=== PATIENT | female | born 1955 | race African-American/Black ===

== ENCOUNTER → 2016-03-24 | Outpatient (REF) | payer OTHER ==
[~2016-03-24] MED LIST: *MAMMOGRAM; *MAMMOGRAM -; *XRAY -; /AMLO25TA PO; /BACL20TA PO; ACCUPRIL20 PO; ACET-654 PO; ACET25TA PO; ACET50TA PO; ACET50TAOT PO; ACUL0.5S OS; ALTACE10 PO; AMIT50TA PO; AMIT50TA4 PO; AMIT75TA PO; AMITRIP10 PO; AMITRIP25 PO; AMITRIP50 PO; AMLO10TA PO; AMLO10TA2 PO; AMMO12CR4 TOP; AMO500 PO; AMOX875T2 PO; ANAPROX DS PO; ASPI1TAB PO; ASPI81TA7 PO; ASPI81TAEC PO; ATARAX25 PO; ATEN25TA PO; ATENOL25 PO; ATOR1TAB18 PO; AVAP150T31 PO; AVON1KIT3 IM; BACL10TA2 PO; BUSP1TAB PO; BUTA-198 PO; CARV12.5 PO; CARV25TA PO; CHLO25TA PO; CILO0.3S OS; CIPR500T89 PO; CITA10TA2 PO; CLOP75TA2 PO; DARVOCET-N PO; DOXY100T PO; DOXY10CA PO; DULC10SU9 PR; ENAL20TA PO; ESTR62CR PV; FERR325T PO; FERR325T3 PO; FERROUS325 PO; FIOR1CAP PO; FIORINAL PO; FLAG500T PO; FLAGYL500 PO; GABA-283 PO; GABA600T PO; GLIM2TAB PO; GLUCCOSEAC TOPICAL; GLUCOPH500 FOR SUGAR; GLUCOPH850 PO; GLUCOPXR5; GLUCOSE TEST; GLUCULTRA TOPICAL; GLYBURIDE5 PO; HCTZ25 PO; HUMULINN SC; HYDR-3716 PO; HYDR-4266 PO; HYDR100T13 PO; HYDR25TAB PO; HYDROD25 PO; IRBE75TA5 PO; KEPP250T5 PO; LANCMIS; LIPITOR10 PO; LIPITOR20 PO; LIPITOR40 PO; LIPITOR80 PO; LOPRESS50 PO; LOSA100T36 PO; LOVE1INJ SC; MAGN400T5 PO; MECL12.575 PO; MECL25CH PO; MELO15TA3 PO; MELO15TA4 PO; METF850T PO; MOTRIN6 PO; NEUR300C PO; NEURONTIN1 PO; NEURONTIN3 PO; NEURONTIN6 PO; NEURONTIN8 PO; NITR4TASL SL; ORTHOTRI PO; PANT40TA2 PO; PRAV40TA2 PO; PREDOPD OD; PREVACID15 PO; PREVACID30 PO; PRIM125TAB PO; PRIM250T5 PO; PROT1TAB2 PO; PROTONIX40 PO; SENN1TAB4 PO; SENO8.6T10 PO; SPIR25TA2 PO; SYR.5; SYRINS1CC SUBQ; TIGAN PO; TIZA4CAP3 PO; TOPA100T PO; TOPA50TA7 PO; TYLE325T5 PO; TYLE650T30 PO; ULTRAM50 PO; VALA500T PO; VALT1TAB PO; VALT500T PO; VASO20TA11 PO; VASOTEC PO; VERA40TA PO; VICO5TAB16 PO; VICO7.5T11 PO; VICODIN PO; VITA10002 PO; VITA100072 PO; VITA100L PO; VOLT1GEL24 TD; WELLBSR150 PO; XANAX0.5 PO; ZOLOFT100 PO; ZOLOFT50 PO; [UNRECOGNIZED DRUG - CODE] INJ; [UNRECOGNIZED DRUG - CODE] PO; [UNRECOGNIZED DRUG - CODE] PO; [UNRECOGNIZED DRUG - CODE] PO; [UNRECOGNIZED DRUG - OTHER]; [UNRECOGNIZED DRUG - OTHER]
[2016-03-24 16:05] LABS: BASO # 0.1 K/mm3 (0.0-0.2); BASO % 1.2 % (0.0-1.0); EOS # 0.1 K/mm3 (0.0-0.50); EOS % 1.6 % (0.0-3.0); LARGE UNSTAINED CELL # 0.2 K/mm3 (0.0-0.4); LARGE UNSTAINED CELL % 3.2 % (0.0-4.0); LYMPH # 2.6 K/mm3 (1.5-4.5); LYMPH % 35.6 % (24.0-44.0); MEAN CORPUSCULAR HEMOGLOBIN 28.8 pg (27.0-33.0); MEAN CORPUSCULAR HGB CONC 31.9 g/dl (32.0-36.5); MEAN CORPUSCULAR VOLUME 90.5 fl (80.0-96.0); MONO # 0.8 K/mm3 (0.0-0.8); MONO % 12.1 % (0.0-5.0); NEUTROPHILS # 3.1 K/mm3 (1.8-7.7); NEUTROPHILS % 46.2 % (36.0-66.0); PLATELET COUNT, AUTOMATED 306 k/mm3 (150-450); RED CELL DISTRIBUTION WIDTH 16.2 % (11.5-14.5); WHITE BLOOD COUNT 6.6 K/mm3 (4.0-10.0)
[2016-03-24 18:00] LABS: CALCIUM LEVEL 9.3 MG/DL (8.5-10.1); CREATININE FOR GFR 1.62 MG/DL (0.55-1.02); GLOMERULAR FILTRATION RATE 41.9 (>51); PERCENT SATURATION 26.4 % (13.2-37.4); POTASSIUM SERUM 4.8 MEQ/L (3.5-5.1)
== END | disposition home or self-care (01) ==
LOC: M SFHCPLAZ 14:37
PROVIDERS: ATTEND Physician Assistant Medical
DX: N18.3 Chronic kidney disease, stage 3 (moderate) (principal); E87.5 Hyperkalemia

== ENCOUNTER → 2016-05-27 | Outpatient (REF) | payer OTHER ==
[2016-05-27 18:43] LABS: ALBUMIN 4.3 GM/DL (3.2-5.2); ALBUMIN/GLOBULIN RATIO 0.93 (1.00-1.93); BILIRUBIN,TOTAL 0.3 MG/DL (0.2-1.0); CALCIUM LEVEL 9.4 MG/DL (8.5-10.1); CREATININE FOR GFR 1.98 MG/DL (0.55-1.02); GLOMERULAR FILTRATION RATE 33.3 (>51); PERCENT SATURATION 23.2 % (13.2-37.4); POTASSIUM SERUM 4.9 MEQ/L (3.5-5.1); TOTAL PROTEIN 8.9 GM/DL (6.4-8.2)
[2016-05-27 19:08] LABS: BASO % 0.5 % (0.0-1.0); EOS # 0.1 K/mm3 (0.0-0.50); LARGE UNSTAINED CELL # 0.2 K/mm3 (0.0-0.4); LARGE UNSTAINED CELL % 2.5 % (0.0-4.0); LYMPH # 2.9 K/mm3 (1.5-4.5); LYMPH % 40.8 % (24.0-44.0); MEAN CORPUSCULAR HEMOGLOBIN 29.1 pg (27.0-33.0); MEAN CORPUSCULAR HGB CONC 31.2 g/dl (32.0-36.5); MEAN CORPUSCULAR VOLUME 93.2 fl (80.0-96.0); MONO # 0.6 K/mm3 (0.0-0.8); MONO % 9.1 % (0.0-5.0); NEUTROPHILS % 46.1 % (36.0-66.0); PLATELET COUNT, AUTOMATED 298 k/mm3 (150-450); RED CELL DISTRIBUTION WIDTH 14.1 % (11.5-14.5); WHITE BLOOD COUNT 6.6 K/mm3 (4.0-10.0)
[2016-05-27 19:14] LABS: INR 1.01
== END ==
LOC: M SFHCPLAZ 14:40
PROVIDERS: ATTEND Family Medicine
DX: E11.8 Type 2 diabetes mellitus with unspecified complications (principal); D50.9 Iron deficiency anemia, unspecified

== ENCOUNTER → 2016-07-02 | Outpatient (CLI) | payer OTHER ==
--- NOTE | 2016-07-13 00:43 | ECWPNPC ---
PATIENT NAME: LUL MORGAN : 1955 GENDER: FEMALE VISIT DATE: 07/02/2016 DISCHARGE DATE: 07/02/16 1435 VISIT LOCKED DATE TIME: PHYSICIAN: GAIL GILLETTE PHYSICIAN PAGER NO: [phone] RESOURCE: GAIL GILLETTE REASON FOR APPOINTMENT 1. BACK PAIN HISTORY OF PRESENT ILLNESS GENERAL: 60 Y/O FEMALE REFERRED BY DR. VALENCIA FOR EVAUATION OF CHRONIC NECK AND LOW BACK PAIN.PAIN BEGAN SEVERAL YEARS AGO.PAIN HAS GOTTEN WORSE OVER THE PAST YEAR.TRIALED ACETAMINOPHEN 1000MG TID X6 MONTHS WITHOUT IMPROVEMENT.NO NSAIDS DUE TO PLAVIX THERAPY.PT TRIALED ONE YEAR AGO AND PATIENT STATES MADE PAIN WORSE.USING TIZANIDINE 4MG ,2 TABLETS THREE TIMES DAILY OVER THE PAST 2 MONTHS IS NOT HELPING.DIAGNOSED WITH MULTIPLE SCLEROSIS 5 YEARS AGO.REPORTING POOR SLEEP AT NIGHT DUE TO SEVERE MUSCLE SPASMS.RATING PAIN VAS 9/10. NEW PATIENT CONSULT: WHEN DID YOUR PAIN FIRST START? . BRIEFLY DESCRIBE HOW YOUR PAIN STARTED? . HOW DOES YOUR PAIN CHANGE WITH TIME? . DOES YOUR PAIN AWAKEN YOU FROM SLEEP? . HOW MANY HOURS OF SLEEP DO YOU NORMALLY GET? . ANY DIAGNOSTIC TESTING? . FACILITY WHERE TESTS WERE DONE? ____. PAIN TREATMENT TREATMENT YES CANCER HAVE YOU EVER HAD ANY TYPE OF CANCER?NO NO. PAIN SCREENING: PATIENT HAS A COMPLAINT OF ACUTE OR CHRONIC PAIN :YES FALL RISK SCREENING: SCREENING :NO FALLS IN THE PAST YEAR [place] INVENTORY: QUESTIONNAIRE ASSESSEDTBD SCORE VALUE CALCULATED TBD CURRENT MEDICATIONS TAKING ASPIRIN 81 MG TABLET 1 TAB(S) ORALLY ONCE A DAY TAKING NITROGLYCERIN 0.4 MG TABLET SUBLINGUAL DIRECTED SUBLINGUAL PRN CHEST PAIN TAKING PROTONIX 40 MG TABLET DELAYED RELEASE 1 TABLET ORALLY ONCE A DAY TAKING FERROUS SULFATE 325 (65 FE) MG TABLET 1 TABLET ORALLY THREE TIMES A DAY TAKING VITAMIN B12 1000 MCG TABLET 1 TABLET ORALLY ONCE A DAY TAKING VALTREX 500 MG TABLET 1 TABLET ORALLY TWICE A DAY X 7 DAYS C FLARES TAKING LIPITOR 80 MG TABLET 1 TABLET ORALLY ONCE A DAY TAKING WHEELCHAIR ELECTRONIC MISCELLANEOUS DIRECTED TAKING LEVETIRACETAM 250 MG TABLET ORALLY TWICE A DAY TAKING AVONEX 30 MCG KIT 1 INTRAMUSCULAR WEEKLY-YVAN TAKING GLUCOSE BLOOD 1 STRIP GE TEST STRIPS ICD: E11.8 FSBS THREE TIMES DAILY NEEDED TAKING SENOKOT S 8.6-50 MG TABLET 1 TABLET IN THE EVENING NEEDED ORALLY TWICE A DAY TAKING PREMARIN 0.625 MG/GM CREAM DIRECTED VAGINAL DAILY FOR THREE WEEKS, 1 WEEK OFF TAKING PC LANCETS SUPER THIN 30G - MISCELLANEOUS USE TWICE A DAY DIRECTED TAKING SITZ BATH - MISCELLANEOUS DIRECTED _ BID TAKING EPSOM SALT - POWDER I1 CAPFUL IN SITZ BATH DIRECTED TOPICALLY BID TAKING CARVEDILOL 25 MG TABLET 1 1/2 TAB ORALLY BID TAKING LANCETS _ MISCELLANEOUS DIRECTED INTRADERMALLY TWICE A DAY DX:E11.8 TAKING TRAZODONE HCL 50 MG TABLET 1 TABLET AT BEDTIME NEEDED ORALLY ONCE A DAY TAKING NORVASC 10 MG TABLET 1 TABLET ORALLY ONCE A DAY TAKING MAGNESIUM OXIDE 400 MG CAPSULE 2 CAPSULES ORALLY DAILY TAKING BD PEN NEEDLE SHORT U/F 31G X 8 MM MISCELLANEOUS DIRECTED SUBCUTANEOUSLY BEFORE BEDTIME TAKING SPIRONOLACTONE 25 MG TABLET 1 TABLET ORALLY TWICE DAILY TAKING PLAVIX 75 MG TABLET 1 TABLET ORALLY ONCE A DAY TAKING BLOOD GLUCOSE TEST - STRIP 1 STRIP ONE TOUCH VERIO AC 3X/DAY TAKING ONETOUCH VERIO W/DEVICE KIT DIRECTED TAKING NORVASC 10 MG TABLET 1/2 TABLET ORALLY ONCE A DAY TAKING FRANK SOLOSTAR 300 UNIT/ML SOLUTION PEN-INJECTOR 50 UNITS SUBCUTANEOUS QHS TAKING AMARYL 4 MG TABLET 1 TABLET WITH BREAKFAST OR THE FIRST MAIN MEAL OF THE DAY ORALLY BID TAKING ONETOUCH VERIO - STRIP DIRECTED IN VITRO THREE TIMES DAILY TAKING TIZANIDINE HCL 4 MG TABLET 2 TABS ORALLY EVERY 8 HRS TAKING GABAPENTIN 600 MG TABLET 1 CAPSULE ORALLY THREE TIMES A DAY-YVAN TAKING ACETAMINOPHEN 500 MG CAPSULE 1 CAPSULES NEEDED ORALLY TID TAKING [id number] 50-325-40 MG TABLET TAKE ONE TABLET BY MOUTH EVERY DAY TAKING CHLORTHALIDONE 25 25 MG TABLET ORAL DAILY NOT-TAKING PRIMIDONE 250 MG TABLET 1 TABLET ORALLY TWICE A DAY NOT-TAKING BUSPIRONE HCL 15 MG TABLET 1 TABLET ORALLY TWICE A DAY NOT-TAKING CARVEDILOL 25 MG TABLET 1 1/2 TAB ORALLY BID PAST MEDICAL HISTORY ANEMIA, IRON DEFICIENCY-11/2010 COLONOSCOPY-INTERNAL/EXTERNAL HEMORRHOIDS/SIGMOID DIVERTICOLOSIS-[facility] HYPERTENSION-MILD CONCENTRIC LVH, MILD TR, GARDE 1 DIASTOLIC BY 02/2016 TTE-ADOLFO HYPERLIPIDEMIA 2B MIGRAINE HEADACHES, COMMON TYPE MULTIPLE SCLEROSIS-11/2011 MRI BRAIN, CERVICAL,THORACIC SPINEC SCATTERED T2 PUNCTATE AREAS IN PERIVENTRICULAR, SUBCORTICAL WHITE MATTER BRAIN, C3-7SPONDYLOSIS MINIMAL C6/7 CORD COMPRESSION, T12/12 BULGE C NO CORD LESIONS GERD 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 ELVIA PUGH, [facility], [facility]/03/21/15 SPECT NUCLEAR STRESS TEST LVEF 62%, S ICHEMIA, LOW RISK-SLEZKA H/O SUBCLINICAL HYPERTHYROIDISM PSEUDOTUMOR CEREBRI/IDIOPATHIC INTRACRANIAL HYPERTENSION CERVICAL/THORACIC/LUMBAR DJD-08/02/14 MRI SERIES C C6/7 CCS C CORD COMPRESSION, MULTI-LEVEL BULGES-MINIMAL CHANGE C/W 11/30/11, MODERATE L4-1 MODERATE CCS, MODERATE T11/12 BULGE S COMPRESSION CKD 3-05/2015 US C MRD S EL SEIZURE DISORDER ALLERGIES ACEI: COUGH: ALLERGY ZOLOFT: NAUSEA/VOMITING: SIDE EFFECTS SULFA (FOR ALLERGY USE ONLY): HIVES: ALLERGY CODEINE SULFATE: MAKES HER ITCH: SIDE EFFECTS PERCOCET: HIVES: ALLERGY NORTRIPTYLINE HCL: HALLUCINTIONS: CONTRAINDICATION SURGICAL HISTORY C SECTION 1978, 1979 REMOVAL OF LEFT SUBMANDIBULAR GLAND DUCT STONE-SAHIL OCTOBER 2007 EMB 2006 D&C HYSTEROSCOPY BTL RIGHT EYE CATARACT SURGERY DR. VICTORIA 04/14/15 LEFT EYE CATARACT SURGERY 05/12/15 FAMILY HISTORY FATHER: DM MOTHER: , UNKNOWN SIBLINGS: SISTER DM MATERNAL GRAND FATHER: , CANCER DAUGHTER- TADEO. SOCIAL HISTORY GENERAL: TOBACCO USE ARE YOU A:NONSMOKER BMI CARE GOAL FOLLOW-UP ABOVE NORMAL BMI FOLLOW-UPGIVING ENCOURAGEMENT TO EXERCISE ALCOHOL SCREENING DID YOU HAVE A DRINK CONTAINING ALCOHOL IN THE PAST YEAR?YES HOW OFTEN DID YOU HAVE A DRINK CONTAINING ALCOHOL IN THE PAST YEAR?NEVER (0 POINTS) HOW OFTEN DID YOU HAVE SIX OR MORE DRINKS ON ONE OCCASION IN THE PAST YEAR?NEVER (0 POINTS) POINTS0 INTERPRETATIONNEGATIVE RECREATIONAL DRUG USE DENIES. CAFFEINE 1-2/DAY. SEXUAL HX HAD SEX IN THE LAST 12 MONTHS (VAGINAL, ORAL, OR ANAL)?NO HAVE YOU EVER HAD AN STD?NO HIV / HEP-C SCREENING HIV TEST OFFERED TO PATIENT:YES DATE OFFERED:05/27/2016 TEST ACCEPTED:YES BEEN TESTED IN [facility] PAST HEP-C TEST OFFERED TO PATIENT:YES DATE OFFERED:05/27/2016 TEST ACCEPTED:YES BEEN T [employer] IN THE PAST OCCUPATION: UNEMPLOYED X20YRS. 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 DIET: NO HISTORY OF ED. EXERCISE: NO REGULAR EXERCISE. MARITAL STATUS: . OTHERS AT HOME: SPOUSE. LEARNING BARRIERS / SPECIAL NEEDS BARRIERS TO LEARNING?NO HEARING IMPAIRED?NO VISION IMPAIRED?YES :CORRECTIVE LENSES COGNITIVELY IMPAIRED?NO READINESS TO LEARN?YES LEARNING PREFERENCES?NO LEARNING CAPABILITIES PRESENT?YES EMOTIONAL BARRIERS?NO SPECIAL DEVICES?YES :WALKER, OTHER ELECTRIC SCOOTER PAIN CLINIC PFS, CLERGY, PUBLIC HEALTH REFERRALS CLERGY REFERRAL NEEDED?NO WAS THE PROVIDER NOTIFIED OF ANY PERTINENT INFO?NO PFS REFERRAL NEEDED?NO PUBLIC HEALTH REFERRAL NEEDED?NO PATIENT: ____. 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 HOSPITALIZATION/MAJOR DIAGNOSTIC PROCEDURE MS FLARE-TREATED C SOLUMEDROL 1000 MG IV QD X 5D PER DR. SANTORO RECOMMENDATION, -BCX X3, - UCX, STABLE T2 PUNCTATIONS C/W 11/2011 MRI, -RLE DVT US, - CXR, UDS + TCA, BARBS, THC 02/23- NEW ONSET BLE WEAKNESS/ATAXIA-RESOLVED BY DAY OF DISCHARGE C REDUCTION OF BACLOFEN TO 5 TID AND AMITRITYLINE 50 BID TO 75 QHS-DR. ROBERTS[facility] PER (CAMILA C6/7 COMPRESSION), CXR NAD, MRI BRAIN C VERY MINIMLA PROGRESSION 08/02- LETHARGY/ATAXIA-? 2 DEHYDRATION, MEDICATIONS DR. MCDUFFIE FELT "MULTIFACTORIAL GAIT DIFFICULTY", UDS + PHENOBARB, BCX -2/- UCX, TRANSFERRED TO [facility] 2 UNSTABLE ANGINA 12/12-9/15 PANCREATITIS 05/05-05/09 HYPERTENSIVE URGENCY -05/15/2015 UTI- IN [facility] 10/2015 LYNDSEY C PEAK CR 2.2, K 6.2-FELT 2 DEHYDRATION/HYPOTENSION-RENAL US/CT AP C/W MRD 02/24- REVIEW OF SYSTEMS CONSTITUTIONAL: RECENT ILLNESS ADMITS HAD A UTI AND HOSPITALIZED IN [facility], DUE TO COMPLICATIONS . ANY CHANGE IN YOUR MEDICAL CONDITION? NO . CHILLS NO . FEVER DENIES, NO . WEIGHT LOSS DENIES . INFECTION: DO YOU HAVE NEW INFECTIONS? YES . DO YOU HAVE HISTORY OF MRSA? NO . MUSCULOSKELETAL: ANY NEW PATTERNS OF PAIN OR NUMBNESS? YES PAIN INCREASED AND UNABLE TO STAND FOR ANY AMOUNT OF TIME, PT HAS A DX OF MS . SYTEMIC LUPUS NO . JOINT PAIN DENIES . JOINT STIFFNESS DENIES . GASTROENTEROLOGY: BOWEL INCONTINENCE DENIES . ANY NEW CHANGE IN BOWEL CONTROL? NO . BARRETTS ESOPHAGUS NO . CIRRHOSIS NO . HEPATITIS NO . LIVER FAILURE NO . ACID REFLUX NO . BLOOD IN STOOL DENIES . UNEXPLAINED WEIGHT LOSS NO . GENITOURINARY: ANY NEW CHANGE IN BLADDER CONTROL? NO . IS THERE A CHANCE YOU COULD BE ? NO . HEMATOLOGY/LYMPH: DENIES . BLEEDING DISORDER DENIES . DO YOU TAKE ANY BLOOD THINNERS? (FOR EXAMPLE- COUMADIN, PLAVIX, AGGRENOX, PLATEL, PRADAXA, OR XARELTO) NO . WHEN WAS YOUR LAST DOSE? DATE: TIME: . LOW PLATELET COUNT NO . SICKLE CELL DISEASE NO . VON WILLIEBRANDS NO . FACTOR V LEIDEN NO . THALLASEMIA NO . ANEMIA NO, CHRONIC . EASY BRUISING NO . NEUROLOGY: HAVE YOU FALLEN IN THE PAST 6 MONTHS? YES PT HAS MS . ANY NEW EXTREMITY NUMBNESS OR WEAKNESS? NO . HEAD INJURY NO . DEMENTIA NO . CEREBRAL PALSY NO . MULTIPLE SCLEROSIS NO . DIZZINESS NO . HEADACHE DENIES, NO . SEIZURES DENIES . STROKES NO . VERTIGO NO . CARDIOLOGY: DO YOU HAVE A PACEMAKER OR DEFIBRILLATOR? NO . ANGINA NO . HEART ATTACK NO . HEART SURGERY NO . CONGESTIVE HEART FAILURE/FLUID OVERLOAD NO . CHEST PAIN DENIES, NO . HIGH BLOOD PRESSURE ON MEDICATION(S) . IRREGULAR HEART BEAT NO . SHORTNESS OF BREATH DENIES . RESPIRATORY: HAVE YOU BEEN SICK IN THE PAST WEEK? NO . FEVER NO . FLU LIKE SYMPTOMS? NO . CPAP NO . BYPAP NO . ASTHMA NO . EMPHYSEMA NO . CHRONIC LUNG DISEASES NO . SHORTNESS OF BREATH ON EXERTION NO . DO YOU USE ANY TYPE OF TOBACCO (SMOKE, SMOKELESS, CHEW)? NO . COUGH DENIES, NO . SHORTNESS OF BREATH DENIES . SNORING NO . INTEGUMENTARY: DO YOU HAVE ANY RASHES OR OPEN SORES? NO . ALLERGIC/IMMUNO: ARE YOU ALLERGIC TO SHELLFISH OR IV DYE? NO . ANY NEW ALLERGIES? NO . PSYCHIATRIC: DO YOU HAVE THOUGHTS OF HURTING YOURSELF OR SOMEONE ELSE? NO . ARE YOU ABUSED, NEGLECTED, OR IN AN UNSAFE ENVIRONMENT? NO . ENDOCRINOLOGY: THYROID DISEASE DENIES . ARE YOU DIABETIC? YES . DIABETES DENIES . THYROID DISORDER NO . OTHER: DO YOU NEED ANY PRESCRIPTIONS? NO . IF YES, PLEASE LIST: ____ . ANY NEW PROBLEMS WITH YOUR MEDICATIONS? NO . WHEN DID YOU LAST EAT? ____ . WHEN DID YOU LAST DRINK? ____ . WHAT DID YOU LAST DRINK? ____ . NAME OF PERSON DRIVING YOU HOME? ____ . DO YOU HAVE ANY OTHER QUESTIONS OR CONCERNS NO . HEENT: CHANGE IN VISION DENIES . LOSS OF HEARING DENIES . TROUBLE SWALLOWING DENIES . PSYCHOLOGY: ANXIETY DENIES . DEPRESSION DENIES . UROLOGY: URINARY INCONTINENCE DENIES . BLOOD IN URINE DENIES . REVIEWED BY: PROVIDER: GAIL WALDEN . EXAMINATION GENERAL EXAMINATION: HEENT:HEAD:, NORMOCEPHALIC, EYES:, EYES NORMAL, NOSE:, NOSE CLEAR, THROAT: NORMAL. LUNGS:LUNG SOUNDS ARE CLEAR. HEART:HEART RATE REGULAR. ABDOMEN:SOFT AND NOT TENDER, NON-DISTENDED. MUSCULOSKELETAL:*. LUMBAR SACRAL SPINEMUSCLE STRENGTH TESTING 5/5 BLE. PALPATION: + FOR PAIN OVER L/S SPINE. + FOR PAIN OVER L/S PARASPINALS.SPECIFICPOINT TENDERNESS OVER BILATERAL SIJ R>L. THORACIC SPINENEGATIVE FOR PAIN WITH PALPATION OF THORACIC SPINE. NEGATIVE FOR PAIN WITH PALPATION OF THORACIC PARASPINAL. CERVICALNEGATIVE FOR PAIN WITH PALPATION OF CERVICAL SPINE. NEGATIVE FOR PAIN WITH PALPATION OF CERVICAL PARASPINALS. NEGATIVE FOR PAIN WITH PALPATION OF TRAPEZIUS BILAT. SKIN:NORMAL, NO RASH. NEUROLOGIC EXAM:ALERT AND ORIENTED X 3, DTRS 1-2+ IN ALL 4 EXTREMITIES, DENIES UPPER EXTREMETIES SENSORY LOSS, DENIES LOWER EXTREMETIES SENSORY LOSS. DIAGNOSTIC:MRI L/S ELEOT-45-28-15-REVIEWED.. ASSESSMENTS LUMBAR FACET ARTHROPATHY - M12.88 (PRIMARY) SACROILIAC JOINT PAIN - M53.3 MULTIPLE SCLEROSIS - G35 TREATMENT LUMBAR FACET ARTHROPATHY START CYMBALTA CAPSULE DELAYED RELEASE PARTICLES, 30 MG, 1 CAPSULE, ORALLY, DAILY, 30 DAY(S), 30 CAPSULE, REFILLS 2 NOTES: HAVE DR. VALENCIA CONTACT GAIL WALDEN OR DR. CR REGARDING USE OF NARCOTIC PAIN MEDICATION. [phone]-PICK OPTION #4 DR. CHO. OTHERS CLINICAL NOTES: ISTOP REGISTRY REVIEWED. PROCEDURE CODES FA211 ESTABILISHED PATIENT [facility] CHARGE DISPOSITION & COMMUNICATION FOLLOW UP 6 WEEKS ELECTRONICALLY SIGNED BY WIN BROWN ON 07/12/2016 AT 05:03 PM EDT DISCLAIMER : THIS IS A VISIT SUMMARY EXTRACTED FROM THE [employer] CHART. IT IS NOT A COPY OF THE [employer] PROGRESS NOTE. MTDD
== END ==
LOC: M PAIN 13:20
PROVIDERS: ATTEND Nurse Practitioner Family
DX: G89.29 Other chronic pain (principal); M54.2 Cervicalgia; M12.88 Other specific arthropathies, not elsewhere classified, other specified site; M53.3 Sacrococcygeal disorders, not elsewhere classified; G35 Multiple sclerosis; M54.5 Low back pain; D50.9 Iron deficiency anemia, unspecified; I12.9 Hypertensive chronic kidney disease with stage 1 through stage 4 chronic kidney disease, or unspecified chronic kidney disease; E78.5 Hyperlipidemia, unspecified; G43.009 Migraine without aura, not intractable, without status migrainosus; K21.9 Gastro-esophageal reflux disease without esophagitis; G25.0 Essential tremor; E11.40 Type 2 diabetes mellitus with diabetic neuropathy, unspecified; E11.21 Type 2 diabetes mellitus with diabetic nephropathy; E11.22 Type 2 diabetes mellitus with diabetic chronic kidney disease; I25.10 Atherosclerotic heart disease of native coronary artery without angina pectoris; N18.3 Chronic kidney disease, stage 3 (moderate); G40.909 Epilepsy, unspecified, not intractable, without status epilepticus; Z79.82 Long term (current) use of aspirin; Z79.02 Long term (current) use of antithrombotics/antiplatelets; Z79.899 Other long term (current) drug therapy; Z88.2 Allergy status to sulfonamides; Z88.5 Allergy status to narcotic agent; Z88.8 Allergy status to other drugs, medicaments and biological substances

== ENCOUNTER → 2016-07-16 | Outpatient (CLI) | payer OTHER ==
--- NOTE | 2016-07-16 13:08 | REPMRS ---
Patient History The patient states she has not had a clinical breast exam in over a year. Patient is postmenopausal. Family history of colorectal cancer in sister at age 50 or over and prostate cancer in maternal cousin at age 50 or over. Digital Woman Screen Mammo: July 16, 2016 - Exam #: [id number] Bilateral CC and MLO view(s) were taken. Technologist: Helena Lindo, Technologist Prior study comparison: July 16, 2015, digital woman screen mammo performed at [facility]. December 12, 2013, digital woman screen mammo performed at [facility]. FINDINGS: The breast tissue is heterogeneously dense. This may lower the sensitivity of mammography. There has been no change in the appearance of the mammogram from the prior studies. There is a moderate amount of residual fibroglandular tissue which is fairly symmetric. There is no interval development of dominant mass, areas of architectural distortion, or clustered microcalcification typical of malignancy. ASSESSMENT: BI-RADS/ACR category 1 mammogram. Negative. Recommendation Routine screening mammogram in 1 year (for women over age 40). This mammogram was interpreted with the aid of an FDA-approved computer-aided dectection system. Electronically Signed By: Devon Colón MD 07/16/16 [id number]
== END ==
LOC: M WHC 10:37
PROVIDERS: ATTEND Family Medicine
DX: Z12.31 Encounter for screening mammogram for malignant neoplasm of breast (principal); Z78.0 Asymptomatic menopausal state; Z80.0 Family history of malignant neoplasm of digestive organs

== ENCOUNTER 2016-08-05 09:49 | Emergency (ER) | payer OTHER ==
[~2016-08-05] VITALS: Ht 152.4 cm; Wt 75.7 kg
[2016-08-05] MEDS ORDERED: TOUJ1.2I SC (10:04)
[2016-08-05] MEDS ORDERED: NS 500 ML IV ONE (11:30)
[2016-08-05 12:05] LABS: CALCIUM LEVEL 9.4 MG/DL (8.5-10.1); CREATININE FOR GFR 2.17 MG/DL (0.55-1.02); GLOMERULAR FILTRATION RATE 29.9 (>51); POTASSIUM SERUM 4.9 MEQ/L (3.5-5.1)
[2016-08-05] MEDS ORDERED: MORPHINE 2 MG/ML 1ML SYRINGE IV ONE ×2 (12:15→14:00)
--- NOTE | 2016-08-05 12:26 | REP ---
CT CERVICAL SPINE WITHOUT CONTRAST: HISTORY: Neck pain. There is no acute fracture or subluxation. Disc bulges with associated osteophyte formation are present at the C4-5 and C6-7 levels. A disc bulge is present at the C5-6 level. There is minimal narrowing of the spinal canal. Uncinate process hypertrophy is present at the C4-5 and C6-7 levels. This produces minimal narrowing of the neural foramina. The C5-6 and C6-7 intervertebral discs are decreased in height consistent with disc degeneration. Atherosclerotic calcification is present at the carotid bifurcations. Calcification is present in the right tonsil. This is secondary to previous inflammatory disease. IMPRESSION: There is cervical spondylosis at the C4-5 through C6-7 levels. Signed by Oliverio Odonnell MD 08/05/2016 12:30 P
[2016-08-05 12:39] LABS: BASO % 0.4 % (0.0-1.0); EOS # 0.1 K/mm3 (0.0-0.50); EOS % 1.3 % (0.0-3.0); LARGE UNSTAINED CELL # 0.1 K/mm3 (0.0-0.4); LARGE UNSTAINED CELL % 1.5 % (0.0-4.0); LYMPH # 1.7 K/mm3 (1.5-4.5); LYMPH % 26.1 % (24.0-44.0); MEAN CORPUSCULAR HEMOGLOBIN 30.9 pg (27.0-33.0); MEAN CORPUSCULAR HGB CONC 33.2 g/dl (32.0-36.5); MONO # 0.4 K/mm3 (0.0-0.8); MONO % 5.3 % (0.0-5.0); NEUTROPHILS # 4.3 K/mm3 (1.8-7.7); NEUTROPHILS % 65.4 % (36.0-66.0); PLATELET COUNT, AUTOMATED 299 k/mm3 (150-450); RED CELL DISTRIBUTION WIDTH 14.8 % (11.5-14.5); WHITE BLOOD COUNT 6.6 K/mm3 (4.0-10.0)
[2016-08-05 13:21] LABS: ALBUMIN 3.9 GM/DL (3.2-5.2); ALBUMIN/GLOBULIN RATIO 0.89 (1.00-1.93); ALKALINE PHOSPHATASE 53 U/L (45-117); ALT/SGPT 31 U/L (12-78); AST/SGOT 33 U/L (15-37); BILIRUBIN,DIRECT < 0.1 MG/DL (0.0-0.2); BILIRUBIN,TOTAL 0.4 MG/DL (0.2-1.0); TOTAL PROTEIN 8.3 GM/DL (6.4-8.2)
[2016-08-05] MEDS ORDERED: VICO5TAB16 PO (13:53)
[2016-08-05 14:28] VITALS: BP 154/83
== END 2016-08-05 14:29 | disposition home or self-care (01) ==
LOC: M ED 11:08
DX: R00.1 Bradycardia, unspecified (principal); M47.892 Other spondylosis, cervical region; E04.9 Nontoxic goiter, unspecified; I95.9 Hypotension, unspecified; E11.9 Type 2 diabetes mellitus without complications; I25.10 Atherosclerotic heart disease of native coronary artery without angina pectoris; G35 Multiple sclerosis; M19.90 Unspecified osteoarthritis, unspecified site; R56.9 Unspecified convulsions; Z95.5 Presence of coronary angioplasty implant and graft; Z87.891 Personal history of nicotine dependence; Z88.5 Allergy status to narcotic agent; Z88.2 Allergy status to sulfonamides; Z88.8 Allergy status to other drugs, medicaments and biological substances; Z79.899 Other long term (current) drug therapy; Z79.4 Long term (current) use of insulin

== ENCOUNTER → 2016-08-10 | Outpatient (CLI) | payer OTHER ==
[~2016-08-10] MED LIST changes: +TOUJ1.2I SC
--- NOTE | 2016-08-11 02:07 | ECWPNPC ---
PATIENT NAME: LUL MORGAN : 1955 GENDER: FEMALE VISIT DATE: 08/10/2016 DISCHARGE DATE: 08/10/16 1545 VISIT LOCKED DATE TIME: PHYSICIAN: GAIL GILLETTE PHYSICIAN PAGER NO: [phone] RESOURCE: GAIL GILLETTE HISTORY OF PRESENT ILLNESS HISTORY OF PRESENT ILLNESS: HERE FOR F/U OF CHRONIC GENERALIZED BACK PAIN.STARTED ON CYMBALTA 30MG DAILY AT LAST VISIT.REPORTS NO IMPROVEMENT IN PAIN.RATING PAIN VAS 8/10.PRIMARY CARE RECENTLY INCREASED GABAPENTIN.DESCRIBES PAIN ACHING AND BURNING.REVIEWED MEDICATION AND TREATMENT OPTIONS. PAIN THE PATIENT DESCRIBES THE PAIN... THE PATIENT DESCRIBES THE PAIN... FALL RISK SCREENING: SCREENING :NO FALLS IN THE PAST YEAR :NO FALLS IN THE PAST YEAR SCREENING :NO FALLS IN THE PAST YEAR :NO FALLS IN THE PAST YEAR CURRENT MEDICATIONS TAKING PROTONIX 40 MG TABLET DELAYED RELEASE 1 TABLET ORALLY ONCE A DAY TAKING FERROUS SULFATE 325 (65 FE) MG TABLET 1 TABLET ORALLY ONCE A DAY TAKING VITAMIN B12 1000 MCG TABLET 1 TABLET ORALLY ONCE A DAY TAKING VALTREX 500 MG TABLET 1 TABLET ORALLY TWICE A DAY X 7 DAYS C FLARES TAKING LIPITOR 80 MG TABLET 1 TABLET ORALLY ONCE A DAY TAKING WHEELCHAIR ELECTRONIC MISCELLANEOUS DIRECTED TAKING AVONEX 30 MCG KIT 1 INTRAMUSCULAR WEEKLY-YVAN TAKING SENOKOT S 8.6-50 MG TABLET 1 TABLET IN THE EVENING NEEDED ORALLY TWICE A DAY TAKING PREMARIN 0.625 MG/GM CREAM DIRECTED VAGINAL DAILY FOR THREE WEEKS, 1 WEEK OFF TAKING LANCETS _ MISCELLANEOUS DIRECTED INTRADERMALLY TWICE A DAY DX:E11.8 TAKING TRAZODONE HCL 50 MG TABLET 1 TABLET AT BEDTIME NEEDED ORALLY ONCE A DAY TAKING MAGNESIUM OXIDE 400 MG CAPSULE 2 CAPSULES ORALLY DAILY TAKING SPIRONOLACTONE 25 MG TABLET 1 TABLET ORALLY TWICE DAILY TAKING ONETOUCH VERIO - STRIP DIRECTED IN VITRO THREE TIMES DAILY TAKING [id number] 50-325-40 MG TABLET TAKE ONE TABLET BY MOUTH EVERY DAY TAKING TIZANIDINE HCL 4 MG TABLET 2 TABS ORALLY EVERY 8 HRS TAKING CYMBALTA 30 MG CAPSULE DELAYED RELEASE PARTICLES 1 CAPSULE ORALLY DAILY TAKING ACETAMINOPHEN 500 MG CAPSULE 1 CAPSULES NEEDED ORALLY TID TAKING GABAPENTIN 800 MG TABLET 1 TABLET ORALLY THREE TIMES A DAY TAKING LEVETIRACETAM 250 MG TABLET ORALLY TWICE A DAY TAKING GLUCOSE BLOOD 1 STRIP GE TEST STRIPS ICD: E11.8 FSBS THREE TIMES DAILY NEEDED TAKING PC LANCETS SUPER THIN 30G - MISCELLANEOUS USE TWICE A DAY DIRECTED TAKING BLOOD GLUCOSE TEST - STRIP 1 STRIP ONE TOUCH VERIO AC 3X/DAY TAKING ONETOUCH VERIO W/DEVICE KIT DIRECTED TAKING AMARYL 4 MG TABLET 1 TABLET WITH BREAKFAST OR THE FIRST MAIN MEAL OF THE DAY ORALLY BID TAKING CHLORTHALIDONE 25 25 MG TABLET ORAL DAILY TAKING ASPIRIN 81 MG TABLET 1 TAB(S) ORALLY ONCE A DAY TAKING NITROGLYCERIN 0.4 MG TABLET SUBLINGUAL DIRECTED SUBLINGUAL PRN CHEST PAIN TAKING PLAVIX 75 MG TABLET 1 TABLET ORALLY ONCE A DAY TAKING SITZ BATH - MISCELLANEOUS DIRECTED _ BID TAKING EPSOM SALT - POWDER I1 CAPFUL IN SITZ BATH DIRECTED TOPICALLY BID TAKING PROCTOFOAM 1 % FOAM AFEW DAYS TO SHRINK HEMORRHOIDS RECTAL DAILY TAKING BACID - TABLET DIRECTED ORALLY DAILY TAKING PROCTOSOL HC 2.5 % CREAM 1 APPLICATION TO AFFECTED AREA RECTAL TWICE A DAY NEEDED TAKING CARVEDILOL 25 MG TABLET 1 1/2 TAB ORALLY BID TAKING BD PEN NEEDLE SHORT U/F 31G X 8 MM MISCELLANEOUS DIRECTED SUBCUTANEOUSLY BEFORE BEDTIME TAKING TOUJEO SOLOSTAR 300 UNIT/ML SOLUTION PEN-INJECTOR 10 UNITS SUBCUTANEOUS QHS TAKING VALACYCLOVIR HCL 500 MG TABLET TAKE ONE TABLET BY MOUTH TWICE A DAY FOR 7 DAYS WITH FLARES NOT-TAKING NORVASC 10 MG TABLET 1 TABLET ORALLY ONCE A DAY MEDICATION LIST REVIEWED AND RECONCILED WITH THE PATIENT PAST MEDICAL HISTORY ANEMIA, IRON DEFICIENCY-11/2010 COLONOSCOPY-INTERNAL/EXTERNAL HEMORRHOIDS/SIGMOID DIVERTICOLOSIS-[facility] HYPERTENSION-MILD CONCENTRIC LVH, MILD TR, GARDE 1 DIASTOLIC BY 02/2016 TTE-ADOLFO HYPERLIPIDEMIA 2B MIGRAINE HEADACHES, COMMON TYPE MULTIPLE SCLEROSIS-11/2011 MRI BRAIN, CERVICAL,THORACIC SPINEC SCATTERED T2 PUNCTATE AREAS IN PERIVENTRICULAR, SUBCORTICAL WHITE MATTER BRAIN, C3-7SPONDYLOSIS MINIMAL C6/7 CORD COMPRESSION, T12/12 BULGE C NO CORD LESIONS GERD 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 VICTORIA 04/14/15 LEFT EYE CATARACT SURGERY 05/12/15 HOSPITALIZATION/MAJOR DIAGNOSTIC PROCEDURE MS FLARE-TREATED C SOLUMEDROL 1000 MG IV QD X 5D PER DR. SANTORO RECOMMENDATION, -BCX X3, - UCX, STABLE T2 PUNCTATIONS C/W 11/2011 MRI, -RLE DVT US, - CXR, UDS + TCA, BARBS, THC 02/23- NEW ONSET BLE WEAKNESS/ATAXIA-RESOLVED BY DAY OF DISCHARGE C REDUCTION OF BACLOFEN TO 5 TID AND AMITRITYLINE 50 BID TO 75 QHS-DR. ROBERTS/ROHIT CONSULTED [facility] MRI RESULTS PER (CAMILA C6/7 COMPRESSION), CXR NAD, MRI BRAIN C VERY MINIMLA PROGRESSION 08/02- LETHARGY/ATAXIA-? 2 DEHYDRATION, MEDICATIONS DR. MCDUFFIE FELT "MULTIFACTORIAL GAIT DIFFICULTY", UDS + PHENOBARB, BCX -2/- UCX, TRANSFERRED TO [place] 2 UNSTABLE ANGINA 12/12-11/26 PANCREATITIS 05/05-05/09 HYPERTENSIVE URGENCY -05/15/2015 UTI- IN [facility] 10/2015 LYNDSEY C PEAK CR 2.2, K 6.2-FELT 2 DEHYDRATION/HYPOTENSION-RENAL US/CT AP C/W MRD 02/24- REVIEW OF SYSTEMS CONSTITUTIONAL: ANY CHANGE IN YOUR MEDICAL CONDITION? NO, NO . CHILLS NO, NO . FEVER NO, NO . INFECTION: DO YOU HAVE NEW INFECTIONS? , YES, COUGH . DO YOU HAVE HISTORY OF MRSA? NO, NO . MUSCULOSKELETAL: ANY NEW PATTERNS OF PAIN OR NUMBNESS? NO, NO . GASTROENTEROLOGY: ANY NEW CHANGE IN BOWEL CONTROL? NO, NO . GENITOURINARY: ANY NEW CHANGE IN BLADDER CONTROL? NO, NO . IS THERE A CHANCE YOU COULD BE ? NO, NO . HEMATOLOGY/LYMPH: DO YOU TAKE ANY BLOOD THINNERS? (FOR EXAMPLE- COUMADIN, PLAVIX, AGGRENOX, PLATEL, PRADAXA, OR XARELTO) NO, NO . WHEN WAS YOUR LAST DOSE? DATE: TIME: , DATE: TIME: . NEUROLOGY: HAVE YOU FALLEN IN THE PAST 6 MONTHS? NO, NO . ANY NEW EXTREMITY NUMBNESS OR WEAKNESS? NO, NO . CARDIOLOGY: DO YOU HAVE A PACEMAKER OR DEFIBRILLATOR? NO, NO . RESPIRATORY: HAVE YOU BEEN SICK IN THE PAST WEEK? NO, NO . FEVER NO, NO . FLU LIKE SYMPTOMS? NO, NO . COUGH NO, NO . INTEGUMENTARY: DO YOU HAVE ANY RASHES OR OPEN SORES? NO, NO . ALLERGIC/IMMUNO: ARE YOU ALLERGIC TO SHELLFISH OR IV DYE? NO, NO . ANY NEW ALLERGIES? NO, NO . PSYCHIATRIC: DO YOU HAVE THOUGHTS OF HURTING YOURSELF OR SOMEONE ELSE? NO, NO . ARE YOU ABUSED, NEGLECTED, OR IN AN UNSAFE ENVIRONMENT? NO, NO . ENDOCRINOLOGY: ARE YOU DIABETIC? , YES . OTHER: DO YOU NEED ANY PRESCRIPTIONS? , YES, TO DISCUSS WITH Carlee GILLETTE . IF YES, PLEASE LIST: ____, ____ . ANY NEW PROBLEMS WITH YOUR MEDICATIONS? NO, NO . WHEN DID YOU LAST EAT? ____, ____ . WHEN DID YOU LAST DRINK? ____, ____ . WHAT DID YOU LAST DRINK? ____, ____ . NAME OF PERSON DRIVING YOU HOME? ____, ____ . DO YOU HAVE ANY OTHER QUESTIONS OR CONCERNS NO, NO . REVIEWED BY: PROVIDER: , GAIL GILLETTE PLANT TAXONOMIST . VITAL SIGNS WT 168.2 LBS, HT 59.75 IN, BMI 33.12 INDEX, BP 169/77 MM HG, HR 86 /MIN, RR 18 /MIN, TEMP 96.9 F, OXYGEN SAT % 98%, SAFE IN ENV? (Y/N) Y, NA INITIALS TL 1456, REVIEWED BY: JIMENA. EXAMINATION GENERAL EXAMINATION: HEENT:HEAD:, NORMOCEPHALIC, EYES:, EYES NORMAL, NOSE:, NOSE CLEAR, THROAT: NORMAL. LUNGS:LUNG SOUNDS ARE CLEAR. HEART:HEART RATE REGULAR. ABDOMEN:SOFT AND NOT TENDER, NON-DISTENDED. MUSCULOSKELETAL:*. LUMBAR SACRAL SPINEMUSCLE STRENGTH TESTING 5/5 BLE. PALPATION: + FOR PAIN OVER L/S SPINE. + FOR PAIN OVER L/S PARASPINALS.SPECIFICPOINT TENDERNESS OVER BILATERAL SIJ R>L. THORACIC SPINENEGATIVE FOR PAIN WITH PALPATION OF THORACIC SPINE. NEGATIVE FOR PAIN WITH PALPATION OF THORACIC PARASPINAL. CERVICALNEGATIVE FOR PAIN WITH PALPATION OF CERVICAL SPINE. NEGATIVE FOR PAIN WITH PALPATION OF CERVICAL PARASPINALS. NEGATIVE FOR PAIN WITH PALPATION OF TRAPEZIUS BILAT. SKIN:NORMAL, NO RASH. NEUROLOGIC EXAM:ALERT AND ORIENTED X 3, DTRS 1-2+ IN ALL 4 EXTREMITIES, DENIES UPPER EXTREMETIES SENSORY LOSS, DENIES LOWER EXTREMETIES SENSORY LOSS. DIAGNOSTIC:MRI L/S [id number]-REVIEWED.. ASSESSMENTS LUMBAR FACET ARTHROPATHY - M12.88 (PRIMARY) SACROILIAC JOINT PAIN - M53.3 MULTIPLE SCLEROSIS - G35 TREATMENT LUMBAR FACET ARTHROPATHY START NORCO TABLET, 7.5-325 MG, 1 TABLET NEEDED, ORALLY, EVERY 6 HRS PRN MDD3, 30 DAY(S), 45, REFILLS 0 NOTES: ISTOP REGISTRY REVIEWED AND DEMNOSTRATES COMPLLIANCE., RISKS AND BENEFITS OF NARCOTIC/OPIOD MEDICATIONS WERE REVIEWED WITH PATIENT - THIS INCLUDES BUT IS NOT LIMITED TO RISK OF DEPENDANCE/DEVELOPMENT OF ADDICTION, MOOD DISTURBANCE AND DEPRESSION, OSTEOPOROSIS, HORMONAL AND LABIDAL CHANGES, RESPIRATORY DEPRESSION AND . PATIENT IS ADVISED NOT TO DRIVE WHILE ON THESE MEDICATIONS.PATIENT WILL CONTACT [facility] IN [place]. PROCEDURE CODES FA211 ESTABILISHED PATIENT [facility] CHARGE DISPOSITION & COMMUNICATION FOLLOW UP 6 WEEKS ELECTRONICALLY SIGNED BY WIN BROWN ON 08/10/2016 AT 05:31 PM EDT DISCLAIMER : THIS IS A VISIT SUMMARY EXTRACTED FROM THE [employer] CHART. IT IS NOT A COPY OF THE [employer] PROGRESS NOTE. MTDD
== END ==
LOC: M PAIN 15:00
PROVIDERS: ATTEND Nurse Practitioner Family
DX: G89.29 Other chronic pain (principal); M12.88 Other specific arthropathies, not elsewhere classified, other specified site; M53.3 Sacrococcygeal disorders, not elsewhere classified; G35 Multiple sclerosis; D50.9 Iron deficiency anemia, unspecified; K57.30 Diverticulosis of large intestine without perforation or abscess without bleeding; K64.4 Residual hemorrhoidal skin tags; K64.8 Other hemorrhoids; I12.9 Hypertensive chronic kidney disease with stage 1 through stage 4 chronic kidney disease, or unspecified chronic kidney disease; E78.5 Hyperlipidemia, unspecified; G43.009 Migraine without aura, not intractable, without status migrainosus; K21.9 Gastro-esophageal reflux disease without esophagitis; G25.0 Essential tremor; E11.40 Type 2 diabetes mellitus with diabetic neuropathy, unspecified; E11.21 Type 2 diabetes mellitus with diabetic nephropathy; I25.10 Atherosclerotic heart disease of native coronary artery without angina pectoris; N18.3 Chronic kidney disease, stage 3 (moderate); G40.909 Epilepsy, unspecified, not intractable, without status epilepticus; Z88.2 Allergy status to sulfonamides; Z88.8 Allergy status to other drugs, medicaments and biological substances; Z88.5 Allergy status to narcotic agent; Z79.82 Long term (current) use of aspirin; Z79.899 Other long term (current) drug therapy; Z79.02 Long term (current) use of antithrombotics/antiplatelets; Z79.4 Long term (current) use of insulin

== ENCOUNTER → 2016-08-17 | Outpatient (REF) | payer OTHER ==
[~2016-08-17] MED LIST changes: +GLIM4TAB PO; +NORC7.5T PO; +PROC2.5C PR; +RISATAB3 PO; +TRAZO50TA PO; +ZANA4TAB PO
[2016-08-17 16:18] LABS: BASO % 0.7 % (0.0-1.0); EOS # 0.1 K/mm3 (0.0-0.50); EOS % 1.7 % (0.0-3.0); LARGE UNSTAINED CELL # 0.2 K/mm3 (0.0-0.4); LARGE UNSTAINED CELL % 2.4 % (0.0-4.0); LYMPH # 2.7 K/mm3 (1.5-4.5); LYMPH % 36.8 % (24.0-44.0); MEAN CORPUSCULAR HEMOGLOBIN 30.6 pg (27.0-33.0); MEAN CORPUSCULAR HGB CONC 31.9 g/dl (32.0-36.5); MEAN CORPUSCULAR VOLUME 95.6 fl (80.0-96.0); MONO # 0.7 K/mm3 (0.0-0.8); NEUTROPHILS # 3.3 K/mm3 (1.8-7.7); NEUTROPHILS % 48.3 % (36.0-66.0); PLATELET COUNT, AUTOMATED 303 k/mm3 (150-450); RED CELL DISTRIBUTION WIDTH 15.3 % (11.5-14.5); WHITE BLOOD COUNT 6.9 K/mm3 (4.0-10.0)
[2016-08-17 17:36] LABS: ALBUMIN 4.1 GM/DL (3.2-5.2); ALBUMIN/GLOBULIN RATIO 0.89 (1.00-1.93); BILIRUBIN,TOTAL 0.3 MG/DL (0.2-1.0); CALCIUM LEVEL 10.2 MG/DL (8.5-10.1); CREATININE FOR GFR 1.83 MG/DL (0.55-1.02); GLOMERULAR FILTRATION RATE 36.4 (>51); POTASSIUM SERUM 4.5 MEQ/L (3.5-5.1); TOTAL PROTEIN 8.7 GM/DL (6.4-8.2)
== END ==
LOC: M LABNEURO 15:50
PROVIDERS: ATTEND Psychiatry & Neurology Neurology
DX: G35 Multiple sclerosis (principal)

== ENCOUNTER 2016-08-23 09:13 | Emergency (ER) | payer OTHER ==
[~2016-08-23] VITALS: Ht 152.4 cm; Wt 76.2 kg
[~2016-08-23 09:13] MED LIST changes: -GLIM4TAB PO; -NORC7.5T PO; -PROC2.5C PR; -RISATAB3 PO; -TRAZO50TA PO; -ZANA4TAB PO
[2016-08-23] MEDS ORDERED: ONDANSETRON 4MG/2ML VIAL (J2405) IV ONE (09:45)
[2016-08-23] MEDS ORDERED: MORPHINE 4 MG/ML 1ML SYRINGE IV PRN (09:45)
[2016-08-23 10:01] LABS: INR 1.02
[2016-08-23 10:17] LABS: ALBUMIN 3.2 GM/DL (3.2-5.2); ALBUMIN/GLOBULIN RATIO 0.73 (1.00-1.93); ALKALINE PHOSPHATASE 49 U/L (45-117); ALT/SGPT 27 U/L (12-78); ANION GAP 8 MEQ/L (8-16); AST/SGOT 22 U/L (15-37); BASO % 0.4 % (0.0-1.0); BILIRUBIN,DIRECT < 0.1 MG/DL (0.0-0.2); BILIRUBIN,TOTAL 0.3 MG/DL (0.2-1.0); BLOOD UREA NITROGEN 39 MG/DL (7-18); CARBON DIOXIDE LEVEL 24 MEQ/L (21-32); CHLORIDE LEVEL 109 MEQ/L (98-107); GLOMERULAR FILTRATION RATE 39.7 (>51); GLUCOSE, FASTING 113 MG/DL (70-105); LARGE UNSTAINED CELL % 2.9 % (0.0-4.0); LYMPH % 31.2 % (24.0-44.0); MEAN CORPUSCULAR HEMOGLOBIN 31.3 pg (27.0-33.0); MEAN CORPUSCULAR HGB CONC 33.2 g/dl (32.0-36.5); MEAN CORPUSCULAR VOLUME 94.3 fl (80.0-96.0); MONO % 11.2 % (0.0-5.0); NEUTROPHILS % 52.1 % (36.0-66.0); PLATELET COUNT, AUTOMATED 217 k/mm3 (150-450); POTASSIUM SERUM 4.2 MEQ/L (3.5-5.1); RED CELL DISTRIBUTION WIDTH 15.1 % (11.5-14.5); SODIUM LEVEL 141 MEQ/L (136-145); TOTAL PROTEIN 7.6 GM/DL (6.4-8.2); WHITE BLOOD COUNT 5.8 K/mm3 (4.0-10.0)
[2016-08-23 10:18] LABS: EOS # 0.1 K/mm3 (0.0-0.50); LARGE UNSTAINED CELL # 0.2 K/mm3 (0.0-0.4); LYMPH # 1.8 K/mm3 (1.5-4.5); MONO # 0.7 K/mm3 (0.0-0.8)
[2016-08-23] MEDS ORDERED: GLIM4TAB PO (10:41)
[2016-08-23] MEDS ORDERED: NITR4TASL SL (10:41)
[2016-08-23] MEDS ORDERED: ZANA4TAB PO (10:41)
[2016-08-23] MEDS ORDERED: NORC7.5T PO (10:41)
[2016-08-23] MEDS ORDERED: RISATAB3 PO (10:41)
[2016-08-23] MEDS ORDERED: TRAZO50TA PO (10:41)
[2016-08-23] MEDS ORDERED: PROC2.5C PR (10:44)
[2016-08-23] MEDS ORDERED: ESTR62CR PV (10:46)
--- NOTE | 2016-08-23 11:07 | REP ---
CT abdomen/ pelvis without IV or bowel contrast for flank pain: Comparison is 03/03/2016. There are no renal calculi. There is no hydronephrosis or hydroureter. There are no ureteral or bladder calculi. The bladder is collapsed and non distended. There are numerous phleboliths in the pelvis bilaterally, unchanged. The visualized lung dumont are unremarkable. There is calcified vascular atheroma in the coronary arteries. This is unchanged. The unenhanced hepatic parenchyma, gallbladder, pancreas and spleen are unremarkable and unchanged. There is diffuse gastric wall thickening, nonspecific, artifact from non distension versus gastritis versus neoplasm. The adrenals are thickened bilaterally compatible with adrenal cortical hyperplasia. There is a small less than 1 cm cyst in the extreme upper pole of the left kidney, unchanged. There is vascular atheromatous calcification of the renal deb bilaterally. This is unchanged. The abdominal aorta is unremarkable except for calcified atheroma. There is no bowel distension. Mesentery is unremarkable. Pelvis: There is no ascites or adenopathy. The uterus and necks are unremarkable. The pelvic bowel loops are unremarkable. There are numerous phleboliths. Impression: There is no hydronephrosis. There are no renal or ureteral collecting system calculi. There is vascular atheromatous calcification of the renal deb bilaterally. There is diffuse circumferential gastric wall thickening, nonspecific, artifact from non distension versus gastritis versus neoplasm. There are numerous phleboliths in the pelvis, unchanged. Bladder is nondistended. Otherwise, essentially negative CT of the abdomen and pelvis. Signed by Devon Garcia MD 08/23/2016 10:59 A
[2016-08-23] MEDS ORDERED: NORCO, ANEXSIA 5/325MG TABLET (HYDROcodone/ACETAMINOPHEN) PO ONE (13:00)
[2016-08-23 13:46] VITALS: BP 164/99
--- NOTE | 2016-08-23 18:16 | ECGEPIP ---
Stationary ECG Study [facility] - ED Test Date: 2016-08-23 Pat Name: LUL MORGAN Department: Room: - Gender: F [employer]: anand : 1955 Requested By: Katherine Hardy Order Number: [id number] Reading MD: Farshad Panda Measurements Intervals [place] Rate: 53 P: 44 ME: 181 QRS: -8 QRSD: 100 T: 115 QT: 447 QTc: 421 Interpretive Statements SINUS BRADYCARDIA MODERATE VOLTAGE CRITERIA FOR LVH, CONSIDER NORMAL VARIANT NON-SPECIFIC T WAVE ABNORMALITIES SIMILAR TO 03/03/16 Electronically Signed On 08-23-2016 18:15:57 EDT by Farshad Panda
--- NOTE | 2016-08-24 09:13 | ED PDOC ---
Post-Departure Follow-Up radiology report faxed to Katherine Alfonso MD Aug 24, 2016 09:13
== END 2016-08-23 14:07 | disposition home or self-care (01) ==
LOC: M ED 10:08
DX: M54.9 Dorsalgia, unspecified (principal); R10.9 Unspecified abdominal pain; N28.1 Cyst of kidney, acquired; I25.10 Atherosclerotic heart disease of native coronary artery without angina pectoris; E11.22 Type 2 diabetes mellitus with diabetic chronic kidney disease; E11.40 Type 2 diabetes mellitus with diabetic neuropathy, unspecified; M51.36 Other intervertebral disc degeneration, lumbar region; N18.9 Chronic kidney disease, unspecified; I12.9 Hypertensive chronic kidney disease with stage 1 through stage 4 chronic kidney disease, or unspecified chronic kidney disease; G35 Multiple sclerosis; G43.909 Migraine, unspecified, not intractable, without status migrainosus; G40.909 Epilepsy, unspecified, not intractable, without status epilepticus; E78.5 Hyperlipidemia, unspecified; G25.0 Essential tremor; G93.2 Benign intracranial hypertension; H25.9 Unspecified age-related cataract; Z79.82 Long term (current) use of aspirin; Z79.899 Other long term (current) drug therapy; Z88.2 Allergy status to sulfonamides; Z88.5 Allergy status to narcotic agent; Z88.8 Allergy status to other drugs, medicaments and biological substances

== ENCOUNTER → 2016-09-21 | Outpatient (CLI) | payer OTHER ==
[~2016-09-21] MED LIST changes: -ACET-654 PO; +ACET1TAB17 PO; +ASPI1TAB15 PO; -ASPI81TA7 PO; -ATOR1TAB18 PO; +ATOR80TA59 PO; +CIPR-249 PO; -CIPR500T89 PO; +DOXY100T2 PO; -DOXY10CA PO; +FERR1TAB8 PO; -FERR325T PO; +GLIM4TAB PO; +HYDR-3910 PO; -HYDR-4266 PO; +MECL1CHW2 PO; -MECL25CH PO; +METF850T4 PO; +NORC7.5T35 PO; -PRIM250T5 PO; +PRIM250T8 PO; +PROC2.5C PR; +RISATAB3 PO; +SENN18TA PO; -SENN1TAB4 PO; -TOPA50TA7 PO; +TOPA50TA8 PO; +TRAZO50TA PO; -VALA500T PO; +VALA500T2 PO; +VOLT1GEL15 TD; -VOLT1GEL24 TD; +ZANA4TAB PO
--- NOTE | 2016-10-07 01:10 | ECWPNPC ---
PATIENT NAME: LUL MORGAN : 1955 GENDER: FEMALE VISIT DATE: 09/21/2016 DISCHARGE DATE: 09/21/16 1542 VISIT LOCKED DATE TIME: PHYSICIAN: GAIL GILLETTE PHYSICIAN PAGER NO: [phone] RESOURCE: GAIL GILLETTE REASON FOR APPOINTMENT 1. FOLLOWUP HISTORY OF PRESENT ILLNESS HISTORY OF PRESENT ILLNESS: HERE FOR F/U AND MANAGEMENT OF CHRONIC LOW BACK AND RIGHT SHOULDER PAIN.REALLY SUFFERS FROM CHRONIC GENERALIZED JOINT PAIN.REPORTING POOR SLEEP SECONDARY TO GENERALIZED PAIN.WILL BE SEEING DR. FUCHS IN [facility] TO DISCUSS MEDICAL MARIJUANA.DIAGNOSED WITH MULTIPLE SCLEROSIS IN 2004.COMPLAINING OF NIGHT SWEATS WHICH ARE SEVERE AND CHRONIC BUT HAVE GOTTEN WORSE OVER THE YEARS. RATING PAIN VAS 9/10. PAIN THE PATIENT DESCRIBES THE PAIN... FALL RISK SCREENING: SCREENING :NO FALLS IN THE PAST YEAR CURRENT MEDICATIONS TAKING VITAMIN B12 1000 MCG TABLET 1 TABLET ORALLY ONCE A DAY TAKING VALTREX 500 MG TABLET 1 TABLET ORALLY TWICE A DAY X 7 DAYS C FLARES TAKING LIPITOR 80 MG TABLET 1 TABLET ORALLY ONCE A DAY TAKING WHEELCHAIR ELECTRONIC MISCELLANEOUS DIRECTED TAKING AVONEX 30 MCG KIT 1 INTRAMUSCULAR WEEKLY-YVAN TAKING SENOKOT S 8.6-50 MG TABLET 1 TABLET IN THE EVENING NEEDED ORALLY TWICE A DAY TAKING PREMARIN 0.625 MG/GM CREAM DIRECTED VAGINAL DAILY FOR THREE WEEKS, 1 WEEK OFF TAKING LANCETS _ MISCELLANEOUS DIRECTED INTRADERMALLY TWICE A DAY DX:E11.8 TAKING MAGNESIUM OXIDE 400 MG CAPSULE 2 CAPSULES ORALLY DAILY TAKING ACETAMINOPHEN 500 MG CAPSULE 1 CAPSULES NEEDED ORALLY TID TAKING LEVETIRACETAM 250 MG TABLET ORALLY TWICE A DAY TAKING ASPIRIN 81 MG TABLET 1 TAB(S) ORALLY ONCE A DAY TAKING SITZ BATH - MISCELLANEOUS DIRECTED _ BID TAKING EPSOM SALT - POWDER I1 CAPFUL IN SITZ BATH DIRECTED TOPICALLY BID TAKING PROCTOFOAM 1 % FOAM AFEW DAYS TO SHRINK HEMORRHOIDS RECTAL DAILY TAKING BD PEN NEEDLE SHORT U/F 31G X 8 MM MISCELLANEOUS DIRECTED SUBCUTANEOUSLY BEFORE BEDTIME TAKING VALACYCLOVIR HCL 500 MG TABLET TAKE ONE TABLET BY MOUTH TWICE A DAY FOR 7 DAYS WITH FLARES TAKING NORCO 7.5-325 MG TABLET 1 TABLET NEEDED ORALLY EVERY 6 HRS PRN MDD3 TAKING WALKER - MISCELLANEOUS DIRECTED SEATED WHEELED W/ 4 WHEELS DAILY DX: G35, NOTES: MARRAS TAKING SHOWER CHAIR WITHOUT WHEELS DIRECTED DX:G35 AT SHOWER TIME, NOTES: MARRAS TAKING [id number] 50-325-40 MG TABLET TAKE ONE TABLET BY MOUTH EVERY DAY TAKING FERROUS SULFATE 325 (65 FE) MG TABLET TAKE ONE TABLET BY MOUTH THREE TIMES A DAY TAKING BACLOFEN 10 MG TABLET TAKE ONE TABLET BY MOUTH TWICE A DAY AND TAKE 2 TABLETS BY MOUTH AT BEDTIME ORAL TAKING TIZANIDINE HCL 4 MG TABLET 2 TABS ORALLY EVERY 8 HRS TAKING AMARYL 4 MG TABLET 1 TABLET WITH BREAKFAST OR THE FIRST MAIN MEAL OF THE DAY ORALLY BID TAKING TOUJEO SOLOSTAR 300 UNIT/ML SOLUTION PEN-INJECTOR 10 UNITS SUBCUTANEOUS QHS TAKING GLUCOSE BLOOD 1 STRIP GE TEST STRIPS ICD: E11.8 FSBS THREE TIMES DAILY NEEDED TAKING BLOOD GLUCOSE TEST - STRIP 1 STRIP ONE TOUCH VERIO AC 3X/DAY TAKING CARVEDILOL 25 MG TABLET 1 TAB ORALLY BID TAKING CHLORTHALIDONE 25 25 MG TABLET 1 TAB ORAL DAILY TAKING SPIRONOLACTONE 25 MG TABLET 1 TABLET ORALLY TWICE DAILY TAKING RODRIGO CONTOUR NEXT TEST STRIPS [address] 50 TEST STRIPS BID TAKING BLOOD GLUCOSE SYSTEM MACARIO - KIT DIRECTED DX: E11.9 DIRECTED TAKING LANCETS - MISCELLANEOUS DIRECTED DX: E11.9 SUBCUTANEOUSLY BID TAKING BLOOD GLUCOSE TEST - STRIP DIRECTED DX: E11.9 INTRADERMALLY BID TAKING PROTONIX 40 MG TABLET DELAYED RELEASE 1 TABLET ORALLY ONCE A DAY TAKING TRAZODONE HCL 50 MG TABLET 1 TABLET AT BEDTIME NEEDED ORALLY ONCE A DAY TAKING GABAPENTIN 800 MG TABLET 1 TABLET ORALLY THREE TIMES A DAY TAKING NITROGLYCERIN 0.4 MG TABLET SUBLINGUAL DIRECTED SUBLINGUAL PRN CHEST PAIN TAKING BACID - TABLET DIRECTED ORALLY DAILY TAKING PROCTOSOL HC 2.5 % CREAM 1 APPLICATION TO AFFECTED AREA RECTAL TWICE A DAY NEEDED NOT-TAKING CYMBALTA 30 MG CAPSULE DELAYED RELEASE PARTICLES 1 CAPSULE ORALLY DAILY NOT-TAKING PLAVIX 75 MG TABLET 1 TABLET ORALLY ONCE A DAY MEDICATION LIST REVIEWED AND RECONCILED WITH THE PATIENT PAST MEDICAL HISTORY ANEMIA, IRON DEFICIENCY-11/2010 COLONOSCOPY-INTERNAL/EXTERNAL HEMORRHOIDS/SIGMOID DIVERTICOLOSIS-[facility] HYPERTENSION-MILD CONCENTRIC LVH, MILD TR, GARDE 1 DIASTOLIC BY 02/2016 TTE-ADOLFO HYPERLIPIDEMIA 2B MIGRAINE HEADACHES, COMMON TYPE MULTIPLE SCLEROSIS-11/2011 MRI BRAIN, CERVICAL,THORACIC SPINEC SCATTERED T2 PUNCTATE AREAS IN PERIVENTRICULAR, SUBCORTICAL WHITE MATTER BRAIN, C3-7SPONDYLOSIS MINIMAL C6/7 CORD COMPRESSION, T12/12 BULGE C NO CORD LESIONS GERD 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 ELVIA PUGH[facility]15 SPECT NUCLEAR STRESS TEST LVEF 62%, S ICHEMIA, LOW RISK-S[place]ZKA H/O SUBCLINICAL HYPERTHYROIDISM PSEUDOTUMOR CEREBRI/IDIOPATHIC INTRACRANIAL HYPERTENSION CERVICAL/THORACIC/LUMBAR DJD-08/02/14 MRI SERIES C C6/7 CCS C CORD COMPRESSION, MULTI-LEVEL BULGES-MINIMAL CHANGE C/W 11/30/11, MODERATE L4-1 MODERATE CCS, MODERATE T11/12 BULGE S COMPRESSION CKD 3-05/2015 US C MRD S EL SEIZURE DISORDER ALLERGIES ACEI: COUGH: ALLERGY ZOLOFT: NAUSEA/VOMITING: SIDE EFFECTS SULFA (FOR ALLERGY USE ONLY): HIVES: ALLERGY CODEINE SULFATE: MAKES HER ITCH: SIDE EFFECTS PERCOCET: HIVES: ALLERGY NORTRIPTYLINE HCL: HALLUCINTIONS: CONTRAINDICATION SURGICAL HISTORY C SECTION 1978, 1979 REMOVAL OF LEFT SUBMANDIBULAR GLAND DUCT STONE-SAHIL OCTOBER 20072006 D&C HYSTEROSCOPY BTL RIGHT EYE CATARACT SURGERY DR. VICTORIA 04/14/15 LEFT EYE CATARACT SURGERY 05/12/15 HOSPITALIZATION/MAJOR DIAGNOSTIC PROCEDURE MS FLARE-TREATED C SOLUMEDROL 1000 MG IV QD X 5D PER DR. SANTORO RECOMMENDATION, -BCX X3, - UCX, STABLE T2 PUNCTATIONS C/W 11/2011 MRI, -RLE DVT US, - CXR, UDS + TCA, BARBS, THC 02/23- NEW ONSET BLE WEAKNESS/ATAXIA-RESOLVED BY DAY OF DISCHARGE C REDUCTION OF BACLOFEN TO 5 TID AND AMITRITYLINE 50 BID TO 75 QHS-DR. ROBERTS/ROHIT CONSULTED [facility] MRI RESULTS PER (CAMILA C6/7 COMPRESSION), CXR NAD, MRI BRAIN C VERY MINIMLA PROGRESSION 08/02- LETHARGY/ATAXIA-? 2 DEHYDRATION, MEDICATIONS DR. ALI FELT "MULTIFACTORIAL GAIT DIFFICULTY", UDS + PHENOBARB, BCX -2/- UCX, TRANSFERRED TO [place] 2 UNSTABLE ANGINA 12/12-11/26 PANCREATITIS 05/05-05/09 HYPERTENSIVE URGENCY -05/15/2015 UTI- IN [facility] 10/2015 LYNDSEY C PEAK CR 2.2, K 6.2-FELT 2 DEHYDRATION/HYPOTENSION-RENAL US/CT AP C/W MRD 02/24- REVIEW OF SYSTEMS REVIEWED BY: PROVIDER: GAIL WALDEN . CONSTITUTIONAL: ANY CHANGE IN YOUR MEDICAL CONDITION? YES, PT C/O COMPLETE VISION LOSS IN LEFT EYE. RIGHT EYE VISION BLURRED. PT STATES THIS STARTED 2 WEEKS AGO, PT STATES SHE SAW DR. VICTORIA FOR THIS AND HE REFERRED HER TO SPECIALIST IN [place], BUT APPT IS NOT UNTIL OCTOBER. . CHILLS NO . FEVER NO . INFECTION: DO YOU HAVE NEW INFECTIONS? NO . DO YOU HAVE HISTORY OF MRSA? NO . MUSCULOSKELETAL: ANY NEW PATTERNS OF PAIN OR NUMBNESS? YES, RIGHT SHOULDER PAIN X 1 WEEK . GASTROENTEROLOGY: ANY NEW CHANGE IN BOWEL CONTROL? NO . GENITOURINARY: ANY NEW CHANGE IN BLADDER CONTROL? NO . IS THERE A CHANCE YOU COULD BE ? NO . HEMATOLOGY/LYMPH: DO YOU TAKE ANY BLOOD THINNERS? (FOR EXAMPLE- COUMADIN, PLAVIX, AGGRENOX, PLATEL, PRADAXA, OR XARELTO) NO . WHEN WAS YOUR LAST DOSE? DATE: TIME: . NEUROLOGY: HAVE YOU FALLEN IN THE PAST 6 MONTHS? NO . ANY NEW EXTREMITY NUMBNESS OR WEAKNESS? NO . CARDIOLOGY: DO YOU HAVE A PACEMAKER OR DEFIBRILLATOR? NO . RESPIRATORY: HAVE YOU BEEN SICK IN THE PAST WEEK? NO . FEVER NO . FLU LIKE SYMPTOMS? NO . COUGH NO . INTEGUMENTARY: DO YOU HAVE ANY RASHES OR OPEN SORES? NO . ALLERGIC/IMMUNO: ARE YOU ALLERGIC TO SHELLFISH OR IV DYE? NO . ANY NEW ALLERGIES? NO . PSYCHIATRIC: DO YOU HAVE THOUGHTS OF HURTING YOURSELF OR SOMEONE ELSE? NO . ARE YOU ABUSED, NEGLECTED, OR IN AN UNSAFE ENVIRONMENT? NO . ENDOCRINOLOGY: ARE YOU DIABETIC? YES . OTHER: DO YOU NEED ANY PRESCRIPTIONS? NO . IF YES, PLEASE LIST: ____ . ANY NEW PROBLEMS WITH YOUR MEDICATIONS? NO . WHEN DID YOU LAST EAT? ____ . WHEN DID YOU LAST DRINK? ____ . WHAT DID YOU LAST DRINK? ____ . NAME OF PERSON DRIVING YOU HOME? ____ . DO YOU HAVE ANY OTHER QUESTIONS OR CONCERNS NO . VITAL SIGNS WT 171.2 LBS, HT 59.75 IN, BMI 33.71 INDEX, BP 134/77 MM HG, HR 63 /MIN, RR 16 /MIN, TEMP 97.3 F, OXYGEN SAT % 99%, SAFE IN ENV? (Y/N) Y, NA INITIALS TL 1450, REVIEWED BY: EM. EXAMINATION GENERAL EXAMINATION: HEENT:HEAD:, NORMOCEPHALIC, EYES:, EYES NORMAL, NOSE:, NOSE CLEAR, THROAT: NORMAL. LUNGS:LUNG SOUNDS ARE CLEAR. HEART:HEART RATE REGULAR. ABDOMEN:SOFT AND NOT TENDER, NON-DISTENDED. MUSCULOSKELETAL:*. LUMBAR SACRAL SPINEMUSCLE STRENGTH TESTING 5/5 BLE. PALPATION: + FOR PAIN OVER L/S SPINE. + FOR PAIN OVER L/S PARASPINALS.SPECIFICPOINT TENDERNESS OVER BILATERAL SIJ R>L. THORACIC SPINENEGATIVE FOR PAIN WITH PALPATION OF THORACIC SPINE. NEGATIVE FOR PAIN WITH PALPATION OF THORACIC PARASPINAL. CERVICALNEGATIVE FOR PAIN WITH PALPATION OF CERVICAL SPINE. NEGATIVE FOR PAIN WITH PALPATION OF CERVICAL PARASPINALS. NEGATIVE FOR PAIN WITH PALPATION OF TRAPEZIUS BILAT. SKIN:NORMAL, NO RASH. NEUROLOGIC EXAM:ALERT AND ORIENTED X 3, DTRS 1-2+ IN ALL 4 EXTREMITIES, DENIES UPPER EXTREMETIES SENSORY LOSS, DENIES LOWER EXTREMETIES SENSORY LOSS. DIAGNOSTIC:MRI L/S [id number].. ASSESSMENTS LUMBAR FACET ARTHROPATHY - M12.88 (PRIMARY) SACROILIAC JOINT PAIN - M53.3 MULTIPLE SCLEROSIS - G35 TREATMENT LUMBAR FACET ARTHROPATHY REFILL NORCO TABLET, 7.5-325 MG, 1 TABLET NEEDED, ORALLY, EVERY 6 HRS PRN MDD3, 30 DAY(S), 45, REFILLS 0 PROCEDURE CODES FA211 ESTABILISHED PATIENT [facility] CHARGE DISPOSITION & COMMUNICATION FOLLOW UP 4 WEEKS ELECTRONICALLY SIGNED BY WIN BROWN ON 10/06/2016 AT 10:03 AM EDT DISCLAIMER : THIS IS A VISIT SUMMARY EXTRACTED FROM THE [employer] CHART. IT IS NOT A COPY OF THE [employer] PROGRESS NOTE. [facility]
== END ==
LOC: M PAIN 15:00
PROVIDERS: ATTEND Nurse Practitioner Family
DX: G89.29 Other chronic pain (principal); M12.88 Other specific arthropathies, not elsewhere classified, other specified site; M53.3 Sacrococcygeal disorders, not elsewhere classified; G35 Multiple sclerosis; D50.9 Iron deficiency anemia, unspecified; I13.0 Hypertensive heart and chronic kidney disease with heart failure and stage 1 through stage 4 chronic kidney disease, or unspecified chronic kidney disease; I50.32 Chronic diastolic (congestive) heart failure; K64.4 Residual hemorrhoidal skin tags; N18.3 Chronic kidney disease, stage 3 (moderate); E78.5 Hyperlipidemia, unspecified; K21.9 Gastro-esophageal reflux disease without esophagitis; E11.40 Type 2 diabetes mellitus with diabetic neuropathy, unspecified; E11.21 Type 2 diabetes mellitus with diabetic nephropathy; E11.22 Type 2 diabetes mellitus with diabetic chronic kidney disease; I25.10 Atherosclerotic heart disease of native coronary artery without angina pectoris; G40.909 Epilepsy, unspecified, not intractable, without status epilepticus; Z79.82 Long term (current) use of aspirin; Z79.891 Long term (current) use of opiate analgesic; Z79.4 Long term (current) use of insulin; Z88.5 Allergy status to narcotic agent; Z88.8 Allergy status to other drugs, medicaments and biological substances

== ENCOUNTER → 2016-10-05 | Outpatient (REF) | payer OTHER ==
[2016-10-05 13:12] LABS: BASO # 0.1 K/mm3 (0.0-0.2); BASO % 1.2 % (0.0-1.0); EOS # 0.1 K/mm3 (0.0-0.50); EOS % 1.4 % (0.0-3.0); LARGE UNSTAINED CELL # 0.2 K/mm3 (0.0-0.4); LARGE UNSTAINED CELL % 3.3 % (0.0-4.0); LYMPH # 1.9 K/mm3 (1.5-4.5); LYMPH % 31.8 % (24.0-44.0); MEAN CORPUSCULAR HEMOGLOBIN 31.1 pg (27.0-33.0); MEAN CORPUSCULAR HGB CONC 32.3 g/dl (32.0-36.5); MEAN CORPUSCULAR VOLUME 96.5 fl (80.0-96.0); MONO # 0.6 K/mm3 (0.0-0.8); MONO % 10.4 % (0.0-5.0); NEUTROPHILS % 51.9 % (36.0-66.0); PLATELET COUNT, AUTOMATED 252 k/mm3 (150-450); RED CELL DISTRIBUTION WIDTH 14.8 % (11.5-14.5); WHITE BLOOD COUNT 5.8 K/mm3 (4.0-10.0)
[2016-10-05 13:37] LABS: SICKLE CELL SCREEN NEGATIVE (NEGATIVE)
== END ==
LOC: M SFHCPLAZ 11:23
PROVIDERS: ATTEND Family Medicine
DX: Z13.0 Encounter for screening for diseases of the blood and blood-forming organs and certain disorders involving the immune mechanism (principal)

== ENCOUNTER → 2016-10-11 | Outpatient (REF) | payer OTHER | LOC: M SFHCPLAZ 07:34 | PROVIDERS: ATTEND Physician Assistant Medical | DX: E11.8 Type 2 diabetes mellitus with unspecified complications (principal) ==

== ENCOUNTER → 2016-10-21 | Outpatient (REF) | payer OTHER ==
[2016-10-21 12:22] LABS: BASO % 0.3 % (0.0-1.0); EOS # 0.1 K/mm3 (0.0-0.50); EOS % 1.7 % (0.0-3.0); LARGE UNSTAINED CELL # 0.1 K/mm3 (0.0-0.4); LARGE UNSTAINED CELL % 1.5 % (0.0-4.0); LYMPH # 1.6 K/mm3 (1.5-4.5); LYMPH % 25.3 % (24.0-44.0); MEAN CORPUSCULAR HEMOGLOBIN 31.4 pg (27.0-33.0); MEAN CORPUSCULAR HGB CONC 32.8 g/dl (32.0-36.5); MEAN CORPUSCULAR VOLUME 95.9 fl (80.0-96.0); MONO # 0.5 K/mm3 (0.0-0.8); MONO % 8.2 % (0.0-5.0); NEUTROPHILS # 3.7 K/mm3 (1.8-7.7); PLATELET COUNT, AUTOMATED 247 k/mm3 (150-450); RED CELL DISTRIBUTION WIDTH 14.5 % (11.5-14.5); WHITE BLOOD COUNT 5.8 K/mm3 (4.0-10.0)
[2016-10-21 12:23] LABS: ALBUMIN 3.7 GM/DL (3.2-5.2); ALBUMIN/GLOBULIN RATIO 0.84 (1.00-1.93); BILIRUBIN,TOTAL 0.4 MG/DL (0.2-1.0); CALCIUM LEVEL 9.2 MG/DL (8.5-10.1); CREATININE FOR GFR 1.86 MG/DL (0.55-1.02); FREE T4 1.14 NG/DL (0.76-1.46); GLOMERULAR FILTRATION RATE 35.8 (>51); MAGNESIUM LEVEL 1.7 MG/DL (1.8-2.4); POTASSIUM SERUM 4.3 MEQ/L (3.5-5.1); TOTAL PROTEIN 8.1 GM/DL (6.4-8.2)
== END ==
LOC: M SFHCPLAZ 10:02
PROVIDERS: ATTEND Family Medicine
DX: N18.3 Chronic kidney disease, stage 3 (moderate) (principal); E78.2 Mixed hyperlipidemia; E53.8 Deficiency of other specified B group vitamins

== ENCOUNTER → 2016-10-26 | Outpatient (REF) | payer OTHER | LOC: M SFHCPLAZ 15:52 | PROVIDERS: ATTEND Physician Assistant Medical | DX: R30.0 Dysuria (principal) ==

== ENCOUNTER → 2016-11-23 | Outpatient (CLI) | payer OTHER ==
--- NOTE | 2016-11-30 02:18 | ECWPNPC ---
PATIENT NAME: LUL MORGAN : 1955 GENDER: FEMALE VISIT DATE: 11/23/2016 DISCHARGE DATE: 11/23/16 1553 VISIT LOCKED DATE TIME: PHYSICIAN: GAIL GILLETTE PHYSICIAN PAGER NO: [phone] RESOURCE: AGIL GILLETTE HISTORY OF PRESENT ILLNESS HISTORY OF PRESENT ILLNESS: HERE FOR F/U OF CHRONIC LOW BACK PAIN AND NEUROPATHY PAIN.RECENTLY STARTED ON MEDICAL MARIJUANA WHICH HAS BEEN HELPFUL WITH GENERALIZED JOINT PAIN BUT NOT NEUROPATHY.RATING 8/10 VAS.DISCUSSED MEDICINE AND TREATMENT.DESCRIBES PAIN CONSTANT ,ACHING AND BURNING.HAVING DIFFICULTY AFFORDING MEDICAL MARIJUANA. PAIN THE PATIENT DESCRIBES THE PAIN... FALL RISK SCREENING: SCREENING :NO FALLS IN THE PAST YEAR CURRENT MEDICATIONS TAKING PROTONIX 40 MG TABLET DELAYED RELEASE 1 TABLET ORALLY ONCE A DAY TAKING FERROUS SULFATE 325 (65 FE) MG TABLET 1 TABLET ORALLY THREE TIMES A DAY TAKING VITAMIN B12 1000 MCG TABLET 1 TABLET ORALLY ONCE A DAY TAKING VALTREX 500 MG TABLET 1 TABLET ORALLY TWICE A DAY X 7 DAYS C FLARES TAKING WHEELCHAIR ELECTRONIC MISCELLANEOUS DIRECTED TAKING LEVETIRACETAM 250 MG TABLET ORALLY TWICE A DAY TAKING AMARYL 4 MG TABLET 1 TABLET WITH BREAKFAST OR THE FIRST MAIN MEAL OF THE DAY ORALLY BID TAKING ONE TOUCH ULTRA BLUE TEST STRIPS 1 STRIP SUBCUTANEOUSLY AC TID DX:E11.8 TAKING ASPIRIN 81 MG TABLET 1 TAB(S) ORALLY ONCE A DAY TAKING NITROGLYCERIN 0.4 MG TABLET SUBLINGUAL DIRECTED SUBLINGUAL PRN CHEST PAIN TAKING AVONEX 30 MCG KIT 1 INTRAMUSCULAR WEEKLY-YVAN TAKING CARVEDILOL 25 MG TABLET 1 1/2 TAB ORALLY BID TAKING CHLORTHALIDONE 25 25 MG TABLET 1 TAB ORAL DAILY TAKING NORVASC 10 MG TABLET 1 TABLET ORALLY ONCE A DAY TAKING MAGNESIUM OXIDE 400 MG CAPSULE 2 CAPSULES ORALLY DAILY TAKING PREMARIN 0.625 MG/GM CREAM DIRECTED VAGINAL DAILY FOR THREE WEEKS, 1 WEEK OFF TAKING LANCETS _ MISCELLANEOUS DIRECTED INTRADERMALLY TWICE A DAY DX:E11.8 TAKING SITZ BATH - MISCELLANEOUS DIRECTED _ BID TAKING EPSOM SALT - POWDER I1 CAPFUL IN SITZ BATH DIRECTED TOPICALLY BID TAKING PROCTOFOAM 1 % FOAM AFEW DAYS TO SHRINK HEMORRHOIDS RECTAL DAILY TAKING WALKER - MISCELLANEOUS DIRECTED SEATED WHEELED W/ 4 WHEELS DAILY DX: G35, NOTES: MARRAS TAKING SHOWER CHAIR WITHOUT WHEELS DIRECTED DX:G35 AT SHOWER TIME, NOTES: MARRAS TAKING TRAZODONE HCL 50 MG TABLET 1 TABLET AT BEDTIME NEEDED ORALLY ONCE A DAY TAKING BD PEN NEEDLE SHORT U/F 31G X 8 MM MISCELLANEOUS DIRECTED SUBCUTANEOUSLY BEFORE BEDTIME TAKING [id number] 50-325-40 MG TABLET TAKE ONE TABLET BY MOUTH EVERY DAY TAKING SENOKOT S 8.6-50 MG TABLET 1 TABLET IN THE EVENING NEEDED ORALLY TWICE A DAY TAKING ONETOUCH VERIO - STRIP DIRECTED IN VITRO THREE TIMES DAILY TAKING DRISDOL 25591 UNIT CAPSULE 1 CAPSULE ORALLY WEEKLY TAKING LIPITOR 80 MG TABLET 1 TABLET ORALLY ONCE A DAY TAKING ZETIA 10 MG TABLET 1 TABLET ORALLY ONCE A DAY TAKING NORCO 7.5-325 MG TABLET 1 TABLET NEEDED ORALLY EVERY 6 HRS PRN MDD3 TAKING TUCKS MEDICATED COOLING 50 % PAD 1 PAD TO HEMORRHOID EXTERNALLY TWICE A DAY TAKING NYSTATIN 197435 UNIT/GM CREAM 1 APPLICATION TO AFFECTED AREA EXTERNALLY TWICE A DAY TAKING AMMONIUM LACTATE 12 % LOTION 1 APPLICATION TO AFFECTED AREA EXTERNALLY TWICE A DAY TAKING TOPAMAX 25 MG TABLET 1 TABLET ORALLY TWICE A DAY TAKING BACLOFEN 10 MG TABLET TAKE ONE TABLET BY MOUTH TWICE A DAY AND TAKE 2 TABLETS BY MOUTH AT BEDTIME ORAL TAKING TIZANIDINE HCL 4 MG TABLET 2 ORALLY EVERY 8 HRS TAKING MAY USE - - MEDICAL MARIJUANA FROM DR. TAWANDA ERNANDEZ TAKING SPIRONOLACTONE 25 MG TABLET 1 TABLET ORALLY TWICE DAILY TAKING PROCTOSOL HC 2.5 % CREAM 1 APPLICATION TO AFFECTED AREA RECTAL TWICE A DAY NEEDED TAKING BACID - TABLET DIRECTED ORALLY DAILY TAKING GABAPENTIN 800 MG TABLET 1 TABLET ORALLY THREE TIMES A DAY TAKING TOMAGY SOLOSTAR 300 UNIT/ML SOLUTION PEN-INJECTOR 10 UNITS SUBCUTANEOUS QHS MEDICATION LIST REVIEWED AND RECONCILED WITH THE PATIENT PAST MEDICAL HISTORY ANEMIA, IRON DEFICIENCY-11/2010 COLONOSCOPY-INTERNAL/EXTERNAL HEMORRHOIDS/SIGMOID DIVERTICOLOSIS-THUY HYPERTENSION-MILD CONCENTRIC LVH, MILD TR, GARDE 1 DIASTOLIC BY 02/2016 TTE-ADOLFO HYPERLIPIDEMIA 2B MIGRAINE HEADACHES, COMMON TYPE MULTIPLE SCLEROSIS-11/2011 MRI BRAIN, CERVICAL,THORACIC SPINEC SCATTERED T2 PUNCTATE AREAS IN PERIVENTRICULAR, SUBCORTICAL WHITE MATTER BRAIN, C3-7SPONDYLOSIS MINIMAL C6/7 CORD COMPRESSION, T12/12 BULGE C NO CORD LESIONS GERD ESSENTIAL TREMOR T2DM IR WITH NEPHROPATHY, PERIPHERAL NEUROPATHY AND OU RETINOPATHY CAD-APRIL 2005 SHOWING 50% LAD STENOSIS; 12/24/2014 CATHERIZATION DONE 2 UNSTABLE ANGINA DISTAL LAD SMALL CALIBER 70% STENOSIS, RCA CO-DOMINANT SMALL CALIBER "SEVERELY DISEASED", 1 MARGINAL S/P 5 PAO FOR 70-95% LESIONS-DR[facility] ELVIA PUGH, 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 CONSTITUTIONAL: ANY CHANGE IN YOUR MEDICAL CONDITION? NO . CHILLS NO . FEVER NO . INFECTION: DO YOU HAVE NEW INFECTIONS? NO . DO YOU HAVE HISTORY OF MRSA? NO . MUSCULOSKELETAL: ANY NEW PATTERNS OF PAIN OR NUMBNESS? LEFT LOW BACK . GASTROENTEROLOGY: ANY NEW CHANGE IN BOWEL CONTROL? NO . GENITOURINARY: ANY NEW CHANGE IN BLADDER CONTROL? NO . IS THERE A CHANCE YOU COULD BE ? NO . HEMATOLOGY/LYMPH: DO YOU TAKE ANY BLOOD THINNERS? (FOR EXAMPLE- COUMADIN, PLAVIX, AGGRENOX, PLATEL, PRADAXA, OR XARELTO) NO . WHEN WAS YOUR LAST DOSE? DATE: TIME: . NEUROLOGY: HAVE YOU FALLEN IN THE PAST 6 MONTHS? NO . ANY NEW EXTREMITY NUMBNESS OR WEAKNESS? NO . CARDIOLOGY: DO YOU HAVE A PACEMAKER OR DEFIBRILLATOR? NO . RESPIRATORY: HAVE YOU BEEN SICK IN THE PAST WEEK? NO . FEVER NO . FLU LIKE SYMPTOMS? NO . COUGH NO . INTEGUMENTARY: DO YOU HAVE ANY RASHES OR OPEN SORES? NO . ALLERGIC/IMMUNO: ARE YOU ALLERGIC TO SHELLFISH OR IV DYE? NO . ANY NEW ALLERGIES? NO . PSYCHIATRIC: DO YOU HAVE THOUGHTS OF HURTING YOURSELF OR SOMEONE ELSE? NO . ARE YOU ABUSED, NEGLECTED, OR IN AN UNSAFE ENVIRONMENT? NO . ENDOCRINOLOGY: ARE YOU DIABETIC? NO . OTHER: DO YOU NEED ANY PRESCRIPTIONS? NO . IF YES, PLEASE LIST: ____ . ANY NEW PROBLEMS WITH YOUR MEDICATIONS? NO . WHEN DID YOU LAST EAT? ____ . WHEN DID YOU LAST DRINK? ____ . WHAT DID YOU LAST DRINK? ____ . NAME OF PERSON DRIVING YOU HOME? ____ . DO YOU HAVE ANY OTHER QUESTIONS OR CONCERNS PT WANTS TO KNOW WHY SHE CAN NOT GET ANY INJECTIONS LAST APPOINTMENT WAS IN [place] WITH FU IN 4 WEEKS . VITAL SIGNS WT 170 LBS, HT 59.75 IN, BMI 33.48 INDEX, BP 136/75 MM HG, HR 59 /MIN, RR 18 /MIN, TEMP 97.4 F, OXYGEN SAT % 96%, NA INITIALS AW 1450. EXAMINATION GENERAL EXAMINATION: HEENT:HEAD:, NORMOCEPHALIC, EYES:, EYES NORMAL, NOSE:, NOSE CLEAR, THROAT: NORMAL. LUNGS:LUNG SOUNDS ARE CLEAR. HEART:HEART RATE REGULAR. ABDOMEN:SOFT AND NOT TENDER, NON-DISTENDED. MUSCULOSKELETAL:*. LUMBAR SACRAL SPINEMUSCLE STRENGTH TESTING 5/5 BLE. PALPATION: + FOR PAIN OVER L/S SPINE. + FOR PAIN OVER L/S PARASPINALS.SPECIFICPOINT TENDERNESS OVER BILATERAL SIJ R>L. THORACIC SPINENEGATIVE FOR PAIN WITH PALPATION OF THORACIC SPINE. NEGATIVE FOR PAIN WITH PALPATION OF THORACIC PARASPINAL. CERVICALNEGATIVE FOR PAIN WITH PALPATION OF CERVICAL SPINE. NEGATIVE FOR PAIN WITH PALPATION OF CERVICAL PARASPINALS. NEGATIVE FOR PAIN WITH PALPATION OF TRAPEZIUS BILAT. SKIN:NORMAL, NO RASH. NEUROLOGIC EXAM:ALERT AND ORIENTED X 3, DTRS 1-2+ IN ALL 4 EXTREMITIES, DENIES UPPER EXTREMETIES SENSORY LOSS, DENIES LOWER EXTREMETIES SENSORY LOSS. DIAGNOSTIC:MRI L/S [id number]-REVIEWED.. ASSESSMENTS LUMBAR FACET ARTHROPATHY - M12.88 (PRIMARY) SACROILIAC JOINT PAIN - M53.3 MULTIPLE SCLEROSIS - G35 TREATMENT LUMBAR FACET ARTHROPATHY REFILL NORCO TABLET, 7.5-325 MG, 1 TABLET NEEDED, ORALLY, EVERY 6 HRS PRN MDD3, 30 DAY(S), 45, REFILLS 0 CONTINUE GABAPENTIN TABLET, 800 MG, 1 TABLET, ORALLY, THREE TIMES A DAY PROCEDURE CODES FA211 ESTABILISHED PATIENT [facility] CHARGE DISPOSITION & COMMUNICATION FOLLOW UP 2 MONTHS ELECTRONICALLY SIGNED BY WIN BROWN ON 11/29/2016 AT 04:42 PM EDT DISCLAIMER : THIS IS A VISIT SUMMARY EXTRACTED FROM THE [employer] CHART. IT IS NOT A COPY OF THE [employer] PROGRESS NOTE. CHRISTINE
== END ==
LOC: M PAIN 14:15
PROVIDERS: ATTEND Nurse Practitioner Family
DX: G89.29 Other chronic pain (principal); M12.88 Other specific arthropathies, not elsewhere classified, other specified site; M53.3 Sacrococcygeal disorders, not elsewhere classified; G35 Multiple sclerosis; D50.9 Iron deficiency anemia, unspecified; I12.9 Hypertensive chronic kidney disease with stage 1 through stage 4 chronic kidney disease, or unspecified chronic kidney disease; E78.5 Hyperlipidemia, unspecified; G43.909 Migraine, unspecified, not intractable, without status migrainosus; K21.9 Gastro-esophageal reflux disease without esophagitis; I25.10 Atherosclerotic heart disease of native coronary artery without angina pectoris; N18.3 Chronic kidney disease, stage 3 (moderate); G40.909 Epilepsy, unspecified, not intractable, without status epilepticus; Z88.2 Allergy status to sulfonamides; Z88.5 Allergy status to narcotic agent; Z88.8 Allergy status to other drugs, medicaments and biological substances; Z79.82 Long term (current) use of aspirin; Z79.891 Long term (current) use of opiate analgesic

== ENCOUNTER → 2016-12-22 | Outpatient (CLI) | payer OTHER ==
[2016-12-22 19:59] LABS: ALBUMIN 4.2 GM/DL (3.2-5.2); ALBUMIN/GLOBULIN RATIO 0.93 (1.00-1.93); ALKALINE PHOSPHATASE 52 U/L (45-117); ALT/SGPT 46 U/L (12-78); ANION GAP 9 MEQ/L (8-16); AST/SGOT 34 U/L (15-37); BILIRUBIN,TOTAL 0.3 MG/DL (0.2-1.0); BLOOD UREA NITROGEN 41 MG/DL (7-18); CALCIUM LEVEL 9.9 MG/DL (8.5-10.1); CARBON DIOXIDE LEVEL 25 MEQ/L (21-32); CHLORIDE LEVEL 105 MEQ/L (98-107); CHOLESTEROL LEVEL 131 MG/DL (<200); CREATININE FOR GFR 1.62 MG/DL (0.55-1.02); GLOMERULAR FILTRATION RATE 41.9 (>51); GLUCOSE, FASTING 110 MG/DL (70-105); POTASSIUM SERUM 3.9 MEQ/L (3.5-5.1); SODIUM LEVEL 139 MEQ/L (136-145); TOTAL PROTEIN 8.7 GM/DL (6.4-8.2); TRIGLYCERIDES LEVEL 124 MG/DL (<150)
--- NOTE | 2016-12-23 15:03 | REP ---
Clinical: Pain. Technique: AP, lateral, bilateral oblique views of the right ankle. Findings: Osseous structures, joint spaces, and surrounding soft tissues are normal. No acute fracture dislocation. Ankle mortise intact. Impression: Age-appropriate right ankle radiographs. Signed by Regan Andres MD 12/23/2016 02:55 P
== END ==
LOC: M LAB 15:16
PROVIDERS: ATTEND Family Medicine
DX: E78.2 Mixed hyperlipidemia (principal); E55.9 Vitamin D deficiency, unspecified; M25.571 Pain in right ankle and joints of right foot

== ENCOUNTER → 2017-01-24 | Outpatient (CLI) | payer OTHER | LOC: M PAIN 13:00 | PROVIDERS: ATTEND Nurse Practitioner Family | DX: G89.29 Other chronic pain (principal); M12.88 Other specific arthropathies, not elsewhere classified, other specified site; M53.3 Sacrococcygeal disorders, not elsewhere classified; G35 Multiple sclerosis; D50.9 Iron deficiency anemia, unspecified; I12.9 Hypertensive chronic kidney disease with stage 1 through stage 4 chronic kidney disease, or unspecified chronic kidney disease; E78.5 Hyperlipidemia, unspecified; G43.909 Migraine, unspecified, not intractable, without status migrainosus; N18.3 Chronic kidney disease, stage 3 (moderate); K21.9 Gastro-esophageal reflux disease without esophagitis; G25.0 Essential tremor; E11.42 Type 2 diabetes mellitus with diabetic polyneuropathy; E11.21 Type 2 diabetes mellitus with diabetic nephropathy; E11.319 Type 2 diabetes mellitus with unspecified diabetic retinopathy without macular edema; E11.22 Type 2 diabetes mellitus with diabetic chronic kidney disease; I25.10 Atherosclerotic heart disease of native coronary artery without angina pectoris; G40.909 Epilepsy, unspecified, not intractable, without status epilepticus; G93.2 Benign intracranial hypertension; M51.36 Other intervertebral disc degeneration, lumbar region; M50.30 Other cervical disc degeneration, unspecified cervical region; M51.34 Other intervertebral disc degeneration, thoracic region; Z79.82 Long term (current) use of aspirin; Z79.891 Long term (current) use of opiate analgesic; Z79.899 Other long term (current) drug therapy; Z88.2 Allergy status to sulfonamides; Z88.5 Allergy status to narcotic agent; Z88.8 Allergy status to other drugs, medicaments and biological substances ==

== ENCOUNTER 2017-01-31 15:41 | Outpatient (RCR) | payer OTHER | END 2017-02-10 | LOC: M PT 15:41 | PROVIDERS: ATTEND Family Medicine | DX: S93.401A Sprain of unspecified ligament of right ankle, initial encounter (principal); X58.XXXA Exposure to other specified factors, initial encounter; Y92.9 Unspecified place or not applicable; Y99.8 Other external cause status ==

== ENCOUNTER 2017-02-15 13:47 | Outpatient (RCR) | payer SELFPAY, OTHER | END 2017-03-13 | LOC: M PT 13:47 | DX: Z51.89 Encounter for other specified aftercare (principal); S93.401D Sprain of unspecified ligament of right ankle, subsequent encounter ==

== ENCOUNTER → 2017-04-21 | Outpatient (CLI) | payer OTHER | LOC: M PAIN 11:30 | DX: M12.88 Other specific arthropathies, not elsewhere classified, other specified site (principal); I12.9 Hypertensive chronic kidney disease with stage 1 through stage 4 chronic kidney disease, or unspecified chronic kidney disease; N18.3 Chronic kidney disease, stage 3 (moderate); F17.200 Nicotine dependence, unspecified, uncomplicated; J30.1 Allergic rhinitis due to pollen; G43.909 Migraine, unspecified, not intractable, without status migrainosus; G35 Multiple sclerosis; G25.0 Essential tremor; E11.40 Type 2 diabetes mellitus with diabetic neuropathy, unspecified; R56.9 Unspecified convulsions; Z88.2 Allergy status to sulfonamides; Z88.5 Allergy status to narcotic agent; Z88.8 Allergy status to other drugs, medicaments and biological substances | CPT/HCPCS: G0463 ==

== ENCOUNTER → 2017-04-26 | Outpatient (REF) | payer OTHER ==
[2017-04-26 18:26] LABS: BASO % 0.3 % (0.0-1.0); EOS # 0.1 10^3/uL (0.0-0.50); EOS % 1.6 % (0.0-3.0); HEMATOCRIT 40.2 % (36.0-47.0); HEMOGLOBIN 12.9 g/dl (12.0-16.0); IMMATURE GRANULOCYTE % 0.2 % (0-3.0); LYMPH # 2.4 10^3/uL (1.5-4.5); LYMPH % 39.1 % (24.0-44.0); MEAN CORPUSCULAR HGB CONC 32.1 g/dl (32.0-36.5); MEAN CORPUSCULAR VOLUME 96.6 fl (80.0-96.0); MONO # 0.5 10^3/uL (0.0-0.8); MONO % 7.7 % (0.0-5.0); NEUTROPHILS # 3.1 10^3/uL (1.8-7.7); NEUTROPHILS % 51.1 % (36.0-66.0); PLATELET COUNT, AUTOMATED 254 10^3/uL (150-450); RED BLOOD COUNT 4.16 10^6/uL (4.00-5.40); RED CELL DISTRIBUTION WIDTH 14.8 % (11.5-14.5); RETIC HEMOGLOBIN EQUIVALENT 35.1 pg (24-36); RETICULOCYTE # 60.7 10^9/L (17-77); RETICULOCYTE % 1.5 % (0.5-1.5); WHITE BLOOD COUNT 6.1 10^3/uL (4.0-10.0)
[2017-04-26 19:32] LABS: ESTIMATED AVERAGE GLUCOSE 186 MG/DL (60-110); HEMOGLOBIN A1c 8.1 %; PTH INTACT 56.8 PG/ML (18.5-88.0); TOTAL 25(OH) VITAMIN D 106.4 NG/ML (30.0-100.0)
[2017-04-26 19:33] LABS: ALBUMIN 4.6 GM/DL (3.2-5.2); ALBUMIN/GLOBULIN RATIO 1.05 (1.00-1.93); ALKALINE PHOSPHATASE 52 U/L (45-117); ALT/SGPT 35 U/L (12-78); ANION GAP 9 MEQ/L (8-16); AST/SGOT 27 U/L (7-37); BILIRUBIN,TOTAL 0.3 MG/DL (0.2-1.0); BLOOD UREA NITROGEN 34 MG/DL (7-18); CALCIUM LEVEL 9.5 MG/DL (8.8-10.2); CARBON DIOXIDE LEVEL 26 MEQ/L (21-32); CHLORIDE LEVEL 106 MEQ/L (98-107); CPK CREATINE PHOSPHOKINASE 434 U/L (26-192); CREATININE FOR GFR 1.53 MG/DL (0.55-1.30); GLOMERULAR FILTRATION RATE 44.7 (>45); GLUCOSE, FASTING 137 MG/DL (70-100); MAGNESIUM LEVEL 1.9 MG/DL (1.8-2.4); POTASSIUM SERUM 4.2 MEQ/L (3.5-5.1); SODIUM LEVEL 141 MEQ/L (136-145)
== END ==
LOC: M SFHCPLAZ 13:11
DX: E78.2 Mixed hyperlipidemia (principal); E11.8 Type 2 diabetes mellitus with unspecified complications; N18.3 Chronic kidney disease, stage 3 (moderate)
CPT/HCPCS: 83036

== ENCOUNTER → 2017-05-16 | Outpatient (REF) | payer OTHER ==
[2017-05-16 15:52] LABS: CPK CREATINE PHOSPHOKINASE 298 U/L (26-192)
[2017-05-19 14:14] LABS: ALDOLASE 5.4 U/L (3.3-10.3); CK 1 (BB) 0 % (0); CK 2 (MB) 0 % (0-3); CK 3 (MM) 97 % (97-100); CK MACRO I PERCENT 3 % (Not Observed); CK MACRO II PERCENT 0 % (Not Observed); CK TOTAL 289 U/L (24-173)
== END ==
LOC: M SFHCPLAZ 13:02
DX: E78.2 Mixed hyperlipidemia (principal)

== ENCOUNTER 2017-08-09 11:40 | Emergency (ER) | payer OTHER | END 2017-08-09 15:20 | disposition left against medical advice (07) | LOC: M ED 11:40 | DX: M79.89 Other specified soft tissue disorders (principal); Z53.21 Procedure and treatment not carried out due to patient leaving prior to being seen by health care provider ==

== ENCOUNTER → 2017-08-10 | Outpatient (REF) | payer OTHER ==
[2017-08-10 17:50] LABS: ALBUMIN 4.1 GM/DL (3.2-5.2); ALBUMIN/GLOBULIN RATIO 0.91 (1.00-1.93); ALKALINE PHOSPHATASE 48 U/L (45-117); ALT/SGPT 29 U/L (12-78); ANION GAP 10 MEQ/L (8-16); AST/SGOT 27 U/L (7-37); BILIRUBIN,TOTAL 0.2 MG/DL (0.2-1.0); BLOOD UREA NITROGEN 58 MG/DL (7-18); CALCIUM LEVEL 9.7 MG/DL (8.8-10.2); CARBON DIOXIDE LEVEL 23 MEQ/L (21-32); CHLORIDE LEVEL 105 MEQ/L (98-107); CPK CREATINE PHOSPHOKINASE 617 U/L (26-192); CREATININE FOR GFR 2.69 MG/DL (0.55-1.30); GLOMERULAR FILTRATION RATE 23.3 (>45); GLUCOSE, FASTING 253 MG/DL (70-100); POTASSIUM SERUM 4.3 MEQ/L (3.5-5.1); SODIUM LEVEL 138 MEQ/L (136-145); TOTAL PROTEIN 8.6 GM/DL (6.4-8.2)
== END ==
LOC: M SFHCPLAZ 10:38
DX: R25.2 Cramp and spasm (principal)

== ENCOUNTER 2017-08-25 11:35 | Emergency (ER) | payer OTHER ==
[2017-08-25 12:34] LABS: BASO % 0.3 % (0.0-1.0); EOS # 0.1 10^3/uL (0.0-0.50); EOS % 2.1 % (0.0-3.0); HEMATOCRIT 35.6 % (36.0-47.0); HEMOGLOBIN 11.4 g/dl (12.0-15.5); IMMATURE GRANULOCYTE % 0.8 % (0-3.0); LYMPH % 31.8 % (24.0-44.0); MEAN CORPUSCULAR HEMOGLOBIN 30.2 pg (27.0-33.0); MEAN CORPUSCULAR VOLUME 94.2 fl (80.0-96.0); MONO # 0.8 10^3/uL (0.0-0.8); MONO % 12.7 % (0.0-5.0); NEUTROPHILS # 3.3 10^3/uL (1.8-7.7); NEUTROPHILS % 52.3 % (36.0-66.0); PLATELET COUNT, AUTOMATED 245 10^3/uL (150-450); RED BLOOD COUNT 3.78 10^6/uL (4.00-5.40); RED CELL DISTRIBUTION WIDTH 13.3 % (11.5-14.5); WHITE BLOOD COUNT 6.2 10^3/uL (4.0-10.0)
[2017-08-25 12:35] LABS: VENOUS BASE EXCESS -4.4 (-2.0-2.0); VENOUS HCO3 22.4 MEQ/L (23.0-27.0); VENOUS O2 SATURATION 85.1 % (60.0-80.0); VENOUS PARTIAL PRESSURE CO2 48.1 mmHg (38.0-50.0); VENOUS PARTIAL PRESSURE O2 54.2 mmHg (30.0-50.0); VENOUS PH 7.285 UNITS (7.330-7.430); VENOUS STANDARD HCO3 20.6 MEQ/L; VENOUS TOTAL CO2 23.8 MEQ/L (24.0-28.0)
[2017-08-25 13:00] LABS: CPK CREATINE PHOSPHOKINASE 311 U/L (26-192); TROPONIN I < 0.02 NG/ML (< 0.10)
[2017-08-25 13:01] LABS: CK-MB VALUE MASS 5.1 NG/ML (<3.6); MB/CK RELATIVE INDEX 1.63 (< OR =4)
[2017-08-25 13:05] LABS: ALBUMIN 3.8 GM/DL (3.2-5.2); ALBUMIN/GLOBULIN RATIO 0.88 (1.00-1.93); ALKALINE PHOSPHATASE 44 U/L (45-117); ALT/SGPT 23 U/L (12-78); ANION GAP 9 MEQ/L (8-16); AST/SGOT 17 U/L (7-37); BILIRUBIN,DIRECT < 0.1 MG/DL (0.0-0.2); BILIRUBIN,TOTAL 0.2 MG/DL (0.2-1.0); BLOOD UREA NITROGEN 47 MG/DL (7-18); CARBON DIOXIDE LEVEL 24 MEQ/L (21-32); CHLORIDE LEVEL 108 MEQ/L (98-107); CREATININE FOR GFR 1.96 MG/DL (0.55-1.30); GLOMERULAR FILTRATION RATE 33.6 (>45); GLUCOSE, FASTING 225 MG/DL (70-100); NT-PRO BNP 194 PG/ML (<125); POTASSIUM SERUM 4.2 MEQ/L (3.5-5.1); SODIUM LEVEL 141 MEQ/L (136-145); THYROID STIMULATING HORMONE 0.185 uIU/ML (0.358-3.740); TOTAL PROTEIN 8.1 GM/DL (6.4-8.2)
[2017-08-25] MEDS: tiZANidine 4 MG TAB PO (14:00)
[2017-08-25] MEDS ORDERED: PERCOCET 5MG/325MG TAB PO (14:00)
[2017-08-25] MEDS: KETOROLAC 30 MG/ML VIAL (J1885) IV (14:00)
== END 2017-08-25 15:20 | disposition home or self-care (01) ==
LOC: M ED 11:35
DX: M79.2 Neuralgia and neuritis, unspecified (principal); E11.9 Type 2 diabetes mellitus without complications; I25.2 Old myocardial infarction; N18.3 Chronic kidney disease, stage 3 (moderate); I12.9 Hypertensive chronic kidney disease with stage 1 through stage 4 chronic kidney disease, or unspecified chronic kidney disease; A60.00 Herpesviral infection of urogenital system, unspecified; F33.9 Major depressive disorder, recurrent, unspecified; F41.9 Anxiety disorder, unspecified; Z95.5 Presence of coronary angioplasty implant and graft; Z79.899 Other long term (current) drug therapy; Z98.890 Other specified postprocedural states; Z88.5 Allergy status to narcotic agent; Z88.8 Allergy status to other drugs, medicaments and biological substances; Z88.2 Allergy status to sulfonamides
CPT/HCPCS: J1885

== ENCOUNTER → 2017-09-28 | Outpatient (REF) | payer OTHER ==
[2017-09-28 12:04] LABS: BASO % 0.2 % (0.0-1.0); EOS # 0.1 10^3/uL (0.0-0.50); EOS % 1.6 % (0.0-3.0); HEMATOCRIT 35.3 % (36.0-47.0); HEMOGLOBIN 11.4 g/dl (12.0-15.5); IMMATURE GRANULOCYTE % 0.5 % (0-3.0); LYMPH # 1.2 10^3/uL (1.5-4.5); LYMPH % 26.9 % (24.0-44.0); MEAN CORPUSCULAR HGB CONC 32.3 g/dl (32.0-36.5); MEAN CORPUSCULAR VOLUME 92.9 fl (80.0-96.0); MONO # 0.7 10^3/uL (0.0-0.8); MONO % 15.7 % (0.0-5.0); NEUTROPHILS # 2.4 10^3/uL (1.8-7.7); NEUTROPHILS % 55.1 % (36.0-66.0); PLATELET COUNT, AUTOMATED 232 10^3/uL (150-450); RED CELL DISTRIBUTION WIDTH 13.7 % (11.5-14.5); RETIC HEMOGLOBIN EQUIVALENT 33.5 pg (24-36); RETICULOCYTE # 44.8 10^9/L (17-77); RETICULOCYTE % 1.2 % (0.5-1.5); WHITE BLOOD COUNT 4.4 10^3/uL (4.0-10.0)
[2017-09-28 12:46] LABS: ALBUMIN 3.7 GM/DL (3.2-5.2); ALBUMIN/GLOBULIN RATIO 0.88 (1.00-1.93); ALKALINE PHOSPHATASE 37 U/L (45-117); ALT/SGPT 24 U/L (12-78); ANION GAP 10 MEQ/L (8-16); AST/SGOT 19 U/L (7-37); BILIRUBIN,TOTAL 0.2 MG/DL (0.2-1.0); BLOOD UREA NITROGEN 44 MG/DL (7-18); C REACTIVE PROTEIN QUANTITATIV 0.51 MG/DL (0.00-0.30); CALCIUM LEVEL 9.1 MG/DL (8.8-10.2); CARBON DIOXIDE LEVEL 26 MEQ/L (21-32); CHLORIDE LEVEL 105 MEQ/L (98-107); CHOLESTEROL LEVEL 270 MG/DL (<200); CHOLESTEROL RISK RATIO 6.585 (<5); CPK CREATINE PHOSPHOKINASE 443 U/L (26-192); CREATININE FOR GFR 1.75 MG/DL (0.55-1.30); FREE T4 1.03 NG/DL (0.76-1.46); GLOMERULAR FILTRATION RATE 38.2 (>45); GLUCOSE, FASTING 167 MG/DL (70-100); HDL CHOLESTEROL 41 MG/DL (>40); LDL CHOLESTEROL 209.2 MG/DL (<100); NON-HDL-C 229 MG/DL; POTASSIUM SERUM 4.3 MEQ/L (3.5-5.1); SODIUM LEVEL 141 MEQ/L (136-145); THYROID STIMULATING HORMONE 0.166 uIU/ML (0.358-3.740); TOTAL PROTEIN 7.9 GM/DL (6.4-8.2); TRIGLYCERIDES LEVEL 99 MG/DL (<150)
[2017-09-28 13:28] LABS: VITAMIN B12 LEVEL > 2000 PG/ML (247-911)
[2017-09-28 13:32] LABS: ESTIMATED AVERAGE GLUCOSE 212 MG/DL (60-110)
== END ==
LOC: M SFHCPLAZ 08:08
DX: D50.9 Iron deficiency anemia, unspecified (principal); E78.2 Mixed hyperlipidemia; E11.8 Type 2 diabetes mellitus with unspecified complications; I10 Essential (primary) hypertension; E53.8 Deficiency of other specified B group vitamins

== ENCOUNTER → 2017-10-21 | Outpatient (CLI) | payer OTHER | LOC: M WHC 13:13 | DX: Z12.31 Encounter for screening mammogram for malignant neoplasm of breast (principal); N60.31 Fibrosclerosis of right breast; N60.32 Fibrosclerosis of left breast | CPT/HCPCS: 77067 ==

== ENCOUNTER 2017-12-01 11:15 | Day surgery (SDC) | payer OTHER ==
[2017-12-01] MEDS ORDERED: PROPOFOL 200 MG/20 ML VIAL As Ordered ×2 (12:45)
[2017-12-01] MEDS ORDERED: LIDOCAINE 2% INJ 100 MG/5 ML SDV (FOR ANES.) As Ordered (12:45)
[2017-12-01] MEDS ORDERED: fentaNYL 100 MCG/2 ML INJECTION (J3010) As Ordered (12:50)
== END 2017-12-01 13:57 | disposition home or self-care (01) ==
LOC: M OPP 11:15
DX: Z12.11 Encounter for screening for malignant neoplasm of colon (principal); Z80.0 Family history of malignant neoplasm of digestive organs; D12.3 Benign neoplasm of transverse colon; D12.2 Benign neoplasm of ascending colon; K63.89 Other specified diseases of intestine; K64.4 Residual hemorrhoidal skin tags; R93.3 Abnormal findings on diagnostic imaging of other parts of digestive tract; R12 Heartburn; K29.70 Gastritis, unspecified, without bleeding; Z95.5 Presence of coronary angioplasty implant and graft; I25.10 Atherosclerotic heart disease of native coronary artery without angina pectoris; I25.2 Old myocardial infarction; I12.9 Hypertensive chronic kidney disease with stage 1 through stage 4 chronic kidney disease, or unspecified chronic kidney disease; E78.5 Hyperlipidemia, unspecified; E11.9 Type 2 diabetes mellitus without complications; M19.90 Unspecified osteoarthritis, unspecified site; F41.9 Anxiety disorder, unspecified; F32.9 Major depressive disorder, single episode, unspecified; D50.9 Iron deficiency anemia, unspecified; G43.909 Migraine, unspecified, not intractable, without status migrainosus; G35 Multiple sclerosis; R56.9 Unspecified convulsions; N18.3 Chronic kidney disease, stage 3 (moderate); Z87.891 Personal history of nicotine dependence; R25.2 Cramp and spasm; Z88.8 Allergy status to other drugs, medicaments and biological substances; Z88.5 Allergy status to narcotic agent; Z88.2 Allergy status to sulfonamides; Z79.82 Long term (current) use of aspirin; Z79.899 Other long term (current) drug therapy; Z79.4 Long term (current) use of insulin; Z80.1 Family history of malignant neoplasm of trachea, bronchus and lung; Z80.49 Family history of malignant neoplasm of other genital organs
CPT/HCPCS: 45385

== ENCOUNTER 2017-12-14 16:01 | Emergency (ER) | payer OTHER ==
[2017-12-14] MEDS: NS 1,000 ML IV (17:45)
[2017-12-14 17:46] LABS: BASO % 0.5 % (0.0-1.0); EOS # 0.1 10^3/uL (0.0-0.50); EOS % 2.3 % (0.0-3.0); HEMATOCRIT 36.1 % (36.0-47.0); HEMOGLOBIN 11.7 g/dl (12.0-15.5); IMMATURE GRANULOCYTE % 0.5 % (0-3.0); LYMPH # 2.4 10^3/uL (1.5-4.5); LYMPH % 38.7 % (24.0-44.0); MEAN CORPUSCULAR HGB CONC 32.4 g/dl (32.0-36.5); MEAN CORPUSCULAR VOLUME 92.6 fl (80.0-96.0); MONO # 0.6 10^3/uL (0.0-0.8); MONO % 9.6 % (0.0-5.0); NEUTROPHILS % 48.4 % (36.0-66.0); PLATELET COUNT, AUTOMATED 263 10^3/uL (150-450); RED CELL DISTRIBUTION WIDTH 14.5 % (11.5-14.5); WHITE BLOOD COUNT 6.1 10^3/uL (4.0-10.0)
[2017-12-14 17:51] LABS: VENOUS BASE EXCESS -6.9 (-2.0-2.0); VENOUS HCO3 18.6 MEQ/L (23.0-27.0); VENOUS O2 SATURATION 98.6 % (60.0-80.0); VENOUS PARTIAL PRESSURE CO2 37.2 mmHg (38.0-50.0); VENOUS PARTIAL PRESSURE O2 136.3 mmHg (30.0-50.0); VENOUS PH 7.317 UNITS (7.330-7.430); VENOUS STANDARD HCO3 18.9 MEQ/L; VENOUS TOTAL CO2 19.7 MEQ/L (24.0-28.0)
[2017-12-14 18:15] LABS: KETONE, URINE AUTO RFX NEGATIVE (NEGATIVE); LEUKOCYTE ESTERASE UR AUTO RFX NEGATIVE (NEGATIVE); MUCUS, URINE RFX SMALL (NEGATIVE); NITRITE, URINE AUTO RFX NEGATIVE (NEGATIVE); RBC, URINE AUTO RFX 2 /HPF (0-3); SPECIFIC GRAVITY UR AUTO RFX 1.004 (1.002-1.035); SQUAM EPITHELIAL CELL UR AURFX 0 /HPF (0-6); WBC, URINE AUTO RFX 1 /HPF (0-3)
[2017-12-14 18:27] LABS: AMPHETAMINES LEVEL URINE NEGATIVE (NEGATIVE); BARBITURATES URINE POSITIVE (NEGATIVE); BENZODIAZEPINES URINE NEGATIVE (NEGATIVE); CANNABINOIDS URINE NEGATIVE (NEGATIVE); COCAINE METABOLITE URINE NEGATIVE (NEGATIVE); METHADONE URINE NEGATIVE (NEGATIVE); OPIATES URINE NEGATIVE (NEGATIVE); PHENCYCLIDINE URINE NEGATIVE (NEGATIVE)
[2017-12-14 18:49] LABS: ACETAMINOPHEN LEVEL < 2.0 UG/ML (10.0-30.0); ALBUMIN 4.1 GM/DL (3.2-5.2); ALKALINE PHOSPHATASE 37 U/L (45-117); ALT/SGPT 22 U/L (12-78); ANION GAP 10 MEQ/L (8-16); AST/SGOT 18 U/L (7-37); BILIRUBIN,DIRECT < 0.1 MG/DL (0.0-0.2); BILIRUBIN,TOTAL 0.2 MG/DL (0.2-1.0); BLOOD UREA NITROGEN 38 MG/DL (7-18); CALCIUM LEVEL 9.6 MG/DL (8.8-10.2); CARBON DIOXIDE LEVEL 22 MEQ/L (21-32); CHLORIDE LEVEL 109 MEQ/L (98-107); CPK CREATINE PHOSPHOKINASE 262 U/L (26-192); CREATININE FOR GFR 1.31 MG/DL (0.55-1.30); ETHYL ALCOHOL (ETHANOL) < 0.003 % (0.000-0.010); GLOMERULAR FILTRATION RATE 53.4 (>45); GLUCOSE, FASTING 79 MG/DL (70-100); MB/CK RELATIVE INDEX 2.06 (< OR =4); POTASSIUM SERUM 4.3 MEQ/L (3.5-5.1); SALICYLATE LEVEL < 1.7 MG/DL (5.0-30.0); SODIUM LEVEL 141 MEQ/L (136-145); THYROID STIMULATING HORMONE 0.137 uIU/ML (0.358-3.740); TOTAL PROTEIN 8.2 GM/DL (6.4-8.2); TROPONIN I < 0.02 NG/ML (< 0.10)
[2017-12-14 20:08] LABS: AMMONIA 34 uMOL/L (<32)
[2017-12-14] MEDS: diazePAM 5 MG TAB PO (20:26)
[2017-12-19 08:06] LABS: LEVETIRACETAM (KEPPRA) 9.7 ug/mL (10.0-40.0)
== END 2017-12-14 20:31 | disposition home or self-care (01) ==
LOC: M ED 16:01
DX: G62.9 Polyneuropathy, unspecified (principal); R53.1 Weakness; E11.9 Type 2 diabetes mellitus without complications; I10 Essential (primary) hypertension; E28.9 Ovarian dysfunction, unspecified; R56.9 Unspecified convulsions; I25.10 Atherosclerotic heart disease of native coronary artery without angina pectoris; Z95.5 Presence of coronary angioplasty implant and graft; Z79.899 Other long term (current) drug therapy; Z79.82 Long term (current) use of aspirin; Z88.2 Allergy status to sulfonamides; Z88.5 Allergy status to narcotic agent; Z88.8 Allergy status to other drugs, medicaments and biological substances
CPT/HCPCS: 71045

== ENCOUNTER → 2017-12-27 | Outpatient (REF) | payer OTHER ==
[2017-12-27 17:57] LABS: BASO % 0.5 % (0.0-1.0); EOS # 0.1 10^3/uL (0.0-0.50); EOS % 2.3 % (0.0-3.0); HEMATOCRIT 36.2 % (36.0-47.0); HEMOGLOBIN 11.7 g/dl (12.0-15.5); IMMATURE GRANULOCYTE % 0.8 % (0-3.0); LYMPH # 1.8 10^3/uL (1.5-4.5); LYMPH % 30.1 % (24.0-44.0); MEAN CORPUSCULAR HEMOGLOBIN 30.2 pg (27.0-33.0); MEAN CORPUSCULAR HGB CONC 32.3 g/dl (32.0-36.5); MEAN CORPUSCULAR VOLUME 93.3 fl (80.0-96.0); MONO # 0.5 10^3/uL (0.0-0.8); MONO % 8.9 % (0.0-5.0); NEUTROPHILS # 3.5 10^3/uL (1.8-7.7); NEUTROPHILS % 57.4 % (36.0-66.0); PLATELET COUNT, AUTOMATED 279 10^3/uL (150-450); RED BLOOD COUNT 3.88 10^6/uL (4.00-5.40); RED CELL DISTRIBUTION WIDTH 14.6 % (11.5-14.5); WHITE BLOOD COUNT 6.1 10^3/uL (4.0-10.0)
[2017-12-27 18:25] LABS: ALBUMIN 4.1 GM/DL (3.2-5.2); ALBUMIN/GLOBULIN RATIO 0.98 (1.00-1.93); ALKALINE PHOSPHATASE 40 U/L (45-117); ALT/SGPT 23 U/L (12-78); ANION GAP 9 MEQ/L (8-16); AST/SGOT 18 U/L (7-37); BILIRUBIN,TOTAL 0.3 MG/DL (0.2-1.0); BLOOD UREA NITROGEN 41 MG/DL (7-18); CALCIUM LEVEL 8.9 MG/DL (8.8-10.2); CARBON DIOXIDE LEVEL 23 MEQ/L (21-32); CHLORIDE LEVEL 106 MEQ/L (98-107); CREATININE FOR GFR 1.42 MG/DL (0.55-1.30); FREE T4 1.03 NG/DL (0.76-1.46); GLOMERULAR FILTRATION RATE 48.5 (>45); GLUCOSE, FASTING 238 MG/DL (70-100); POTASSIUM SERUM 4.4 MEQ/L (3.5-5.1); RHEUMATOID FACTOR QUANT < 10.0 IU/ML (<15.0); SODIUM LEVEL 138 MEQ/L (136-145); THYROID STIMULATING HORMONE 0.306 uIU/ML (0.358-3.740); TOTAL PROTEIN 8.3 GM/DL (6.4-8.2)
[2017-12-27 18:26] LABS: FOLATE 11.4 NG/ML (>5.4); VITAMIN B12 LEVEL > 2000 PG/ML (247-911)
[2017-12-27 19:04] LABS: ESTIMATED AVERAGE GLUCOSE 189 MG/DL (60-110); HEMOGLOBIN A1c 8.2 %
[2017-12-27 19:58] LABS: ERYTHROCYTE SEDIMENTATION RATE 39 mm/hr (0-30)
[2017-12-29 12:51] LABS: ALBUMIN % 56.6 % (55.8-66.1); ALPHA-1-GLOBULIN % 3.2 % (2.9-4.9); ALPHA-1-GLOBULINS 0.27 GM/DL (0.17-0.41); ALPHA-2-GLOBULINS 0.79 GM/DL (0.42-0.99); ALPHA-2-GLOBULINS % 9.5 % (7.1-11.8); BETA-1-GLOBULINS 0.52 GM/DL (0.28-0.60); BETA-1-GLOBULINS % 6.3 % (4.7-7.2); BETA-2-GLOBULINS % 7.2 % (3.2-6.5); GAMMA GLOBULIN % 17.2 % (11.1-18.8); GAMMA GLOBULINS 1.43 GM/DL (0.65-1.58)
[2018-01-02 14:11] LABS: ANTINUCLEAR ANTIBODIES DIRECT Negative (Negative); VITAMIN B1 LEVEL WHOLE BLOOD 84.6 nmol/L (66.5-200.0); VITAMIN B6,PYRIDOXAL PHOSPHATE 11.8 ug/L (2.0-32.8); VITAMIN E(GAMMA TOCOPHEROL) 2.9 mg/L (0.5-4.9)
[2018-01-03 10:28] LABS: DRVV SCREEN 41.8 SEC
== END ==
LOC: M LABNEURO 17:21
DX: G35 Multiple sclerosis (principal)
CPT/HCPCS: 82746

== ENCOUNTER → 2018-01-02 | Outpatient (REF) | payer OTHER ==
[2018-01-02 11:30] LABS: BASO % 0.5 % (0.0-1.0); EOS # 0.1 10^3/uL (0.0-0.50); EOS % 1.8 % (0.0-3.0); HEMATOCRIT 36.3 % (36.0-47.0); HEMOGLOBIN 11.6 g/dl (12.0-15.5); IMMATURE GRANULOCYTE % 1.1 % (0-3.0); LYMPH # 1.8 10^3/uL (1.5-4.5); LYMPH % 28.5 % (24.0-44.0); MEAN CORPUSCULAR VOLUME 93.8 fl (80.0-96.0); MONO # 0.6 10^3/uL (0.0-0.8); MONO % 9.9 % (0.0-5.0); NEUTROPHILS # 3.6 10^3/uL (1.8-7.7); NEUTROPHILS % 58.2 % (36.0-66.0); PLATELET COUNT, AUTOMATED 254 10^3/uL (150-450); RED BLOOD COUNT 3.87 10^6/uL (4.00-5.40); RED CELL DISTRIBUTION WIDTH 14.5 % (11.5-14.5); RETIC HEMOGLOBIN EQUIVALENT 32.9 pg (24-36); RETICULOCYTE # 77.4 10^9/L (17-77); WHITE BLOOD COUNT 6.1 10^3/uL (4.0-10.0)
[2018-01-02 11:47] LABS: ESTIMATED AVERAGE GLUCOSE 189 MG/DL (60-110); HEMOGLOBIN A1c 8.2 %
[2018-01-02 12:11] LABS: ALBUMIN 3.6 GM/DL (3.2-5.2); ALBUMIN/GLOBULIN RATIO 0.84 (1.00-1.93); ALKALINE PHOSPHATASE 36 U/L (45-117); ALT/SGPT 23 U/L (12-78); ANION GAP 10 MEQ/L (8-16); AST/SGOT 18 U/L (7-37); BILIRUBIN,TOTAL 0.3 MG/DL (0.2-1.0); BLOOD UREA NITROGEN 40 MG/DL (7-18); CALCIUM LEVEL 9.8 MG/DL (8.8-10.2); CARBON DIOXIDE LEVEL 24 MEQ/L (21-32); CHLORIDE LEVEL 106 MEQ/L (98-107); CHOLESTEROL LEVEL 288 MG/DL (<200); CHOLESTEROL RISK RATIO 5.647 (<5); CREATININE FOR GFR 1.42 MG/DL (0.55-1.30); GLOMERULAR FILTRATION RATE 48.5 (>45); GLUCOSE, FASTING 123 MG/DL (70-100); HDL CHOLESTEROL 51 MG/DL (>40); LDL CHOLESTEROL 222 MG/DL (<100); MAGNESIUM LEVEL 1.6 MG/DL (1.8-2.4); NON-HDL-C 237 MG/DL; POTASSIUM SERUM 4.8 MEQ/L (3.5-5.1); SODIUM LEVEL 140 MEQ/L (136-145); TOTAL 25(OH) VITAMIN D 87.3 NG/ML (30.0-100.0); TOTAL PROTEIN 7.9 GM/DL (6.4-8.2); TRIGLYCERIDES LEVEL 77 MG/DL (<150)
[2018-01-02 13:48] LABS: PTH INTACT 35.1 PG/ML (18.5-88.0)
[2018-01-02 16:00] LABS: GOLD SPEC TUBE RECIEVED
== END ==
LOC: M SFHCPLAZ 09:03
DX: D50.9 Iron deficiency anemia, unspecified (principal); E78.2 Mixed hyperlipidemia; E11.8 Type 2 diabetes mellitus with unspecified complications; I10 Essential (primary) hypertension; E55.9 Vitamin D deficiency, unspecified
CPT/HCPCS: 83735

== ENCOUNTER 2018-02-23 14:40 | Emergency (ER) | payer OTHER ==
[2018-02-23 16:13] LABS: BASO % 0.7 % (0.0-1.0); EOS # 0.1 10^3/uL (0.0-0.50); EOS % 2.8 % (0.0-3.0); HEMATOCRIT 37.1 % (36.0-47.0); HEMOGLOBIN 11.9 g/dl (12.0-15.5); IMMATURE GRANULOCYTE % 0.5 % (0-3.0); LYMPH # 1.4 10^3/uL (1.5-4.5); LYMPH % 31.5 % (24.0-44.0); MEAN CORPUSCULAR HEMOGLOBIN 29.6 pg (27.0-33.0); MEAN CORPUSCULAR HGB CONC 32.1 g/dl (32.0-36.5); MEAN CORPUSCULAR VOLUME 92.3 fl (80.0-96.0); MONO # 0.5 10^3/uL (0.0-0.8); MONO % 12.4 % (0.0-5.0); NEUTROPHILS # 2.3 10^3/uL (1.8-7.7); NEUTROPHILS % 52.1 % (36.0-66.0); PLATELET COUNT, AUTOMATED 231 10^3/uL (150-450); RED BLOOD COUNT 4.02 10^6/uL (4.00-5.40); RED CELL DISTRIBUTION WIDTH 13.8 % (11.5-14.5); WHITE BLOOD COUNT 4.4 10^3/uL (4.0-10.0)
[2018-02-23 16:46] LABS: ANION GAP 7 MEQ/L (8-16); BLOOD UREA NITROGEN 30 MG/DL (7-18); CARBON DIOXIDE LEVEL 26 MEQ/L (21-32); CHLORIDE LEVEL 110 MEQ/L (98-107); CPK CREATINE PHOSPHOKINASE 578 U/L (26-192); CREATININE FOR GFR 1.48 MG/DL (0.55-1.30); GLOMERULAR FILTRATION RATE 46.2 (>45); GLUCOSE, FASTING 62 MG/DL (70-100); POTASSIUM SERUM 4.3 MEQ/L (3.5-5.1); SODIUM LEVEL 143 MEQ/L (136-145); TROPONIN I < 0.02 NG/ML (< 0.10)
[2018-02-23] MEDS: AUGMENTIN 875 MG TAB PO (17:38)
== END 2018-02-23 18:39 | disposition home or self-care (01) ==
LOC: M ED 14:40
DX: J01.90 Acute sinusitis, unspecified (principal); M47.812 Spondylosis without myelopathy or radiculopathy, cervical region; J34.1 Cyst and mucocele of nose and nasal sinus; I25.10 Atherosclerotic heart disease of native coronary artery without angina pectoris; I10 Essential (primary) hypertension; G40.909 Epilepsy, unspecified, not intractable, without status epilepticus; D50.9 Iron deficiency anemia, unspecified; G43.909 Migraine, unspecified, not intractable, without status migrainosus; G35 Multiple sclerosis; K21.9 Gastro-esophageal reflux disease without esophagitis; G25.0 Essential tremor; K64.9 Unspecified hemorrhoids; Z79.82 Long term (current) use of aspirin; Z79.4 Long term (current) use of insulin; Z79.899 Other long term (current) drug therapy; Z88.5 Allergy status to narcotic agent; Z88.6 Allergy status to analgesic agent; Z88.2 Allergy status to sulfonamides; Z88.8 Allergy status to other drugs, medicaments and biological substances
CPT/HCPCS: 70450

== ENCOUNTER → 2018-03-17 | Outpatient (REF) | payer OTHER ==
[~2018-03-17] MED LIST changes: -ACET1TAB17 PO; +ACET1TAB55 PO; +ACET500T15 PO; -ACET50TAOT PO; -AMLO10TA2 PO; +AMLO10TA5 PO; +AUGM875T28 PO; +BACITAB; +BACITAB PO; +BACL1TAB9 PO; +BUTA1CAP4 PO; +CHLO125TA PO; +EZET10TA; -GABA-283 PO; +GABA-845 PO; -GABA600T PO; +GABA600T4 PO; +INSUR SC; -LOSA100T36 PO; +LOSA100T50 PO; +MAPA500C PO; +MELO15TA28 PO; -MELO15TA4 PO; -PANT40TA2 PO; +PANT40TA3 PO; +SPIR-10 PO; -SPIR25TA2 PO; +TIZA4CAP PO; -TIZA4CAP3 PO; +TOPA1TAB PO; -VALA500T2 PO; +VALA500T5 PO; +VITA50005 PO; +VITA500T3 PO; +VITA500T53 PO; +ZONI50CA3 PO; +[UNRECOGNIZED DRUG - OTHER] PO
[2018-03-17 13:34] LABS: APPEARANCE, URINE CLEAR (CLEAR); BACTERIA, URINE AUTO NEGATIVE (NEGATIVE); BILIRUBIN, URINE AUTO NEGATIVE (NEGATIVE); BLOOD, URINE BLOOD NEGATIVE (NEGATIVE); COLOR, URINE STRAW (YELLOW); GLUCOSE, URINE (UA) AUTO NEGATIVE (NEGATIVE); KETONE, URINE AUTO NEGATIVE (NEGATIVE); LEUKOCYTE ESTERASE, URINE AUTO TRACE (NEGATIVE); NITRITE, URINE AUTO NEGATIVE (NEGATIVE); PROTEIN, URINE AUTO NEGATIVE (NEGATIVE); RBC, URINE AUTO 0 /HPF (0-3); SPECIFIC GRAVITY URINE AUTO 1.009 (1.002-1.035); SQUAMOUS EPITHELIAL CELL UR AU 0 /HPF (0-6); UROBILINOGEN, URINE AUTO 0.2 mg/dL (0.0-2.0); WBC, URINE AUTO 1 /HPF (0-3)
[2018-03-17 13:50] LABS: ALBUMIN 3.7 GM/DL (3.2-5.2); CALCIUM LEVEL 9.1 MG/DL (8.8-10.2); CREATININE FOR GFR 1.46 MG/DL (0.55-1.30); MAGNESIUM LEVEL 1.8 MG/DL (1.8-2.4); PHOSPHORUS LEVEL 3.8 MG/DL (2.5-4.9)
[2018-03-17 13:57] LABS: MAU/CREAT RATIO 94.6 MCG/MG (0.0-30.0)
== END ==
LOC: M SFHCPLAZ 10:46
PROVIDERS: ATTEND Nurse Practitioner Family
DX: N18.3 Chronic kidney disease, stage 3 (moderate) (principal)

== ENCOUNTER → 2018-04-18 | Outpatient (CLI) | payer OTHER ==
--- NOTE | 2018-04-19 01:56 | REP ---
Clinical: Mid back pain. Technique: AP, lateral, swimmers views of the thoracic spine. Findings: Alignment and kyphosis maintained. Minimal age-related changes include subtle increased sclerosis to the endplates with very subtle marginal spurring. No acute fracture / compression injury or subluxation. Impression: Mild age-related changes. Electronically Signed by Regan Andres MD 04/19/2018 01:47 A
== END ==
LOC: M RAD 10:48
PROVIDERS: ATTEND Nurse Practitioner Family
DX: M54.9 Dorsalgia, unspecified (principal)

== ENCOUNTER 2018-06-10 08:07 | Emergency (ER) | payer OTHER ==
[~2018-06-10] VITALS: Ht 167.6 cm; Wt 82.0 kg
[~2018-06-10 08:07] MED LIST changes: -/AMLO25TA PO; -/BACL20TA PO; -ACET50TA PO; -AMMO12CR4 TOP; +AMMO12CR7 TOP; +ASPI81TA26 PO; -FIORINAL PO; +HYDR-2541 PO; -HYDR25TAB PO; +MAPA500T17 PO; +MECL1CHW PO; -MECL1CHW2 PO; +NORC1TAB8 PO; -NORC7.5T35 PO; +NORV2TAB PO; +VICO5TAB17 PO; +VITA100018 PO; -VITA100072 PO; +VITA500T17 PO; -VITA500T53 PO
[2018-06-10] MEDS ORDERED: NS 500 ML IV ONE ×2 (08:45→09:45)
[2018-06-10] MEDS ORDERED: diazePAM 5 MG TAB PO ONE (08:45)
[2018-06-10 09:18] LABS: CREATININE FOR GFR 1.73 MG/DL (0.55-1.30); GLOMERULAR FILTRATION RATE 38.6 (>45); POTASSIUM SERUM 4.5 MEQ/L (3.5-5.1)
[2018-06-10 10:15] VITALS: BP 127/68
--- NOTE | 2018-06-10 10:54 | REP ---
Clinical: Urinary tract infection and pain. Technique: Axial noncontrast images from the lung bases to the pubic symphysis with coronal and sagittal re-formations. Comparison: 08/23/2016. Findings: Kidneys demonstrate mild perinephric stranding and mild hydronephrosis cannot be excluded. No significant hydroureter is appreciated and the bladder is grossly unremarkable. Calcifications in the pelvis likely represent atherosclerotic disease and phleboliths and less likely nonobstructing distal ureteral calculi. Liver, spleen, pancreas, gallbladder, and bilateral adrenal glands are normal. The enteric system is without obstruction or acute inflammatory process. Normal terminal ileum and appendix are identified in the right lower quadrant. Further evaluation the pelvis demonstrates normal uterus / adnexa. No ascites. No free air. No adenopathy. Atherosclerotic changes of the aorta and vasculature noted without aneurysm. Musculoskeletal structures demonstrate age-related changes without focal osseous abnormality. Lung bases are clear. Impression: 1. Mild bilateral perinephric stranding and subtle hydronephrosis cannot be excluded. Correlation with urinalysis is recommended as pyelonephritis cannot be excluded. No hydronephrosis. Normal appearance of the bladder. 2. Atherosclerotic changes to the aorta and vasculature without aneurysm. 3. No further acute abdominopelvic pathology appreciated. Electronically Signed by Regan Andres MD 06/10/2018 10:45 A
[2018-06-10] MEDS ORDERED: cefTRIAXone SOD 2 GM in D5W MINI-BAG PLUS 50 ML IV ONE (11:00)
[2018-06-10] MEDS ORDERED: KEFL500C17 PO (11:14)
== END 2018-06-10 11:58 | disposition home or self-care (01) ==
LOC: EDBD 08:07 → M ED 08:07
DX: N17.9 Acute kidney failure, unspecified (principal); N39.0 Urinary tract infection, site not specified; M62.838 Other muscle spasm; I25.10 Atherosclerotic heart disease of native coronary artery without angina pectoris; E11.9 Type 2 diabetes mellitus without complications; I10 Essential (primary) hypertension; D50.9 Iron deficiency anemia, unspecified; K21.9 Gastro-esophageal reflux disease without esophagitis; N18.3 Chronic kidney disease, stage 3 (moderate); R56.9 Unspecified convulsions; F32.9 Major depressive disorder, single episode, unspecified; G35 Multiple sclerosis; R25.1 Tremor, unspecified; Z79.82 Long term (current) use of aspirin; Z79.4 Long term (current) use of insulin; Z79.899 Other long term (current) drug therapy; Z88.2 Allergy status to sulfonamides; Z88.5 Allergy status to narcotic agent; Z88.8 Allergy status to other drugs, medicaments and biological substances; Z88.6 Allergy status to analgesic agent
CPT/HCPCS: 74176; 80048; 81001; 87088; 87186; 96374; 99284; J0696

== ENCOUNTER → 2018-07-04 | Outpatient (REF) | payer OTHER ==
[~2018-07-04] MED LIST changes: +KEFL500C17 PO
[2018-07-04 16:14] LABS: BASO % 0.6 % (0.0-1.0); EOS # 0.1 10^3/uL (0.0-0.50); HEMATOCRIT 37.4 % (36.0-47.0); LYMPH # 1.6 10^3/uL (1.5-4.5); LYMPH % 22.1 % (24.0-44.0); MEAN CORPUSCULAR HEMOGLOBIN 30.8 pg (27.0-33.0); MEAN CORPUSCULAR HGB CONC 32.1 g/dl (32.0-36.5); MEAN CORPUSCULAR VOLUME 95.9 fl (80.0-96.0); MONO # 0.6 10^3/uL (0.0-0.8); MONO % 8.9 % (0.0-5.0); NEUTROPHILS # 4.7 10^3/uL (1.8-7.7); PLATELET COUNT, AUTOMATED 260 10^3/uL (150-450); WHITE BLOOD COUNT 7.2 10^3/uL (4.0-10.0)
== END ==
LOC: M SFHCPLAZ 14:43
PROVIDERS: ATTEND Nurse Practitioner Family
DX: K62.5 Hemorrhage of anus and rectum (principal)

== ENCOUNTER → 2018-07-04 | Outpatient (REF) | payer OTHER ==
[2018-07-04 19:27] LABS: APPEARANCE, URINE CLEAR (CLEAR); BACTERIA, URINE AUTO NEGATIVE (NEGATIVE); BILIRUBIN, URINE AUTO NEGATIVE (NEGATIVE); BLOOD, URINE BLOOD NEGATIVE (NEGATIVE); COLOR, URINE STRAW (YELLOW); GLUCOSE, URINE (UA) AUTO NEGATIVE (NEGATIVE); KETONE, URINE AUTO NEGATIVE (NEGATIVE); LEUKOCYTE ESTERASE, URINE AUTO NEGATIVE (NEGATIVE); MUCUS, URINE SMALL (NEGATIVE); NITRITE, URINE AUTO NEGATIVE (NEGATIVE); PROTEIN, URINE AUTO NEGATIVE (NEGATIVE); RBC, URINE AUTO 0 /HPF (0-3); SPECIFIC GRAVITY URINE AUTO 1.005 (1.002-1.035); SQUAMOUS EPITHELIAL CELL UR AU 0 /HPF (0-6); UROBILINOGEN, URINE AUTO 0.2 mg/dL (0.0-2.0); WBC, URINE AUTO 0 /HPF (0-3)
== END ==
LOC: M SFHCPLAZ 17:56
PROVIDERS: ATTEND Nurse Practitioner Family
DX: N39.0 Urinary tract infection, site not specified (principal)

== ENCOUNTER → 2018-07-25 | Outpatient (REF) | payer OTHER | LOC: M LABNEURO 13:41 | PROVIDERS: ATTEND Psychiatry & Neurology Neurology | DX: G35 Multiple sclerosis (principal) ==

== ENCOUNTER 2018-08-07 21:52 | Inpatient (IN) | payer OTHER ==
[~2018-08-07] VITALS: Ht 152.4 cm; Wt 82.2 kg
[2018-08-07] MEDS ORDERED: NS 500 ML IV ONE (22:30)
[2018-08-07] MEDS ORDERED: ONDANSETRON 4MG/2ML VIAL (J2405) IV ONE (22:30)
[2018-08-07] MEDS: MORPHINE 4 MG/ML 1ML VIAL/SYRINGE (J2270) IV PRN (22:45)
[2018-08-07] MEDS ORDERED: ISOVUE-370 76% 100ML VIAL (Q9967) As Ordered ONE ×2 (23:07→23:10)
[2018-08-07] MEDS ORDERED: AMMONIA AROMATIC INHALANT (FLOOR STOCK) As Ordered ONE (23:17)
[2018-08-07 23:27] LABS: BASO # 0.1 10^3/uL (0.0-0.2); BASO % 0.8 % (0.0-1.0); EOS # 0.1 10^3/uL (0.0-0.50); HEMATOCRIT 37.5 % (36.0-47.0); HEMOGLOBIN 12.1 g/dl (12.0-15.5); LYMPH # 1.9 10^3/uL (1.5-4.5); LYMPH % 29.5 % (24.0-44.0); MEAN CORPUSCULAR HEMOGLOBIN 31.4 pg (27.0-33.0); MEAN CORPUSCULAR HGB CONC 32.3 g/dl (32.0-36.5); MEAN CORPUSCULAR VOLUME 97.4 fl (80.0-96.0); MONO # 0.7 10^3/uL (0.0-0.8); MONO % 10.9 % (0.0-5.0); NEUTROPHILS # 3.7 10^3/uL (1.8-7.7); NEUTROPHILS % 55.9 % (36.0-66.0); PLATELET COUNT, AUTOMATED 242 10^3/uL (150-450); RED BLOOD COUNT 3.85 10^6/uL (4.00-5.40); WHITE BLOOD COUNT 6.5 10^3/uL (4.0-10.0)
[2018-08-07 23:58] LABS: ALBUMIN 3.3 GM/DL (3.2-5.2); ALT/SGPT 26 U/L (12-78); BILIRUBIN,DIRECT < 0.1 MG/DL (0.0-0.2); BILIRUBIN,TOTAL < 0.1 MG/DL (0.2-1.0); LIPASE 297 U/L (73-393); TOTAL PROTEIN 7.8 GM/DL (6.4-8.2)
[2018-08-08] MEDS: MORPHINE 4 MG/ML 1ML VIAL/SYRINGE (J2270) IV PRN (00:08)
--- NOTE | 2018-08-08 00:11 | REPVR ---
EXAM: CT Abdomen and Pelvis With Contrast EXAM DATE/TIME: 08/07/2018 10:16 PM CLINICAL HISTORY: 62 years old, female; Abdominal pain; Generalized; Additional info: Generalized abd pain TECHNIQUE: Imaging protocol: Axial computed tomography images of the abdomen and pelvis with intravenous contrast. Coronal and sagittal reformatted images were created and reviewed. Radiation optimization: All CT scans at this facility use at least one of these dose optimization techniques: automated exposure control; mA and/or kV adjustment per patient size (includes targeted exams where dose is matched to clinical indication); or iterative reconstruction. Contrast material: ISO; Contrast volume: 100 ml; Contrast route: AC; COMPARISON: CT ABD PELVIS W/O CONTRAST 06/10/2018 10:21 AM FINDINGS: Lungs: There is mild scarring at the posterior right and left lung base. Heart: There is no pericardial effusion. Mild cardiomegaly. ABDOMEN: Liver: Normal-appearing liver. Gallbladder and bile ducts: Normal appearing gallbladder. Normal common bile duct. Pancreas: There is prominence of the head of the pancreas but unchanged. There is uniform enhancement of the pancreas. Spleen: Normal spleen. Adrenals: Normal adrenal glands. Kidneys and ureters: Some lobulation of the kidney is otherwise normal in appearance. Stomach and bowel: The cecum is at the right pelvis. The appendix appears within the range of normal. There are secretions within the stomach. There is no evidence of bowel obstruction. PELVIS: Bladder: Only a small amount of urine in the urinary bladder. Reproductive: Normal appearing uterus. ABDOMEN and PELVIS: Intraperitoneal space: There is no evidence of pneumoperitoneum. There is no evidence of free fluid in the abdomen or the pelvis. Bones/joints: No acute fracture. No dislocation. Soft tissues: There is asymmetry in the subareolar portion of the left breast and recommend correlation with mammography. Vasculature: There is opacification of the aorta. There is calcification along the margins of the aorta consistent with atherosclerotic change. There is opacification of the SMA. Lymph nodes: There is no evidence of lymphadenopathy. IMPRESSION: 1. No evidence of bowel obstruction. 2. No evidence of inflammation. 3. Some asymmetry in the subareolar portion of the left breast suggest correlation with mammography. Electronically signed by: Mohinder Warner On 08/08/2018 00:11:10 AM
[2018-08-08] MEDS ORDERED: DICYCLOMINE 10 MG CAP PO ONE (01:00)
--- NOTE | 2018-08-08 02:04 | REPVR ---
EXAM: US Abdomen Limited, Right Upper Quadrant EXAM DATE/TIME: 08/08/2018 1:46 AM CLINICAL HISTORY: 62 years old, female; Acute right upper quadrant abdominal pain. TECHNIQUE: Imaging protocol: Real-time ultrasound of the abdomen with image documentation. Examination was focused on the right upper quadrant. COMPARISON: CT ABD/PEL W/IV CONTRAST ONLY 08/07/2018 11:11:52 PM GALLBLADDER US 05/05/2015 7:10 AM FINDINGS: Liver: The echogenicity of the liver is within normal limits. No liver lesion is identified from the images obtained. The contour of the liver is smooth. No hepatomegaly is noted. Gallbladder: No gallstones, masses, biliary sludge, gallbladder wall thickening, or pericholecystic fluid. The patient was tender over the gallbladder. Common bile duct: Measures 5.6 mm. No dilation. No stones are identified in the imaged portion of the common bile duct. Pancreas: Unremarkable. Right kidney: The right kidney measures 11.5 cm in length. There is no renal cortical thinning. The renal cortical echogenicity is within normal limits. No renal lesion is seen. There is no hydronephrosis. No obvious stones are seen in the renal collecting system. Intraperitoneal space: No free fluid is seen from the images obtained. IMPRESSION: No sonographic abnormality seen in the right upper quadrant of the abdomen. Electronically signed by: Johnson Patel On 08/08/2018 02:03:34 AM
[2018-08-08] MEDS ORDERED: KETOROLAC 30 MG/ML VIAL (J1885) IV ONE (03:00)
[2018-08-08] MEDS ORDERED: PANTOPRAZOLE 40MG INJ (PROTONIX) (C9113) IV ONE (03:00)
[2018-08-08] MEDS ORDERED: HUMA100I3 SC (03:20)
[2018-08-08] MEDS ORDERED: VITA250T50 PO (03:20)
[2018-08-08] MEDS ORDERED: MAGN400T2 PO (03:20)
[2018-08-08] MEDS ORDERED: ZONI50CA3 PO (03:20)
[2018-08-08] MEDS ORDERED: CHLO25TA PO (03:20)
[2018-08-08] MEDS ORDERED: ASPI81CH33 PO (03:20)
[2018-08-08] MEDS ORDERED: SENN1TAB36 PO (03:20)
[2018-08-08] MEDS ORDERED: PRAL1INJ SC (03:20)
[2018-08-08] MEDS ORDERED: BASA100I SC (03:20)
[2018-08-08] MEDS ORDERED: ACET-897 PO (03:20)
[2018-08-08] MEDS ORDERED: PRIM50TA6 PO (03:20)
[2018-08-08] MEDS ORDERED: PERCOCET 5MG/325MG TAB PO PRN ×2 (04:00)
[2018-08-08] MEDS ORDERED: GLUCOSE 4 GM CHEW TABLET PO PRN (04:00)
[2018-08-08] MEDS ORDERED: NITROGLYCERIN 0.4 MG SUBL TABLET SL PRN (04:00)
[2018-08-08] MEDS ORDERED: HYDROMORPHONE HCL 0.5 MG/ 0.5 ML SYRINGE (J1170 PER 1) IV PRN ×4 (04:00→07:30)
[2018-08-08] MEDS ORDERED: DEXTROSE 50% 50 ML SYRINGE IV PRN (04:00)
[2018-08-08] MEDS ORDERED: GLUCAGON FOR INJ 1 MG VIAL (J1610) SC PRN (04:00)
--- NOTE | 2018-08-08 04:38 | HPEPDOC ---
General Date of Admission 08/08/2018 Date of Service: August 08, 2018 Primary Care Physician: Bhargav Elaine M.D. Attending Physician: ROSENDA AGOSTO MD Chief Complaint The patient is a 62-year-old female admitted with a reason for visit of Abdominal Pain. Source: Patient, Old records Exam Limitations: No limitations Timing/Duration: Other (months) Severity: Moderate, Severe Associated Symptoms: Shortness of breath History of Present Illness Ms. Lofton is a 62-year-old Black female who presents to [facility]'s Emergency Department for worsening abdominal and back pain. Patient states that she was in her usual state of health until 2 months ago when she developed right sided abdominal pain located under her right breast that radiates to her back. She cannot recall an inciting event. She had presented to her primary care provider and various other providers in the same practice for which she was advised to use Tylenol, ice, and Lidocaine cream. These treatments initially helped, but over time have become less effective. The pain is so excruciating that it causes nausea, but no vomiting. The pain is so severe that it limits her breathing and hence she feels short of breath. She finds that she holds her breath due to pain. She does not experience chest pain. She thinks her abdomen is bloated; however, she has no painful or difficult swallowing and has been eating and drinking without difficulty. Besides the pain describes, she also reports neck, upper back, mid-back, lower back, and bilateral hip pain. She follows with the local orthopedist who currently has her in physical therapy. If that proves ineffective the patient says their next step is cortisone injections. She notes that the orthopedist has done prior imaging on her back. The patient reports numbness, tingling, and swelling in her hands, feet, ankles, and legs. There is an associated heaviness that she feels in her legs bilaterally. She does not have any urinary symptoms, including blood in her urine, lower pelvic pain, or radiating pain into her groin. She describes a rash located in the same region as her current pain as "splotchy." Hospitalist service was consulted and patient was admitted for further medical management. Home Medications Scheduled Alirocumab (Praluent Pen) 75 Mg/1 Ml Pen.injctr, 75 MG SC Q2WK, (Reported) Aspirin (Aspirin) 81 Mg Tab.chew, 81 MG PO DAILY, (Reported) Baclofen (Baclofen) 20 Mg Tab, 20 MG PO QID, (Reported) 0700, 1300, 1900, QHS Carvedilol (Carvedilol) 25 Mg Tab, 12.5 MG PO BID, (Reported) Chlorthalidone (Chlorthalidone) 25 Mg Tablet, 25 MG PO DAILY, (Reported) Cyanocobalamin (Vitamin B-12) (Vitamin B-12) 250 Mcg Tablet, 250 MCG PO DAILY, (Reported) Ergocalciferol (Vitamin D2) (Vitamin D2) 50,000 Unit Cap, 50,000 UNITS PO 1XWK, (Reported) [place] Ferrous Sulfate (Ferrous Sulfate) 325 Mg Tab, 325 MG PO DAILY, (Reported) Gabapentin (Gabapentin) 600 Mg Tab, 600 MG PO TID, (Reported) 0700, 1300, 1900 Insulin Glargine,Hum.rec.anlog (Basaglar Kwikpen U-100) 100 Unit/1 Ml Insuln.pen, 25 UNIT SC QHS, (Reported) Insulin Lispro (Humalog) 100 Unit/1 Ml Cartridge, 1 DOSE SC AC, (Reported) HOLD IF BS < 200 Levetiracetam (Keppra) 250 Mg Tab, 250 MG PO BID, (Reported) Magnesium Oxide (Magnesium Oxide) 400 Mg Tablet, 800 MG PO DAILY, (Reported) 1200 Pantoprazole Sodium (Pantoprazole Sodium) 40 Mg Tab, 40 MG PO DAILY, (Reported) Primidone (Primidone) 50 Mg Tablet, 100 MG PO BID, (Reported) Sennosides/Docusate Sodium (Docusate Sodium-Senna Tablet) 1 Each Tablet, 1 TAB PO BID, (Reported) Spironolactone (Spironolactone) 25 Mg Tab, 25 MG PO BID, (Reported) Tizanidine HCl (Zanaflex) 4 Mg Tab, 4 MG PO QID, (Reported) 0700, 1300, 1900, QHS Valacyclovir HCl (Valacyclovir) 500 Mg Tab, 500 MG PO BID, (Reported) Zonisamide (Zonisamide) 50 Mg Capsule, 50 MG PO BID, (Reported) Scheduled PRN Acetaminophen (Tylenol Extra Strength) 500 Mg Tablet, 500 MG PO QID PRN for PAIN, (Reported) Hydrocortisone (Proctosol-Hc) 2.5 % Cre, 1 DOSE FL BID PRN for HEMORRHOIDS, (Reported) Nitroglycerin (Nitrostat) 0.4 Mg Subl, 0.4 MG SL NITRO PRN for CHEST PAIN, (Reported) Allergies Coded Allergies: codeine (Unverified Allergy, Intermediate, hives, 06/10/18) [place] Inhibitors (Verified Allergy, Unknown, FEET SWELLING, 06/10/18) Sulfa (Sulfonamide Antibiotics) (Verified Allergy, Unknown, 06/10/18) nortriptyline (Verified Allergy, Unknown, 06/10/18) sertraline (Verified Allergy, Unknown, 06/10/18) acetaminophen (Verified Adverse Reaction, Unknown, HALLUCINATIONS, 06/10/18) oxycodone (Verified Adverse Reaction, Unknown, HALLUCINATIONS, 06/10/18) Past Medical History Medical History 1. HTN 2. CAD s/p MA s/p stenting 3. DM 4. DLP 5. Diverticulitis 6. Arthritis 7. Chronic kidney disease 8. Multiple sclerosis 9. Seizure disorder 10. GERD Surgical History 1. Tubal ligation 2. Cardiac stenting 3. EGD 4. Colonoscopy 5. Endometrial curretting Family History Father: , 79, lung cancer Mother: , 32, unknown etiology Siblings - 1x , 20, homicide - 14x, alive, DM, cancer Social History * Smoker: former Smoker (14 pack year history, quit 35 years ago) Alcohol: Denies Drugs: denies . Resides with of 40 years. 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 Has 3 adult children who are alive. Eldest daughter has DM. Has 5 grandsons. One cat in the home. No EtOH or illicit drug use. Former tobacco user. A-FIB/CHADSVASC A-FIB History Current/History of A-Fib/PAF?: No Review of Systems Constitutional: Reports: Chills, Night Sweats, Weakness; Denies: Fever Eyes: Reports: Vision change (blurrry vision); Denies: Pain ENT: Denies: Dysphagia, Sinus Congestion, Post Nasal Drip, Sore Throat Skin: Reports: Rash (described as "splotchy") Pulmonary: Reports: Dyspnea (secondary to abdominal pain), Cough (non- productive); Denies: Pleuritic Chest Pain Cardiovascular: Reports: Edema (bilateral hands, fingers, ankles, and legs); Denies: Chest Pain, Palpitations, Orthopnea, Paroxysmal Noc. Dyspnea, Lt Headedness Gastrointestinal: Reports: Nausea, Abdominal Pain (right upper quadrant); Denies: Vomiting, Diarrhea, Constipation, Melena, Hematochezia Genitourinary: Denies: Dysuria, Frequency, Incontinence, Hematuria Hematologic: Denies: Bruising, Bleeding Excessively Endocrine: Denies: Polydipsia, Polyphagia Musculoskeletal: Reports: Neck Pain, Back Pain, Joint Pain (bilateral hips) Neurological: Reports: Weakness, Numbness (bilateral hands, fingers, legs) Physical Examination General Exam: Positive: Alert, Cooperative, Moderate Distress Eye Exam: Positive: PERRLA, Conjunctiva & lids normal, EOMI; Negative: Sclera icteric, Ptosis ENT Exam: Positive: Atraumatic, Pharynx Normal, Tongue Midline, Nares Patent; Negative: Pharyngeal Edema Neck Exam: Positive: Supple, thyromegaly (without discrete nodule), +2 carotid pulse wo bruit; Negative: JVD, Lymphadenopathy Chest Exam: Positive: Clear to auscultation, Normal air movement; Negative: Rales, Rhonchi, Wheezing, Diminished Heart Exam: Positive: Rate Normal, Regular Rhythm, Normal S1, Normal S2; Negative: Gallops, Murmurs, Rubs Telemetry: Positive: Sinus Abdomen Exam: Positive: Normal bowel sounds, Soft, Tenderness (with mild palpation of upper quadrants, left > right), Hernia (abdominal), Other (abdominal stretch apple); Negative: Hepatospenomegaly, Mass Extremity Exam: Positive: Edema (+1 pitting edema left lower extremity), Normal pulses, Swelling; Negative: Clubbing, Cyanosis, Tenderness Skin Exam: Negative: Rash, Lesion Neuro Exam: Positive: Normal Speech, Cranial Nerves 3-12 NL Vital Signs Vital Signs Date Time Temp Pulse Resp B/P (MAP) Pulse Ox O2 Delivery O2 Flow Rate FiO2 08/08/18 00:27 17 08/07/18 23:37 73 89 08/07/18 23:31 157/78 (104) 08/07/18 22:05 97.6 Room Air Height (in): 60 Weight (kg): 76.82 BMI (kg): 33.1 Laboratory Data Labs 24H Laboratory Tests 2 08/07/18 22:37: POC Glucose (Misc Panel) 267H, POC Sodium (Misc Panel) 139, POC Potassium (Misc Panel) 4.0, POC Chloride (Misc Panel) 102, POC Total CO2 (Misc Panel) 25.0, POC Blood Urea Nitrogen (Misc Panel 32H, POC Ionized Calcium (Misc Panel) 4.9, POC Creatinine (Misc Panel) 1.3, POC Hematocrit (Misc Panel) 38.0 08/07/18 23:19: Immature Granulocyte % (Auto) 0.9, White Blood Count 6.5, Red Blood Count 3.85L, Hemoglobin 12.1, Hematocrit 37.5, Mean Corpuscular Volume 97.4H, Mean Corpuscular Hemoglobin 31.4, Mean Corpuscular Hemoglobin Concent 32.3, Red Cell Distribution Width 13.5, Platelet Count 242, Neutrophils (%) (Auto) 55.9, Lymphocytes (%) (Auto) 29.5, Monocytes (%) (Auto) 10.9H, Eosinophils (%) (Auto) 2.0, Basophils (%) (Auto) 0.8, Neutrophils # (Auto) 3.7, Lymphocytes # (Auto) 1.9, Monocytes # (Auto) 0.7, Eosinophils # (Auto) 0.1, Basophils # (Auto) 0.1, Nucleated Red Blood Cells % (auto) 0.0, Urine Color STRAW, Urine Appearance CLEAR, Urine pH 6.0, Urine Specific [place] 1.013, Urine Protein NEGATIVE, Urine Glucose (UA) 2+H, Urine Ketones NEGATIVE, Urine Blood NEGATIVE, Urine Nitrite N EGATIVE, Urine Bilirubin NEGATIVE, Urine Urobilinogen 0.2, Urine Leukocyte Esterase NEGATIVE, Urine WBC (Auto) 0, Urine RBC (Auto) 0, Urine Hyaline Casts (Auto) 0, Urine Bacteria (Auto) NEGATIVE, Urine Squamous Epithelial Cells 0, Urine Sperm (Auto) , Aspartate Amino Transf (AST/SGOT) 26, Alanine Am inotransferase (ALT/SGPT) 26, Alkaline Phosphatase 49, Total Bilirubin < 0.1L, Direct Bilirubin < 0.1, Total Protein 7.8, Albumin 3.3, Albumin/Globulin Ratio 0.73L, Lipase 297 CBC/BMP Laboratory Tests 08/07/18 23:19 Red Blood Count 3.85 L, Mean Corpuscular Volume 97.4 H, Mean Corpuscular Hemoglobin 31.4, Mean Corpuscular Hemoglobin Concent 32.3, Red Cell Distribution Width 13.5, Neutrophils (%) (Auto) 55.9, Lymphocytes (%) (Auto) 29.5, Monocytes (%) (Auto) 10.9 H, Eosinophils (%) (Auto) 2.0, Basophils (%) (Auto) 0.8, Neutrophils # (Auto) 3.7, Lymphocytes # (Auto) 1.9, Monocytes # (Auto) 0.7, Eosinophils # (Auto) 0.1, Basophils # (Auto) 0.1 Plan / VTE VTE Prophylaxis Ordered?: Yes (Heparin 5,000 units SQ Q8H) Plan Plan 1. Intractable abdominal and back pain - Imaging negative. Continue Baclofen, Gabapentin, and Tizanidine. Initiated Hydromorphone in a monitored area for respiratory monitoring. Oxygen therapy with titration 88-92%. Percocet and Tylenol as needed. 2. Chronic back pain - Continue Baclofen and Tizanidine. 3. HTN - Continue Carvedilol, Chlorthalidone, and Spironolactone. 4. CAD s/p MA s/p stenting - Continue ASA, Carvedilol, Nitroglycerin. 5. DM with diabetic neuropathy - Continue long-acting insulin 25 units SQ QHS and Gabapentin. Initiating SSI AC/HS, FSBS AC/HS, and hypoglycemic protocol. 6. Seizure disorder - Continue Keppra and Zonisamide. 7. MS - Not on pharmacotherapy. 8. History of herpes - Continue Valacyclovir. 9. GERD - Continue Protonix. Disposition Admit: Anticipated hospitalization: Attending: Diet: Continue Current (Consistent carbohydrate) Therapy: PT Medications: Increase Pain Meds (Tylenol, Baclofen, Gabapentin, Hydromorphone, Percocet) Respiratory: Increase Oxygen (Oxygen titration 88-92%) Diagnostics: Check Labs, Repeat Labs in AM Anticipated Discharge: SUKUMAR Alejandre DO August 08, 2018 04:38
[2018-08-08] MEDS ORDERED: HYDROmorphone HCL 2 MG/ML 1ML VIAL (J1170) IV PRN (05:15)
[2018-08-08 06:29] VITALS: BP 142/90
[2018-08-08] MEDS: HEPARIN SOD (PORCINE) 5000 UNITS/ML VIAL SC SCH ×3 (06:44→22:18)
[2018-08-08 07:03] VITALS: O2SAT 96
[2018-08-08] MEDS: levETIRAcetam 250MG TABLET (KEPPRA) PO SCH ×2 (07:40→22:19)
[2018-08-08] MEDS: GABAPENTIN 300 MG CAP PO SCH ×3 (07:40→22:19)
[2018-08-08] MEDS: valACYclovir HCL 500 MG TAB PO SCH ×2 (07:40→22:19)
[2018-08-08] MEDS: HumaLOG INSULIN (NovoLOG) PER UNIT SC SCH ×4 (07:40→21:00)
[2018-08-08] MEDS: SPIRONOLACTONE 25 MG TAB PO SCH ×2 (07:40→22:19)
[2018-08-08] MEDS: tiZANidine 4 MG TAB PO SCH ×4 (07:40→22:19)
[2018-08-08] MEDS: SENOKOT S TAB PO SCH ×2 (07:40→22:19)
[2018-08-08] MEDS: FERROUS SULFATE 325MG TAB PO SCH (07:40)
[2018-08-08] MEDS: PANTOPRAZOLE 40MG TAB (PROTONIX) PO SCH (07:40)
[2018-08-08] MEDS: ZONISAMIDE 50 MG CAP (ZONEGRAN) PO SCH ×2 (07:41→22:19)
[2018-08-08] MEDS: ASPIRIN 81 MG CHEW TABLET PO SCH (07:41)
[2018-08-08] MEDS: BACLOFEN 10 MG TAB PO SCH ×4 (07:41→22:19)
[2018-08-08] MEDS: MAGNESIUM OXIDE 400 MG TAB (MAG-OX) PO SCH (07:41)
[2018-08-08] MEDS: MOM 30ML SUSPENSION UDC PO SCH (07:42)
[2018-08-08] MEDS: CARVedilol 12.5 MG TAB PO SCH ×2 (07:42→22:22)
[2018-08-08 07:59] LABS: HEMATOCRIT 41.7 % (36.0-47.0); MEAN CORPUSCULAR HGB CONC 31.2 g/dl (32.0-36.5); MEAN CORPUSCULAR VOLUME 99.5 fl (80.0-96.0); PLATELET COUNT, AUTOMATED 242 10^3/uL (150-450); RED BLOOD COUNT 4.19 10^6/uL (4.00-5.40); WHITE BLOOD COUNT 6.1 10^3/uL (4.0-10.0)
[2018-08-08 08:24] LABS: CALCIUM LEVEL 8.9 MG/DL (8.8-10.2); CREATININE FOR GFR 1.41 MG/DL (0.55-1.30); GLOMERULAR FILTRATION RATE 48.9 (>45); POTASSIUM SERUM 4.3 MEQ/L (3.5-5.1)
[2018-08-08] MEDS: LIDOCAINE 5% (LIDODERM) PATCH TD SCH (09:06)
[2018-08-08] MEDS: CHLORTHALIDONE 25 MG TAB PO SCH (09:06)
[2018-08-08 09:15] VITALS: O2SAT 94
--- NOTE | 2018-08-08 09:52 | IPNPDOC ---
Subjective Date Seen The patient was seen on 08/08/18. Subjective Chief Complaint/HPI RUQ pain still present, chronic Constitutional: Denies: Chills ENT: Denies: Head Aches Skin: Denies: Rash Pulmonary: Reports: Pleuritic Chest Pain (right lower rib area with deep breathing); Denies: Dyspnea Cardiovascular: Denies: Palpitations, Orthopnea, Paroxysmal Noc. Dyspnea Gastrointestinal: Reports: Nausea (with meals also RUQ pain intensifies with meals); Denies: Vomiting, Diarrhea Genitourinary: Denies: Dysuria, Incontinence Endocrine: Denies: Polydipsia Psych: Reports: Mood Normal Objective Physical Examination General Exam: Positive: Alert, Cooperative, Moderate Distress Eye Exam: Positive: PERRLA, Conjunctiva & lids normal, EOMI; Negative: Sclera icteric, Ptosis ENT Exam: Positive: Atraumatic, Pharynx Normal, Tongue Midline, Nares Patent; Negative: Pharyngeal Edema Neck Exam: Positive: Supple, thyromegaly (without discrete nodule), +2 carotid pulse wo bruit; Negative: JVD, Lymphadenopathy Chest Exam: Positive: Clear to auscultation, Normal air movement; Negative: Rales, Rhonchi, Wheezing, Diminished Heart Exam: Positive: Rate Normal, Regular Rhythm, Normal S1, Normal S2; Negative: Gallops, Murmurs, Rubs Telemetry: Positive: Sinus Abdomen Exam: Positive: Normal bowel sounds, Soft, Tenderness (with mild p alpation of upper quadrants, left > right), Hernia (abdominal), Other (abdominal stretch apple); Negative: Hepatospenomegaly, Mass Extremity Exam: Positive: Edema (+1 pitting edema left lower extremity), Normal pulses, Swelling; Negative: Clubbing, Cyanosis, Tenderness Skin Exam: Negative: Rash, Lesion Neuro Exam: Positive: Normal Speech (but somwehat slow, no slurring), Cranial Nerves 3-12 NL, Other (seems to experience discomfort with light touch along RUQ, approx T6 dermatome) Psych Exam: Positive: Mental status NL Other physical findings tender to pressure and percussion mid to lower thoracic spine, especially right side. Assessment /Plan Problems (1) Chronic RUQ pain Status: Chronic Response to Treatment: Improving Problem Text: this pain has been present for about 2 mos, according to patient report. improved by toradol. worsened by eating and accompanied by some nausea, colicky pains after meals, persist until next meal.. CT and US unrevealing. Spoke with her attending Dr. Elaine who expressed concern about potential inappropriate use of narcotics. multiple narcs listed as "allergies" anyway, will stop ordered oxycodone. doesn't look like she has received any since admission. (2) MS (multiple sclerosis) Status: Chronic Response to Treatment: Stable Problem Specific Plan: Consult Specialist Problem Text: protean manifestations of this disease requires consult with Neuro. (3) Diabetes Status: Chronic Response to Treatment: Stable Problem Specific Plan: Monitor Clinically Problem Text: continue levemir. SS coverage (4) HTN (hypertension) Status: Chronic Response to Treatment: Stable Problem Specific Plan: Monitor Clinically Problem Text: continue bp meds. (5) Migraine Response to Treatment: Stable Problem Specific Plan: Monitor Clinically Problem Text: continue prophylaxis meds (6) CKD stage 3 due to type 2 diabetes mellitus Response to Treatment: Stable Problem Specific Plan: Monitor Clinically Plan/VTE VTE Prophylaxis Ordered?: Yes (Heparin 5,000 units SQ Q8H) Plan Diet: Continue Current (Consistent carbohydrate) Therapy: PT Medications: Increase Pain Meds (Tylenol, Baclofen, Gabapentin, Hydromorphone, Percocet) Respiratory: Increase Oxygen (Oxygen titration 88-92%) Diagnostics: Check Labs, Repeat Labs in AM Anticipated Discharge: Home VS, I&O, [facility] Vital Signs/I&O Vital Signs Date Time Temp Pulse Resp B/P (MAP) Pulse Ox O2 Delivery O2 Flow Rate FiO2 08/08/18 09:15 94 Room Air 08/08/18 07:42 69 141/89 08/08/18 06:29 97.4 10 I&O- Last 24 Hours up to 6 AM 08/08/18 06:00 Intake Total 500 ml Balance 500 ml Laboratory Data 24H LABS Laboratory Tests 2 08/07/18 22:37: POC Glucose (Misc Panel) 267H, POC Sodium (Misc Panel) 139, POC Potassium (Misc Panel) 4.0, POC Chloride (Misc Panel) 102, POC Total CO2 (Misc Panel) 25.0, POC Blood Urea Nitrogen (Misc Panel 32H, POC Ionized Calcium (Misc Panel) 4.9, POC Creatinine (Misc Panel) 1.3, POC Hematocrit (Misc Panel) 38.0 08/07/18 23:19: Immature Granulocyte % (Auto) 0.9, White Blood Count 6.5, Red Blood Count 3.85L, Hemoglobin 12.1, Hematocrit 37.5, Mean Corpuscular Volume 97.4H, Mean Leonel uscular Hemoglobin 31.4, Mean Corpuscular Hemoglobin Concent 32.3, Red Cell Distribution Width 13.5, Platelet Count 242, Neutrophils (%) (Auto) 55.9, Lymphocytes (%) (Auto) 29.5, Monocytes (%) (Auto) 10.9H, Eosinophils (%) (Auto) 2.0, Basophils (%) (Auto) 0.8, Neutrophils # (Auto) 3.7, Lymphocytes # (Auto) 1.9, Monocytes # (Auto) 0.7, Eosinophils # (Auto) 0.1, Basophils # (Auto) 0.1, Nucleated Red Blood Cells % (auto) 0.0, Urine Color STRAW, Urine Appearance CLEAR, Urine pH 6.0, Urine Specific [place] 1.013, Urine Protein NEGATIVE, Urine Glucose (UA) 2+H, Urine Ketones NEGATIVE, Urine Blood NEGATIVE, Urine Nitrite NEGATIVE, Urine Bilirubin NEGATIVE, Urine Urobilinogen 0.2, Urine Leukocyte Es terase NEGATIVE, Urine WBC (Auto) 0, Urine RBC (Auto) 0, Urine Hyaline Casts (Auto) 0, Urine Bacteria (Auto) NEGATIVE, Urine Squamous Epithelial Cells 0, Urine Sperm (Auto) , Aspartate Amino Transf (AST/SGOT) 26, Alanine Aminotransferase (ALT/SGPT) 26, Alkaline Phosphatase 49, Total Bilirubin < 0.1L, Direct Bilirubin < 0.1, Total Protein 7.8, Albumin 3.3, Albumin/Globulin Ratio 0.73L, Lipase 297 08/08/18 07:18: Bedside Glucose (Misc Panel) 134H 08/08/18 07:34: Nucleated Red Blood Cells % (auto) 0.0, Anion Gap 6L, Glomerular Filtration Rate 48.9, Blood Urea Nitrogen 30H, Creatinine 1.41H, Sodium Level 140, Potassium Level 4.3, Chloride Level 107, Carbon Dioxide Level 27, Calcium Level 8.9 CBC/BMP Laboratory Tests 08/07/18 23:19 Red Blood Count 3.85 L, Mean Corpuscular Volume 97.4 H, Mean Corpuscular Hemoglobin 31.4, Mean Corpuscular Hemoglobin Concent 32.3, Red Cell Distribution Width 13.5, Neutrophils (%) (Auto) 55.9, Lymphocytes (%) (Auto) 29.5, Monocytes (%) (Auto) 10.9 H, Eosinophils (%) (Auto) 2.0, Basophils (%) (Auto) 0.8, Neutrophils # (Auto) 3.7, Lymphocytes # (Auto) 1.9, Monocytes # (Auto) 0.7, Eosinophils # (Auto) 0.1, Basophils # (Auto) 0.1 08/08/18 07:34 Red Blood Count 4.19, Mean Corpuscular Volume 99.5 H, Mean Corpuscular Hemoglobin 31.0, Mean Corpuscular Hemoglobin Concent 31.2 L, Red Cell Distribution Width 13.9, Calcium Level 8.9 Juan Strauss MD August 08, 2018 09:52
[2018-08-08] MEDS: KETOROLAC 30 MG/ML VIAL (J1885) IV SCH ×3 (12:05→22:18)
[2018-08-08] MEDS: PRIMIDONE 50 MG TAB PO SCH ×2 (12:09→22:19)
[2018-08-08 14:00] VITALS: BP 172/87
--- NOTE | 2018-08-08 16:08 | REP ---
MR THORACIC SPINE WITHOUT CONTRAST: HISTORY: Right T6-7 pain. A small central disc protrusion is present at the T1-2 level. There is minimal effacement of the thecal sac without spinal cord compression. The T1 neural foramina are patent. A small left paracentral disc protrusion is present at the T7-8 level. There is minimal effacement of the thecal sac without spinal cord compression. The T9 neural foramina are patent. A small right paracentral and intraforaminal disc protrusion are present at the T8-9 level. There is minimal effacement of the thecal sac without spinal cord compression. There is compression of the right T8 nerve in the neural foramen . The left T8 neural foramen is patent. There is no other disc bulge or herniation. The remaining neural foramina are patent. The spinal cord is normal in signal intensity. Normal signal intensity is present in the thoracic vertebral bodies. Anterior osteophytes are present in the mid and lower thoracic spine. IMPRESSION: Small disc protrusions at the T1-2, T7-8 and T8-9 levels without spinal cord compression. Electronically Signed by Oliverio Odonnell MD 08/08/2018 04:18 P
--- NOTE | 2018-08-08 19:49 | CR ---
DATE OF CONSULTATION: 08/08/2018 REFERRING PHYSICIAN: Dr. Juan Strauss REASON FOR CONSULTATION: Right upper quadrant abdominal pain. HISTORY OF PRESENT ILLNESS: Roxana Lofton is a 62-year-old woman with a history of multiple sclerosis but intolerance to Avonex and Tecfidera. Chronic back and neck pain and a headache. She presented to [facility] due to right upper quadrant abdominal pain located under her rib cage and right breast which started 2 months ago without preceding injury illness or rash. Pain ranges between 6-10/10 in intensity and is worsened by moving. She is using Lidoderm patches right now and feels her pain is 6/10 in intensity. There are no relieving factors. Her skin feels sensitive in this region. Pain is continuous. She denies any dysphagia, dysarthria, diplopia, urinary incontinence, falls, loss of consciousness or injuries. As described above she has chronic headaches, neck and back pain. She goes to pain management with Dr. Marsh. She gets epidural injections. DIAGNOSTIC STUDIES: The MRI scan of thoracic spine showed disk bulges and small protrusions at T1-T2, T7-T8, T8-T9 levels. Ultrasound of abdomen, CT scan of abdomen and pelvis were unremarkable. Her CBC was within normal limits. Creatinine was 1.4. Metabolic profile, AST, ALT, lipase were all within normal limits. PAST MEDICAL HISTORY: Diabetes, acid reflux, hypertension, multiple sclerosis, vitamin D and B12 deficiency, iron-deficiency chronic neck and back pain, chronic headaches, arthritis, tubal ligation, cardiac stents colonoscopy, endoscopy. FAMILY HISTORY: Father had lung cancer. Mother of unknown etiology. SOCIAL HISTORY: The patient is a former smoker. She denies alcohol or illicit drugs. REVIEW OF SYSTEMS: All systems were reviewed and found to be noncontributory except as mentioned history present illness. CURRENT MEDICATIONS: Praluent 75 mg subcutaneous every 2 weeks, aspirin 81 mg by mouth daily, baclofen 20 mg by mouth four times a day, Coreg 12.5 mg by mouth, chlorthalidone 25 mg by mouth daily, vitamin B12 50 mcg by mouth daily, vitamin D to 50,000 units once a week, ferrous sulfate 325 mg by mouth daily, gabapentin 600 mg by mouth three times a day, insulin 25 units states at bedtime, insulin Humalog sliding scale, Keppra 250 mg by mouth twice a day, magnesium oxide 400 mg by mouth twice a day, Protonix 40 mg by mouth daily, primidone 50 mg, 2 tablets by mouth twice a day, spironolactone 25 mg by mouth twice a day, senna 1 tablet by mouth twice a day, tizanidine 4 mg by mouth four times a day, Valtrex 5 mg by mouth twice a day, zonisamide 50 mg by mouth twice a day. PHYSICAL EXAMINATION: Temperature 97.9, pulse 70, respiratory rate 16, blood pressure 172/87, 92% saturation on room air. Heart: Regular rate and rhythm. Lungs: Clear to auscultation. Abdomen: Soft, nontender, nondistended. No pedal edema. No musculoskeletal abnormalities. No rash. No signs of meningeal irritation. No dysmetria or ataxia. The patient is awake, alert, oriented to place, person and time. Normal speech comprehension and repetition. Extraoral muscles are intact. No facial weakness. Tongue and uvula are midline. 5/5 strength in all four extremities. Deep tendon reflexes are 1+ in arms and knees and absent at ankles. She has decreased cold pinprick sensation in her feet. Gait was not tested. She has pain and tenderness in right upper quadrant of the abdomen. She is wearing Lidoderm patches in that region, but still has pain and tenderness. ASSESSMENT: 1. Right upper quadrant abdominal pain of unclear etiology. 2. No clear neurological cause of right upper quadrant abdominal pain. Multiple sclerosis he would not cause this severe pain and tenderness without plaques in the spinal cord in that region. 3. Thoracic radiculopathy is less likely. 4. Polypharmacy, failure of Avonex and Tecfidera, Nortriptyline and Cymbalta. The patient states that Cymbalta and nortriptyline aggravated her nerve pain in legs in past. PLAN: 1. Patient did not tolerate Cymbalta or nortriptyline in past. 2. Venlafaxine extended release 37.5 mg by mouth daily can be considered. 2. Switching gabapentin to Lyrica is an option. 3. Consider involving pain clinic for management of her chronic pain. Chronic pain disorder is in differential diagnosis. 4. Follow with Dr. Louis as planned.
--- NOTE | 2018-08-08 20:53 | ECGEPIP ---
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
[2018-08-08 22:00] VITALS: BP 123/76
[2018-08-08] MEDS: LEVEMIR (INSULIN DETEMIR) 1 UNITS/0.01ML SC SCH (22:18)
[2018-08-08] MEDS: **NOTE PATIENT COMMENT** MISC XX SCH (22:26)
[2018-08-09 00:17] VITALS: O2SAT 92
[2018-08-09] MEDS: HEPARIN SOD (PORCINE) 5000 UNITS/ML VIAL SC SCH ×3 (05:19→21:42)
[2018-08-09] MEDS: KETOROLAC 30 MG/ML VIAL (J1885) IV SCH ×3 (05:21→21:43)
[2018-08-09 05:57] VITALS: BP 171/88
[2018-08-09 06:08] LABS: HEMOGLOBIN 11.7 g/dl (12.0-15.5); MEAN CORPUSCULAR HEMOGLOBIN 31.3 pg (27.0-33.0); MEAN CORPUSCULAR HGB CONC 31.6 g/dl (32.0-36.5); MEAN CORPUSCULAR VOLUME 98.9 fl (80.0-96.0); PLATELET COUNT, AUTOMATED 235 10^3/uL (150-450); RED BLOOD COUNT 3.74 10^6/uL (4.00-5.40); WHITE BLOOD COUNT 5.2 10^3/uL (4.0-10.0)
[2018-08-09 06:38] LABS: CALCIUM LEVEL 9.1 MG/DL (8.8-10.2); CREATININE FOR GFR 1.67 MG/DL (0.55-1.30); GLOMERULAR FILTRATION RATE 40.2 (>45); POTASSIUM SERUM 4.3 MEQ/L (3.5-5.1)
[2018-08-09] MEDS: FERROUS SULFATE 325MG TAB PO SCH (08:58)
[2018-08-09] MEDS: HumaLOG INSULIN (NovoLOG) PER UNIT SC SCH ×4 (08:58→21:00)
[2018-08-09] MEDS: SPIRONOLACTONE 25 MG TAB PO SCH ×2 (08:59→21:47)
[2018-08-09] MEDS: ZONISAMIDE 50 MG CAP (ZONEGRAN) PO SCH ×2 (08:59→21:46)
[2018-08-09] MEDS: PANTOPRAZOLE 40MG TAB (PROTONIX) PO SCH (08:59)
[2018-08-09] MEDS: tiZANidine 4 MG TAB PO SCH ×4 (08:59→21:47)
[2018-08-09] MEDS: PRIMIDONE 50 MG TAB PO SCH ×2 (08:59→21:46)
[2018-08-09] MEDS: levETIRAcetam 250MG TABLET (KEPPRA) PO SCH ×2 (08:59→21:47)
[2018-08-09] MEDS: MAGNESIUM OXIDE 400 MG TAB (MAG-OX) PO SCH (08:59)
[2018-08-09] MEDS: CHLORTHALIDONE 25 MG TAB PO SCH (08:59)
[2018-08-09] MEDS: SENOKOT S TAB PO SCH ×2 (08:59→21:47)
[2018-08-09] MEDS: GABAPENTIN 300 MG CAP PO SCH ×3 (08:59→21:46)
[2018-08-09] MEDS: valACYclovir HCL 500 MG TAB PO SCH ×2 (08:59→21:47)
[2018-08-09] MEDS: BACLOFEN 10 MG TAB PO SCH ×4 (08:59→21:46)
[2018-08-09] MEDS: MOM 30ML SUSPENSION UDC PO SCH (09:00)
[2018-08-09] MEDS: ASPIRIN 81 MG CHEW TABLET PO SCH (09:00)
[2018-08-09] MEDS: LIDOCAINE 5% (LIDODERM) PATCH TD SCH (09:01)
[2018-08-09] MEDS: CARVedilol 12.5 MG TAB PO SCH ×2 (09:07→21:49)
--- NOTE | 2018-08-09 10:17 | IPNPDOC ---
Subjective Date Seen The patient was seen on 08/09/18. Subjective Chief Complaint/HPI RUQ pain Events since last encounter Continues with RUQ pain. Worse with movement and post prandial. S/p Neuro consult: recommending Pain management evaluation. Constitutional: Denies: Chills, Fever, Night Sweats Gastrointestinal: Reports: Abdominal Pain; Denies: Nausea, Vomiting, Diarrhea, Constipation Genitourinary: Denies: Dysuria, Frequency, Incontinence, Retention Objective Physical Examination General Exam: Positive: Alert, Cooperative, Moderate Distress Eye Exam: Positive: PERRLA, Conjunctiva & lids normal, EOMI; Negative: Sclera icteric, Ptosis ENT Exam: Positive: Atraumatic, Pharynx Normal, Tongue Midline, Nares Patent; Negative: Pharyngeal Edema Neck Exam: Positive: Supple, thyromegaly (without discrete nodule), +2 carotid pulse wo bruit; Negative: JVD, Lymphadenopathy Chest Exam: Positive: Clear to auscultation, Normal air movement; Negative: Rales, Rhonchi, Wheezing, Diminished Heart Exam: Positive: Rate Normal, Regular Rhythm, Normal S1, Normal S2; Negative: Gallops, Murmurs, Rubs Telemetry: Positive: Sinus Abdomen Exam: Positive: Normal bowel sounds, Soft, Tenderness (RUQ), Hernia (abdominal), Other (abdominal stretch apple); Negative: Hepatospenomegaly, Mass Extremity Exam: Positive: Edema (+1 pitting edema left lower extremity), Normal pulses, Swelling; Negative: Clubbing, Cyanosis, Tenderness Skin Exam: Negative: Rash, Lesion Neuro Exam: Positive: Normal Speech (but somwehat slow, no slurring), Cranial Nerves 3-12 NL, Other (seems to experience discomfort with light touch along RUQ, approx T6 dermatome) Psych Exam: Positive: Mental status NL RAD Interpretation STUDY: Rad Actions: Report Reviewed RAD Interpretation: Other Result Comments: (Right T8 nerve compression visualized. Could be an opportunity for pain management to help.) Assessment /Plan Problems (1) Chronic RUQ pain Status: Chronic Response to Treatment: Improving Problem Text: 08/09/18: will contact pain management for eval. this pain has been present for about 2 mos, according to patient report. improved by toradol. worsened by eating and accompanied by some nausea, colicky pains after meals, persist until next meal.. CT and US unrevealing. Spoke with her attending Dr. Elaine who expressed concern about potential inappropriate use of narcotics. multiple narcs listed as "allergies" anyway, will stop ordered oxycodone. doesn't look like she has received any since admission. (2) MS (multiple sclerosis) Status: Chronic Response to Treatment: Stable Problem Specific Plan: Consult Specialist Problem Text: protean manifestations of this disease requires consult with Neuro. (3) Diabetes Status: Chronic Response to Treatment: Stable Problem Specific Plan: Monitor Clinically Problem Text: continue levemir. SS coverage (4) HTN (hypertension) Status: Chronic Response to Treatment: Stable Problem Specific Plan: Monitor Clinically Problem Text: continue bp meds. (5) Migraine Response to Treatment: Stable Problem Specific Plan: Monitor Clinically Problem Text: continue prophylaxis meds (6) CKD stage 3 due to type 2 diabetes mellitus Response to Treatment: Stable Problem Specific Plan: Monitor Clinically Plan/VTE VTE Prophylaxis Ordered?: Yes (Heparin 5,000 units SQ Q8H) Plan Diet: Continue Current (Consistent carbohydrate) Therapy: PT Medications: Increase Pain Meds (Tylenol, Baclofen, Gabapentin, Hydromorphone, Percocet) Respiratory: Increase Oxygen (Oxygen titration 88-92%) Diagnostics: Check Labs, Repeat Labs in AM Anticipated Discharge: Home VS, I&O, 24H, [facility] Vital Signs/I&O Vital Signs Date Time Temp Pulse Resp B/P (MAP) Pulse Ox O2 Delivery O2 Flow Rate FiO2 08/09/18 09:07 74 150/90 08/09/18 05:57 98.5 11 42 08/09/18 00:17 Room Air I&O- Last 24 Hours up to 6 AM 08/09/18 06:00 Intake Total 1260 ml Output Total 0 ml Balance 1260 ml Laboratory Data 24H LABS Laboratory Tests 2 08/08/18 11:45: Bedside Glucose (Misc Panel) 178H 08/08/18 16:54: Bedside Glucose (Misc Panel) 95 08/09/18 05:26: Nucleated Red Blood Cells % (auto) 0.0, Anion Gap 5L, Glomerular Filtration Rate 40.2L, Blood Urea Nitrogen 33H, Creatinine 1.67H, Sodium Level 139, Potassium Level 4.3, Chloride Level 106, Carbon Dioxide Level 28, Calcium Level 9.1 CBC/BMP Laboratory Tests 08/09/18 05:26 Red Blood Count 3.74 L, Mean Corpuscular Volume 98.9 H, Mean Corpuscular Hemoglobin 31.3, Mean Corpuscular Hemoglobin Concent 31.6 L, Red Cell Distribution Width 14.0, Calcium Level 9.1 Saba Bravo August 09, 2018 10:17 Juan Strauss MD August 09, 2018 11:18
[2018-08-09] MEDS: ACETAMINOPHEN TAB 650MG DOSE (2X325MG) PO PRN ×2 (10:43→23:56)
[2018-08-09 14:00] VITALS: BP 123/62
--- NOTE | 2018-08-09 18:13 | CR ---
DATE OF CONSULTATION: 08/09/2018 CHIEF COMPLAINT: Right upper quadrant pain, right lower thoracic pain. HISTORY OF PRESENT ILLNESS: Roxana is a 62-year-old female who was admitted yesterday due to right-sided abdominal pain. This began 2 months ago without precipitating event. Does report that she had a sinus infection and cough for several weeks in June. Denies fever. States that she fell a few weeks ago, landing on her knees and hands that aggravated the pain. Thoracic imaging is not giving us any significant pathology. Responding well to intravenous (IV) Toradol. Reporting zero pain a half hour after receiving IV Toradol. Appears comfortable. Reporting normal bowel movements and urination.. PAST MEDICAL HISTORY: 1. Hypertension. 2. Coronary artery disease status post myocardial infarction (WI), status post stenting. 3. Diabetes mellitus. 4. Diverticulitis. 5. Arthritis. 6. Chronic kidney disease. 7. Multiple sclerosis. 8. Seizure disorder. 9. Gastroesophageal reflux disease (GERD). PAST SURGICAL HISTORY: 1. Tubal ligation. 2. Cardiac stenting. 3. Esophagogastroduodenoscopy (EGD). 4. Colonoscopy. 5. Endometrial curetting. FAMILY HISTORY: Father , age 79, lung cancer. Mother , age 32, unknown etiology. Siblings: Fourteen alive. Diabetes mellitus, cancer. SOCIAL HISTORY: Former smoker; quit many years ago. Alcohol: Denies alcohol use. Drugs: Denies drug use. REVIEW OF SYSTEMS: 11-point review of systems is negative except as stated in history of present illness (HPI). PHYSICAL EXAMINATION: Resting comfortably in bed. Awake, alert. VITAL SIGNS: 97, 160, 12, blood pressure (BP) 123/62, oxygen saturation 97% on room air. CARDIAC: S1, S2, normal rate and rhythm. RESPIRATORY: Lung sounds clear. Respirations nonlabored. ABDOMEN: Palpation tenderness in the right upper quadrant. Thoracic spine: Tenderness, lower thoracic radiating anteriorly, midaxillary to right upper quadrant of abdomen. DIAGNOSTIC DATA: Thoracic imaging reviewed, dated 08/08/2018. ASSESSMENT: Costochondritis. PLAN: The patient is currently responding well to Toradol and current medicine regimen. I would recommend continuing that, perhaps adding an oral anti-inflammatory medication for home for 10 days and continue with conservative care. Thank you for allowing us to participate in the care of your patient, Roxana Lofton. If you have any questions, please do not hesitate to contact me. CHRISTINE
[2018-08-09 18:44] VITALS: O2SAT 95
[2018-08-09] MEDS: LEVEMIR (INSULIN DETEMIR) 1 UNITS/0.01ML SC SCH (21:44)
[2018-08-09] MEDS: **NOTE PATIENT COMMENT** MISC XX SCH (21:50)
[2018-08-09 22:00] VITALS: BP 148/83
[2018-08-10 00:32] VITALS: O2SAT 92
[2018-08-10 06:00] VITALS: BP 146/80
[2018-08-10] MEDS: HEPARIN SOD (PORCINE) 5000 UNITS/ML VIAL SC SCH ×2 (06:02→14:00)
[2018-08-10] MEDS: KETOROLAC 30 MG/ML VIAL (J1885) IV SCH ×2 (06:03→12:15)
[2018-08-10 06:38] LABS: HEMOGLOBIN 11.3 g/dl (12.0-15.5); MEAN CORPUSCULAR HEMOGLOBIN 31.7 pg (27.0-33.0); MEAN CORPUSCULAR HGB CONC 32.3 g/dl (32.0-36.5); PLATELET COUNT, AUTOMATED 214 10^3/uL (150-450); RED BLOOD COUNT 3.57 10^6/uL (4.00-5.40); WHITE BLOOD COUNT 4.4 10^3/uL (4.0-10.0)
[2018-08-10 06:57] LABS: CREATININE FOR GFR 1.49 MG/DL (0.55-1.30); GLOMERULAR FILTRATION RATE 45.9 (>45); POTASSIUM SERUM 3.6 MEQ/L (3.5-5.1)
[2018-08-10] MEDS: valACYclovir HCL 500 MG TAB PO SCH (07:34)
[2018-08-10] MEDS: MOM 30ML SUSPENSION UDC PO SCH (07:34)
[2018-08-10] MEDS: HumaLOG INSULIN (NovoLOG) PER UNIT SC SCH ×2 (07:34→12:15)
[2018-08-10] MEDS: tiZANidine 4 MG TAB PO SCH ×2 (07:34→12:15)
[2018-08-10] MEDS: FERROUS SULFATE 325MG TAB PO SCH (07:34)
[2018-08-10 07:35] VITALS: BP 140/76
[2018-08-10] MEDS: SENOKOT S TAB PO SCH (07:35)
[2018-08-10] MEDS: CARVedilol 12.5 MG TAB PO SCH (07:35)
[2018-08-10] MEDS: MAGNESIUM OXIDE 400 MG TAB (MAG-OX) PO SCH (07:35)
[2018-08-10] MEDS: CHLORTHALIDONE 25 MG TAB PO SCH (07:35)
[2018-08-10] MEDS: levETIRAcetam 250MG TABLET (KEPPRA) PO SCH (07:36)
[2018-08-10] MEDS: PANTOPRAZOLE 40MG TAB (PROTONIX) PO SCH (07:36)
[2018-08-10] MEDS: GABAPENTIN 300 MG CAP PO SCH ×2 (07:36→15:27)
[2018-08-10] MEDS: ZONISAMIDE 50 MG CAP (ZONEGRAN) PO SCH (07:36)
[2018-08-10] MEDS: ASPIRIN 81 MG CHEW TABLET PO SCH (07:36)
[2018-08-10] MEDS: PRIMIDONE 50 MG TAB PO SCH (07:36)
[2018-08-10] MEDS: SPIRONOLACTONE 25 MG TAB PO SCH (07:36)
[2018-08-10] MEDS: BACLOFEN 10 MG TAB PO SCH ×2 (07:36→12:15)
[2018-08-10] MEDS: LIDOCAINE 5% (LIDODERM) PATCH TD SCH (07:37)
[2018-08-10] MEDS ORDERED: MELO15TA28 PO (08:11)
[2018-08-10 09:55] VITALS: O2SAT 94
--- NOTE | 2018-08-10 10:22 | DSES ---
DATE OF ADMISSION: 08/08/2018 DATE OF DISCHARGE: 08/10/2018 PRIMARY CARE PROVIDER: Dr. Bhargav Elaine ATTENDING PHYSICIAN: Dr. Juan Strauss NEUROLOGIST: Dr. Missy Pavon PAIN MANAGEMENT: Sandra Mota NP HISTORY OF PRESENT ILLNESS: 62-year-old female presented to [facility] Emergency Department for worsening abdominal and back pain. Patient has had this abdominal and back pain for the last 2 months; however, it has continued to progress and worsened significantly despite use of Tylenol, ice, and lidocaine cream. Patient described excruciating pain that caused nausea without vomiting and inhibits her ability to take a deep breath. Patient was subsequently admitted for intractable pain to family medicine service. HOSPITAL COURSE: Patient was given Toradol IV as needed pain management secondary to prior behaviors with inappropriate use of opioids in the past. Patient was consulted by neurology to rule out multiple sclerosis (MS) as a contributing factor. Dr. Pavon evaluated patient on 08/08/2018, recommended continuing current medications and consulting pain management. Other options included considering changing gabapentin to Lyrica or adding on venlafaxine. Patient is intolerant to Cymbalta and nortriptyline in the past. Patient is status post pain management consult who recommends anti-inflammatory treatment for 10 days. Patient seemed agreeable to this. Patient is status post physical therapy evaluation and has passed physical therapy (PT) with recommendations of a four-wheeled walker for gait stability. IMAGING: CT of the pelvis was completed as well as a right upper quadrant ultrasound, all of which show no significant abnormalities. There was a note of some asymmetry to the subareolar portion of the left breast. This was reviewed with Dr. Diego Adames, who compared prior mammograms along with the CT results, and this is a stable finding for the patient and is unchanged since 2016. Thoracic spine MRI was completed. Showed small disc protrusions T1-2, T7-8, and T8-9. She does have some compression of the right T8 nerve in the neural foramen. PHYSICAL EXAMINATION: Today, vital signs are stable. She is afebrile. HEENT: Neck is supple without lymphadenopathy or jugular venous distention (JVD). CARDIOVASCULAR: Heart rate and rhythm are regular. PULMONARY: Lungs are clear. ABDOMEN: Soft and nontender. BILATERAL LOWER EXTREMITIES: Without any edema. She does have some mild right upper quadrant pain on palpation. NEUROLOGIC: Patient is alert and oriented times three. PSYCHIATRIC: Affect is flat. Conversation is appropriate. Patient does maintain eye contact. ASSESSMENT: 1. Right upper quadrant pain with right T8 disc herniation with nerve compression. 2. Multiple sclerosis. 3. Seizure disorder. 4. Hypertension. 5. Coronary artery disease (CAD). 6. Diabetes. 7. Dyslipidemia. 8. Osteoarthritis. 9. Gastroesophageal reflux disease (GERD). 10. Chronic kidney disease. PLAN: Patient will be discharged to home. Diet is carbohydrate consistent. Activity is ambulating with walker. She will followup with primary care provider (PCP) within the next 3-5 days. Patient should consider outpatient physical therapy where she currently attends to physical therapy for the thoracic pain. Also can consider pain management consultation for the T8 nerve compression. MEDICATIONS: Are as follows: - meloxicam 15 mg one by mouth daily for 10 days - Tylenol 500 mg by mouth four times a day as needed pain - Praluent 75 mg subcutaneous every 2 weeks - aspirin 81 mg one by mouth daily - Baclofen 20 mg by mouth four times a day - carvedilol 12.5 mg by mouth twice a day - chlorthalidone 25 mg by mouth daily - vitamin B12, 250 mcg by mouth daily - vitamin D2, 50,000 international units by mouth weekly - ferrous sulfate 325 one by mouth daily - gabapentin 600 mg by mouth three times a day - hydrocortisone 2.5% cream per rectum twice a day as needed hemorrhoids - Basaglar KwikPen 25 units subcutaneous nightly - Lispro per sliding scale before food - Keppra 250 mg one by mouth twice a day - magnesium oxide 400 mg tablets two by mouth daily - nitroglycerin 0.4 mg sublingual as needed chest pain - pantoprazole sodium 40 mg by mouth daily - primidone 50 mg tablet two by mouth twice a day - Senna one tablet by mouth twice a day - spironolactone 25 mg by mouth twice a day - tizanidine 4 mg by mouth four times a day - Valtrex 500 mg by mouth twice a day - zonisamide 50 mg by mouth twice a day Patient is discharged in stable, satisfactory condition with no further questions at time of discharge. Edited: brenton 08/11/2018 [id number]
[2018-08-10 14:00] VITALS: BP 128/86
[2018-08-10] MEDS: ACETAMINOPHEN TAB 650MG DOSE (2X325MG) PO PRN (15:28)
== END 2018-08-10 16:35 | disposition home or self-care (01) | DRG 347 ==
LOC: M ED 21:52 → M ED INP 08-08 05:05 → M MSPAV 08-08 06:35
PROVIDERS: ADMIT Internal Medicine Nephrology; ATTEND Family Medicine
DX: M51.24 Other intervertebral disc displacement, thoracic region (principal); E11.22 Type 2 diabetes mellitus with diabetic chronic kidney disease; N18.3 Chronic kidney disease, stage 3 (moderate); G35 Multiple sclerosis; M94.0 Chondrocostal junction syndrome [Tietze]; I25.10 Atherosclerotic heart disease of native coronary artery without angina pectoris; I25.2 Old myocardial infarction; M54.2 Cervicalgia; G43.909 Migraine, unspecified, not intractable, without status migrainosus; I10 Essential (primary) hypertension; G40.909 Epilepsy, unspecified, not intractable, without status epilepticus; E53.8 Deficiency of other specified B group vitamins; E55.9 Vitamin D deficiency, unspecified; K21.9 Gastro-esophageal reflux disease without esophagitis; Z79.82 Long term (current) use of aspirin; Z79.4 Long term (current) use of insulin; Z88.5 Allergy status to narcotic agent; Z88.8 Allergy status to other drugs, medicaments and biological substances; Z88.6 Allergy status to analgesic agent; Z87.891 Personal history of nicotine dependence; Z95.5 Presence of coronary angioplasty implant and graft

== ENCOUNTER 2018-08-12 11:49 | Inpatient (IN) | payer OTHER ==
[~2018-08-12] VITALS: Ht 152.4 cm; Wt 82.0 kg
[~2018-08-12 11:49] MED LIST changes: +ACET-897 PO; +ASPI81CH33 PO; +BASA100I SC; -EZET10TA; +EZET10TA21; +HUMA100I3 SC; +MAGN400T2 PO; +PRAL1INJ SC; +PRIM50TA6 PO; +SENN1TAB36 PO; +TRAZ1TAB10 PO; -TRAZO50TA PO; +VITA250T50 PO
[2018-08-12] MEDS: MAGNESIUM OXIDE 400 MG TAB (MAG-OX) PO SCH (12:00)
[2018-08-12] MEDS ORDERED: LIDOCAINE 2% W/EPIN INJ 20ML **PRES FREE INJ ONE (12:30)
[2018-08-12 12:49] LABS: BASO % 0.8 % (0.0-1.0); EOS # 0.2 10^3/uL (0.0-0.50); EOS % 2.9 % (0.0-3.0); HEMATOCRIT 37.7 % (36.0-47.0); HEMOGLOBIN 12.2 g/dl (12.0-15.5); LYMPH # 1.6 10^3/uL (1.5-4.5); LYMPH % 30.1 % (24.0-44.0); MEAN CORPUSCULAR HEMOGLOBIN 31.5 pg (27.0-33.0); MEAN CORPUSCULAR HGB CONC 32.4 g/dl (32.0-36.5); MEAN CORPUSCULAR VOLUME 97.4 fl (80.0-96.0); MONO # 0.5 10^3/uL (0.0-0.8); MONO % 9.5 % (0.0-5.0); NEUTROPHILS # 2.8 10^3/uL (1.8-7.7); NEUTROPHILS % 54.4 % (36.0-66.0); PLATELET COUNT, AUTOMATED 236 10^3/uL (150-450); RED BLOOD COUNT 3.87 10^6/uL (4.00-5.40); WHITE BLOOD COUNT 5.2 10^3/uL (4.0-10.0)
[2018-08-12] MEDS: MORPHINE 2 MG/ML 1ML SYRINGE (J2270) IV PRN ×2 (12:49→13:20)
[2018-08-12 13:07] LABS: ERYTHROCYTE SEDIMENTATION RATE 37 mm/hr (0-30)
[2018-08-12 13:20] LABS: ALBUMIN 3.6 GM/DL (3.2-5.2); ALT/SGPT 41 U/L (12-78); BILIRUBIN,DIRECT < 0.1 MG/DL (0.0-0.2); BILIRUBIN,TOTAL 0.1 MG/DL (0.2-1.0); BLOOD UREA NITROGEN 29 MG/DL (7-18); C REACTIVE PROTEIN QUANTITATIV 1.03 MG/DL (0.00-0.30); CALCIUM LEVEL 9.2 MG/DL (8.8-10.2); CARBON DIOXIDE LEVEL 25 MEQ/L (21-32); CHLORIDE LEVEL 105 MEQ/L (98-107); CPK CREATINE PHOSPHOKINASE 274 U/L (26-192); CREATININE FOR GFR 1.47 MG/DL (0.55-1.30); GLOMERULAR FILTRATION RATE 46.6 (>45); GLUCOSE, FASTING 204 MG/DL (70-100); LIPASE 256 U/L (73-393); NT-PRO BNP 347 PG/ML (<125); POTASSIUM SERUM 4.3 MEQ/L (3.5-5.1); SODIUM LEVEL 139 MEQ/L (136-145); THYROID STIMULATING HORMONE 0.326 uIU/ML (0.358-3.740); TOTAL PROTEIN 7.7 GM/DL (6.4-8.2); TROPONIN I < 0.02 NG/ML (< 0.10)
[2018-08-12] MEDS ORDERED: MORPHINE 2 MG/ML 1ML SYRINGE (J2270) IV PRN (13:45)
--- NOTE | 2018-08-12 14:11 | REP ---
Clinical: Chest pain. Technique: Axial noncontrast images from the thoracic inlet to the upper abdomen with coronal and sagittal re-formations. Comparison: 01/22/2009 Findings: Lung dumont demonstrate a very subtle ground-glass opacities involving the lingula and lower lobes suggesting mild/early bronchitis. No focal consolidation. No effusion. No pneumothorax. No obvious significant nodule or mass lesion. No obvious adenopathy. Atherosclerotic changes to the thoracic aorta and coronary arteries noted without aortic aneurysm or cardiomegaly. No significant pericardial effusion. Stable thyroid goiter. Limited upper abdomen demonstrates normal bilateral adrenal glands. Surrounding musculoskeletal structures demonstrate age-related changes without focal osseous abnormality. Impression: 1. Very subtle early ground-glass opacities suggesting mild bronchitis. No focal consolidation or effusion. 2. Chronic stable thyroid goiter. Electronically Signed by Regan Andres MD 08/12/2018 02:03 P
[2018-08-12 15:03] LABS: PROTHROMBIN TIME 13.3 SECONDS (12.1-14.4)
[2018-08-12] MEDS ORDERED: MELO15TA28 PO (15:18)
[2018-08-12] MEDS ORDERED: NITROGLYCERIN 0.4 MG SUBL TABLET SL PRN (16:30)
[2018-08-12] MEDS ORDERED: DEXTROSE 50% 50 ML SYRINGE IV PRN (16:30)
[2018-08-12] MEDS ORDERED: GLUCOSE 4 GM CHEW TABLET PO PRN (16:30)
[2018-08-12] MEDS ORDERED: GLUCAGON FOR INJ 1 MG VIAL (J1610) SC PRN (16:30)
[2018-08-12] MEDS ORDERED: ANUSOL HC CREAM 30GM PR PRN (16:30)
[2018-08-12] MEDS ORDERED: hydrALAZINE INJ 20 MG/ML VIAL IV PRN (16:45)
[2018-08-12] MEDS: HumaLOG INSULIN (NovoLOG) PER UNIT SC SCH ×2 (17:30→21:00)
--- NOTE | 2018-08-12 19:20 | ECGEPIP ---
[facility] - ED Test Date: 2018-08-12 Pat Name: LUL MORGAN Department: Room: - Gender: Female Med Peds: KIANA : 1955 Requested By: Willy Abdalla Order Number: [id number] Reading MD: Willy Abdalla Measurements Intervals [place] Rate: 66 P: 40 SD: 181 QRS: QRSD: 101 T: 102 QT: 434 QTc: 457 Interpretive Statements SINUS RHYTHM MODERATE VOLTAGE CRITERIA FOR LVH, CONSIDER NORMAL VARIANT POSSIBLE SEPTAL MYOCARDIAL INFARCTION, OF INDETERMINATE AGE MODERATE T-WAVE ABNORMALITY, CONSIDER LATERAL ISCHEMIA CW 08/07/18 RATE INCREASED [facility] Electronically Signed on 08-12-2018 19:20:27 EDT by Willy Abdalla
[2018-08-12] MEDS: KETOROLAC 30 MG/ML VIAL (J1885) IM PRN (19:31)
[2018-08-12] MEDS: CARVedilol 12.5 MG TAB PO SCH (19:32)
[2018-08-12] MEDS: BACLOFEN 10 MG TAB PO SCH ×2 (19:43→21:00)
[2018-08-12] MEDS: tiZANidine 4 MG TAB PO SCH ×2 (19:43→20:53)
[2018-08-12 20:00] VITALS: BP 188/88
[2018-08-12] MEDS: SENOKOT S TAB PO SCH (21:13)
[2018-08-12] MEDS: levETIRAcetam 250MG TABLET (KEPPRA) PO SCH (21:13)
[2018-08-12] MEDS: valACYclovir HCL 500 MG TAB PO SCH (21:13)
[2018-08-12] MEDS: SPIRONOLACTONE 25 MG TAB PO SCH (21:13)
[2018-08-12] MEDS: PREGABALIN 50 MG CAP (LYRICA) PO SCH (21:14)
[2018-08-12] MEDS: PRIMIDONE 50 MG TAB PO SCH (21:14)
[2018-08-12] MEDS: LEVEMIR (INSULIN DETEMIR) 1 UNITS/0.01ML SC SCH (21:14)
[2018-08-12] MEDS: ACETAMINOPHEN 500 MG TAB PO PRN (23:43)
[2018-08-12 23:59] VITALS: BP_SYST 112; BP_SYST 182; BP_DIAS 59; BP_DIAS 98
[2018-08-13] VITALS (7 sets, daily range): BP systolic 110–187; BP diastolic 56–92
[2018-08-13] MEDS: KETOROLAC 30 MG/ML VIAL (J1885) IM PRN ×2 (04:30→10:35)
[2018-08-13 05:14] LABS: HEMATOCRIT 37.4 % (36.0-47.0); HEMOGLOBIN 12.2 g/dl (12.0-15.5); MEAN CORPUSCULAR HEMOGLOBIN 31.9 pg (27.0-33.0); MEAN CORPUSCULAR HGB CONC 32.6 g/dl (32.0-36.5); MEAN CORPUSCULAR VOLUME 97.7 fl (80.0-96.0); PLATELET COUNT, AUTOMATED 226 10^3/uL (150-450); RED BLOOD COUNT 3.83 10^6/uL (4.00-5.40); WHITE BLOOD COUNT 5.4 10^3/uL (4.0-10.0)
[2018-08-13 05:31] LABS: ERYTHROCYTE SEDIMENTATION RATE 52 mm/hr (0-30)
[2018-08-13] MEDS: ACETAMINOPHEN 500 MG TAB PO PRN ×2 (05:34→12:24)
[2018-08-13 05:52] LABS: ALBUMIN 3.2 GM/DL (3.2-5.2); BILIRUBIN,TOTAL 0.2 MG/DL (0.2-1.0); C REACTIVE PROTEIN QUANTITATIV 0.89 MG/DL (0.00-0.30); CALCIUM LEVEL 8.7 MG/DL (8.8-10.2); CREATININE FOR GFR 1.46 MG/DL (0.55-1.30); POTASSIUM SERUM 3.7 MEQ/L (3.5-5.1); TOTAL PROTEIN 7.7 GM/DL (6.4-8.2)
[2018-08-13] MEDS: HumaLOG INSULIN (NovoLOG) PER UNIT SC SCH ×4 (07:21→21:00)
[2018-08-13] MEDS: BACLOFEN 10 MG TAB PO SCH ×4 (08:06→21:09)
[2018-08-13] MEDS: PANTOPRAZOLE 40MG TAB (PROTONIX) PO SCH (08:06)
[2018-08-13] MEDS: SENOKOT S TAB PO SCH ×2 (08:06→21:09)
[2018-08-13] MEDS: PRIMIDONE 50 MG TAB PO SCH ×2 (08:06→21:09)
[2018-08-13] MEDS: levETIRAcetam 250MG TABLET (KEPPRA) PO SCH ×2 (08:06→21:09)
[2018-08-13] MEDS: FERROUS SULFATE 325MG TAB PO SCH (08:06)
[2018-08-13] MEDS: SPIRONOLACTONE 25 MG TAB PO SCH ×2 (08:06→21:09)
[2018-08-13] MEDS: CARVedilol 12.5 MG TAB PO SCH ×2 (08:07→21:10)
[2018-08-13] MEDS: valACYclovir HCL 500 MG TAB PO SCH ×2 (08:07→21:10)
[2018-08-13] MEDS: tiZANidine 4 MG TAB PO SCH ×4 (08:07→21:09)
[2018-08-13] MEDS: PREGABALIN 50 MG CAP (LYRICA) PO SCH ×3 (08:07→21:09)
[2018-08-13] MEDS: CHLORTHALIDONE 25 MG TAB PO SCH (08:07)
[2018-08-13] MEDS: ENOXAPARIN 40 MG/0.4 ML SYRINGE (J1650) SC SCH (08:08)
[2018-08-13] MEDS ORDERED: SLF 3 ML SYR IV PRN (09:30)
[2018-08-13] MEDS: MAGNESIUM OXIDE 400 MG TAB (MAG-OX) PO SCH (12:15)
[2018-08-13] MEDS: LIDOCAINE 5% (LIDODERM) PATCH TD SCH (12:17)
[2018-08-13] MEDS: SLF 3 ML SYR IV SCH ×2 (13:45→22:14)
--- NOTE | 2018-08-13 16:13 | IPNPDOC ---
Subjective Date Seen The patient was seen on 08/13/18. Subjective Chief Complaint/HPI Roxana reports that she is still in a lot of pain from her back. The pain continues to come from her back and wrap around her body to under her R breast area. Nursing reports that she is uncomfortable most of the time, however, there was one time when she reported 0/10 pain today. This was within an hour of receiving Tylenol, a muscle relaxant, and after the Lidoderm patch was applied. Skin: Denies: Rash, Lesions Pulmonary: Reports: Pleuritic Chest Pain (related to her chest wall pain); Denies: Cough Cardiovascular: Denies: Palpitations, Edema Gastrointestinal: Denies: Nausea, Vomiting Psych: Reports: Mood Normal Objective Physical Examination General Exam: Positive: Alert, Cooperative (resting in bed with the head of the bed elevated talking to the nurse when I entered), No Acute Distress Eye Exam: Positive: Conjunctiva & lids normal; Negative: Sclera icteric ENT Exam: Positive: Mucous membr. moist/pink Neck Exam: Negative: Lymphadenopathy Chest Exam: Positive: Clear to auscultation, Normal air movement Heart Exam: Positive: Rate Normal, Normal S1, Normal S2; Negative: Murmurs Abdomen Exam: Positive: Normal bowel sounds, Soft; Negative: Tenderness Extremity Exam: Negative: Edema Skin Exam: Negative: Rash, Lesion Psych Exam: Positive: Mood NL, Oriented x 3 Assessment /Plan Problems (1) Intractable back pain Status: Acute Response to Treatment: Uncontrolled Discussed With: Nurse, Patient Problem Text: She is a little better per the nurse. It seems that routine use of the muscle relaxants, plus the lidoderm patch is helping some. She also reports that the Toradol IM is not lasting any longer than the Toradol IV did, so I will change her back to Toradol IV. Tomorrow we need to contact a house painting instructor to try to coordinate steroid injection. She prefers Dr. Teixeira if he comes to the hospital. (2) Radicular pain of thoracic region Status: Acute Discussed With: Nurse, Patient Problem Specific Plan: Consult Specialist Problem Text: The Lidoderm seems to help a little. She has also started Lyrica and this seems like it may be helping too. Continue this medication. (3) HTN (hypertension) Status: Chronic Problem Specific Plan: Monitor Clinically Problem Text: Her BP remains elevated. She did require one dose of hydralazine and has done a little better after that. Will continue current regimen, monitor. (4) Diabetes Status: Chronic Problem Text: Continue current regimen, monitor. (5) CKD stage 3 due to type 2 diabetes mellitus Status: Chronic Response to Treatment: Stable Problem Specific Plan: Repeat Labs Problem Text: Her renal function is remaining stable despite using Toradol. Will need to continue to monitor her closely. (6) CAD (coronary artery disease) Status: Chronic Response to Treatment: Stable Problem Specific Plan: Monitor Clinically Problem Text: Continue home medication. (7) Hyperlipemia Status: Chronic Problem Text: Continue home medication. (8) GERD (gastroesophageal reflux disease) Status: Chronic Problem Text: Continue home medication. Plan/VTE VTE Prophylaxis Ordered?: Yes VS, I&O, 24H, Fishbone Vital Signs/I&O Vital Signs Date Time Temp Pulse Resp B/P (MAP) Pulse Ox O2 Delivery O2 Flow Rate FiO2 08/13/18 12:00 98.1 62 20 149/69 (95) 96 08/12/18 12:08 Room Air I&O- Last 24 Hours up to 6 AM 08/13/18 06:00 Intake Total 1500 ml Output Total 1200 ml Balance 300 ml Laboratory Data 24H LABS Laboratory Tests 2 08/12/18 20:58: Bedside Glucose (Misc Panel) 138H 08/13/18 04:55: Nucleated Red Blood Cells % (auto) 0.0, Erythrocyte Sedimentation Rate 52H, Anion Gap 6L, Glomerular Filtration Rate 47.0, Blood Urea Nitrogen 26H, Creatinine 1.46H, Sodium Level 138, Potassium Level 3.7, Chloride Level 105, Carbon Dioxide Level 27, Calcium Level 8.7L, Aspartate Amino Transf (AST/SGOT) 53H, Alanine Aminotransferase (ALT/SGPT) 59, Alkaline Phosphatase 43L, Total Bilirubin 0.2#, Total Protein 7.7, Albumin 3.2, C-Reactive Protein, Quantitative 0.89H, Albumin/Globulin Ratio 0.71L 08/13/18 11:32: Bedside Glucose (Misc Panel) 223H CBC/BMP Laboratory Tests 08/13/18 04:55 Red Blood Count 3.83 L, Mean Corpuscular Volume 97.7 H, Mean Corpuscular Hemoglobin 31.9, Mean Corpuscular Hemoglobin Concent 32.6, Red Cell Distribution Width 13.7, Calcium Level 8.7 L, Aspartate Amino Transf (AST/SGOT) 53 H, Alanine Aminotransferase (ALT/SGPT) 59, Alkaline Phosphatase 43 L, Total Bilirubin 0.2 #, Total Protein 7.7, Albumin 3.2 Cristi Ramos MD Aug 13, 2018 16:13
[2018-08-13] MEDS: LEVEMIR (INSULIN DETEMIR) 1 UNITS/0.01ML SC SCH (21:08)
[2018-08-13] MEDS: **NOTE PATIENT COMMENT** MISC XX SCH (21:11)
[2018-08-13] MEDS: KETOROLAC 30 MG/ML VIAL (J1885) IV PRN (21:19)
[2018-08-14] VITALS (7 sets, daily range): BP systolic 99–192; BP diastolic 60–100
[2018-08-14] MEDS: ACETAMINOPHEN 500 MG TAB PO PRN ×3 (00:52→16:12)
[2018-08-14] MEDS: SLF 3 ML SYR IV SCH ×3 (05:09→21:32)
[2018-08-14 05:40] LABS: HEMATOCRIT 37.3 % (36.0-47.0); HEMOGLOBIN 11.9 g/dl (12.0-15.5); MEAN CORPUSCULAR HEMOGLOBIN 30.7 pg (27.0-33.0); MEAN CORPUSCULAR HGB CONC 31.9 g/dl (32.0-36.5); MEAN CORPUSCULAR VOLUME 96.1 fl (80.0-96.0); PLATELET COUNT, AUTOMATED 221 10^3/uL (150-450); RED BLOOD COUNT 3.88 10^6/uL (4.00-5.40); WHITE BLOOD COUNT 5.5 10^3/uL (4.0-10.0)
[2018-08-14 06:11] LABS: ALBUMIN 3.1 GM/DL (3.2-5.2); C REACTIVE PROTEIN QUANTITATIV 0.77 MG/DL (0.00-0.30); CALCIUM LEVEL 8.4 MG/DL (8.8-10.2); CREATININE FOR GFR 1.79 MG/DL (0.55-1.30); GLOMERULAR FILTRATION RATE 37.1 (>45); PHOSPHORUS LEVEL 4.1 MG/DL (2.5-4.9); POTASSIUM SERUM 4.2 MEQ/L (3.5-5.1)
[2018-08-14] MEDS: ENOXAPARIN 40 MG/0.4 ML SYRINGE (J1650) SC SCH (08:08)
[2018-08-14] MEDS: PRIMIDONE 50 MG TAB PO SCH ×2 (08:11→20:49)
[2018-08-14] MEDS: LIDOCAINE 5% (LIDODERM) PATCH TD SCH (08:11)
[2018-08-14] MEDS: PREGABALIN 50 MG CAP (LYRICA) PO SCH ×3 (08:11→20:50)
[2018-08-14] MEDS: HumaLOG INSULIN (NovoLOG) PER UNIT SC SCH ×4 (08:11→21:37)
[2018-08-14] MEDS: CARVedilol 12.5 MG TAB PO SCH ×2 (08:12→20:50)
[2018-08-14] MEDS: valACYclovir HCL 500 MG TAB PO SCH ×2 (08:12→20:50)
[2018-08-14] MEDS: FERROUS SULFATE 325MG TAB PO SCH (08:12)
[2018-08-14] MEDS: tiZANidine 4 MG TAB PO SCH ×4 (08:12→20:50)
[2018-08-14] MEDS: levETIRAcetam 250MG TABLET (KEPPRA) PO SCH ×2 (08:12→20:50)
[2018-08-14] MEDS: SPIRONOLACTONE 25 MG TAB PO SCH ×2 (08:12→20:51)
[2018-08-14] MEDS: PANTOPRAZOLE 40MG TAB (PROTONIX) PO SCH (08:13)
[2018-08-14] MEDS: SENOKOT S TAB PO SCH ×2 (08:13→20:51)
[2018-08-14] MEDS: BACLOFEN 10 MG TAB PO SCH ×4 (08:13→21:37)
[2018-08-14] MEDS: CHLORTHALIDONE 25 MG TAB PO SCH (08:14)
--- NOTE | 2018-08-14 09:03 | IPNPDOC ---
Subjective Date Seen The patient was seen on 08/14/18. Subjective Chief Complaint/HPI Patient sitting comfortably in bed as I entered the room. She reports her back pain to be improved from admission Constitutional: Denies: Chills, Fever Pulmonary: Denies: Dyspnea, Cough Cardiovascular: Denies: Chest Pain, Palpitations, Orthopnea, Edema Gastrointestinal: Reports: Other Symptoms (Reflux); Denies: Nausea, Vomiting, Abdominal Pain Musculoskeletal: Reports: Back Pain Psych: Reports: Mood Normal Objective Physical Examination General Exam: Positive: Alert, Cooperative (resting in bed with the head of the bed elevated when I entered), No Acute Distress Eye Exam: Positive: Conjunctiva & lids normal; Negative: Sclera icteric ENT Exam: Positive: Mucous membr. moist/pink Neck Exam: Negative: Lymphadenopathy Chest Exam: Positive: Clear to auscultation, Normal air movement Heart Exam: Positive: Rate Normal, Normal S1, Normal S2; Negative: Murmurs Abdomen Exam: Positive: Normal bowel sounds, Soft; Negative: Tenderness Extremity Exam: Negative: Edema Skin Exam: Negative: Rash, Lesion Psych Exam: Positive: Mood NL, Oriented x 3 Assessment /Plan Problems (1) Intractable back pain Status: Acute Response to Treatment: Uncontrolled Discussed With: Nurse, Patient Problem Text: She reports to be doing better today. Dr. Marsh does not do inpatient consults. We will need to consult Pain management, Dr. Sanchez. (2) Radicular pain of thoracic region Status: Acute Discussed With: Nurse, Patient Problem Specific Plan: Consult Specialist Problem Text: She seems to be doing better today. Continue with the Lyrica which is new this admission. (3) HTN (hypertension) Status: Chronic Problem Specific Plan: Monitor Clinically Problem Text: Pressures appeared to be under control yesterday, however, elevated this morning. She does have Hydralazine 10mg q 6 hrs prn SBP >180. (4) Diabetes Status: Chronic Problem Text: Continue current regimen, monitor. (5) CKD stage 3 due to type 2 diabetes mellitus Status: Chronic Response to Treatment: Stable Problem Specific Plan: Repeat Labs Problem Text: BUN/Cre 37/1.79, GFR 37, slightly decreased. Baseline Cre ~1.45. We will need to continue to monitor closely and find an alternative medication for pain control. (6) CAD (coronary artery disease) Status: Chronic Response to Treatment: Stable Problem Specific Plan: Monitor Clinically Problem Text: Continue home medication. (7) Hyperlipemia Status: Chronic Problem Text: Continue home medication. (8) GERD (gastroesophageal reflux disease) Status: Chronic Problem Text: Continue home medication. Plan/VTE VTE Prophylaxis Ordered?: Yes Plan Family Medicine Attending Note: I saw and examined Ms. Lofton, discussed with A kezia Horne DNP. Agree with her note as documented. When I saw her in the afternoon she was still having significant pain, but nursing had held her Toradol because of her declining renal function. I reached at the [facility], and found out that Dr. Sanchez was not available until Tuesday for procedures. Ms. Mota could do a consult for her tomorrow, however the patient had specifically said she did not want to see Sandra Mota. I'll need to explore this with her further. If she persists with this, she may have to wait an additional day before she can have an evaluation and even then it is not clear when that would happen. In the interim I started gentle IV hydration and attempt to improve her renal function. I asked the nurses to continue to give her the Toradol. We'll need to monitor her renal function very carefully. 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) VS, I&O, 24H, Fishbone Vital Signs/I&O Vital Signs Date Time Temp Pulse Resp B/P (MAP) Pulse Ox O2 Delivery O2 Flow Rate FiO2 08/14/18 08:12 64 192/100 08/14/18 08:00 98.1 18 100 08/12/18 12:08 Room Air I&O- Last 24 Hours up to 6 AM 08/14/18 06:00 Intake Total 2100 ml Output Total 2600 ml Balance -500 ml Laboratory Data 24H LABS Laboratory Tests 2 08/13/18 11:32: Bedside Glucose (Misc Panel) 223H 08/13/18 16:16: Bedside Glucose (Misc Panel) 151H 08/13/18 20:26: Bedside Glucose (Misc Panel) 236H 08/14/18 05:16: Nucleated Red Blood Cells % (auto) 0.0, Blood Urea Nitrogen 37H, Creatinine 1.79H, Sodium Level 136, Potassium Level 4.2, Chloride Level 104, Carbon Dioxide Level 25, Anion Gap 7L, Glomerular Filtration Rate 37.1L, Calcium Level 8.4L, Phosphorus Level 4.1, C-Reactive Protein, Quantitative 0.77H, Albumin 3.1L 08/14/18 06:39: Erythrocyte Sedimentation Rate 34H CBC/BMP Laboratory Tests 08/14/18 05:16 Red Blood Count 3.88 L, Mean Corpuscular Volume 96.1 H, Mean Corpuscular Hemoglobin 30.7, Mean Corpuscular Hemoglobin Concent 31.9 L, Red Cell Distrib ution Width 13.6, Anion Gap 7 L SURY HORNE Aug 14, 2018 09:03 Cristi Ramos MD Aug 14, 2018 21:54
[2018-08-14] MEDS: MAGNESIUM OXIDE 400 MG TAB (MAG-OX) PO SCH (13:04)
[2018-08-14] MEDS: CALCIUM CARBONATE 500 MG CHEW U/D PO PRN (13:05)
[2018-08-14] MEDS: KETOROLAC 30 MG/ML VIAL (J1885) IV PRN (16:11)
[2018-08-14] MEDS: NS 1,000 ML IV SCH (16:21)
[2018-08-14] MEDS: LEVEMIR (INSULIN DETEMIR) 1 UNITS/0.01ML SC SCH (20:46)
[2018-08-14] MEDS: **NOTE PATIENT COMMENT** MISC XX SCH (20:51)
[2018-08-15 04:00] VITALS: BP 142/80
[2018-08-15] MEDS: SLF 3 ML SYR IV SCH ×3 (05:11→21:12)
[2018-08-15 06:05] LABS: HEMATOCRIT 36.7 % (36.0-47.0); HEMOGLOBIN 11.7 g/dl (12.0-15.5); MEAN CORPUSCULAR HEMOGLOBIN 31.2 pg (27.0-33.0); MEAN CORPUSCULAR HGB CONC 31.9 g/dl (32.0-36.5); MEAN CORPUSCULAR VOLUME 97.9 fl (80.0-96.0); PLATELET COUNT, AUTOMATED 223 10^3/uL (150-450); RED BLOOD COUNT 3.75 10^6/uL (4.00-5.40); WHITE BLOOD COUNT 5.6 10^3/uL (4.0-10.0)
[2018-08-15 06:46] LABS: C REACTIVE PROTEIN QUANTITATIV 0.52 MG/DL (0.00-0.30); CALCIUM LEVEL 8.3 MG/DL (8.8-10.2); CREATININE FOR GFR 1.59 MG/DL (0.55-1.30); GLOMERULAR FILTRATION RATE 42.6 (>45); POTASSIUM SERUM 4.1 MEQ/L (3.5-5.1)
[2018-08-15 08:00] VITALS: BP 140/86
[2018-08-15] MEDS: KETOROLAC 30 MG/ML VIAL (J1885) IV PRN ×3 (08:04→23:48)
[2018-08-15] MEDS: tiZANidine 4 MG TAB PO SCH ×4 (08:04→19:26)
[2018-08-15] MEDS: ACETAMINOPHEN 500 MG TAB PO PRN ×2 (08:04→19:51)
[2018-08-15] MEDS: HumaLOG INSULIN (NovoLOG) PER UNIT SC SCH ×4 (08:05→21:00)
[2018-08-15] MEDS: NS 1,000 ML IV SCH (09:10)
[2018-08-15] MEDS: ENOXAPARIN 40 MG/0.4 ML SYRINGE (J1650) SC SCH (09:11)
[2018-08-15] MEDS: FERROUS SULFATE 325MG TAB PO SCH (09:11)
[2018-08-15] MEDS: LIDOCAINE 5% (LIDODERM) PATCH TD SCH (09:11)
[2018-08-15] MEDS: PREGABALIN 50 MG CAP (LYRICA) PO SCH ×3 (09:11→21:09)
[2018-08-15] MEDS: PRIMIDONE 50 MG TAB PO SCH ×2 (09:11→21:09)
[2018-08-15] MEDS: PANTOPRAZOLE 40MG TAB (PROTONIX) PO SCH (09:11)
[2018-08-15] MEDS: CHLORTHALIDONE 25 MG TAB PO SCH (09:11)
[2018-08-15] MEDS: CARVedilol 12.5 MG TAB PO SCH ×2 (09:11→21:12)
[2018-08-15] MEDS: SENOKOT S TAB PO SCH ×2 (09:12→21:11)
[2018-08-15] MEDS: levETIRAcetam 250MG TABLET (KEPPRA) PO SCH ×2 (09:12→21:09)
[2018-08-15] MEDS: BACLOFEN 10 MG TAB PO SCH ×4 (09:12→21:10)
[2018-08-15] MEDS: SPIRONOLACTONE 25 MG TAB PO SCH ×2 (09:12→21:11)
--- NOTE | 2018-08-15 10:26 | IPNPDOC ---
Subjective Date Seen The patient was seen on 08/15/18. Subjective Chief Complaint/HPI Patient lying in bed watching TV as I entered the room. She reports to be feeling the same Constitutional: Denies: Chills, Fever Pulmonary: Denies: Dyspnea, Cough Cardiovascular: Denies: Chest Pain, Palpitations, Orthopnea, Edema Gastrointestinal: Denies: Nausea, Vomiting, Abdominal Pain Musculoskeletal: Reports: Back Pain Psych: Reports: Mood Normal Objective Physical Examination General Exam: Positive: Alert, Cooperative (resting in bed with the head of the bed elevated when I entered), No Acute Distress Eye Exam: Positive: Conjunctiva & lids normal; Negative: Sclera icteric ENT Exam: Positive: Mucous membr. moist/pink Neck Exam: Negative: Lymphadenopathy Chest Exam: Positive: Clear to auscultation, Normal air movement Heart Exam: Positive: Rate Normal, Normal S1, Normal S2; Negative: Murmurs Abdomen Exam: Positive: Normal bowel sounds, Soft; Negative: Tenderness Extremity Exam: Negative: Edema Skin Exam: Negative: Rash, Lesion Psych Exam: Positive: Mood NL, Oriented x 3 Assessment /Plan Problems (1) Intractable back pain Status: Acute Response to Treatment: Uncontrolled Discussed With: Nurse, Patient Problem Text: 08/15/18: Patient reports pain to be fairly well controlled with current regimen. She does report pain to be intolerable without Toradol. She is working with PT. She continues to decline consult with Carlee Mota. CRP down to 0.52 She reports to be doing better today. Dr. Marsh does not do inpatient consults. We will need to consult Pain management, Dr. Sanchez. (2) Radicular pain of thoracic region Status: Acute Discussed With: Nurse, Patient Problem Specific Plan: Consult Specialist Problem Text: She seems to be doing better today. Continue with the Lyrica which is new this admission. (3) HTN (hypertension) Status: Chronic Problem Specific Plan: Monitor Clinically Problem Text: Pressures appeared to be under control yesterday, however, elevated this morning. She does have Hydralazine 10mg q 6 hrs prn SBP >180. (4) Diabetes Status: Chronic Problem Text: Continue current regimen, monitor. (5) CKD stage 3 due to type 2 diabetes mellitus Status: Chronic Response to Treatment: Stable Problem Specific Plan: Repeat Labs Problem Text: 08/15/18: BUN/Cre 36/1.59, GFR 42 BUN/Cre 37/1.79, GFR 37, slightly decreased. Baseline Cre ~1.45. We will need to continue to monitor closely and find an alternative medication for pain control. (6) CAD (coronary artery disease) Status: Chronic Response to Treatment: Stable Problem Specific Plan: Monitor Clinically Problem Text: Continue home medication. (7) Hyperlipemia Status: Chronic Problem Text: Continue home medication. (8) GERD (gastroesophageal reflux disease) Status: Chronic Problem Text: Continue home medication. Plan/VTE VTE Prophylaxis Ordered?: Yes (Lovenox ) Plan Family Medicine Attending Note: I saw and examined Ms. Lofton, discussed with Sury Horne DNP. Agree with her note as documented. Unfortunately because of the effect of the ketorolac on her renal function, and the fact that we are reaching the 5 day duration of therapy, we will need to discontinue this medication after tonight. I will change her to steroids. We have been trying to avoid them b/c of the effect on her sugars, but I don't see an option at this time. Maybe this will calm down her T8 disk well enough so she can be discharged. I did speak to her outpatient pain provider, Dr. Teixeira, and he will try to get her an appt on next Tuesday 08/22 to see him in the outpatient setting. We will see what we can do before then. 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) VS, I&O, 24H, Fishbone Vital Signs/I&O Vital Signs Date Time Temp Pulse Resp B/P (MAP) Pulse Ox O2 Delivery O2 Flow Rate FiO2 08/15/18 09:11 64 140/86 08/15/18 08:00 98.8 20 99 08/12/18 12:08 Room Air I&O- Last 24 Hours up to 6 AM 08/15/18 06:00 Intake Total 3567 ml Output Total 1750 ml Balance 1817 ml Laboratory Data 24H LABS Laboratory Tests 2 08/14/18 12:36: Bedside Glucose (Misc Panel) 241H 08/14/18 16:44: Bedside Glucose (Misc Panel) 240H 08/14/18 20:44: Bedside Glucose (Misc Panel) 324H 08/15/18 05:45: Nucleated Red Blood Cells % (auto) 0.0, Blood Urea Nitrogen 36H, Creatinine 1.59H, Sodium Level 135L, Potassium Level 4.1, Chloride Level 106, Carbon Dioxide Level 23, Anion Gap 6L, Glomerular Filtration Rate 42.6L, Calcium Level 8.3L, Phosphorus Level 4.0, C-Reactive Protein, Quantitative 0.52H, Albumin 3.0L CBC/BMP Laboratory Tests 08/15/18 05:45 Red Blood Count 3.75 L, Mean Corpuscular Volume 97.9 H, Mean Corpuscular Hemoglobin 31.2, Mean Corpuscular Hemoglobin Concent 31.9 L, Red Cell Distribution Width 13.7, Anion Gap 6 L SURY HORNE Aug 15, 2018 10:26 am Cristi Ramos MD Aug 16, 2018 10:57 pm
[2018-08-15] MEDS: MAGNESIUM OXIDE 400 MG TAB (MAG-OX) PO SCH (11:26)
[2018-08-15] MEDS: valACYclovir HCL 500 MG TAB PO SCH ×2 (11:28→21:12)
[2018-08-15 12:00] VITALS: BP 138/84
[2018-08-15] MEDS ORDERED: methylPREDNISolone INJ 125 MG/2 ML VIAL (J2930) IV ONE (15:30)
[2018-08-15 16:00] VITALS: BP 128/78
[2018-08-15 20:00] VITALS: BP 152/76
[2018-08-15] MEDS: LEVEMIR (INSULIN DETEMIR) 1 UNITS/0.01ML SC SCH (21:07)
[2018-08-15] MEDS: **NOTE PATIENT COMMENT** MISC XX SCH (21:08)
[2018-08-15 23:59] VITALS: BP 140/72
[2018-08-16] MEDS: NS 1,000 ML IV SCH ×2 (01:22→18:00)
[2018-08-16 04:00] VITALS: BP 148/76
[2018-08-16] MEDS: SLF 3 ML SYR IV SCH ×3 (05:23→20:20)
[2018-08-16] MEDS: tiZANidine 4 MG TAB PO SCH ×4 (06:22→18:04)
[2018-08-16] MEDS: ACETAMINOPHEN 500 MG TAB PO PRN ×3 (06:24→20:19)
[2018-08-16 08:00] VITALS: BP 120/78
[2018-08-16] MEDS: PANTOPRAZOLE 40MG TAB (PROTONIX) PO SCH (08:50)
[2018-08-16] MEDS: LIDOCAINE 5% (LIDODERM) PATCH TD SCH (08:50)
[2018-08-16] MEDS: ENOXAPARIN 40 MG/0.4 ML SYRINGE (J1650) SC SCH (08:50)
[2018-08-16] MEDS: BACLOFEN 10 MG TAB PO SCH ×4 (08:50→20:19)
[2018-08-16] MEDS: SENOKOT S TAB PO SCH ×2 (08:50→20:19)
[2018-08-16] MEDS: CHLORTHALIDONE 25 MG TAB PO SCH (08:51)
[2018-08-16] MEDS: PREGABALIN 50 MG CAP (LYRICA) PO SCH ×3 (08:51→20:19)
[2018-08-16] MEDS: SPIRONOLACTONE 25 MG TAB PO SCH ×2 (08:51→20:19)
[2018-08-16] MEDS: levETIRAcetam 250MG TABLET (KEPPRA) PO SCH ×2 (08:51→20:19)
[2018-08-16] MEDS: FERROUS SULFATE 325MG TAB PO SCH (08:51)
[2018-08-16] MEDS: predniSONE 20 MG TAB PO SCH (08:51)
[2018-08-16] MEDS: valACYclovir HCL 500 MG TAB PO SCH ×2 (08:51→20:18)
[2018-08-16] MEDS: PRIMIDONE 50 MG TAB PO SCH ×2 (08:51→20:18)
[2018-08-16] MEDS: CARVedilol 12.5 MG TAB PO SCH ×2 (08:52→20:18)
[2018-08-16] MEDS ORDERED: VITAMIN D 50,000 UNITS CAPSULE (ERGOCALCIFEROL 1.25MG) PO SCH (09:00)
[2018-08-16] MEDS: HumaLOG INSULIN (NovoLOG) PER UNIT SC SCH ×4 (09:25→20:20)
[2018-08-16 10:09] LABS: CALCIUM LEVEL 9.1 MG/DL (8.8-10.2); CREATININE FOR GFR 1.42 MG/DL (0.55-1.30); GLOMERULAR FILTRATION RATE 48.5 (>45); POTASSIUM SERUM 4.6 MEQ/L (3.5-5.1)
[2018-08-16] MEDS: MAGNESIUM OXIDE 400 MG TAB (MAG-OX) PO SCH (11:07)
--- NOTE | 2018-08-16 11:17 | IPNPDOC ---
Subjective Date Seen The patient was seen on 08/16/18. Subjective Chief Complaint/HPI Patient lying in bed as I entered the room. She was getting ready to participate with OT. She has continued c/o back pain Constitutional: Denies: Chills, Fever Pulmonary: Denies: Dyspnea, Cough Cardiovascular: Denies: Chest Pain, Palpitations, Orthopnea, Edema Gastrointestinal: Denies: Nausea, Vomiting, Abdominal Pain Genitourinary: Denies: Dysuria Musculoskeletal: Reports: Back Pain Neurological: Denies: Weakness, Numbness Psych: Reports: Mood Normal Objective Physical Examination General Exam: Positive: Alert, Cooperative (resting in bed with the head of the bed elevated when I entered), No Acute Distress Eye Exam: Positive: Conjunctiva & lids normal; Negative: Sclera icteric ENT Exam: Positive: Mucous membr. moist/pink Neck Exam: Negative: Lymphadenopathy Chest Exam: Positive: Clear to auscultation, Normal air movement Heart Exam: Positive: Rate Normal, Normal S1, Normal S2; Negative: Murmurs Abdomen Exam: Positive: Normal bowel sounds, Soft; Negative: Tenderness Extremity Exam: Negative: Edema Skin Exam: Negative: Rash, Lesion Psych Exam: Positive: Mood NL, Oriented x 3 Assessment /Plan Problems (1) Intractable back pain Status: Acute Response to Treatment: Uncontrolled Discussed With: Nurse, Patient Problem Text: 08/16/18: Remains on Lyrica and muscle relaxer. Working with PT and OT. We will discuss case with Dr. Sanchez today to see if he would be willing to come in and administer an injection. If not, patient does have an appt with Dr. Marsh scheduled for Tuesday08/22/18. Toradolol was d/c and she was given IV SoluMedrol yesterday and started on Prednisone today. We will continue to work on pain control. She has been cleared by PT and OT. 08/15/18: Patient reports pain to be fairly well controlled with current regimen. She does report pain to be intolerable without Toradol. She is working with PT. She continues to decline consult with Carlee Mota. CRP down to 0.52 She reports to be doing better today. Dr. Marsh does not do inpatient consults. We will need to consult Pain management, Dr. Sanchez. (2) Radicular pain of thoracic region Status: Acute Discussed With: Nurse, Patient Problem Specific Plan: Consult Specialist Problem Text: 08/16/18: Patient with continued c/o pain. Improved from admission date. Remains in Lyrica She seems to be doing better today. Continue with the Lyrica which is new this admission. (3) HTN (hypertension) Status: Chronic Problem Specific Plan: Monitor Clinically Problem Text: 08/16/18: Pressures well controlled Pressures appeared to be under control yesterday, however, elevated this morning. She does have Hydralazine 10mg q 6 hrs prn SBP >180. (4) Diabetes Status: Chronic Response to Treatment: Stable Problem Text: We will have to monitor her BGL more carefully since she has started the steroids. Continue current regimen for now, and monitor. (5) CKD stage 3 due to type 2 diabetes mellitus Status: Chronic Response to Treatment: Stable Problem Specific Plan: Repeat Labs Problem Text: 08/16/18: BMP results pending 08/15/18: BUN/Cre 36/1.59, GFR 42 BUN/Cre 37/1.79, GFR 37, slightly decreased. Baseline Cre ~1.45. We will need to continue to monitor closely and find an alternative medication for pain control. (6) CAD (coronary artery disease) Status: Chronic Response to Treatment: Stable Problem Specific Plan: Monitor Clinically Problem Text: Continue home medication. (7) Hyperlipemia Status: Chronic Problem Text: Continue home medication. (8) GERD (gastroesophageal reflux disease) Status: Chronic Problem Text: Continue home medication. Plan/VTE VTE Prophylaxis Ordered?: Yes (Lovenox ) Plan Family Medicine Attending Note: I saw and examined Ms. Lofton, discussed with Sury Horne DNP. Agree with her note as documented. She notes to me that she doesn't notice much difference with the steroids yet, however, she is noting worsening R subcostal pain shortly after she eats. I wonder if she has some gallbladder disease with the R radicular pain. May certainly explain why her pain isn't responding to the usual regimen very well. Her LFTs were pretty normal. I will do a CMP as well as GTT tomorrow morning. If there is continued RQU pain as well as R radicular pain, I will consider further imaging of that area. 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) VS, I&O, 24H, Fishbone Vital Signs/I&O Vital Signs Date Time Temp Pulse Resp B/P (MAP) Pulse Ox O2 Delivery O2 Flow Rate FiO2 08/16/18 08:00 97.5 66 18 120/78 (92) 95 08/12/18 12:08 Room Air I&O- Last 24 Hours up to 6 AM 08/16/18 06:00 Intake Total 3600 ml Output Total 4700 ml Balance -1100 ml Laboratory Data 24H LABS Laboratory Tests 2 08/15/18 11:30: Bedside Glucose (Misc Panel) 204H 08/15/18 16:58: Bedside Glucose (Misc Panel) 118H 08/15/18 20:04: Bedside Glucose (Misc Panel) 237H 08/16/18 07:56: Bedside Glucose (Misc Panel) 141H SURY HORNE Aug 16, 2018 8:56 am Cristi Ramos MD Aug 16, 2018 11:08 pm
[2018-08-16] MEDS: CALCIUM CARBONATE 500 MG CHEW U/D PO PRN (11:48)
[2018-08-16 12:00] VITALS: BP 145/72
[2018-08-16 16:00] VITALS: BP 138/63
[2018-08-16] MEDS: LEVEMIR (INSULIN DETEMIR) 1 UNITS/0.01ML SC SCH (20:20)
[2018-08-16] MEDS: **NOTE PATIENT COMMENT** MISC XX SCH (21:14)
[2018-08-16 22:00] VITALS: BP 155/73
--- NOTE | 2018-08-16 22:04 | REPVR ---
EXAM: CT Abdomen and Pelvis Without Contrast EXAM DATE/TIME: 08/16/2018 8:52 PM CLINICAL HISTORY: 62 years old, female; Abdominal pain; Generalized; Additional info: Questional obstruction vs. Abdominal pain TECHNIQUE: Imaging protocol: Axial computed tomography images of the abdomen and pelvis without contrast. Coronal and sagittal reformatted images were created and reviewed. Radiation optimization: All CT scans at this facility use at least one of these dose optimization techniques: automated exposure control; mA and/or kV adjustment per patient size (includes targeted exams where dose is matched to clinical indication); or iterative reconstruction. COMPARISON: CT ABD PELVIS W/O CONTRAST 06/10/2018 10:21 AM FINDINGS: Lung bases:There is eventration of the right hemidiaphragm. ABDOMEN: Liver: The liver measures 19 cm in craniocaudal span. Gallbladder and bile ducts: Normal. No calcified stones. No ductal dilation. Pancreas: Normal. No ductal dilation. Spleen: Normal. No splenomegaly. Adrenals: Normal. No mass. Kidneys and ureters: Calcifications in the right renal hilum unchanged from previous and may be vascular in nature. No hydroureter. Calcifications in the left hilum appear vascular in nature. 6 mm hyperdensity noted in the upper pole the left kidney too small to characterize fully. It was not definitely resolved on the CT scan dated 08/07/2018. Stomach and bowel: Mildly dilated air filled colon particularly involving a portion of the transverse colon and the more: Appendix: No evidence of appendicitis. PELVIS: Bladder: The bladder is distended measuring 12 x 6.8 x 10.6 cm for a volume of 450 cc. Reproductive: Unremarkable as visualized. ABDOMEN and PELVIS: Intraperitoneal space: Normal. No free air. No significant fluid collection. Bones/joints: No acute fracture. No dislocation. Soft tissues: 1.4 cm lipoma in the gluteus minimus Vasculature: There is coronary artery calcification. . Lymph nodes: Normal. No enlarged lymph nodes. IMPRESSION: 1. Mild colonic ileus 2. Mild hepatomegaly. Electronically signed by: Jennie Vicente On 08/16/2018 22:04:36 PM
[2018-08-16 23:59] VITALS: BP 123/74
[2018-08-17] VITALS (7 sets, daily range): BP systolic 129–155; BP diastolic 74–84
[2018-08-17] MEDS: SLF 3 ML SYR IV SCH ×3 (05:38→22:00)
[2018-08-17 05:54] LABS: CREATININE FOR GFR 1.22 MG/DL (0.55-1.30); GLOMERULAR FILTRATION RATE 57.8 (>45); POTASSIUM SERUM 4.3 MEQ/L (3.5-5.1)
[2018-08-17 05:58] LABS: ALBUMIN 3.3 GM/DL (3.2-5.2); ALT/SGPT 46 U/L (12-78); BILIRUBIN,TOTAL < 0.1 MG/DL (0.2-1.0); BLOOD UREA NITROGEN 24 MG/DL (7-18); CALCIUM LEVEL 8.7 MG/DL (8.8-10.2); CARBON DIOXIDE LEVEL 26 MEQ/L (21-32); CHLORIDE LEVEL 113 MEQ/L (98-107); CREATININE FOR GFR 1.28 MG/DL (0.55-1.30); GAMMA GLUTAMYLTRANSPEPTIDASE 47 U/L (5-55); GLOMERULAR FILTRATION RATE 54.7 (>45); GLUCOSE, FASTING 68 MG/DL (70-100); POTASSIUM SERUM 4.6 MEQ/L (3.5-5.1); SODIUM LEVEL 144 MEQ/L (136-145); TOTAL PROTEIN 7.6 GM/DL (6.4-8.2)
--- NOTE | 2018-08-17 07:29 | IPNPDOC ---
Subjective Date Seen The patient was seen on 08/17/18. Subjective Chief Complaint/HPI Patient lying comfortably in bed sleeping as I entered the room. Patient continues to report back pain that radiates to her abdomen. Per nursing patient responded to Tylenol Constitutional: Denies: Chills, Fever Pulmonary: Denies: Dyspnea, Cough Cardiovascular: Denies: Chest Pain, Palpitations, Orthopnea, Edema Gastrointestinal: Reports: Abdominal Pain; Denies: Nausea, Vomiting, Diarrhea, Constipation Genitourinary: Denies: Dysuria Musculoskeletal: Reports: Back Pain Objective Physical Examination General Exam: Positive: Alert, Cooperative (resting in bed with the head of the bed elevated when I entered), No Acute Distress Eye Exam: Positive: Conjunctiva & lids normal; Negative: Sclera icteric ENT Exam: Positive: Mucous membr. moist/pink Neck Exam: Negative: Lymphadenopathy Chest Exam: Positive: Clear to auscultation, Normal air movement Heart Exam: Positive: Rate Normal, Normal S1, Normal S2; Negative: Murmurs Abdomen Exam: Positive: Normal bowel sounds, Soft, Other (non-distended ); Negative: Tenderness, Hepatospenomegaly Extremity Exam: Negative: Edema Skin Exam: Negative: Rash, Lesion Psych Exam: Positive: Mood NL, Oriented x 3 Assessment /Plan Problems (1) Ileus Problem Text: 08/17/18: CT scan obtained last night d/t abdominal pain. Imaging demonstrated a mildly dilated air filled colon particularly involving a portion of the transverse colon. This is most likely related to her immobility. Her diet was changed to clear liquids. Patient is moving her bowels. I encouraged her to get out of bed more frequently then she has been. We will repeat an abdominal film this afternoon (2) Intractable back pain Status: Acute Response to Treatment: Uncontrolled Discussed With: Nurse, Patient Problem Text: 08/17/18: Unfortunately, patient is not responding to the current regimen. She continues to work with PT. We may want to consider increasing her Lyrica to 100mg bid. I will discuss this with attending. 08/16/18: Remains on Lyrica and muscle relaxer. Working with PT and OT. We will discuss case with Dr. Sanchez today to see if he would be willing to come in and administer an injection. If not, patient does have an appt with Dr. Marsh scheduled for Tuesday08/22/18. Toradolol was d/c and she was given IV SoluMedrol yesterday and started on Prednisone today. We will continue to work on pain control. She has been cleared by PT and OT. 08/15/18: Patient reports pain to be fairly well controlled with current regimen. She does report pain to be intolerable without Toradol. She is working with PT. She continues to decline consult with Carlee Mota. CRP down to 0.52 She reports to be doing better today. Dr. Marsh does not do inpatient consults. We will need to consult Pain management, Dr. Sanchez. (3) Radicular pain of thoracic region Status: Acute Discussed With: Nurse, Patient Problem Specific Plan: Consult Specialist Problem Text: 08/16/18: Patient with continued c/o pain. Improved from admission date. Remains on Lyrica. She seems to be doing better today. Continue with the Lyrica which is new this admission. (4) HTN (hypertension) Status: Chronic Problem Specific Plan: Monitor Clinically Problem Text: 08/17/18: Pressures remain well controlled. She has not needed the PRN Hydralazine. We will downgrade her today to Med-surg unit 08/16/18: Pressures well controlled Pressures appeared to be under control yesterday, however, elevated this morning. She does have Hydralazine 10mg q 6 hrs prn SBP >180. (5) Diabetes Status: Chronic Response to Treatment: Stable Problem Text: 08/17/18: FBG this morning 68. She was treated with OJ. Repeat finger stick 111. We will continue to monitor We will have to monitor her BGL more carefully since she has started the steroids. Continue current regimen for now, and monitor. (6) CKD stage 3 due to type 2 diabetes mellitus Status: Chronic Response to Treatment: Stable Problem Specific Plan: Repeat Labs Problem Text: 08/17/18: Renal function remains stable 08/16/18: BMP results pending 08/15/18: BUN/Cre 36/1.59, GFR 42 BUN/Cre 37/1.79, GFR 37, slightly decreased. Baseline Cre ~1.45. We will need to continue to monitor closely and find an alternative medication for pain control. (7) CAD (coronary artery disease) Status: Chronic Response to Treatment: Stable Problem Specific Plan: Monitor Clinically Problem Text: Continue home medication. (8) Hyperlipemia Status: Chronic Problem Text: Continue home medication. (9) GERD (gastroesophageal reflux disease) Status: Chronic Problem Text: Continue home medication. Plan/VTE VTE Prophylaxis Ordered?: Yes (Lovenox ) Plan Family Medicine Attending Note: I saw and examined Ms. Lofton, discussed with Sury Horne DNP. Agree with her note as documented. I agree that the patient's ileus is likely from immobility. We will need to work with the nursing staff to keep her moving more. I think this is likely to help with her back pain as well. We will increase her Lyrica 200 mg by mouth twice a day. I think we're within a few days of optimized at this point. 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1 08/16/18 11:45: Bedside Glucose (Misc Panel) 240H 08/16/18 16:38: Bedside Glucose (Misc Panel) 352H 08/16/18 20:08: Bedside Glucose (Misc Panel) 334H 08/17/18 05:14: Anion Gap 5L, Glomerular Filtration Rate 54.7, Blood Urea Nitrogen 24H, Creatinine 1.28, Sodium Level 144, Potassium Level 4.6, Chloride Level 113H, Carbon Dioxide Level 26, Calcium Level 8.7L, Aspartate Amino Transf (AST/SGOT) 22, Alanine Aminotransferase (ALT/SGPT) 46, Alkaline Phosphatase 42L, Total Bilirubin < 0.1L, Total Protein 7.6, Albumin 3.3, Gamma Glutamyl Transferase 47, Albumin/Globulin Ratio 0.77L 08/17/18 06:55: Bedside Glucose (Misc Panel) 111 CBC/BMP Laboratory Tests 08/16/18 09:06 Calcium Level 9.1 08/17/18 05:14 Calcium Level 8.7 L, Aspartate Amino Transf (AST/SGOT) 22, Alanine Aminotransferase (ALT/SGPT) 46, Alkaline Phosphatase 42 L, Total Bilirubin < 0.1 L, Total Protein 7.6, Albumin 3.3 SURY HORNE Aug 17, 2018 07:29 Cristi Ramos MD Aug 17, 2018 22:33
[2018-08-17] MEDS: HumaLOG INSULIN (NovoLOG) PER UNIT SC SCH ×4 (07:30→20:30)
[2018-08-17] MEDS: tiZANidine 4 MG TAB PO SCH ×4 (07:38→18:02)
[2018-08-17] MEDS: SPIRONOLACTONE 25 MG TAB PO SCH ×2 (08:54→20:28)
[2018-08-17] MEDS: predniSONE 20 MG TAB PO SCH (08:54)
[2018-08-17] MEDS: BACLOFEN 10 MG TAB PO SCH ×4 (08:54→20:28)
[2018-08-17] MEDS: PRIMIDONE 50 MG TAB PO SCH ×2 (08:55→20:28)
[2018-08-17] MEDS: FERROUS SULFATE 325MG TAB PO SCH (08:55)
[2018-08-17] MEDS: levETIRAcetam 250MG TABLET (KEPPRA) PO SCH ×2 (08:55→20:28)
[2018-08-17] MEDS: PREGABALIN 50 MG CAP (LYRICA) PO SCH (08:56)
[2018-08-17] MEDS: valACYclovir HCL 500 MG TAB PO SCH ×2 (08:56→20:28)
[2018-08-17] MEDS: CHLORTHALIDONE 25 MG TAB PO SCH (08:56)
[2018-08-17] MEDS: SENOKOT S TAB PO SCH ×2 (08:56→20:28)
[2018-08-17] MEDS: CARVedilol 12.5 MG TAB PO SCH ×2 (08:57→20:29)
[2018-08-17] MEDS: ENOXAPARIN 40 MG/0.4 ML SYRINGE (J1650) SC SCH (08:57)
[2018-08-17] MEDS: LIDOCAINE 5% (LIDODERM) PATCH TD SCH (08:57)
[2018-08-17] MEDS: PANTOPRAZOLE 40MG TAB (PROTONIX) PO SCH (10:45)
[2018-08-17] MEDS: ACETAMINOPHEN 500 MG TAB PO PRN ×2 (10:45→20:31)
[2018-08-17] MEDS: NS 1,000 ML IV SCH (12:07)
[2018-08-17] MEDS: MAGNESIUM OXIDE 400 MG TAB (MAG-OX) PO SCH (12:48)
[2018-08-17] MEDS: PREGABALIN 100 MG CAP (LYRICA) PO SCH (20:28)
[2018-08-17] MEDS: LEVEMIR (INSULIN DETEMIR) 1 UNITS/0.01ML SC SCH (20:30)
[2018-08-17] MEDS: **NOTE PATIENT COMMENT** MISC XX SCH (20:31)
[2018-08-18] MEDS: ACETAMINOPHEN 500 MG TAB PO PRN ×3 (02:20→18:05)
--- NOTE | 2018-08-18 02:22 | REP ---
Clinical: Follow up ileus. Technique: Supine and upright views of the abdomen and pelvis. Findings: The bowel gas pattern is essentially nonspecific. No evidence for obstruction or perforation noted. No organomegaly. Skeletal structures demonstrate age-related changes. Phleboliths and vascular calcifications are identified. Impression: Nonspecific bowel gas pattern. Electronically Signed by Regan Andres MD 08/18/2018 02:14 A
[2018-08-18] MEDS: NS 1,000 ML IV SCH (04:00)
[2018-08-18 06:00] VITALS: BP 150/87
[2018-08-18] MEDS: tiZANidine 4 MG TAB PO SCH ×4 (06:23→18:05)
[2018-08-18] MEDS: SLF 3 ML SYR IV SCH ×3 (06:23→21:34)
[2018-08-18 06:44] LABS: HEMATOCRIT 40.6 % (36.0-47.0); MEAN CORPUSCULAR HEMOGLOBIN 31.4 pg (27.0-33.0); MEAN CORPUSCULAR VOLUME 98.1 fl (80.0-96.0); PLATELET COUNT, AUTOMATED 260 10^3/uL (150-450); RED BLOOD COUNT 4.14 10^6/uL (4.00-5.40); WHITE BLOOD COUNT 8.4 10^3/uL (4.0-10.0)
[2018-08-18 07:05] LABS: BLOOD UREA NITROGEN 15 MG/DL (7-18); CALCIUM LEVEL 9.2 MG/DL (8.8-10.2); CARBON DIOXIDE LEVEL 26 MEQ/L (21-32); CHLORIDE LEVEL 110 MEQ/L (98-107); CREATININE FOR GFR 1.18 MG/DL (0.55-1.30); GLOMERULAR FILTRATION RATE > 60.0 (>45); GLUCOSE, FASTING 78 MG/DL (70-100); POTASSIUM SERUM 4.1 MEQ/L (3.5-5.1); SODIUM LEVEL 142 MEQ/L (136-145)
[2018-08-18] MEDS: HumaLOG INSULIN (NovoLOG) PER UNIT SC SCH ×4 (07:30→21:32)
[2018-08-18] MEDS: PRIMIDONE 50 MG TAB PO SCH ×2 (09:28→21:30)
[2018-08-18] MEDS: CHLORTHALIDONE 25 MG TAB PO SCH (09:28)
[2018-08-18] MEDS: BACLOFEN 10 MG TAB PO SCH ×4 (09:28→21:30)
[2018-08-18] MEDS: PANTOPRAZOLE 40MG TAB (PROTONIX) PO SCH (09:28)
[2018-08-18] MEDS: PREGABALIN 100 MG CAP (LYRICA) PO SCH ×2 (09:28→21:31)
[2018-08-18] MEDS: SENOKOT S TAB PO SCH ×2 (09:28→21:31)
[2018-08-18] MEDS: LIDOCAINE 5% (LIDODERM) PATCH TD SCH (09:29)
[2018-08-18] MEDS: valACYclovir HCL 500 MG TAB PO SCH ×2 (09:29→21:30)
[2018-08-18] MEDS: levETIRAcetam 250MG TABLET (KEPPRA) PO SCH ×2 (09:29→21:31)
[2018-08-18] MEDS: FERROUS SULFATE 325MG TAB PO SCH (09:29)
[2018-08-18] MEDS: CARVedilol 12.5 MG TAB PO SCH ×2 (09:29→21:30)
[2018-08-18] MEDS: SPIRONOLACTONE 25 MG TAB PO SCH ×2 (09:29→21:30)
[2018-08-18] MEDS: predniSONE 20 MG TAB PO SCH (09:29)
[2018-08-18] MEDS: ENOXAPARIN 40 MG/0.4 ML SYRINGE (J1650) SC SCH (09:29)
[2018-08-18 10:00] VITALS: BP 121/78
[2018-08-18] MEDS: MAGNESIUM OXIDE 400 MG TAB (MAG-OX) PO SCH (12:00)
--- NOTE | 2018-08-18 12:01 | IPNPDOC ---
Subjective Date Seen The patient was seen on 08/18/18. Subjective Chief Complaint/HPI Patient lying in bed comfortably as I entered the room. She continues to report pain, but she is moving around the room and floor more with nursing's encouragement. Constitutional: Denies: Chills, Fever Pulmonary: Denies: Dyspnea, Cough, Pleuritic Chest Pain Cardiovascular: Denies: Chest Pain, Palpitations, Orthopnea, Edema Gastrointestinal: Denies: Nausea, Vomiting, Abdominal Pain, Constipation Genitourinary: Denies: Dysuria Musculoskeletal: Reports: Back Pain Psych: Reports: Mood Normal Objective Physical Examination General Exam: Positive: Alert, Cooperative (resting in bed with the head of the bed elevated when I entered), No Acute Distress Eye Exam: Positive: Conjunctiva & lids normal; Negative: Sclera icteric ENT Exam: Positive: Mucous membr. moist/pink Neck Exam: Negative: Lymphadenopathy Chest Exam: Positive: Clear to auscultation, Normal air movement Heart Exam: Positive: Rate Normal, Normal S1, Normal S2; Negative: Murmurs Abdomen Exam: Positive: Normal bowel sounds, Soft, Other (non-distended ); Negative: Tenderness, Hepatospenomegaly Extremity Exam: Negative: Edema Skin Exam: Negative: Rash, Lesion Psych Exam: Positive: Mood NL, Oriented x 3 Assessment /Plan Problems (1) Ileus Problem Text: 08/18/18: Patient is moving her bowels. No further abdominal pain. We will begin to advance her diet. If patient tolerates the advanced diet we will d/c her home tomorrow 08/17/18: CT scan obtained last night d/t abdominal pain. Imaging demonstrated a mildly dilated air filled colon particularly involving a portion of the transverse colon. This is most likely related to her immobility. Her diet was changed to clear liquids. Patient is moving her bowels. I encouraged her to get out of bed more frequently then she has been. We will repeat an abdominal film this afternoon (2) Intractable back pain Status: Acute Response to Treatment: Uncontrolled Discussed With: Nurse, Patient Problem Text: 08/18/18: Patient does not seem to be responding as expected to current regimen. Unfortunately she remains unwilling to have Carlee Mota from pain management to come into hospital and administer an injection. We have increased her Lyrica to 100mg i po bid. Patient has cleared PT/OT. She is scheduled for consult with Dr. Marsh on Tuesday. We have maximized our therapy this admission. We have arranged for PT/OT and a personal aid into home. The best way forward for patient is to get her active and to follow-up with Dr. Marsh as an outpatient. We will plan on discharge tomorrow 08/17/18: Unfortunately, patient is not responding to the current regimen. She continues to work with PT. We may want to consider increasing her Lyrica to 100mg bid. I will discuss this with attending. 08/16/18: Remains on Lyrica and muscle relaxer. Working with PT and OT. We will discuss case with Dr. Sanchez today to see if he would be willing to come in and administer an injection. If not, patient does have an appt with Dr. Marsh scheduled for Tuesday08/22/18. Toradolol was d/c and she was given IV SoluMedrol yesterday and started on Prednisone today. We will continue to work on pain control. She has been cleared by PT and OT. 08/15/18: Patient reports pain to be fairly well controlled with current regimen. She does report pain to be intolerable without Toradol. She is working with PT. She continues to decline consult with Carlee Mota. CRP down to 0.52 She reports to be doing better today. Dr. Marsh does not do inpatient consults. We will need to consult Pain management, Dr. Sanchez. (3) Radicular pain of thoracic region Status: Acute Discussed With: Nurse, Patient Problem Specific Plan: Consult Specialist Problem Text: 08/16/18: Patient with continued c/o pain. Improved from admission date. Remains on Lyrica. She seems to be doing better today. Continue with the Lyrica which is new this admission. (4) HTN (hypertension) Status: Chronic Problem Specific Plan: Monitor Clinically Problem Text: 08/17/18: Pressures remain well controlled. She has not needed the PRN Hydralazine. We will downgrade her today to Med-surg unit 08/16/18: Pressures well controlled Pressures appeared to be under control yesterday, however, elevated this morning . She does have Hydralazine 10mg q 6 hrs prn SBP >180. (5) Diabetes Status: Chronic Response to Treatment: Stable Problem Text: 08/17/18: FBG this morning 68. She was treated with OJ. Repeat finger stick 111. We will continue to monitor We will have to monitor her BGL more carefully since she has started the steroids. Continue current regimen for now, and monitor. (6) CKD stage 3 due to type 2 diabetes mellitus Status: Chronic Response to Treatment: Stable Problem Specific Plan: Repeat Labs Problem Text: 08/17/18: Renal function remains stable 08/16/18: BMP results pending 08/15/18: BUN/Cre 36/1.59, GFR 42 BUN/Cre 37/1.79, GFR 37, slightly decreased. Baseline Cre ~1.45. We will need to continue to monitor closely and find an alternative medication for pain control. (7) CAD (coronary artery disease) Status: Chronic Response to Treatment: Stable Problem Specific Plan: Monitor Clinically Problem Text: Continue home medication. (8) Hyperlipemia Status: Chronic Problem Text: Continue home medication. (9) GERD (gastroesophageal reflux disease) Status: Chronic Problem Text: Continue home medication. Plan/VTE VTE Prophylaxis Ordered?: Yes (Lovenox ) Plan Family Medicine Attending Note: I saw and examined Ms. Lofton, discussed with Sury Horne DNP. Agree with her note as documented. I believe we have reached medical optimization. She has an appt with Dr. Teixeira next Tuesday (08/22) and this is how she will get her interventional pain treatment. We need to prove that she can eat a more normal diet, then she should be discharged. 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, I&O, 24H, Fishbone Vital Signs/I&O Vital Signs Date Time Temp Pulse Resp B/P (MAP) Pulse Ox O2 Delivery O2 Flow Rate FiO2 08/18/18 09:29 56 150/87 08/18/18 06:00 98.8 18 97 08/12/18 12:08 Room Air I&O- Last 24 Hours up to 6 AM 08/18/18 06:00 Intake Total 1600 ml Output Total 400 ml Balance 1200 ml Laboratory Data 24H LABS Laboratory Tests 2 08/17/18 12:10: Bedside Glucose (Misc Panel) 199H 08/17/18 17:08: Bedside Glucose (Misc Panel) 213H 08/17/18 20:12: Bedside Glucose (Misc Panel) 181H 08/18/18 06:28: Nucleated Red Blood Cells % (auto) 0.0, Anion Gap 6L, Glomerular Filtration Rate > 60.0, Blood Urea Nitrogen 15, Creatinine 1.18, Sodium Level 142, Potassium Level 4.1, Chloride Level 110H, Carbon Dioxide Level 26, Calcium Level 9.2 08/18/18 11:35: Bedside Glucose (Misc Panel) 132H CBC/BMP Laboratory Tests 08/18/18 06:28 Red Blood Count 4.14, Mean Corpuscular Volume 98.1 H, Mean Corpuscular Hemoglobin 31.4, Mean Corpuscular Hemoglobin Concent 32.0, Red Cell Distribution Width 14.0, Calcium Level 9.2 SURY HORNE Aug 18, 2018 12:01 Cristi Ramos MD Aug 18, 2018 20:43
[2018-08-18 14:00] VITALS: BP 152/89
[2018-08-18] MEDS: LEVEMIR (INSULIN DETEMIR) 1 UNITS/0.01ML SC SCH (21:32)
[2018-08-18] MEDS: **NOTE PATIENT COMMENT** MISC XX SCH (21:32)
[2018-08-18 22:00] VITALS: BP 131/74
[2018-08-19 06:00] VITALS: BP 148/79
[2018-08-19] MEDS: SLF 3 ML SYR IV SCH ×2 (06:02→12:59)
[2018-08-19] MEDS: tiZANidine 4 MG TAB PO SCH ×3 (06:02→16:41)
[2018-08-19 07:29] LABS: HEMATOCRIT 38.2 % (36.0-47.0); HEMOGLOBIN 12.3 g/dl (12.0-15.5); MEAN CORPUSCULAR HEMOGLOBIN 30.6 pg (27.0-33.0); MEAN CORPUSCULAR HGB CONC 32.2 g/dl (32.0-36.5); PLATELET COUNT, AUTOMATED 247 10^3/uL (150-450); RED BLOOD COUNT 4.02 10^6/uL (4.00-5.40); WHITE BLOOD COUNT 8.5 10^3/uL (4.0-10.0)
[2018-08-19 08:07] LABS: CALCIUM LEVEL 9.1 MG/DL (8.8-10.2); CREATININE FOR GFR 1.29 MG/DL (0.55-1.30); GLOMERULAR FILTRATION RATE 54.2 (>45); POTASSIUM SERUM 3.7 MEQ/L (3.5-5.1)
[2018-08-19] MEDS: HumaLOG INSULIN (NovoLOG) PER UNIT SC SCH ×3 (08:45→16:51)
[2018-08-19] MEDS: predniSONE 20 MG TAB PO SCH (08:46)
[2018-08-19] MEDS: levETIRAcetam 250MG TABLET (KEPPRA) PO SCH (08:46)
[2018-08-19] MEDS: CHLORTHALIDONE 25 MG TAB PO SCH (08:46)
[2018-08-19] MEDS: valACYclovir HCL 500 MG TAB PO SCH (08:46)
[2018-08-19] MEDS: PANTOPRAZOLE 40MG TAB (PROTONIX) PO SCH (08:46)
[2018-08-19] MEDS: BACLOFEN 10 MG TAB PO SCH ×3 (08:46→16:41)
[2018-08-19] MEDS: SPIRONOLACTONE 25 MG TAB PO SCH (08:46)
[2018-08-19] MEDS: PREGABALIN 100 MG CAP (LYRICA) PO SCH ×2 (08:46→16:49)
[2018-08-19 08:47] VITALS: BP 148/79
[2018-08-19] MEDS: SENOKOT S TAB PO SCH (08:47)
[2018-08-19] MEDS: CARVedilol 12.5 MG TAB PO SCH (08:47)
[2018-08-19] MEDS: PRIMIDONE 50 MG TAB PO SCH (08:47)
[2018-08-19] MEDS: FERROUS SULFATE 325MG TAB PO SCH (08:47)
[2018-08-19] MEDS: LIDOCAINE 5% (LIDODERM) PATCH TD SCH (08:48)
[2018-08-19] MEDS: ENOXAPARIN 40 MG/0.4 ML SYRINGE (J1650) SC SCH (08:49)
[2018-08-19] MEDS: ACETAMINOPHEN 500 MG TAB PO PRN (08:57)
[2018-08-19] MEDS: MAGNESIUM OXIDE 400 MG TAB (MAG-OX) PO SCH (12:58)
[2018-08-19] MEDS ORDERED: PRED20TA PO (13:39)
[2018-08-19] MEDS ORDERED: LIDO5TD TD (13:39)
[2018-08-19] MEDS ORDERED: PREG100CA PO (13:39)
[2018-08-19 14:00] VITALS: BP 112/62
== END 2018-08-19 16:50 | disposition home health service (06) | DRG 347 ==
LOC: M ED 11:49 → M ED INP 16:26 → M PCU 20:12 → M MS5PR 08-17 12:54
PROVIDERS: ADMIT Family Medicine; ATTEND Family Medicine
DX: M54.14 Radiculopathy, thoracic region (principal); E11.22 Type 2 diabetes mellitus with diabetic chronic kidney disease; E11.42 Type 2 diabetes mellitus with diabetic polyneuropathy; K56.7 Ileus, unspecified; N18.3 Chronic kidney disease, stage 3 (moderate); I10 Essential (primary) hypertension; D50.9 Iron deficiency anemia, unspecified; K21.9 Gastro-esophageal reflux disease without esophagitis; I25.10 Atherosclerotic heart disease of native coronary artery without angina pectoris; E78.2 Mixed hyperlipidemia; Z79.4 Long term (current) use of insulin; Z79.82 Long term (current) use of aspirin; Z79.899 Other long term (current) drug therapy; Z88.2 Allergy status to sulfonamides; Z88.5 Allergy status to narcotic agent; Z88.8 Allergy status to other drugs, medicaments and biological substances; Z98.41 Cataract extraction status, right eye; Z98.42 Cataract extraction status, left eye; Z87.891 Personal history of nicotine dependence

== ENCOUNTER → 2018-10-13 | Outpatient (REF) | payer OTHER ==
[~2018-10-13] MED LIST changes: +CYAN100049 PO; +CYAN500T8 PO; +LIDO5TD TD; +PRED20TA PO; +PREG100CA PO; -VITA10002 PO; -VITA500T3 PO
[2018-10-13 16:06] LABS: BASO % 0.5 % (0.0-1.0); EOS # 0.1 10^3/uL (0.0-0.50); EOS % 1.4 % (0.0-3.0); HEMATOCRIT 42.6 % (36.0-47.0); HEMOGLOBIN 13.7 g/dl (12.0-15.5); LYMPH # 1.6 10^3/uL (1.5-4.5); LYMPH % 27.1 % (24.0-44.0); MEAN CORPUSCULAR HEMOGLOBIN 30.7 pg (27.0-33.0); MEAN CORPUSCULAR HGB CONC 32.2 g/dl (32.0-36.5); MEAN CORPUSCULAR VOLUME 95.5 fl (80.0-96.0); MONO # 0.5 10^3/uL (0.0-0.8); MONO % 7.9 % (0.0-5.0); NEUTROPHILS # 3.6 10^3/uL (1.8-7.7); NEUTROPHILS % 62.4 % (36.0-66.0); PLATELET COUNT, AUTOMATED 278 10^3/uL (150-450); RED BLOOD COUNT 4.46 10^6/uL (4.00-5.40); WHITE BLOOD COUNT 5.7 10^3/uL (4.0-10.0)
[2018-10-13 16:22] LABS: BILIRUBIN,TOTAL 0.2 MG/DL (0.2-1.0); CALCIUM LEVEL 9.9 MG/DL (8.8-10.2); CHOLESTEROL RISK RATIO 2.728 (<5); CREATININE FOR GFR 1.49 MG/DL (0.55-1.30); FREE T4 1.03 NG/DL (0.76-1.46); GLOMERULAR FILTRATION RATE 45.9 (>45); MAGNESIUM LEVEL 2.4 MG/DL (1.8-2.4); POTASSIUM SERUM 4.3 MEQ/L (3.5-5.1); THYROID STIMULATING HORMONE 0.015 uIU/ML (0.358-3.740); TOTAL PROTEIN 8.7 GM/DL (6.4-8.2)
[2018-10-13 16:25] LABS: TOTAL 25(OH) VITAMIN D 97.7 NG/ML (30.0-100.0)
[2018-10-13 16:26] LABS: PTH INTACT 45.1 PG/ML (18.5-88.0)
[2018-10-13 16:45] LABS: HEMOGLOBIN A1c 8.6 %
== END ==
LOC: M SFHCPLAZ 13:33
PROVIDERS: ATTEND Family Medicine
DX: I10 Essential (primary) hypertension (principal); M47.814 Spondylosis without myelopathy or radiculopathy, thoracic region; E11.8 Type 2 diabetes mellitus with unspecified complications; E55.9 Vitamin D deficiency, unspecified

== ENCOUNTER → 2018-11-24 | Outpatient (CLI) | payer OTHER ==
[~2018-11-24] MED LIST changes: -VICO7.5T11 PO; +VICO7.5T12 PO
--- NOTE | 2018-11-24 16:11 | REP ---
MRI of the thoracic spine without contrast Clinical indication: Thoracic spondylosis. Comparison: MRI thoracic spine of 08/08/2018. Technique: MRI of the thoracic spine was performed utilizing an sagittal T1, T2 and STIR and axial T1 and T2 weighted imaging. No intravenous contrast was administered. Findings: There is normal alignment and curvature of the thoracic spine. Vertebral body heights and intervertebral dic heights are maintained. Heterogeneity of the bone marrow signal intensity without suspicious focal lesion, similar to prior. There is similar disc bulges within the thoracic spine, most notably at T1-T2, T8-T9, T9-T10, T10-T11 and T11-T12. The visualized spinal cord is normal in signal intensity. There is no significant spinal canal stenosis or neuroforaminal compromise. There is similar enlarged heterogeneous left thyroid lobe, better delineated on the CT of 08/12/2018. The posterior paraspinal soft tissues are within normal limits Impression: Similar multilevel disc bulges without significant spinal canal stenosis or neural foraminal compromise. Similarly enlarged left lobe of the thyroid with retrosternal extension. Electronically Signed by Elaine Sanchez MD 11/24/2018 04:03 P
== END ==
LOC: M RAD 14:24
PROVIDERS: ATTEND Family Medicine
DX: M47.814 Spondylosis without myelopathy or radiculopathy, thoracic region (principal)

== ENCOUNTER → 2018-12-08 | Outpatient (CLI) | payer OTHER ==
[~2018-12-08] MED LIST changes: -GLIM2TAB PO; +GLIM2TAB4 PO; -GLIM4TAB PO; +GLIM4TAB5 PO; -MECL12.575 PO; +MECL12.589 PO; +ZONI50CA11 PO; -ZONI50CA3 PO
--- NOTE | 2018-12-08 12:37 | REP ---
MRI CERVICAL SPINE WITHOUT CONTRAST: HISTORY: Neck pain. Comparison MRI study September 07, 2016. Comparison cervical spine CT study February 23, 2018. TECHNIQUE: Sagittal and axial T1- and T2-weighted scans are acquired in the usual fashion with and without fat saturation. Sequences include spin echo, turbo spin echo, and STIR imaging sequences. MRI FINDINGS: Cervical vertebral body heights are preserved and alignment is normal. Cortical and medullary bone signal intensity are normal. Cervical cord is normal in coarse caliber and signal intensity. No abnormal intramedullary signal is seen. Axial and sagittal images at C2-C3 show no significant finding. At C3-C4, there is diffuse disc bulging. A small right posterior focal disc protrusion is seen. This appears to be a new finding. At C4-C5, there is mild central canal stenosis due to diffuse disc bulging effacing the ventral subarachnoid space and subtly indenting the ventral margin of the cord. There is mild ligamentum flavum hypertrophy contributing. There is minimal early uncovertebral spurring. The findings are felt to be unchanged. At C5-C6, there are similar findings of diffuse disc bulging and ligamentum flavum hypertrophy producing mild central canal stenosis unchanged. There is left-sided uncovertebral spurring at C5-6. At C6-C7, there is a right posterior focal disc protrusion with uncovertebral spurring producing right foraminal narrowing. This indents the ventral cord. This appears slightly more prominent than on the prior study. At C7-T1, there is no significant abnormality. IMPRESSION: Degenerative spondylosis changes and mild central canal stenosis at C5-6 and C4-5. There is a right posterior focal disc protrusion at C6-7, which appears slightly more prominent. At C3-4 there is a small new right posterior focal disc protrusion. No abnormal signal intensity is seen within the cervical spinal cord. Electronically Signed by Diego Adames MD 12/08/2018 01:28 P
== END ==
LOC: M PLARAD 10:32
PROVIDERS: ATTEND Psychiatry & Neurology Neurology
DX: M47.812 Spondylosis without myelopathy or radiculopathy, cervical region (principal); M50.21 Other cervical disc displacement, high cervical region; M50.221 Other cervical disc displacement at C4-C5 level; M50.222 Other cervical disc displacement at C5-C6 level; M50.223 Other cervical disc displacement at C6-C7 level

== ENCOUNTER → 2019-04-19 | Outpatient (CLI) | payer OTHER ==
[~2019-04-19] MED LIST changes: +IRBE75TA4 PO; -IRBE75TA5 PO
[2019-04-19 12:02] LABS: BASO % 0.4 % (0.0-1.0); EOS # 0.1 10^3/uL (0.0-0.5); EOS % 1.1 % (0.0-3.0); HEMATOCRIT 37.9 % (36.0-47.0); HEMOGLOBIN 12.3 g/dl (12.0-15.5); LYMPH # 2.1 10^3/uL (1.5-5.0); LYMPH % 27.3 % (24.0-44.0); MEAN CORPUSCULAR HEMOGLOBIN 31.2 pg (27.0-33.0); MEAN CORPUSCULAR HGB CONC 32.5 g/dl (32.0-36.5); MEAN CORPUSCULAR VOLUME 96.2 fl (80.0-96.0); MONO # 0.6 10^3/uL (0.0-0.8); MONO % 7.4 % (0.0-5.0); NEUTROPHILS # 4.9 10^3/uL (1.5-8.5); NEUTROPHILS % 62.5 % (36.0-66.0); PLATELET COUNT, AUTOMATED 283 10^3/uL (150-450); RED BLOOD COUNT 3.94 10^6/uL (4.00-5.40); WHITE BLOOD COUNT 7.8 10^3/uL (4.0-10.0)
[2019-04-19 12:33] LABS: HEMOGLOBIN A1c 7.6 %
[2019-04-19 12:41] LABS: ALBUMIN 3.4 GM/DL (3.2-5.2); BILIRUBIN,TOTAL 0.4 MG/DL (0.2-1.0); CALCIUM LEVEL 8.9 MG/DL (8.8-10.2); CREATININE FOR GFR 1.35 MG/DL (0.55-1.30); GLOMERULAR FILTRATION RATE 51.3 (>45); POTASSIUM SERUM 4.2 MEQ/L (3.5-5.1); TOTAL PROTEIN 7.4 GM/DL (6.4-8.2)
--- NOTE | 2019-04-19 14:26 | REP ---
Temporomandibular joint series: Five views. History: Bilateral TMJ pain. Comparison is made with CT images from February 23, 2018. Findings: The temporal fossa are unremarkable bilaterally. Mandibular condyles and condylar necks appear intact bilaterally. Open and closed oblique views show normal opening translation bilaterally. Alignment is normal in the closed position. Jacinda view shows a somewhat prominent calcification along the stylohyoid ligaments bilaterally. This is occasionally associated with dysphasia. Impression: Normal temporomandibular joint radiographs. Incidental note is made of ossification of the stylohyoid ligaments bilaterally. Electronically Signed by Diego Adames MD 04/19/2019 02:40 P
== END ==
LOC: M LAB 10:56
PROVIDERS: ATTEND Family Medicine
DX: E11.9 Type 2 diabetes mellitus without complications (principal)

== ENCOUNTER → 2019-08-10 | Outpatient (CLI) | payer OTHER ==
--- NOTE | 2019-08-10 15:02 | REPMRS ---
Patient History The patient states she has not had a clinical breast exam in over a year. Patient is postmenopausal. Family history of prostate cancer at age 50 or over in maternal cousin, colorectal cancer at age 50 or over in sister, unknown cancer at age 52 in brother. Took estrogen for 7 months. Digital Woman Screen Mammo: August 10, 2019 - Exam #: [id number] Bilateral CC and MLO view(s) were taken. Technologist: Courtney Sapp, Technologist Prior study comparison: October 21, 2017, bilateral digital woman screen mammo performed at [facility]. July 16, 2016, digital woman screen mammo performed at [facility]. July 16, 2015, digital woman screen mammo performed at [facility]. FINDINGS: There are scattered fibroglandular densities. The Volpara volumetric breast density category is:B. There is evidence of a benign 4.8 cm left breast hamartoma again noted unchanged from multiple prior studies. There has been no change in the appearance of the mammogram from the prior studies. There is a mild amount of scattered fibroglandular density which is fairly symmetric. There is no interval development of dominant mass, architectural distortion, or grouped microcalcification suggestive of malignancy. 3-D tomosynthesis shows no additional findings. Assessment: BI-RADS/ACR category 2 mammogram. Benign Findings. Recommendation Routine screening mammogram of both breasts in 1 year (for women over age 40). This patient's Lifetime Breast Cancer Risk is estimated at 6.9 %. This mammogram was interpreted with the aid of an FDA-approved computer-aided dectection system. Electronically Signed By: Moe Adames MD 08/10/19 [id number]
== END ==
LOC: M WHC 14:02
PROVIDERS: ATTEND Family Medicine
DX: Z12.31 Encounter for screening mammogram for malignant neoplasm of breast (principal)

== ENCOUNTER → 2019-10-25 | Outpatient (CLI) | payer OTHER ==
[~2019-10-25] MED LIST changes: -AMLO10TA5 PO; +AMLO1TAB25 PO; +ASPI-546 PO; -ASPI1TAB15 PO; +ENAL20TA11 PO; +PANT40TA29 PO; -PANT40TA3 PO
== END ==
LOC: M RAD 07:30
PROVIDERS: ATTEND Otolaryngology
DX: J32.0 Chronic maxillary sinusitis (principal)

== ENCOUNTER → 2019-10-29 | Outpatient (REF) | payer OTHER ==
[2019-12-14 11:35] LABS: HEMATOCRIT 38.3 % (36.0-47.0); MEAN CORPUSCULAR HEMOGLOBIN 30.8 pg (27.0-33.0); MEAN CORPUSCULAR HGB CONC 31.3 g/dl (32.0-36.5); MEAN CORPUSCULAR VOLUME 98.5 fl (80.0-96.0); PLATELET COUNT, AUTOMATED 245 10^3/uL (150-450); RED BLOOD COUNT 3.89 10^6/uL (4.00-5.40); WHITE BLOOD COUNT 7.6 10^3/uL (4.0-10.0)
[2019-12-24 21:59] LABS: HEMOGLOBIN A1c 7.1 %
[2019-12-24 23:31] LABS: ALBUMIN 3.5 GM/DL (3.2-5.2); BILIRUBIN,TOTAL 0.1 MG/DL (0.2-1.0); CALCIUM LEVEL 9.2 MG/DL (8.8-10.2); CHOLESTEROL RISK RATIO 6.666 (<5); CREATININE FOR GFR 1.23 MG/DL (0.55-1.30); FREE T4 0.83 NG/DL (0.76-1.46); GLOMERULAR FILTRATION RATE 57.1 (>45); MAGNESIUM LEVEL 1.9 MG/DL (1.8-2.4); POTASSIUM SERUM 4.1 MEQ/L (3.5-5.1); PTH INTACT 59.8 PG/ML (18.5-88.0); THYROID STIMULATING HORMONE 0.267 uIU/ML (0.358-3.740); TOTAL 25(OH) VITAMIN D 45.3 NG/ML (30.0-100.0); TOTAL PROTEIN 7.5 GM/DL (6.4-8.2)
== END ==
LOC: M SFHCPLAZ 15:55
PROVIDERS: ATTEND Family Medicine
DX: E11.9 Type 2 diabetes mellitus without complications (principal); I10 Essential (primary) hypertension

== ENCOUNTER 2020-01-28 10:33 | Inpatient (IN) | payer OTHER ==
[~2020-01-28] VITALS: Ht 152.4 cm; Wt 78.7 kg
[2020-01-28 11:11] LABS: BASO % 0.5 % (0.0-1.0); EOS # 0.1 10^3/uL (0.0-0.5); EOS % 1.6 % (0.0-3.0); HEMATOCRIT 37.6 % (36.0-47.0); HEMOGLOBIN 11.8 g/dl (12.0-15.5); LYMPH # 2.2 10^3/uL (1.5-5.0); LYMPH % 26.9 % (24.0-44.0); MEAN CORPUSCULAR HEMOGLOBIN 30.4 pg (27.0-33.0); MEAN CORPUSCULAR HGB CONC 31.4 g/dl (32.0-36.5); MEAN CORPUSCULAR VOLUME 96.9 fl (80.0-96.0); MONO # 0.7 10^3/uL (0.0-0.8); MONO % 8.3 % (0.0-5.0); NEUTROPHILS # 4.9 10^3/uL (1.5-8.5); NEUTROPHILS % 61.2 % (36.0-66.0); PLATELET COUNT, AUTOMATED 268 10^3/uL (150-450); RED BLOOD COUNT 3.88 10^6/uL (4.00-5.40)
--- NOTE | 2020-01-28 11:24 | REP ---
INDICATION: CHEST PAIN COMPARISON: 12/14/2017 TECHNIQUE: Portable AP view of the chest FINDINGS: The mediastinum and cardiac silhouette are stable and within normal limits for portable technique. The lung dumont are clear without acute consolidation, effusion, or pneumothorax. Skeletal structures are intact. IMPRESSION: No acute cardiopulmonary process appreciated. <Electronically signed by Regan Andres > 01/28/20 [id number]
[2020-01-28] MEDS ORDERED: GI COCKTAIL 50ML BTL(HYOSCYAMINE/MAALOX/LIDOCAINE VISCOUS)(1:3:1) PO ONE (11:30)
[2020-01-28 11:42] LABS: ALBUMIN 3.4 GM/DL (3.2-5.2); ALT/SGPT 17 U/L (12-78); BILIRUBIN,DIRECT < 0.1 MG/DL (0.0-0.2); BILIRUBIN,TOTAL 0.3 MG/DL (0.2-1.0); BLOOD UREA NITROGEN 35 MG/DL (7-18); CALCIUM LEVEL 9.3 MG/DL (8.8-10.2); CARBON DIOXIDE LEVEL 26 MEQ/L (21-32); CHLORIDE LEVEL 108 MEQ/L (98-107); CREATININE FOR GFR 1.53 MG/DL (0.55-1.30); GLOMERULAR FILTRATION RATE 44.2 (>45); GLUCOSE, FASTING 141 MG/DL (70-100); POTASSIUM SERUM 4.2 MEQ/L (3.5-5.1); SODIUM LEVEL 139 MEQ/L (136-145); TOTAL PROTEIN 7.6 GM/DL (6.4-8.2)
[2020-01-28] MEDS: MORPHINE 2 MG/ML 1ML VIAL (J2270) IV PRN ×2 (12:00→15:18)
[2020-01-28] MEDS ORDERED: ISOVUE-370 76% 100ML VIAL As Ordered ONE (12:03)
--- NOTE | 2020-01-28 12:31 | REP ---
INDICATION: chest pain, r/o PE. COMPARISON: 08/12/2018 TECHNIQUE: CT angiography. 100 cc Isovue 370 intravenously. FINDINGS: There is a mixed density mass in the thyroid gland on the left with some internal calcifications. This appears to have increased somewhat when compared to the prior exam. There is excellent visualization of the pulmonary arterial vasculature. There are no focal filling defects present that would be considered consistent with acute pulmonary emboli. There is no significant change in the appearance of the imaged upper abdomen. Benign low-density adrenal gland thickening is again seen bilaterally. There is no significant change in appearance of the imaged osseous structures. Evaluation of the lung dumont shows no new abnormal nodules, masses, or opacities. Bilateral dependent subsegmental atelectatic changes are again noted status quo. IMPRESSION: 1. Thyroid gland mass as described above. 2. No evidence of a pulmonary embolus. 3. Stable lung dumont. 4. Stable benign-appearing bilateral adrenal gland low-density thickening. <Electronically signed by Faustino Gayle > 01/28/20 [id number]
--- NOTE | 2020-01-28 12:41 | REP ---
INDICATION: ruq pain. COMPARISON: Noncontrast enhanced examination of 08/16/2018 and contrast enhanced examination of 08/07/2018. TECHNIQUE: 100 cc Isovue 370 intravenously. FINDINGS: The lung bases are unchanged. The liver, gallbladder, spleen, pancreas, adrenal glands, and kidneys are centrally unchanged. Note is again made of a tiny left renal cortical cyst and stable benign appearing bilateral low-density adrenal gland thickening. The bowel loops and the mesenteries are within normal limits. The appendix is well visualized and appears to be within normal limits. There is no abnormal periappendiceal fluid collection or fatty infiltration of the mesoappendix. There is no free fluid or free air. There is no evidence of a mass or adenopathy. Bone window technique throughout the examination shows the osseous structures to be stable and intact. IMPRESSION: 1. No evidence of acute intra-abdominal or intrapelvic disease. 2. Other findings as described above. <Electronically signed by Faustino Gayle > 01/28/20 [id number]
[2020-01-28] MEDS ORDERED: ADME100I SQ (12:45)
[2020-01-28] MEDS ORDERED: LIDO1CRE2 TOP (12:45)
[2020-01-28] MEDS ORDERED: DULO1CAP5 PO (12:45)
[2020-01-28] MEDS ORDERED: hydrALAZINE 20MG/ML 1ML VIAL (J0360 PER 20MG) IV STA (13:41)
--- NOTE | 2020-01-28 14:12 | ED PDOC ---
Post-Departure Follow-Up dr dupont faxed formal report of cta chest for fu Willy Quiroz MD Jan 28, 2020 14:12
[2020-01-28] MEDS ORDERED: hydrALAZINE 20MG/ML 1ML VIAL (J0360 PER 20MG) IV ONE (15:00)
[2020-01-28] MEDS ORDERED: cloNIDine 0.2 MG TAB PO ONE (16:00)
[2020-01-28] MEDS ORDERED: NIFEdipine 10 MG CAP PO ONE (16:00)
[2020-01-28] MEDS ORDERED: MORPHINE 2 MG/ML 1ML VIAL (J2270) IV ONE (16:15)
[2020-01-28] MEDS ORDERED: ONDANSETRON 4MG/2ML VIAL IV ONE (16:15)
[2020-01-28] MEDS ORDERED: COLA1TAB PO (17:02)
[2020-01-28] MEDS ORDERED: DRIS50003 PO (17:02)
[2020-01-28] MEDS ORDERED: HumaLOG INSULIN (NovoLOG) PER UNIT SC SCH ×2 (17:30→21:00)
[2020-01-28] MEDS ORDERED: DEXTROSE 50% 50 ML SYRINGE IV PRN (18:00)
[2020-01-28] MEDS ORDERED: ONDANSETRON 4MG/2ML VIAL IV PRN (18:00)
[2020-01-28] MEDS ORDERED: NS 1,000 ML IV SCH (18:00)
[2020-01-28] MEDS ORDERED: KETOROLAC 30 MG/ML 1ML VIAL IV ONE (18:00)
[2020-01-28] MEDS ORDERED: PROCHLORPERAZINE 10MG/2ML VIAL (J0780 PER 1) IV PRN (18:00)
[2020-01-28] MEDS ORDERED: GLUCOSE 4GM CHEW TABLET PO PRN (18:00)
[2020-01-28] MEDS ORDERED: PANTOPRAZOLE 40MG VIAL (C9113 PER 1) IV ONE (18:00)
[2020-01-28] MEDS ORDERED: PERCOCET 5MG/325MG TAB PO PRN ×2 (18:00)
[2020-01-28] MEDS ORDERED: GLUCAGON INJ 1MG VIAL SC PRN (18:00)
[2020-01-28] MEDS ORDERED: NORCO, ANEXSIA 5/325MG TABLET (HYDROcodone/ACETAMINOPHEN) PO PRN (18:00)
[2020-01-28] MEDS: tiZANidine 4 MG TAB PO SCH ×2 (19:00→22:22)
[2020-01-28] MEDS: BACLOFEN 10 MG TAB PO SCH ×2 (19:00→22:22)
[2020-01-28] MEDS: hydrALAZINE 20MG/ML 1ML VIAL (J0360 PER 20MG) IV SCH ×2 (20:50→23:00)
[2020-01-28] MEDS: DOCUSATE SODIUM 100 MG CAP PO SCH (21:00)
[2020-01-28 21:16] LABS: CK-MB VALUE MASS 3.1 NG/ML (<3.6); CPK CREATINE PHOSPHOKINASE 235 U/L (26-192); MB/CK RELATIVE INDEX 1.32 (< OR =4); TROPONIN I < 0.02 NG/ML (< 0.10)
[2020-01-28 21:20] VITALS: BP 182/76
[2020-01-28] MEDS: CARVedilol 12.5 MG TAB PO SCH (22:23)
[2020-01-28] MEDS: SENOKOT S TAB PO SCH (22:23)
[2020-01-28] MEDS: cloNIDine 0.1 MG TAB PO SCH (22:24)
[2020-01-28] MEDS: amLODIPine 10 MG TAB PO SCH (22:24)
[2020-01-28] MEDS: levETIRAcetam 250MG TABLET (KEPPRA) PO SCH (22:24)
[2020-01-28] MEDS: PRIMIDONE 50 MG TAB PO SCH (22:29)
--- NOTE | 2020-01-28 23:46 | HPEPDOC ---
General Date of Admission 01/28/20 Date of Service: Jan 28, 2020 Chief Complaint The patient is a 64-year-old female admitted with a reason for visit of Chest Pain. Source: Patient History of Present Illness 64 year old with PMD of chronic back pain, carpal tunnel syn, cervical radiculopathy, T8 nerve compression, HTN, DM, HLD, Essential tremors, Seizure disorder, Multiple sclerosis and other medical comorbidities presented to ED for chest pain. Fortunato reports that the chest pain has been going on for 1 month off and on but since last night it has become constant and severe so came to the ED . The pain is located across the lower chest would come and go sharp last for 10 to 15 minutes pleuritic in nature would cause difficulty in breathing and then 10/10 in intensity when it comes with muscle spasms of the back and chest wall then would go away and come back agian in 2 to 3 days. However the pain has been almost constant since last night has not been able to lay down all night and has not been able to take deep breaths. In ED she was noted to have uncontrolled hypertension. CT angio in the ED was negative for Pulmonary embolism. EKGs x 2 and 2 cardiac enzymes have been negative. Alhaji was admitted for hypertensive urgency and control pain and evaluation of chest pain. She also reports severe pain all along her spine form cervical to sacrum. She also reports pain going down the back of her legs. She also has bilateal hip pain, knee paina nd ankle pains. Home Medications Scheduled Alirocumab (Praluent Pen) 75 Mg/1 Ml Pen.injctr, 75 MG SC Q2WK, (Reported) Aspirin (Aspirin) 81 Mg Tab.chew, 81 MG PO DAILY, (Reported) Baclofen (Baclofen) 20 Mg Tab, 20 MG PO QID, (Reported) 0700, 1300, 1900, QHS Carvedilol (Carvedilol) 25 Mg Tab, 12.5 MG PO BID, (Reported) Chlorthalidone (Chlorthalidone) 25 Mg Tablet, 25 MG PO DAILY, (Reported) Cyanocobalamin (Vitamin B-12) (Vitamin B-12) 250 Mcg Tablet, 250 MCG PO DAILY, (Reported) Ergocalciferol (Vitamin D2) (Drisdol) 1,250 Mcg Capsule, 1,250 MCG PO Q2WK, ( Reported) TUESDAY Ferrous Sulfate (Ferrous Sulfate) 325 Mg Tab, 325 MG PO DAILY, (Reported) Insulin Lispro (Admelog) 100 Unit/1 Ml Vial, 2 UNITS SQ AC, (Reported) PT INJECTS INSULIN IF BS IS BETWEEN 100-150 BEFORE MEALS. IN ADDITIONS TO HAVING INSULIN PUMP Levetiracetam (Keppra) 250 Mg Tab, 250 MG PO BID, (Reported) Magnesium Oxide (Magnesium Oxide) 400 Mg Tablet, 800 MG PO DAILY, (Reported) 1200 Pantoprazole Sodium (Pantoprazole Sodium) 40 Mg Tab, 40 MG PO DAILY, (Reported) Primidone (Primidone) 50 Mg Tablet, 100 MG PO TID, (Reported) Spironolactone (Spironolactone) 25 Mg Tab, 25 MG PO BID, (Reported) Tizanidine HCl (Zanaflex) 4 Mg Tab, 4 MG PO QID, (Reported) 0700, 1300, 1900, QHS Valacyclovir HCl (Valacyclovir) 500 Mg Tab, 500 MG PO BID, (Reported) Scheduled PRN Acetaminophen (Tylenol Extra Strength) 500 Mg Tablet, 500 MG PO QID PRN for PAIN, (Reported) Duloxetine Hcl (Duloxetine HCl) 30 Mg Capsule.dr, 30 MG PO DAILY PRN for NEUROPATHIC PAIN, (Reported) Hydrocortisone (Proctosol-Hc) 2.5 % Cre, 1 DOSE UT BID PRN for HEMORRHOIDS, (Reported) Lidocaine (Lidocaine) 5 Gm Cream..g., 1 DOSE TOP BID PRN for PAIN, (Reported) APPLY TO NECK AND BACK Nitroglycerin (Nitrostat) 0.4 Mg Subl, 0.4 MG SL NITRO PRN for CHEST PAIN, (Reported) Sennosides/Docusate Sodium (Colace 2-in-1 Tablet) 1 Each Tablet, 1 TAB PO BID PRN for CONSTIPATION, (Reported) Allergies Coded Allergies: codeine (Unverified Allergy, Intermediate, hives, 06/10/18) [place] Inhibitors (Verified Allergy, Unknown, FEET SWELLING, 06/10/18) Sulfa (Sulfonamide Antibiotics) (Verified Allergy, Unknown, 06/10/18) nortriptyline (Verified Allergy, Unknown, 06/10/18) sertraline (Verified Allergy, Unknown, 06/10/18) oxycodone (Verified Adverse Reaction, Unknown, HALLUCINATIONS, 3/30/19) Past Medical History Medical History ANEMIA, IRON DEFICIENCY-11/2010 COLONOSCOPY-INTERNAL/EXTERNAL HEMORRHOIDS/SIGMOID DIVERTICOLOSIS HYPERTENSION-MILD CONCENTRIC LVH, MILD TR, GARDE 1 DIASTOLIC BY 02/2016 TTE-ADOLFO HYPERLIPIDEMIA MIGRAINE HEADACHES, COMMON TYPE MULTIPLE SCLEROSIS GERD ESSENTIAL TREMOR T2DM IR WITH NEPHROPATHY, PERIPHERAL NEUROPATHY CAD s/p 5 PAO in 2014 And SMALL VESSEL DISEASE H/O SUBCLINICAL HYPERTHYROIDISM PSEUDOTUMOR CEREBRI/IDIOPATHIC INTRACRANIAL HYPERTENSION CKD 3 SEIZURE DISORDER HO NICOTINE ADDICTION-1 PPD FROM 16-30Y LUMBAR DJD THORACIC SPONDYLOSIS-T1/2, 09/18, 10/20 HNP C COMPRESSION R T8 NERVE CERVICAL [id number] CHNP, CAMILA C56 C MILD CORD COMPROMISE BUE NCS C L C67 RADICULOPATHY/ CARPAL TUNNEL SYN Surgical History C SECTION 1978, 1979 REMOVAL OF LEFT SUBMANDIBULAR GLAND DUCT STONE OCTOBER 20072006 D&C HYSTEROSCOPY BTL BILATERAL CATARACT SURGERY VITECTOMY-JOSE ALEJANDRO 10/29/16 EGD/COLON-MINIMAL GASTRITIS, MELANOSIS COLI-R 11/2017 Family History FATHER: , FATHER 2 LUNG CANCER AT 79yrs, T2DM MOTHER: , UNKNOWN SISTER DM MATERNAL GRAND FATHER: , CANCER DAUGHTER- TIA DAUGHTER - MARGE DM. Social History * Smoker: current smoker Alcohol: occationally Drugs: denies A-FIB/CHADSVASC A-FIB History Current/History of A-Fib/PAF?: No Review of Systems Constitutional: Reports: Malaise, Night Sweats; Denies: Chills, Fever Eyes: Denies: Pain, Vision change ENT: Denies: Head Aches, Ear Pain, Dysphagia Skin: Denies: Rash, Lesions, Breakdown Pulmonary: Reports: Pleuritic Chest Pain; Denies: Dyspnea, Cough Cardiovascular: Reports: Chest Pain Gastrointestinal: Reports: Nausea, Vomiting, Abdominal Pain, Constipation Genitourinary: Denies: Dysuria, Frequency, Incontinence, Retention Hematologic: Denies: Bruising, Bleeding Excessively Musculoskeletal: Reports: Neck Pain, Back Pain, Shoulder Pain, Leg Pain, Joint Pain, Muscle Pain, Spasms Neurological: Denies: Weakness, Numbness, Change in speech, Confusion Physical Examination General Exam: Positive: Alert, Cooperative, Mild Distress (patient cvomiting) Eye Exam: Positive: PERRLA, Conjunctiva & lids normal, EOMI; Negative: Sclera icteric ENT Exam: Positive: Atraumatic, Mucous membr. moist/pink, Pharynx Normal Neck Exam: Positive: Supple; Negative: JVD, thyromegaly Chest Exam: Positive: Clear to auscultation, Normal air movement Heart Exam: Positive: Rate Normal, Regular Rhythm, Normal S1, Normal S2; Negative: Murmurs, Rubs Abdomen Exam: Positive: Normal bowel sounds, Soft, Tenderness (epigastrium); Negative: Hepatospenomegaly Extremity Exam: Positive: Normal pulses, Tenderness (both knees, both ankes. ), Other (Pain inthe back along the spine from the cervical region to the sacrum. ); Negative: Clubbing, Cyanosis, Edema Skin Exam: Positive: Nl turgor and temperature; Negative: Breakdown, Lesion Neuro Exam: Positive: Normal Speech, Normal Tone Vital Signs Vital Signs Date Time Temp Pulse Resp B/P (MAP) Pulse Ox O2 Delivery O2 Flow Rate FiO2 01/28/20 15:18 20 01/28/20 15:09 206/99 01/28/20 14:30 69 98 Room Air 01/28/20 14:00 97.1 Laboratory Data Labs 24H Laboratory Tests 2 01/28/20 10:53: POC Glucose (Misc Panel) 143H, POC Sodium (Misc Panel) 139, POC Potassium (Misc Panel) 3.9, POC Chloride (Misc Panel) 105, POC Total CO2 (Misc Panel) 23.0, POC Blood Urea Nitrogen (Misc Panel 30H, POC Ionized Calcium (Misc Panel) 4.9, POC Creatinine (Misc Panel) 1.6H, POC Hematocrit (Misc Panel) 38.0 01/28/20 10:58: POC Troponin I (Misc) 0.01 01/28/20 11:01: Immature Granulocyte % (Auto) 1.5, Neutrophils (%) (Auto) 61.2, Lymphocytes (%) (Auto) 26.9, Monocytes (%) (Auto) 8.3H, Eosinophils (%) (Auto) 1.6, Basophils (%) (Auto) 0.5, Neutrophils # (Auto) 4.9, Lymphocytes # (Auto) 2.2, Monocytes # (Auto) 0.7, Eosinophils # (Auto) 0.1, Basophils # (Auto) 0.0, Nucleated Red Blood Cells % (auto) 0.0, Anion Gap 5L, Glomerular Filtration Rate 44.2L, Calcium Level 9.3, Total Bilirubin 0.3, Direct Bilirubin < 0.1, Aspartate Amino Transf (AST/SGOT) 17, Alanine Aminotransferase (ALT/SGPT) 17, Alkaline Phosphatase 54, Total Protein 7.6, Albumin 3.4, Albumin/Globulin Ratio 0.8L CBC/BMP Laboratory Tests 01/28/20 11:01 Assessment/Plan 64 year old with PMD of chronic back pain, carpal tunnel syn, cervical radiculopathy, T8 nerve compression, HTN, DM, HLD, Essential tremors, Seizure disorder, Multiple sclerosis and other medical comorbidities presented to ED for chest pain. Fortunato reports that the chest pain has been going on for 1 month off and on but since last night it has become constant and severe so came to the ED . The pain is located across the lower chest would come and go sharp last for 10 to 15 minutes pleuritic in nature would cause difficulty in breathing and then 10/10 in intensity when it comes with muscle spasms of the back and chest wall then would go away and come back agian in 2 to 3 days. However the pain has been almost constant since last night has not been able to lay down all night and has not been able to take deep breaths. In ED she was noted to have uncontrolled hypertension. CT angio in the ED was negative for Pulmonary embolism. EKGs x 2 and 2 cardiac enzymes have been negative. Patient was admitted for hypertensive urgency and control pain and evaluation of chest pain. Chest pain 2 sets of cardiac enzymes and 2 EKGs were negative for ACS. CT angio negative will get another set of cardiac enzymes and another EKG at 10 pm Likely musculoskeletal chest pain vs neuropathic chest pain Given 1 dose of toradol pain control with [place] and Percocet. Continue tizanidine Had thoracic MRI in 2019 showed multilevel disc bulges without significant spinal canal stenosis or neural foraminal compromise Hypertensive urgency May be worse due to severe pain start on amlodipine, increase coreg to 25 bid, clonidine and IV hydralazine. CAD s/p PAO continue coreg, ASA, statin Chronic Back pain/ bilateral leg pain/ carapal tunnel syn/ periphearl neuropathy Thoracic , cervical spondylosis, Mild cervical cord compression, T8 thoracic nerve, C6 and C7 radiculopathy. tizanidine and baclofen DM with neuropathy Can use own insulin pump CKD stage 3 stable Multiple sclerosis baclofen and tizanidine Seizure disorder Keppra. Essential tremor primidone HLD statin GERD PPI Left thyroid lobe mass follow up with PMD ANEMIA, IRON DEFICIENCY on iron supplements. MIGRAINE HEADACHES H/O PSEUDOTUMOR CEREBRI/IDIOPATHIC INTRACRANIAL HYPERTENSION Plan / VTE VTE Prophylaxis Ordered?: Yes ROSENDA AGOSTO MD Jan 28, 2020 16:08
--- NOTE | 2020-01-28 23:55 | ECGEPIP ---
[facility] - ED Test Date: 2020-01-28 Pat Name: LUL MORGAN Department: Room: - Gender: Female Herbologist: EUGENIO : 1955 Requested By: CYNDEE Castaneda Order Number: [id number] Reading MD: Farshad Panda Measurements Intervals [place] Rate: 66 P: 69 FL: 179 QRS: 17 QRSD: 97 T: 106 QT: 421 QTc: 441 Interpretive Statements SINUS RHYTHM WITH SINUS ARRHYTHMIA SEPTAL MYOCARDIAL INFARCTION, OF INDETERMINATE AGE LVH WITH STRAIN PATTERN SIMILAR TO 08/12/18 Electronically Signed on 01-28-2020 23:54:50 EST by Farshad Panda
[2020-01-29] VITALS (9 sets, daily range): BP systolic 118–176; BP diastolic 65–87
--- NOTE | 2020-01-29 00:01 | ECGEPIP ---
[facility] - ED Test Date: 2020-01-28 Pat Name: LUL MORGAN Department: Room: [place] [address] Gender: Female [place] [employer]er: EUGENIO : 1955 Requested By: CYNDEE Castaneda Order Number: [id number] Reading MD: Farshad Panda Measurements Intervals [place] Rate: 71 P: 58 CT: 188 QRS: -15 QRSD: 94 T: 106 QT: 407 QTc: 444 Interpretive Statements SINUS RHYTHM WITH SINUS ARRHYTHMIA POOR R WAVE PROGRESSION LEFT VENTRICULAR HYPERTROPHY AND ST-T CHANGE SIMILAR TO PRIOR ON SAME DATE Electronically Signed on 01-29-2020 0:00:34 EST by Farshad Panda
[2020-01-29] MEDS ORDERED: tiZANidine 4 MG TAB PO ONE (00:15)
[2020-01-29] MEDS: hydrALAZINE 20MG/ML 1ML VIAL (J0360 PER 20MG) IV SCH ×7 (03:00→23:00)
[2020-01-29 06:00] LABS: CALCIUM LEVEL 8.9 MG/DL (8.8-10.2); CREATININE FOR GFR 1.58 MG/DL (0.55-1.30); GLOMERULAR FILTRATION RATE 42.6 (>45); POTASSIUM SERUM 4.5 MEQ/L (3.5-5.1)
[2020-01-29 06:18] LABS: BASO % 0.3 % (0.0-1.0); EOS % 0.1 % (0.0-3.0); HEMATOCRIT 38.5 % (36.0-47.0); HEMOGLOBIN 12.2 g/dl (12.0-15.5); LYMPH # 1.9 10^3/uL (1.5-5.0); LYMPH % 16.2 % (24.0-44.0); MEAN CORPUSCULAR HEMOGLOBIN 30.5 pg (27.0-33.0); MEAN CORPUSCULAR HGB CONC 31.7 g/dl (32.0-36.5); MEAN CORPUSCULAR VOLUME 96.3 fl (80.0-96.0); MONO # 0.6 10^3/uL (0.0-0.8); MONO % 5.1 % (0.0-5.0); NEUTROPHILS # 9.3 10^3/uL (1.5-8.5); NEUTROPHILS % 77.5 % (36.0-66.0); PLATELET COUNT, AUTOMATED 269 10^3/uL (150-450); WHITE BLOOD COUNT 11.9 10^3/uL (4.0-10.0)
[2020-01-29] MEDS: tiZANidine 4 MG TAB PO SCH ×4 (06:42→21:04)
[2020-01-29] MEDS: BACLOFEN 10 MG TAB PO SCH ×4 (06:42→21:03)
--- NOTE | 2020-01-29 10:05 | IPNPDOC ---
Subjective Date Seen The patient was seen on 01/29/20. Subjective Chief Complaint/HPI Chest pain is better this morning. No further vomiting. BP better controlled today. Objective Physical Examination General Exam: Positive: Alert, Cooperative, No Acute Distress Eye Exam: Positive: PERRLA, Conjunctiva & lids normal, EOMI; Negative: Sclera icteric ENT Exam: Positive: Atraumatic, Mucous membr. moist/pink, Pharynx Normal Neck Exam: Positive: Supple; Negative: JVD, thyromegaly Chest Exam: Positive: Clear to auscultation, Normal air movement Heart Exam: Positive: Rate Normal, Regular Rhythm, Normal S1, Normal S2; Negative: Murmurs, Rubs Abdomen Exam: Positive: Normal bowel sounds, Soft, Tenderness (epigastrium); Negative: Hepatospenomegaly Extremity Exam: Positive: Normal pulses, Tenderness (both knees, both ankes. ), Other (Pain inthe back along the spine from the cervical region to the sacrum. ); Negative: Clubbing, Cyanosis, Edema Skin Exam: Positive: Nl turgor and temperature; Negative: Breakdown, Lesion Neuro Exam: Positive: Normal Speech, Normal Tone Assessment /Plan Assessment 64 year old with PMD of chronic back pain, carpal tunnel syn, cervical radiculopathy, T8 nerve compression, HTN, DM, HLD, Essential tremors, Seizure disorder, Multiple sclerosis and other medical comorbidities presented to ED for chest pain. Patient reports that the chest pain has been going on for 1 month off and on but since last night it has become constant and severe so came to the ED . The pain is located across the lower chest would come and go sharp last for 10 to 15 minutes pleuritic in nature would cause difficulty in breathing and then 10/10 in intensity when it comes with muscle spasms of the back and chest wall then would go away and come back again in 2 to 3 days. However the pain has been almost constant since last night has not been able to lay down all night and has not been able to take deep breaths. In ED she was noted to have uncontrolled hypertension. CT angio in the ED was negative for Pulmonary embolism. EKGs x 2 and 2 cardiac enzymes have been negative. Patient was admitted for hypertensive urgency and for evaluation of chest pain. Chest pain 2 sets of cardiac enzymes and 2 EKGs were negative for ACS. CT angio negative Musculoskeletal chest pain vs neuropathic chest pain pain control with [place] and Percocet. Continue tizanidine, baclofen. Had thoracic MRI in 2019 showed multilevel disc bulges without significant spinal canal stenosis or neural foraminal compromise Hypertensive urgency resolved May be worse due to severe pain start on amlodipine, increase coreg to 25 bid, clonidine and IV hydralazine. CAD s/p PAO continue Coreg, ASA, statin Chronic Back pain/ Bilateral radicular leg pain/ Carpal tunnel syn/ Peripheral neuropathy Thoracic, cervical spondylosis, Mild cervical cord compression, C6 and C7 radiculopathy. tizanidine and baclofen DM with neuropathy Can use own insulin pump CKD stage 3 stable Multiple sclerosis baclofen and tizanidine Seizure disorder Keppra. Essential tremor primidone HLD statin GERD PPI Left thyroid lobe mass follow up with PMD ANEMIA, IRON DEFICIENCY on iron supplements. MIGRAINE HEADACHES H/O PSEUDOTUMOR CEREBRI/IDIOPATHIC INTRACRANIAL HYPERTENSION Plan/VTE VTE Prophylaxis Ordered?: Yes VS, I&O, 24H, Fishbone Vital Signs/I&O Vital Signs Date Time Temp Pulse Resp B/P (MAP) Pulse Ox O2 Delivery O2 Flow Rate FiO2 01/29/20 07:08 98.1 64 20 156/71 (99) 96 Room Air I&O- Last 24 Hours up to 6 AM 01/29/20 06:00 Intake Total 900 ml Output Total 0 ml Balance 900 ml Laboratory Data 24H LABS Laboratory Tests 2 01/28/20 10:53: POC Glucose (Misc Panel) 143H, POC Sodium (Misc Panel) 139, POC Potassium (Misc Panel) 3.9, POC Chloride (Misc Panel) 105, POC Total CO2 (Misc Panel) 23.0, POC Blood Urea Nitrogen (Misc Panel 30H, POC Ionized Calcium (Misc Panel) 4.9, POC Creatinine (Misc Panel) 1.6H, POC Hematocrit (Misc Panel) 38.0 01/28/20 10:58: POC Troponin I (Misc) 0.01 01/28/20 11:01: Immature Granulocyte % (Auto) 1.5, Neutrophils (%) (Auto) 61.2, Lymphocytes (%) (Auto) 26.9, Monocytes (%) (Auto) 8.3H, Eosinophils (%) (Auto) 1.6, Basophils (%) (Auto) 0.5, Neutrophils # (Auto) 4.9, Lymphocytes # (Auto) 2.2, Monocytes # (Auto) 0.7, Eosinophils # (Auto) 0.1, Basophils # (Auto) 0.0, Nucleated Red Blood Cells % (auto) 0.0, Anion Gap 5L, Glomerular Filtration Rate 44.2L, Calcium Level 9.3, Total Bilirubin 0.3, Direct Bilirubin < 0.1, Aspartate Amino Transf (AST/SGOT) 17, Alanine Aminotransferase (ALT/SGPT) 17, Alkaline Phosphatase 54, Total Creatine Kinase 235H, Creatine Kinase MB 3.1, Creatine Kinase MB Relative Index 1.32, Troponin I < 0.02, Total Protein 7.6, Albumin 3.4, Albumin/Globulin Ratio 0.8L 01/28/20 15:37: POC Troponin I (Misc) 0.00 01/28/20 15:49: Coronavirus (COVID-19)(PCR) NEGATIVE 01/28/20 15:51: Lab Scanned Report LAB OTHER 01/28/20 18:08: Bedside Glucose (Misc Panel) 175H 01/28/20 21:46: Bedside Glucose (Misc Panel) 133H 01/29/20 05:21: Immature Granulocyte % (Auto) 0.8, Neutrophils (%) (Auto) 77.5H, Lymphocytes (%) (Auto) 16.2L, Monocytes (%) (Auto) 5.1H, Eosinophils (%) (Auto) 0.1, Basophils (%) (Auto) 0.3, Neutrophils # (Auto) 9.3H, Lymphocytes # (Auto) 1.9, Monocytes # (Auto) 0.6, Eosinophils # (Auto) 0.0, Basophils # (Auto) 0.0, Nucleated Red Blood Cells % (auto) 0.0, Anion Gap 7L, Glomerular Filtration Rate 42.6L, Calcium Level 8.9 CBC/BMP Laboratory Tests 01/28/20 11:01 01/29/20 05:21 ROSENDA AGOSTO MD Jan 29, 2020 10:05
[2020-01-29] MEDS: SENOKOT S TAB PO SCH ×2 (10:10→21:03)
[2020-01-29] MEDS: levETIRAcetam 250MG TABLET (KEPPRA) PO SCH ×2 (10:10→21:03)
[2020-01-29] MEDS: ASPIRIN 81 MG CHEW TABLET PO SCH (10:10)
[2020-01-29] MEDS: DOCUSATE SODIUM 100 MG CAP PO SCH ×2 (10:10→21:04)
[2020-01-29] MEDS: PRIMIDONE 50 MG TAB PO SCH ×3 (10:10→21:04)
[2020-01-29] MEDS: CARVedilol 12.5 MG TAB PO SCH ×2 (10:11→21:04)
[2020-01-29] MEDS: cloNIDine 0.1 MG TAB PO SCH ×4 (10:11→21:00)
[2020-01-29] MEDS: PANTOPRAZOLE 40MG VIAL (C9113 PER 1) IV SCH ×2 (10:12→21:04)
[2020-01-29] MEDS: ENOXAPARIN 40MG/0.4ML SYRINGE (J1650 PER 10MG) SC SCH (10:13)
[2020-01-29] MEDS ORDERED: ACETAMINOPHEN TAB 650MG DOSE (2X325MG) PO PRN (17:45)
[2020-01-29] MEDS: amLODIPine 10 MG TAB PO SCH (21:03)
[2020-01-30] VITALS: BP 138/64
[2020-01-30] MEDS: hydrALAZINE 20MG/ML 1ML VIAL (J0360 PER 20MG) IV SCH ×2 (03:00→06:48)
[2020-01-30 04:00] VITALS: BP 134/62
[2020-01-30 05:20] LABS: BASO % 0.3 % (0.0-1.0); EOS # 0.1 10^3/uL (0.0-0.5); EOS % 1.5 % (0.0-3.0); HEMOGLOBIN 12.6 g/dl (12.0-15.5); LYMPH # 1.9 10^3/uL (1.5-5.0); LYMPH % 26.6 % (24.0-44.0); MEAN CORPUSCULAR HGB CONC 32.3 g/dl (32.0-36.5); MEAN CORPUSCULAR VOLUME 95.8 fl (80.0-96.0); MONO # 0.7 10^3/uL (0.0-0.8); MONO % 9.7 % (0.0-5.0); NEUTROPHILS # 4.4 10^3/uL (1.5-8.5); NEUTROPHILS % 61.1 % (36.0-66.0); PLATELET COUNT, AUTOMATED 239 10^3/uL (150-450); RED BLOOD COUNT 4.07 10^6/uL (4.00-5.40); WHITE BLOOD COUNT 7.1 10^3/uL (4.0-10.0)
[2020-01-30 05:43] LABS: CALCIUM LEVEL 8.7 MG/DL (8.8-10.2); CREATININE FOR GFR 1.39 MG/DL (0.55-1.30); GLOMERULAR FILTRATION RATE 49.4 (>45); POTASSIUM SERUM 3.8 MEQ/L (3.5-5.1)
[2020-01-30] MEDS: BACLOFEN 10 MG TAB PO SCH (06:38)
[2020-01-30] MEDS: tiZANidine 4 MG TAB PO SCH (06:38)
[2020-01-30 08:00] VITALS: BP 135/2
[2020-01-30] MEDS: cloNIDine 0.1 MG TAB PO SCH (08:16)
[2020-01-30] MEDS: ASPIRIN 81 MG CHEW TABLET PO SCH (08:22)
[2020-01-30] MEDS: DOCUSATE SODIUM 100 MG CAP PO SCH (08:22)
[2020-01-30] MEDS: SENOKOT S TAB PO SCH (08:22)
[2020-01-30] MEDS: levETIRAcetam 250MG TABLET (KEPPRA) PO SCH (08:22)
[2020-01-30] MEDS: PRIMIDONE 50 MG TAB PO SCH (08:22)
[2020-01-30 08:23] VITALS: BP 135/82
[2020-01-30] MEDS: PANTOPRAZOLE 40MG VIAL (C9113 PER 1) IV SCH (08:23)
[2020-01-30] MEDS: ENOXAPARIN 40MG/0.4ML SYRINGE (J1650 PER 10MG) SC SCH (08:23)
[2020-01-30] MEDS: CARVedilol 12.5 MG TAB PO SCH (08:23)
[2020-01-30] MEDS ORDERED: AMLO1TAB25 PO (09:15)
[2020-01-30] MEDS ORDERED: HYDR-3715 PO (09:15)
[2020-01-30] MEDS ORDERED: CARV25TA PO (09:15)
[2020-01-30] MEDS ORDERED: FLUBLOK(EGG FREE)(QUAD)INFLUENZA VACC 0.5ML SYRINGE 18YRS & OLDER IM ONE (11:30)
--- NOTE | 2020-01-30 12:16 | DS.PDOC ---
Discharge Summary General Date of Admission Jan 28, 2020 at 15:51 Discharge Summary PROCEDURES PERFORMED DURING STAY: [None]. DISCHARGE DIAGNOSES: Musculoskeletal Chest pain, ACS ruled out Severe generalized musculoskeletal pain Hypertensive urgency. Left thyroid lobe mass SECONDARY DIAGNOSIS: CAD s/p 5 PAO in 2015 And SMALL VESSEL DISEASE T2 DM WITH NEPHROPATHY, PERIPHERAL NEUROPATHY, RETINOPATHY POSSIBLE MULTIPLE SCLEROSIS CKD 3 SEIZURE DISORDER HYPERLIPIDEMIA ANEMIA, IRON DEFICIENCY INTERNAL/EXTERNAL HEMORRHOIDS SIGMOID DIVERTICULOSIS HYPERTENSION-MILD CONCENTRIC LVH GARDE 1 DIASTOLIC DYS MIGRAINE HEADACHES, COMMON TYPE GERD ESSENTIAL TREMOR H/O SUBCLINICAL HYPERTHYROIDISM PSEUDOTUMOR CEREBRI/IDIOPATHIC INTRACRANIAL HYPERTENSION HO NICOTINE ADDICTION-1 PPD FROM 16-30Y LUMBAR DJD THORACIC SPONDYLOSIS CERVICAL SPONDYLOSIS Following in [facility] spine CARPAL TUNNEL SYN COMPLICATIONS/CHIEF COMPLAINT: Hypertensive Urgency. HOSPITAL COURSE: 64 year old with PMD of chronic back pain, carpal tunnel syn, cervical radiculopathy, T8 nerve compression, HTN, DM, HLD, Essential tremors, Seizure disorder, Multiple sclerosis and other medical comorbidities presented to ED for chest pain. Patient reports that the chest pain has been going on for 1 month off and on but since last night it has become constant and severe so came to the ED . The pain is located across the lower chest would come and go sharp last for 10 to 15 minutes pleuritic in nature would cause difficulty in breathing and then 10/10 in intensity when it comes with muscle spasms of the back and chest wall then would go away and come back again in 2 to 3 days. However the pain has been almost constant since last night has not been able to lay down all night and has not been able to take deep breaths. In ED she was noted to have uncontrolled hypertension. CT angio in the ED was negative for Pulmonary embolism. EKGs x 2 and 2 cardiac enzymes have been negative. Patient was admitted for hypertensive urgency and for evaluation of chest pain. Chest pain 2 sets of cardiac enzymes and 2 EKGs were negative for ACS. CT angio negative Musculoskeletal chest pain vs neuropathic chest pain pain control with Concepcion, Continue tizanidine, baclofen. Had thoracic MRI spine thoracic and cervical in 2019 showed multilevel disc bulges without significant spinal canal stenosis or neural foraminal compromise Patient reported she used to be on Vicodin but her PMD stopped it earlier this year and she was prescribed a pain patch which she has not been using. Hypertensive urgency resolved due to severe pain start on amlodipine, increase coreg to 25 bid CAD s/p PAO continue Coreg, ASA, statin Chronic Back pain/ Bilateral radicular leg pain/ Carpal tunnel syn/ Peripheral neuropathy Thoracic, cervical spondylosis, Mild cervical cord compression, C6 and C7 radiculopathy. tizanidine and baclofen DM with neuropathy On insulin pump CKD stage 3 stable Multiple sclerosis baclofen and tizanidine Seizure disorder Keppra. Essential tremor primidone HLD statin GERD PPI Left thyroid lobe mass follow up with PMD ANEMIA, IRON DEFICIENCY on iron supplements. MIGRAINE HEADACHES H/O PSEUDOTUMOR CEREBRI/IDIOPATHIC INTRACRANIAL HYPERTENSION DISCHARGE MEDICATIONS: Please see below. ALLERGIES: Please see below. PHYSICAL EXAMINATION ON DISCHARGE: VITAL SIGNS: Please see below. General Exam: Positive: Alert, Cooperative, No Acute Distress Eye Exam: Positive: PERRLA, Conjunctiva & lids normal, EOMI; Negative: Sclera icteric ENT Exam: Positive: Atraumatic, Mucous membr. moist/pink, Pharynx Normal Neck Exam: Positive: Supple; Negative: JVD, thyromegaly Chest Exam: Positive: Clear to auscultation, Normal air movement Heart Exam: Positive: Rate Normal, Regular Rhythm, Normal S1, Normal S2; Negative: Murmurs, Rubs Abdomen Exam: Positive: Normal bowel sounds, Soft, Tenderness (epigastrium); Negative: Hepatosplenomegaly Extremity Exam: Positive: Normal pulses, Tenderness (both knees, both ankes. ), Other (Pain inthe back along the spine from the cervical region to the sacrum. ); Negative: Clubbing, Cyanosis, Edema Skin Exam: Positive: Nl turgor and temperature; Negative: Breakdown, Lesion Neuro Exam: Positive: Normal Speech, tremors present. DTR on the left lower ex absent, 2+ in the right lower extremity, DTRs on the Right upper extremity absent and 2+ in the left upper extremity LABORATORY DATA: Please see below. ACTIVITY: [As tolerated]. DIET: Carb consistent DISCHARGE PLAN: Home DISPOSITION: . DISCHARGE INSTRUCTIONS: Follow up PMD in [address] Louis. Follow up at pain clinic Dr Marsh. DISCHARGE CONDITION: [Stable]. TIME SPENT ON DISCHARGE: 35 minutes. Vital Signs/I&Os Vital Signs Date Time Temp Pulse Resp B/P (MAP) Pulse Ox O2 Delivery O2 Flow Rate FiO2 01/30/20 08:23 65 135/82 01/30/20 08:00 97.6 18 97 Room Air I&O- Last 24 Hours up to 6 AM 01/30/20 06:00 Intake Total 2340 ml Output Total 3750 ml Balance -1410 ml Laboratory Data Labs 24H Laboratory Tests 2 01/29/20 12:39: Bedside Glucose (Misc Panel) 79L 01/29/20 17:03: Bedside Glucose (Misc Panel) 160H 01/29/20 20:53: Bedside Glucose (Misc Panel) 143H 01/30/20 05:04: Immature Granulocyte % (Auto) 0.8, Neutrophils (%) (Auto) 61.1, Lymphocytes (%) (Auto) 26.6, Monocytes (%) (Auto) 9.7H, Eosinophils (%) (Auto) 1.5, Basophils (%) (Auto) 0.3, Neutrophils # (Auto) 4.4, Lymphocytes # (Auto) 1.9, Monocytes # (Auto) 0.7, Eosinophils # (Auto) 0.1, Basophils # (Auto) 0.0, Nucleated Red Blood Cells % (auto) 0.0, Anion Gap 6L, Glomerular Filtration Rate 49.4, Calcium Level 8.7L CBC/BMP Laboratory Tests 01/30/20 05:04 FSBS Laboratory Tests Test 01/29/20 12:39 01/29/20 17:03 01/29/20 20:53 Range/Units Bedside Glucose (Misc Panel) 79 160 143 80-115 MG/DL Discharge Medications Scheduled Alirocumab (Praluent Pen) 75 Mg/1 Ml Pen.injctr, 75 MG SC Q2WK, (Reported) Amlodipine Besylate (Amlodipine Besylate) 10 Mg Tablet, 10 MG PO QHS Aspirin (Aspirin) 81 Mg Tab.chew, 81 MG PO DAILY, (Reported) Baclofen (Baclofen) 20 Mg Tab, 20 MG PO QID, (Reported) 0700, 1300, 1900, QHS Carvedilol (Carvedilol) 25 Mg Tab, 25 MG PO BID Chlorthalidone (Chlorthalidone) 25 Mg Tablet, 25 MG PO DAILY, (Reported) Cyanocobalamin (Vitamin B-12) (Vitamin B-12) 250 Mcg Tablet, 250 MCG PO DAILY, (Reported) Ergocalciferol (Vitamin D2) (Drisdol) 1,250 Mcg Capsule, 1,250 MCG PO Q2WK, (Reported) TUESDAY Ferrous Sulfate (Ferrous Sulfate) 325 Mg Tab, 325 MG PO DAILY, (Reported) Insulin Lispro (Admelog) 100 Unit/1 Ml Vial, 2 UNITS SQ AC, (Reported) PT INJECTS INSULIN IF BS IS BETWEEN 100-150 BEFORE MEALS. IN ADDITIONS TO HAVING INSULIN PUMP Levetiracetam (Keppra) 250 Mg Tab, 250 MG PO BID, (Reported) Magnesium Oxide (Magnesium Oxide) 400 Mg Tablet, 800 MG PO DAILY, (Reported) 1200 Pantoprazole Sodium (Pantoprazole Sodium) 40 Mg Tab, 40 MG PO DAILY, (Reported) Primidone (Primidone) 50 Mg Tablet, 100 MG PO TID, (Reported) Spironolactone (Spironolactone) 25 Mg Tab, 25 MG PO BID, (Reported) Tizanidine HCl (Zanaflex) 4 Mg Tab, 4 MG PO QID, (Reported) 0700, 1300, 1900, QHS Valacyclovir HCl (Valacyclovir) 500 Mg Tab, 500 MG PO BID, (Reported) Scheduled PRN Acetaminophen (Tylenol Extra Strength) 500 Mg Tablet, 500 MG PO QID PRN for PAIN, (Reported) Diclofenac Sodium (Diclofenac Sodium) 1% 100GM Gel..gram., 1 APLCT TOP TIDP PRN for PAIN Chest or back as needed. Duloxetine Hcl (Duloxetine HCl) 30 Mg Capsule.dr, 30 MG PO DAILY PRN for NEUROPATHIC PAIN, (Reported) Hydrocodone/Acetaminophen (Hydrocodone-Acetamin 5-325 mg) 1 Each Tablet, 1 TAB PO Q8HP PRN for SEVERE PAIN (PS 8-10) Hydrocortisone (Proctosol-Hc) 2.5 % Cre, 1 DOSE MO BID PRN for HEMORRHOIDS, (Reported) Lidocaine (Lidocaine) 5 Gm Cream..g., 1 DOSE TOP BID PRN for PAIN, (Reported) APPLY TO NECK AND BACK Nitroglycerin (Nitrostat) 0.4 Mg Subl, 0.4 MG SL NITRO PRN for CHEST PAIN, (Reported) Sennosides/Docusate Sodium (Colace 2-in-1 Tablet) 1 Each Tablet, 1 TAB PO BID PRN for CONSTIPATION, (Reported) Allergies Coded Allergies: codeine (Unverified Allergy, Intermediate, hives, 06/10/18) [place] Inhibitors (Verified Allergy, Unknown, FEET SWELLING, 06/10/18) Sulfa (Sulfonamide Antibiotics) (Verified Allergy, Unknown, 06/10/18) nortriptyline (Verified Allergy, Unknown, 06/10/18) sertraline (Verified Allergy, Unknown, 06/10/18) oxycodone (Verified Adverse Reaction, Unknown, HALLUCINATIONS, 06/10/18) ROSENDA AGOSTO MD Jan 30, 2020 12:16
[2020-01-30] MEDS ORDERED: DICL1GEL3 TOP (12:56)
== END 2020-01-30 12:36 | disposition home or self-care (01) | DRG 199 ==
LOC: M ED 10:33 → M ED INP 15:51 → M PCU 21:15
PROVIDERS: ADMIT Internal Medicine Nephrology; ATTEND Internal Medicine Nephrology
DX: I16.0 Hypertensive urgency (principal); E11.42 Type 2 diabetes mellitus with diabetic polyneuropathy; E11.22 Type 2 diabetes mellitus with diabetic chronic kidney disease; I12.9 Hypertensive chronic kidney disease with stage 1 through stage 4 chronic kidney disease, or unspecified chronic kidney disease; D50.9 Iron deficiency anemia, unspecified; F17.200 Nicotine dependence, unspecified, uncomplicated; G35 Multiple sclerosis; N18.30 Chronic kidney disease, stage 3 unspecified; I25.10 Atherosclerotic heart disease of native coronary artery without angina pectoris; R07.89 Other chest pain; E78.5 Hyperlipidemia, unspecified; G40.909 Epilepsy, unspecified, not intractable, without status epilepticus; E04.1 Nontoxic single thyroid nodule; M47.22 Other spondylosis with radiculopathy, cervical region; K57.30 Diverticulosis of large intestine without perforation or abscess without bleeding; G93.2 Benign intracranial hypertension; G43.009 Migraine without aura, not intractable, without status migrainosus; K21.9 Gastro-esophageal reflux disease without esophagitis; M51.36 Other intervertebral disc degeneration, lumbar region; Z98.41 Cataract extraction status, right eye; Z98.42 Cataract extraction status, left eye; Z79.82 Long term (current) use of aspirin; Z79.4 Long term (current) use of insulin; Z79.899 Other long term (current) drug therapy; Z88.2 Allergy status to sulfonamides; Z88.5 Allergy status to narcotic agent; Z88.8 Allergy status to other drugs, medicaments and biological substances; Z20.828 Contact with and (suspected) exposure to other viral communicable diseases

== ENCOUNTER → 2020-03-26 | Outpatient (CLI) | payer OTHER ==
[~2020-03-26] MED LIST changes: +ADME100I SQ; +COLA1TAB PO; +CYAN500T14 PO; -CYAN500T8 PO; +DICL1GEL3 TOP; +DRIS50003 PO; +DULO1CAP5 PO; +HYDR-3715 PO; +LIDO1CRE2 TOP; -MECL12.589 PO; +MECL12.590 PO
--- NOTE | 2020-03-26 15:53 | REPVR ---
PROCEDURE INFORMATION: Exam: MR Lumbar Spine Without Contrast. Exam date and time: 03/26/2020 12:54 PM Age: 64 years old Clinical indication: Low back pain. TECHNIQUE: Imaging protocol: Multiplanar magnetic resonance images of the lumbar spine without intravenous contrast. COMPARISON: MRI-Spine, L.S. without con 06/21/2017 9:57 AM FINDINGS: Vertebrae: Unremarkable. Spinal cord: Normal signal. No cord compression. L1-L2: No significant disc disease. No significant spinal canal stenosis. No neural foraminal stenosis. L2-L3: There is mild disc bulging. There is facet arthropathy and ligamentum flavum hypertrophy. There is mild spinal canal stenosis. L3-L4: There is moderate disc bulging. Disc bulging extends into both neural foramen causing mild bilateral neural foraminal narrowing, left worse than right. There is facet arthropathy and ligamentum flavum hypertrophy. There is mild spinal canal stenosis. L4-L5: There is grade 1 anterior spondylolisthesis at this level.There is mild disc bulging. Disc bulging extends into both neural foramen causing mild bilateral neural foraminal narrowing. There is facet arthropathy and ligamentum flavum hypertrophy. There is moderate spinal canal stenosis. L5-S1: There is mild disc bulging. There is moderate bilateral neural foraminal narrowing. There is facet arthropathy and ligamentum flavum hypertrophy. There is a 8 mm facet associated with the left facet joint that indents the thecal sac and causes compromise of the left lateral recess. Soft tissues: Unremarkable. Other findings: There is congenital spinal canal stenosis which is exacerbated by multilevel degenerative changes. IMPRESSION: 1. There is congenital spinal canal stenosis which is exacerbated by multilevel degenerative changes. 2. Multilevel degenerative changes causing variable degrees of spinal canal and neuroforaminal narrowing as described above. Electronically signed by: Rodriguez Forde On 03/26/2020 15:53:44 PM
== END ==
LOC: M RAD 10:53
PROVIDERS: ATTEND Family Medicine
DX: M47.816 Spondylosis without myelopathy or radiculopathy, lumbar region (principal)

== ENCOUNTER → 2020-04-21 | Outpatient (REF) | payer OTHER ==
[2020-04-21 16:09] LABS: BASO # 0.1 10^3/uL (0.0-0.2); BASO % 0.8 % (0.0-1.0); EOS # 0.2 10^3/uL (0.0-0.5); EOS % 2.3 % (0.0-3.0); HEMATOCRIT 39.8 % (36.0-47.0); HEMOGLOBIN 12.3 g/dl (12.0-15.5); LYMPH # 2.3 10^3/uL (1.5-5.0); LYMPH % 28.4 % (24.0-44.0); MEAN CORPUSCULAR HEMOGLOBIN 30.5 pg (27.0-33.0); MEAN CORPUSCULAR HGB CONC 30.9 g/dl (32.0-36.5); MEAN CORPUSCULAR VOLUME 98.8 fl (80.0-96.0); MONO # 0.6 10^3/uL (0.0-0.8); MONO % 7.8 % (0.0-5.0); NEUTROPHILS # 4.7 10^3/uL (1.5-8.5); NEUTROPHILS % 58.9 % (36.0-66.0); PLATELET COUNT, AUTOMATED 293 10^3/uL (150-450); RED BLOOD COUNT 4.03 10^6/uL (4.00-5.40)
[2020-04-21 16:28] LABS: ALBUMIN 3.8 GM/DL (3.2-5.2); BILIRUBIN,TOTAL 0.1 MG/DL (0.2-1.0); CALCIUM LEVEL 9.8 MG/DL (8.8-10.2); CHOLESTEROL RISK RATIO 4.807 (<5); CREATININE FOR GFR 1.3 MG/DL (0.55-1.30); GLOMERULAR FILTRATION RATE 53.4 (>45); POTASSIUM SERUM 4.7 MEQ/L (3.5-5.1)
[2020-04-21 19:46] LABS: HEMOGLOBIN A1c 7.1 %
== END ==
LOC: M SFHCPLAZ 11:53
PROVIDERS: ATTEND Family Medicine
DX: I10 Essential (primary) hypertension (principal); D50.9 Iron deficiency anemia, unspecified; E11.8 Type 2 diabetes mellitus with unspecified complications; E53.8 Deficiency of other specified B group vitamins

== ENCOUNTER → 2020-07-18 | Outpatient (REF) | payer OTHER ==
[~2020-07-18] MED LIST changes: +ASPI-569 PO; -ASPI81TAEC PO; +MECL-136 PO; -MECL12.590 PO; -VITA250T50 PO; +VITA250T7 PO
[2020-07-18 16:27] LABS: ALBUMIN 3.9 GM/DL (3.2-5.2); BILIRUBIN,TOTAL 0.3 MG/DL (0.2-1.0); C REACTIVE PROTEIN QUANTITATIV 1.84 MG/DL (0.00-0.30); CALCIUM LEVEL 9.9 MG/DL (8.8-10.2); CHOLESTEROL RISK RATIO 3.491 (<5); CREATININE FOR GFR 1.33 MG/DL (0.55-1.30); MAGNESIUM LEVEL 2.3 MG/DL (1.8-2.4); POTASSIUM SERUM 4.2 MEQ/L (3.5-5.1); TOTAL PROTEIN 8.2 GM/DL (6.4-8.2)
[2020-07-18 16:33] LABS: CREATININE, URINE 34.2 MG/DL; MALB URINE SIEMENS 84.6 MG/L; MAU/CREAT RATIO 247.3 MCG/MG (0.0-30.0)
== END ==
LOC: M SFHCPLAZ 13:17
PROVIDERS: ATTEND Family Medicine
DX: E78.2 Mixed hyperlipidemia (principal); I10 Essential (primary) hypertension; E11.8 Type 2 diabetes mellitus with unspecified complications

== ENCOUNTER → 2020-08-19 | Outpatient (REF) | payer OTHER ==
[~2020-08-19] MED LIST changes: +GABA-283 PO; -GABA-845 PO
== END ==
LOC: M SFHCWAGY 17:46
PROVIDERS: ATTEND Nurse Practitioner Women's Health
DX: Z12.4 Encounter for screening for malignant neoplasm of cervix (principal)

== ENCOUNTER → 2020-08-19 | Outpatient (CLI) | payer OTHER ==
--- NOTE | 2020-08-19 16:11 | REPMRS ---
Patient History The patient states she had a clinical breast exam in August 2020. Patient is postmenopausal. Family history of prostate cancer at age 50 or over in maternal cousin, colorectal cancer at age 50 or over in sister, unknown cancer at age 52 in brother, pancreatic cancer at age 59 in brother. Took estrogen for 7 months. Tomosynthesis is performed. Volpara breast density is c. Tyrer-zick lifetime risk of breast cancer 6.7%. Patient states no breast complaints today. Patient has signed MRS History Sheet. Digital Woman Screen Mammo: August 19, 2020 - Exam #: [id number] Bilateral CC and MLO view(s) were taken. Technologist: Courtney Sapp, Technologist Prior study comparison: August 10, 2019, bilateral digital mammo screening bilat performed at [facility]. August 10, 2019, bilateral digital woman screen mammo performed at [facility]. FINDINGS: The breast tissue is heterogeneously dense. This may lower the sensitivity of mammography. There has been no change in the appearance of the mammogram from the prior studies. There is a moderate amount of residual fibroglandular tissue which is fairly symmetric. There is no interval development of dominant mass, areas of architectural distortion, or clustered microcalcification typical of malignancy. There is a stable 5 cm hamartoma anteriorly in the left breast. No significant changes when compared with prior studies. Assessment: BI-RADS/ACR category 1 mammogram. Negative Mammogram. Recommendation Routine screening mammogram in 1 year (for women over age 40). This mammogram was interpreted with the aid of an FDA-approved computer-aided dectection system. Electronically Signed By: Devon Colón MD 08/19/20 [id number]
== END ==
LOC: M WHC 14:12
PROVIDERS: ATTEND Family Medicine
DX: Z12.31 Encounter for screening mammogram for malignant neoplasm of breast (principal)

== ENCOUNTER → 2020-09-16 | Outpatient (CLI) | payer OTHER ==
[~2020-09-16] MED LIST changes: +ALIR75PE3 SC; -PRAL1INJ SC
--- NOTE | 2020-09-16 16:24 | REP ---
INDICATION: THIGH PAIN, LUMP POSTERIOR THIGH COMPARISON: None TECHNIQUE: Realtime grayscale and color B-mode ultrasound examination using linear high-frequency transducer. FINDINGS: Directed ultrasound examination along the posterior aspect of the left thigh demonstrates a nonspecific hypoechoic avascular solid lesion measuring 19 x 10 x 16 mm which is otherwise nonspecific in appearance by ultrasound. Clinical and historical correlation is recommended. IMPRESSION: Nonspecific solid ovoid mass in the deep subcutaneous tissue. Possible resolving hematoma. Consider correlation with x-ray to evaluate for possible small amounts of calcification which may reflect an area of myositis. <Electronically signed by Regan Andres > 09/16/20 [id number]
== END ==
LOC: M RAD 14:41
PROVIDERS: ATTEND Nurse Practitioner Family
DX: M79.659 Pain in unspecified thigh (principal)

== ENCOUNTER → 2020-09-18 | Outpatient (CLI) | payer OTHER | LOC: M WHC 18:29 | PROVIDERS: ATTEND Obstetrics & Gynecology | DX: R10.2 Pelvic and perineal pain (principal) ==

== ENCOUNTER → 2020-10-14 | Outpatient (CLI) | payer MEDICAID ==
[~2020-10-14] MED LIST changes: +ADME100I SC; -ADME100I SQ; +AMLO1TAB24 PO; +AMLO2.5T3 PO; +AZIT-12 PO; +B-12100T2 PO; +CEFD300CAP PO; +LIDO1PAD TOP; +LOSA100T45 PO; -LOSA100T50 PO; +MUCI600T31 PO; +PROC1CRE5 TOP; +TIZA10TA PO; +TORS20TA2 PO; +TRAM50TA2 PO; +TRAZ-257 PO
== END ==
LOC: M WHC 08:30
PROVIDERS: ATTEND Obstetrics & Gynecology
DX: D25.9 Leiomyoma of uterus, unspecified (principal); R10.2 Pelvic and perineal pain

== ENCOUNTER 2020-11-03 09:04 | Emergency (ER) | payer MEDICAID ==
[~2020-11-03] VITALS: Ht 152.4 cm; Wt 77.7 kg
[~2020-11-03 09:04] MED LIST changes: -ADME100I SC; +ADME100I SQ; -AMLO1TAB24 PO; -AMLO2.5T3 PO; -AZIT-12 PO; -B-12100T2 PO; -CEFD300CAP PO; -LIDO1PAD TOP; -LOSA100T45 PO; +LOSA100T50 PO; -MUCI600T31 PO; -PROC1CRE5 TOP; -TIZA10TA PO; -TORS20TA2 PO; -TRAM50TA2 PO; -TRAZ-257 PO
[2020-11-03] MEDS ORDERED: traMADol 50 MG TAB PO ONE (11:35)
[2020-11-03] MEDS ORDERED: ACETAMINOPHEN 325 MG TAB PO ONE (11:35)
--- NOTE | 2020-11-03 11:54 | REP ---
INDICATION: trauma. COMPARISON: None. TECHNIQUE: AP pelvis, AP and frogleg left hip. FINDINGS: There is no evidence of acute fracture, dislocation or intrinsic bone disease. Mild degenerative changes are noted at both hip joints. There are diffuse vascular calcifications present. IMPRESSION: No acute fracture or dislocation. <Electronically signed by Devon Colón > 11/03/20 [id number]
--- NOTE | 2020-11-03 11:55 | REP ---
INDICATION: trauma COMPARISON: None. TECHNIQUE: AP and lateral views left femur. FINDINGS: There is no evidence of acute fracture, dislocation, or intrinsic bone disease.There are mild degenerative changes at the hip and knee joints. There are diffuse vascular calcifications present. IMPRESSION: No fracture or dislocation. <Electronically signed by Devon Colón > 11/03/20 [id number]
--- NOTE | 2020-11-03 11:55 | REP ---
INDICATION: trauma, swelling r/o dvt COMPARISON: None. TECHNIQUE: Colón scale and color Doppler evaluation using linear high frequency transducer. FINDINGS: Ultrasound examination of the left lower extremity deep venous structures from the common femoral vein through the calf/ankle to include the peroneal, and tibial veins demonstrates normal compressibility flow and wave patterns in response to respiration and augmentation. There is no evidence for deep venous thrombosis. Contralateral CFV is patent and normal. IMPRESSION: No evidence for deep venous thrombosis. <Electronically signed by Regan Andres > 11/03/20 [id number]
[2020-11-03 14:21] VITALS: BP 159/76
== END 2020-11-03 14:47 | disposition home or self-care (01) ==
LOC: M ED 09:04
DX: M79.605 Pain in left leg (principal); M16.0 Bilateral primary osteoarthritis of hip; R22.42 Localized swelling, mass and lump, left lower limb; Z91.81 History of falling; I12.9 Hypertensive chronic kidney disease with stage 1 through stage 4 chronic kidney disease, or unspecified chronic kidney disease; I25.2 Old myocardial infarction; E78.00 Pure hypercholesterolemia, unspecified; K21.9 Gastro-esophageal reflux disease without esophagitis; N18.30 Chronic kidney disease, stage 3 unspecified; E11.22 Type 2 diabetes mellitus with diabetic chronic kidney disease; E11.40 Type 2 diabetes mellitus with diabetic neuropathy, unspecified; R56.9 Unspecified convulsions; Z88.8 Allergy status to other drugs, medicaments and biological substances; Z88.5 Allergy status to narcotic agent; Z88.2 Allergy status to sulfonamides; Z79.899 Other long term (current) drug therapy; Z79.82 Long term (current) use of aspirin; Z79.4 Long term (current) use of insulin

== ENCOUNTER 2020-11-27 18:56 | Inpatient (IN) | payer MEDICAID ==
[~2020-11-27] VITALS: Ht 154.9 cm; Wt 79.7 kg
[~2020-11-27 18:56] MED LIST changes: +ADME100I SC; -ADME100I SQ
[2020-11-27 20:28] LABS: BASO % 0.2 % (0.0-1.0); EOS % 0.2 % (0.0-3.0); HEMOGLOBIN 11.6 g/dl (12.0-15.5); LYMPH # 1.1 10^3/uL (1.5-5.0); LYMPH % 9.3 % (24.0-44.0); MEAN CORPUSCULAR HGB CONC 33.1 g/dl (32.0-36.5); MEAN CORPUSCULAR VOLUME 96.7 fl (80.0-96.0); MONO # 1.5 10^3/uL (0.0-0.8); MONO % 11.9 % (2.0-8.0); NEUTROPHILS # 9.3 10^3/uL (1.5-8.5); NEUTROPHILS % 76.6 % (36.0-66.0); PLATELET COUNT, AUTOMATED 223 10^3/uL (150-450); RED BLOOD COUNT 3.62 10^6/uL (4.00-5.40)
[2020-11-27 20:32] LABS: WHITE BLOOD COUNT 12.1 10^3/uL (4.0-10.0)
[2020-11-27] MEDS ORDERED: LABETALOL 100MG/20ML VIAL IV STA (20:42)
[2020-11-27] MEDS ORDERED: HYDROcodone/APAP LIQUID 7.5-325MG 15ML UDC (LORTAB ELIXIR) PO ONE (20:45)
[2020-11-27] MEDS ORDERED: IBUPROFEN 600MG TAB PO ONE (20:45)
[2020-11-27] MEDS: BACLOFEN 10 MG TAB PO SCH (21:00)
[2020-11-27 21:08] LABS: ALBUMIN 2.7 GM/DL (3.2-5.2); ALT/SGPT 38 U/L (12-78); BILIRUBIN,DIRECT < 0.1 MG/DL (0.0-0.2); BILIRUBIN,TOTAL 0.3 MG/DL (0.2-1.0); BLOOD UREA NITROGEN 30 MG/DL (7-18); CALCIUM LEVEL 8.4 MG/DL (8.8-10.2); CARBON DIOXIDE LEVEL 25 MEQ/L (21-32); CHLORIDE LEVEL 98 MEQ/L (98-107); CK-MB VALUE MASS 3.1 NG/ML (<3.6); CPK CREATINE PHOSPHOKINASE 593 U/L (26-192); CREATININE FOR GFR 1.66 MG/DL (0.55-1.30); FREE T4 1.13 NG/DL (0.76-1.46); GLOMERULAR FILTRATION RATE 40.2 (>45); GLUCOSE, FASTING 94 MG/DL (70-100); MAGNESIUM LEVEL 2.1 MG/DL (1.8-2.4); MB/CK RELATIVE INDEX 0.52 (< OR =4); PHOSPHORUS LEVEL 1.9 MG/DL (2.5-4.9); POTASSIUM SERUM 4.2 MEQ/L (3.5-5.1); SODIUM LEVEL 133 MEQ/L (136-145); THYROID STIMULATING HORMONE 0.083 uIU/ML (0.358-3.740); TOTAL PROTEIN 7.4 GM/DL (6.4-8.2); TROPONIN I < 0.02 NG/ML (< 0.10)
[2020-11-27] MEDS ORDERED: cefTRIAXone SOD 1 GM in D5W MINI-BAG PLUS 50 ML IV ONE (22:35)
[2020-11-27] MEDS ORDERED: AZITHROMYCIN INJ 500 MG, VIAL MATE ADAPTER 1 EACH in NS 250 ML IV ONE (22:35)
[2020-11-27] MEDS ORDERED: TRAZ-257 PO (23:38)
[2020-11-27] MEDS ORDERED: LIDO1PAD TOP (23:38)
[2020-11-27] MEDS ORDERED: DICL1GEL3 TOP (23:38)
[2020-11-27] MEDS ORDERED: TIZA4TAB4 PO (23:38)
[2020-11-27] MEDS ORDERED: TRAM50TA2 PO (23:38)
[2020-11-27] MEDS ORDERED: B-12100T2 PO (23:38)
[2020-11-27] MEDS ORDERED: ZONI50CA11 PO (23:38)
[2020-11-27] MEDS ORDERED: AMLO2.5T3 PO (23:38)
[2020-11-27] MEDS ORDERED: CARV25TA PO (23:38)
[2020-11-27] MEDS ORDERED: TORS20TA2 PO (23:38)
[2020-11-27] MEDS ORDERED: HOME MED LIST COMPLETE! XX SCH (23:45)
--- NOTE | 2020-11-27 23:54 | IPNPDOC ---
Text Note Date of Service The patient was seen on 11/27/20. NOTE Time of service 1147pm is a 64 yr old w a hx of MS, RADHA, pseudotumor cerebri, chronic CAD w placement of PAO, carpal tunnel syndrome, cervical & thoracic radiculopathy, essential HTN, IDDM, Essential tremors, Seizure disorder & CKD3 who presented w c/o "tremors" for 4 days that coincided with the day her PCP switched the type of short acting insulin that she was taking via her insulin pump. She has also had a cough productive of yellow sputum and runny nose for 5 days. She will be admitted for sepsis possibly 2/2 multifocal PNA & LYNDSEY on CKD3. Plan: sepsis orderset, PNA order set & LYNDSEY order set pending final chest xray report and blood cx. rest per 's H&P VS,Fishbone, I+O VS, Kar, I+O Laboratory Tests 11/27/20 20:08 Vital Signs Date Time Temp Pulse Resp B/P (MAP) Pulse Ox O2 Delivery O2 Flow Rate FiO2 11/27/20 23:01 100.9 75 20 159/73 (101) 96 Room Air RACQUEL LAMBERT MD Nov 27, 2020 23:54
[2020-11-28] MEDS ORDERED: NS 1,000 ML IV ONE (00:10)
[2020-11-28] MEDS: NS 1,000 ML IV SCH ×2 (00:10→16:45)
[2020-11-28] MEDS ORDERED: tiZANidine 4 MG TAB PO PRN (00:30)
--- NOTE | 2020-11-28 01:04 | HPEPDOC ---
[facility] Medical History & Physical Date of Admission Nov 28, 2020 Date of Service: Nov 28, 2020 Primary Care Physician: Bhargav Elaine M.D. Attending Physician: RACQUEL LAMBERT MD History and Physical CHIEF COMPLAINT: "shakes" HISTORY OF PRESENT ILLNESS: Patient is a 64-year-old female who presents with a 5-day history of cough productive of yellow sputum, generalized fatigue, nasal congestion, worsening headaches, nausea, poor oral intake, and for the last 2 days, chills that she initially thought were a new or worsening tremor and caused her to seek help in the emergency department. While in the ED she was found to have mildly elevated white blood cell count, acute renal failure, and multifocal pneumonia. Patient was admitted for sepsis secondary to pneumonia an d the hospitalist service was contacted for admission. REVIEW OF SYSTEMS: Constitutional: Denies fevers, chills, night sweats, or recent unepected weight change HEENT: Denies headaches, head trauma, no visual changes or eye pain, denies nosebleeds or difficulty swallowing. Cardiovascular: Denies chest pain, palpitations, or orthopnea. Respiratory: Denies cough, wheezing, or shortness of breath GI: Denies nausea, vomiting, abdominal pain, diarrhea, or constipation : Denies pain with urination or frequency Musculoskeletal: Denies joint pain or swelling Neuro/psych: Denies muscle weakness or sensory loss Skin: Denies skin rashes PAST MEDICAL HISTORY: Iron deficiency anemia [id number] echo showing mild concentric LVH, mild TR, grade 1 diastolic dysfunction Type IIb hyperlipidemia Migraine headaches MS GERD Essential tremor Type 2 diabetes with nephropathy, neuropathy CAD s/p 5 PAO in 2018 (follows with hero) Hx subclinical hyperthyroidism Pseudotumor cerebri CKD stage III Seizure disorder Lumbar DJD Thoracic spondylosis Cervical spondylosis PAST SURGICAL HISTORY: c section 1978, 1979 removal of left submandibular gland duct stone-AlyssaOctober 2007 EMB 2006 D&C hysteroscopy BTL right eye cataract surgery dr. cabrera 04/14/15 left eye cataract surgery 05/12/15 vitectomy-Tootie 10/29/16 EGD/colon-minimal gastritis, melanosis coli-R 11/2017 Jaw surgery stones removed 2010 SOCIAL HISTORY: Denies tobacco use. /Denies alcohol use. / Denies marijuana, heroin, cocaine, PCP, or other illicit drug use. FAMILY HISTORY: Father of lung cancer at 79 years old, history of type 2 diabetes. Mother for unknown cause ALLERGIES: Please see below. HOME MEDICATIONS: Please see below. PHYSICAL EXAMINATION: Vital Signs Date Time Temp Pulse Resp B/P (MAP) Pulse Ox O2 Delivery O2 Flow Rate FiO2 11/27/20 19:14 140/67 (91) 11/27/20 19:17 99.9 77 20 97 Room Air GENERAL APPEARANCE: tired appearing female sitting comfortably in bed in no acute distress HEENT: NC, AT, EOMI, no scleral icterus, moist mucous membranes, no pharyngeal erythema. CARDIOVASCULAR: RRR, normal S1-S2. No murmurs, gallops, rubs. LUNGS: CTAB with full breath sounds, no wheezes, crackles, or rhonchi. ABDOMEN: Soft, nontender, nondistended, bowel sounds present. No CVA tenderness. EXTREMITIES: No swelling or edema NEUROLOGICAL: No focal or sensory deficits. CN II-XII grossly intact. PSYCHIATRIC: Normal mood and affect LABORATORY DATA: WBC 12.1, hg 11.6, Plt 223, Na 133, K 4.2, Cl 98, CO2 25, Bun 30, Cr 1.66, Glucose 94 Immature Granulocyte % (Auto) 1.8, Neutrophils (%) (Auto) 76.6H, Lymphocytes (%) (Auto) 9.3L, Monocytes (%) (Auto) 11.9H, Eosinophils (%) (Auto) 0.2, Basophils (%) (Auto) 0.2, Neutrophils # (Auto) 9.3H, Lymphocytes # (Auto) 1.1L, Monocytes # (Auto) 1.5H, Eosinophils # (Auto) 0.0, Basophils # (Auto) 0.0, Nucleated Red Blood Cells % (auto) 0.0, Anion Gap 10, Glomerular Filtration Rate 40.2L, Calcium Level 8.4L, Phosphorus Level 1.9L, Magnesium Level 2.1, Total Bilirubin 0.3, Direct Bilirubin < 0.1, Aspartate Amino Transf (AST/SGOT) 53H, Alanine Aminotransferase (ALT/SGPT) 38, Alkaline Phosphatase 49, Total Creatine Kinase 593H, Creatine Kinase MB 3.1, Creatine Kinase MB Relative Index 0.52, Troponin I < 0.02, Total Protein 7.4, Albumin 2.7L, Albumin/Globulin Ratio 0.6L, Thyroid Stimulating Hormone (TSH) 0.083L, Free Thyroxine 1.13 11/27/20 20:49: Lactic Acid Level 1.5 Urine Color YELLOW, Urine Appearance HAZY, Urine pH 5.0, Urine Specific [place] 1.009, Urine Protein 2+H, Urine Glucose (UA) NEGATIVE, Urine Ketones NEGATIVE, Urine Blood 1+H, Urine Nitrite NEGATIVE, Urine Bilirubin NEGATIVE, Urine Urobilinogen 0.2, Urine Leukocyte Esterase NEGATIVE, Urine WBC (Auto) 1, Urine RBC (Auto) 2, Urine Hyaline Casts (Auto) 0, Urine Bacteria (Auto) NEGATIVE, Urine Squamous Epithelial Cells 0, Urine Mucus (Auto) SMALL, Urine Sperm (Auto) IMAGIN11/27/2020 chest x-ray:"Impression:Patchy infiltrates in the left mid and lower lung zone and medial aspect of the right lower lobe consistent with multifocal pneumonitis." 11/27/[address]:"Impression: 1. Cavins septum pellucidum. Mild ventriculomegaly may indicate deep white matter atrophy. 2. No acute findings." MICROBIOLOGY: COVID neg Assessment/Plan: #. Sepsislikely 2/2 PNA Covering for CAP with Rocephin and Zithromax. History of grade 1 diastolic dysfunction, clinically does not appear very dehydrated. In light of this, will defer 30 cc/KG bolus and give 1L NS bolus and then gentle hydration at 75 cc/HR. Incentive spirometry, sputum culture, mycoplasma IgG/IgM, Legionella, chlamydia pneumonia lab work ordered. #. Acute on chronic CKD Likely prerenal etiology secondary to poor oral intake from pneumonia. Baseline CR~1.3. IV fluid resuscitation and recheck BMP in a.m. Renal ultrasound, urine sodium, urine creatinine ordered. #. Hx of iron deficiency anemia Hemoglobin slightly below baseline, denies any black tarry stool or blood in stool. Has previously not tolerated oral iron therapy, will recheck iron levels at this time. #. Mild hyponatremia Consistent with poor oral intake, will recheck in a.m. #. Elevated transaminase -possibly due to shock liver in the setting of sepsis or early rhabod -check urine myoglobin #. History of genitourinary HSV-2 Continue home valacyclovir #. Seizure disorder Continue home Keppra -check add on serum prolactin and Keppra levels #. Essential tremor Continue home primidone #. History of migraines Holding home zonisamide in light of renal failure, okay to resume once recovered #. Type 2 diabetes Continue with home insulin pump, 4 times daily fingersticks, consistent carbohydrate diet. - check A1C #. Chronic back pain Continue with home tizanidine/baclofen and Tylenol as needed. #. Essential Hypertension Continue home carvedilol, amlodipine Holding home spironolactone and torsemide in light of renal failure # Class 1 obesity -complicates care DVT prophylaxis: Lovenox Disposition: Observation, pending clinical improvement. Home Medications Scheduled Amlodipine Besylate (Amlodipine Besylate) 2.5 Mg Tablet, 2.5 MG PO DAILY Aspirin (Aspirin) 81 Mg Tab.chew, 81 MG PO DAILY Baclofen (Baclofen) 20 Mg Tab, 20 MG PO QID 0800, 1200, 1700, 2000 Carvedilol (Carvedilol) 25 Mg Tablet, 25 MG PO BID 0800, 1700 Cyanocobalamin (Vitamin B-12) (Vitamin B-12) 100 Mcg Tablet, 100 MCG PO DAILY Ergocalciferol (Vitamin D2) (Drisdol) 1,250 Mcg Capsule, 1,250 MCG PO Q2WK EVERY OTHER TUESDAY Insulin Lispro (Admelog) 100 Unit/1 Ml Vial, 1 DOSE SC ASDIRECTED VIA INSULIN PUMP Levetiracetam (Keppra) 250 Mg Tab, 250 MG PO BID 0800, 1700 Lidocaine (Lidocaine) 5% Adh..patch, 1 PATCH TOP QHS APPLIES TO LOWER BACK Magnesium Oxide (Magnesium Oxide) 400 Mg Tablet, 800 MG PO DAILY 1200 Pantoprazole Sodium (Pantoprazole Sodium) 40 Mg Tab, 40 MG PO DAILY Primidone (Primidone) 50 Mg Tablet, 150 MG PO TID 0800, 1200, 1700 Spironolactone (Spironolactone) 25 Mg Tab, 25 MG PO BID 0800, 1700 Tizanidine HCl (Zanaflex) 4 Mg Tab, 4 MG PO QID 0800, 1200, 1700, 2000 Torsemide (Torsemide) 20 Mg Tablet, 20 MG PO DAILY Trazodone HCl (Trazodone HCl) 100 Mg Tablet, 100 MG PO QHS Valacyclovir HCl (Valacyclovir) 500 Mg Tab, 500 MG PO BID 0800, 1700 Zonisamide (Zonisamide) 50 Mg Capsule, 50 MG PO BID 0800, 1700 Scheduled PRN Acetaminophen (Tylenol Extra Strength) 500 Mg Tablet, 500 MG PO QID PRN for PAIN Diclofenac Sodium (Diclofenac Sodium) 1% 100GM Gel..gram., 4 GM TOP QID PRN for KNEE PAIN APPLY TO KNEES Nitroglycerin (Nitrostat) 0.4 Mg Subl, 0.4 MG SL NITRO PRN for CHEST PAIN Tizanidine HCl (Tizanidine HCl) 4 Mg Tablet, 4 MG PO DAILY PRN for MUSCLE SPASMS Tramadol HCl (Tramadol HCl) 50 Mg Tablet, 50 MG PO Q8H PRN for MODERATE/SEVERE PAIN (PS 5-10) Allergies Coded Allergies: codeine (Unverified Allergy, Intermediate, hives, 06/10/18) [place] Inhibitors (Verified Allergy, Unknown, FEET SWELLING, 06/10/18) Sulfa (Sulfonamide Antibiotics) (Verified Allergy, Unknown, 06/10/18) nortriptyline (Verified Allergy, Unknown, 06/10/18) sertraline (Verified Allergy, Unknown, 06/10/18) oxycodone (Verified Adverse Reaction, Unknown, HALLUCINATIONS, 06/10/18) GME ATTESTATION GME ATTESTATION My faculty preceptor for this patient encounter was physically present during the encounter and was fully available. All aspects of the patient interview, examination, medical decision making process, and medical care plan development were reviewed and approved by the faculty preceptor. The faculty preceptor is aware and concurs with the plan as stated in the body of this note and will attest to such by his/her cosignature. ATTENDING NOTE Time of service 1147pm on Nov 27 2020 is a 64 yr old w a hx of MS, RADHA, pseudotumor cerebri, chronic CAD w placement of PAO, carpal tunnel syndrome, cervical & thoracic radiculopathy, essential HTN, IDDM, Essential tremors, Seizure disorder & CKD3 who presented w c/o "tremors" for 4 days that coincided with the day her PCP switched the type of short acting insulin that she was taking via her insulin pump. She has also had a cough productive of yellow sputum and runny nose for 5 days. She will be admitted for sepsis possibly 2/2 multifocal PNA & LYNDSEY on CKD3. Plan: sepsis orderset, PNA order set & LYNDSEY order set pending final chest xray report and blood cx. JOHN HENDRIX DO Nov 28, 2020 01:04 RACQUEL LAMBERT MD Nov 28, 2020 03:34
[2020-11-28 01:53] LABS: FERRITIN 2167 NG/ML (8-252); IRON (FE) 26 UG/DL (50-170); PERCENT SATURATION 16.9 % (13.2-45.0); TOTAL IRON BINDING CAPACITY 154 UG/DL (250-450)
[2020-11-28] MEDS: LIDOCAINE 5% (LIDODERM) PATCH TOP SCH ×2 (02:29→20:59)
[2020-11-28] MEDS: traZODone 100 MG TAB PO SCH ×2 (02:29→20:57)
[2020-11-28] MEDS: tiZANidine 4 MG TAB PO SCH ×5 (02:30→20:57)
[2020-11-28] MEDS: traMADol 50 MG TAB PO PRN ×2 (06:17→18:56)
[2020-11-28] MEDS: ACETAMINOPHEN TAB 650MG DOSE (2X325MG) PO PRN ×2 (06:17→18:56)
--- NOTE | 2020-11-28 08:26 | REP ---
INDICATION: tremulous. COMPARISON: 01/28/2020 a portable exam TECHNIQUE: PA and lateral FINDINGS: The cardiomediastinal silhouette is unchanged. There is mild cardiomegaly. There is a new patchy opacity in the left upper lobe. The pleural angles are sharp. There is persistent elevation of the diaphragmatic surface of the right lung. There is no change in the osseous structures. IMPRESSION: There is a new left upper lobe opacity probably reflecting pneumonia. Follow-up is recommended. <Electronically signed by Faustino Gayle > 11/28/20 0601
--- NOTE | 2020-11-28 08:32 | REP ---
INDICATION: MS, headache, tremulous. COMPARISON: 02/23/2018. TECHNIQUE: CT brain performed in the axial plane. Coronal reconstruction images are performed. FINDINGS: There is mild stable atrophy. There is no midline shift or mass effect. Incidental note is made of cavum septum pellucidum. No acute intracranial hemorrhage or extra-axial fluid collection. Bone window examination is unremarkable. Visualized paranasal sinuses and mastoid air cells are clear. IMPRESSION: Mild stable atrophy. No acute intracranial findings. A wet reading was given by virtual Radiology at the time of the exam. <Electronically signed by Devon Colón > 11/28/20 0801
--- NOTE | 2020-11-28 08:49 | REP ---
INDICATION: ARF. COMPARISON: CT 01/28/2020, ultrasound 02/25/2016. TECHNIQUE: Real-time sonographic evaluation of the kidneys is performed. FINDINGS: There is increased echotexture of both kidneys suggesting medical renal disease. There is no hydronephrosis bilaterally. There is a hypoechoic nodule in the lower pole the left kidney measuring 1 cm in maximum diameter. This may represent a complex cyst or solid nodule. The right kidney measures 10.9 x 9.2 x 4.4 cm. Left renal dimensions are 9.8 x 3.9 x 4.5 cm. Bladder is not well distended and not well evaluated. IMPRESSION: Increased echotexture of the kidneys suggesting medical renal disease. No hydronephrosis. Hypoechoic nodule in the lower pole the left kidney 1 cm in diameter which may represent a complex cyst or solid nodule. Follow-up recommended. <Electronically signed by Devon Colón > 11/28/20 0864
[2020-11-28] MEDS ORDERED: GLUCOSE 4GM CHEW TABLET PO PRN (08:50)
[2020-11-28] MEDS ORDERED: DEXTROSE 50% 50 ML SYRINGE IV PRN (08:50)
[2020-11-28] MEDS ORDERED: GLUCAGON INJ 1MG VIAL SC PRN (08:50)
[2020-11-28] MEDS: ASPIRIN 81 MG CHEW TABLET PO SCH (09:30)
[2020-11-28] MEDS: levETIRAcetam 250MG TABLET (KEPPRA) PO SCH ×2 (09:30→18:16)
[2020-11-28] MEDS: BACLOFEN 10 MG TAB PO SCH ×4 (09:30→20:55)
[2020-11-28] MEDS: valACYclovir HCL 500 MG TAB PO SCH ×2 (09:31→17:00)
[2020-11-28] MEDS: CARVedilol 12.5 MG TAB PO SCH ×2 (09:31→18:16)
[2020-11-28] MEDS: PANTOPRAZOLE 40MG TAB (PROTONIX) PO SCH (09:31)
[2020-11-28] MEDS: ENOXAPARIN 40MG/0.4ML SYRINGE (J1650 PER 10MG) SC SCH (09:32)
[2020-11-28] MEDS: **NOTE PATIENT COMMENT** MISC XX SCH (09:32)
[2020-11-28] MEDS: PRIMIDONE 50 MG TAB PO SCH ×3 (11:50→17:00)
[2020-11-28] MEDS: HumaLOG INSULIN (NovoLOG) PER UNIT SC SCH ×3 (12:54→20:58)
[2020-11-28] MEDS: MAGNESIUM OXIDE 400MG TAB (MAG-OX) PO SCH (12:55)
[2020-11-28 14:00] VITALS: BP 106/58
[2020-11-28 14:20] LABS: CREATININE,RANDOM URINE 96.2 MG/DL
[2020-11-28 18:00] VITALS: BP 157/77
[2020-11-28] MEDS ORDERED: NITROGLYCERIN 0.4 MG SUBL TABLET SL PRN (18:40)
--- NOTE | 2020-11-28 19:52 | IPNPDOC ---
Text Note Date of Service The patient was seen on 11/28/20. NOTE SUBJECTIVE: -No acute events, coughing a lot, has tremor OBJECTIVE: VITAL SIGNS: See below GENERAL APPEARANCE: tired appearing female sitting comfortably in bed in no acute distress HEENT: NC, AT, EOMI, no scleral icterus, moist mucous membranes, no pharyngeal erythema. CARDIOVASCULAR: RRR, normal S1-S2. No murmurs, gallops, rubs. LUNGS: CTAB with full breath sounds, no wheezes, crackles, or rhonchi. ABDOMEN: Soft, nontender, nondistended, bowel sounds present. No CVA tenderness. EXTREMITIES: No swelling or edema NEUROLOGICAL: No focal or sensory deficits. CN II-XII grossly intact. PSYCHIATRIC: Normal mood and affect LABORATORY DATA: Reviewed Procalcitonin 0.47 Cr 1.66 IMAGIN11/27/2020 chest x-ray: "Impression: Patchy infiltrates in the left mid and lower lung zone and medial aspect of the right lower lobe consistent with multifocal pneumonitis." 11/27/[address]: "Impression: 1. Cavins septum pellucidum. Mild ventriculomegaly may indicate deep white ma tter atrophy. 2. No acute findings." MICROBIOLOGY: Please see below. Assessment/Plan: #. Sepsislikely 2/2 PNA Covering for CAP with Rocephin and Zithromax. History of grade 1 diastolic dysfunction, clinically does not appear very dehydrated. In light of this, will defer 30 cc/KG bolus and give 1L NS bolus and then gentle hydration at 75 cc/HR. Incentive spirometry -f/u sputum culture, mycoplasma IgG/IgM, Legionella, chlamydia pneumonia lab work ordered. -MRSA PCR #. Acute on chronic CKD Likely prerenal etiology secondary to poor oral intake from pneumonia. Baseline CR~1.3. Recheck BMP in a.m. Renal ultrasound -f/u lytes #. Hx of iron deficiency anemia Hemoglobin slightly below baseline, denies any black tarry stool or blood in stool. Has previously not tolerated oral iron therapy -f/u Fe studies #. Mild hyponatremia: likely hypovolemic check AM BMP #. Elevated transaminase -possibly due to shock liver in the setting of sepsis or early rhabdo -recheck with AM labs #. History of genitourinary HSV-2 Continue home valacyclovir #. Seizure disorder Continue home Keppra -serum prolactin wnl #. Essential tremor Continue home primidone #. History of migraines Holding home zonisamide in light of renal failure, okay to resume once recovered #. Type 2 diabetes Holding home insulin pump without supplies while here -started on FSBG ACHS -SSI ACHS -Consistent carbohydrate diet. #. Chronic back pain Continue with home tizanidine/baclofen and Tylenol as needed. #. Hypertension Continue home carvedilol, amlodipine Holding home spironolactone and torsemide in light of renal failure # Class 1 obesity -complicates care DVT prophylaxis: Lovenox Disposition: Observation, pending clinical improvement. Likely home tomorrow VS,Fishbone, I+O VS, Fishbone, I+O Laboratory Tests 11/27/20 20:08 Vital Signs Date Time Temp Pulse Resp B/P (MAP) Pulse Ox O2 Delivery O2 Flow Rate FiO2 11/28/20 14:00 98.2 80 19 106/58 (74) 96 Room Air I&O- Last 24 Hours up to 6 AM 11/28/20 06:00 Intake Total 305 ml Balance 305 ml JOSE DANIEL BOLTON MD Nov 28, 2020 16:50
[2020-11-28] MEDS: cefTRIAXone SOD 1 GM in D5W MINI-BAG PLUS 50 ML IV SCH (20:55)
[2020-11-28] MEDS ORDERED: PILL CUTTER 1 EACH XX PRN (20:55)
[2020-11-28] MEDS: guaiFENesin ER 600 MG TAB PO SCH (20:56)
[2020-11-28] MEDS ORDERED: KETOROLAC 30 MG/ML 1ML VIAL IV ONE (21:00)
[2020-11-28 21:47] VITALS: BP 105/58
[2020-11-28] MEDS: AZITHROMYCIN INJ 500 MG, VIAL MATE ADAPTER 1 EACH in NS 250 ML IV SCH (22:07)
[2020-11-29] MEDS: ACETAMINOPHEN TAB 650MG DOSE (2X325MG) PO PRN ×2 (03:06→10:52)
[2020-11-29] MEDS: traMADol 50 MG TAB PO PRN ×2 (03:11→17:20)
--- NOTE | 2020-11-29 05:11 | ECGEPIP ---
[facility] - ED Test Date: 2020-11-27 Pat Name: LUL MORGAN Department: Room: [place] [address] Gender: Female [employer]: AMAN : [id number] Requested By: HELEN Ledesma Order Number: [id number] Reading MD: Farshad Panda Measurements Intervals [place] Rate: 84 P: 42 KS: 176 QRS: -6 QRSD: 90 T: 87 QT: 370 QTc: 437 Interpretive Statements Normal sinus rhythm Possible Left atrial enlargement POOR R WAVE PROGRESSION LVH WITH STRAIN PATTERN SIMILAR TO 01/28/20 Electronically Signed on 11-29-2020 5:11:03 EDT by Farshad Panda
[2020-11-29 06:00] VITALS: BP 105/72
[2020-11-29 06:32] LABS: HEMATOCRIT 31.5 % (36.0-47.0); HEMOGLOBIN 10.2 g/dl (12.0-15.5); MEAN CORPUSCULAR HEMOGLOBIN 31.2 pg (27.0-33.0); MEAN CORPUSCULAR HGB CONC 32.4 g/dl (32.0-36.5); MEAN CORPUSCULAR VOLUME 96.3 fl (80.0-96.0); PLATELET COUNT, AUTOMATED 215 10^3/uL (150-450); RED BLOOD COUNT 3.27 10^6/uL (4.00-5.40); WHITE BLOOD COUNT 11.6 10^3/uL (4.0-10.0)
[2020-11-29 06:47] LABS: BLOOD UREA NITROGEN 20 MG/DL (7-18); CALCIUM LEVEL 8.3 MG/DL (8.8-10.2); CARBON DIOXIDE LEVEL 24 MEQ/L (21-32); CHLORIDE LEVEL 106 MEQ/L (98-107); CREATININE FOR GFR 1.16 MG/DL (0.55-1.30); GLOMERULAR FILTRATION RATE > 60.0 (>45); GLUCOSE, FASTING 101 MG/DL (70-100); POTASSIUM SERUM 3.8 MEQ/L (3.5-5.1); SODIUM LEVEL 139 MEQ/L (136-145)
[2020-11-29] MEDS: HumaLOG INSULIN (NovoLOG) PER UNIT SC SCH ×4 (07:30→20:19)
[2020-11-29 08:02] LABS: ALBUMIN 2.2 GM/DL (3.2-5.2); ALT/SGPT 69 U/L (12-78); BILIRUBIN,DIRECT < 0.1 MG/DL (0.0-0.2); BILIRUBIN,TOTAL 0.2 MG/DL (0.2-1.0); TOTAL PROTEIN 6.4 GM/DL (6.4-8.2)
[2020-11-29] MEDS: tiZANidine 4 MG TAB PO SCH ×4 (08:10→20:18)
[2020-11-29] MEDS: PANTOPRAZOLE 40MG TAB (PROTONIX) PO SCH (08:10)
[2020-11-29] MEDS: guaiFENesin ER 600 MG TAB PO SCH ×2 (08:11→20:17)
[2020-11-29] MEDS: valACYclovir HCL 500 MG TAB PO SCH ×2 (08:11→17:18)
[2020-11-29] MEDS: BACLOFEN 10 MG TAB PO SCH ×4 (08:11→20:17)
[2020-11-29] MEDS: CYANOCOBALAMIN 250 MCG TABLET PO SCH (08:11)
[2020-11-29] MEDS: levETIRAcetam 250MG TABLET (KEPPRA) PO SCH ×2 (08:11→17:18)
[2020-11-29] MEDS: ASPIRIN 81 MG CHEW TABLET PO SCH (08:11)
[2020-11-29] MEDS: amLODIPine 5 MG TAB PO SCH (08:11)
[2020-11-29] MEDS: CARVedilol 12.5 MG TAB PO SCH ×2 (08:11→17:19)
[2020-11-29] MEDS: ENOXAPARIN 40MG/0.4ML SYRINGE (J1650 PER 10MG) SC SCH (08:12)
[2020-11-29] MEDS: **NOTE PATIENT COMMENT** MISC XX SCH (08:37)
[2020-11-29] MEDS: PRIMIDONE 50 MG TAB PO SCH ×3 (09:25→17:18)
[2020-11-29] MEDS ORDERED: ANUSOL HC CREAM 30GM TOP PRN (11:20)
[2020-11-29] MEDS: MAGNESIUM OXIDE 400MG TAB (MAG-OX) PO SCH (12:43)
--- NOTE | 2020-11-29 13:16 | IPNPDOC ---
Text Note Date of Service The patient was seen on 11/29/20. NOTE SUBJECTIVE: -No acute events, still having fevers -Tremor is still severe OBJECTIVE: VITAL SIGNS: See below GENERAL APPEARANCE: tired appearing female sitting comfortably in bed in no acute distress HEENT: NC, AT, EOMI, no scleral icterus, moist mucous membranes, no pharyngeal erythema. CARDIOVASCULAR: RRR, normal S1-S2. No murmurs, gallops, rubs. LUNGS: Bibasilar crackles now, no wheezing or rhonchi. ABDOMEN: Soft, nontender, nondistended, bowel sounds present. No CVA tenderness. EXTREMITIES: No swelling or edema NEUROLOGICAL: No focal or sensory deficits. CN II-XII grossly intact but with severe full body tremoring PSYCHIATRIC: Normal mood and affect LABORATORY DATA: Reviewed Procalcitonin 0.47 Cr 1.16 WBC 11.6 Hgb 10.2 platelets 215 na 139 K 3.8 Cr 1.16 Fe 26 Ferritin 2167 IMAGIN11/27/2020 chest x-ray: "Impression: Patchy infiltrates in the left mid and lower lung zone and medial aspect of the right lower lobe consistent with multifocal pneumonitis." 11/27/[address]: "Impression: 1. Cavins septum pellucidum. Mild ventriculomegaly may indicate deep white matter atrophy. 2. No acute findings." MICROBIOLOGY: Please see below. Assessment/Plan: #. Sepsislikely 2/2 PNA Covering for CAP with Rocephin and Zithromax, day 2 History of grade 1 diastolic dysfunction, clinically does not appear very dehydrated. In light of this, will defer 30 cc/KG bolus and give 1L NS bolus and then gentle hydration at 75 cc/HR. Incentive spirometry -f/u sputum culture, mycoplasma IgG/IgM, Legionella, chlamydia pneumonia lab work ordered. -MRSA PCR negative #. Acute on chronic CKD, resolved after hydration Likely prerenal etiology secondary to poor oral intake from pneumonia. Baseline CR~1.3. Daily BMP Renal ultrasound showed some evidence of renal disease as noted above without obstructive pathology #. Hx of iron deficiency anemia Hemoglobin slightly below baseline, denies any black tarry stool or blood in stool. Has previously not tolerated oral iron therapy -Fe studies c/w AOCI, however ferritin is also an acute phase reactant and is infected #. Mild hyponatremia: hypovolemic, resolved BMP #. Mild transaminitis -will recheck this AM #. History of genitourinary HSV-2 Continue home valacyclovir #. Seizure disorder Continue home Keppra -serum prolactin wnl #. Essential tremor Continue home primidone -Will consult neuro? #. History of migraines Holding home zonisamide in light of renal failure, okay to resume once recovered #. Type 2 diabetes Holding home insulin pump without supplies while here -started on FSBG ACHS -SSI ACHS -Consistent carbohydrate diet. #. Chronic back pain Continue with home tizanidine/baclofen and Tylenol as needed. #. Hypertension Continue home carvedilol, amlodipine Holding home spironolactone and torsemide in light of renal failure # Class 1 obesity -complicates care DVT prophylaxis: Lovenox Disposition: Observation, pending clinical improvement. Likely home tomorrow VS,Fishbone, I+O VS, Fishbone, I+O Laboratory Tests 11/29/20 05:24 Vital Signs Date Time Temp Pulse Resp B/P (MAP) Pulse Ox O2 Delivery O2 Flow Rate FiO2 11/29/20 05:32 99.0 11/29/20 03:41 20 Room Air 11/28/20 21:47 68 105/58 (09) 94 I&O- Last 24 Hours up to 6 AM 11/29/20 06:00 Intake Total 5 ml Output Total 0 ml Balance 2065 ml JOSE DANIEL BOLTON MD Nov 29, 2020 07:48
[2020-11-29 14:00] VITALS: BP 120/71
[2020-11-29] MEDS: cefTRIAXone SOD 1 GM in D5W MINI-BAG PLUS 50 ML IV SCH (20:16)
[2020-11-29] MEDS: traZODone 100 MG TAB PO SCH (20:18)
[2020-11-29] MEDS: LIDOCAINE 5% (LIDODERM) PATCH TOP SCH (20:19)
[2020-11-29] MEDS: AZITHROMYCIN INJ 500 MG, VIAL MATE ADAPTER 1 EACH in NS 250 ML IV SCH (21:25)
[2020-11-29 22:00] VITALS: BP 156/85
[2020-11-30] MEDS: ACETAMINOPHEN TAB 650MG DOSE (2X325MG) PO PRN (01:19)
[2020-11-30] MEDS: traMADol 50 MG TAB PO PRN ×3 (01:21→17:21)
[2020-11-30 06:00] VITALS: BP 153/88
[2020-11-30 06:02] LABS: HEMATOCRIT 31.4 % (36.0-47.0); HEMOGLOBIN 10.3 g/dl (12.0-15.5); MEAN CORPUSCULAR HGB CONC 32.8 g/dl (32.0-36.5); MEAN CORPUSCULAR VOLUME 97.5 fl (80.0-96.0); PLATELET COUNT, AUTOMATED 266 10^3/uL (150-450); RED BLOOD COUNT 3.22 10^6/uL (4.00-5.40); WHITE BLOOD COUNT 9.8 10^3/uL (4.0-10.0)
[2020-11-30 06:20] LABS: BLOOD UREA NITROGEN 17 MG/DL (7-18); CALCIUM LEVEL 8.5 MG/DL (8.8-10.2); CARBON DIOXIDE LEVEL 24 MEQ/L (21-32); CHLORIDE LEVEL 107 MEQ/L (98-107); GLOMERULAR FILTRATION RATE > 60.0 (>45); GLUCOSE, FASTING 94 MG/DL (70-100); POTASSIUM SERUM 4.1 MEQ/L (3.5-5.1); SODIUM LEVEL 140 MEQ/L (136-145)
[2020-11-30] MEDS: HumaLOG INSULIN (NovoLOG) PER UNIT SC SCH ×4 (07:30→20:24)
[2020-11-30] MEDS: valACYclovir HCL 500 MG TAB PO SCH ×2 (08:25→17:21)
[2020-11-30] MEDS: levETIRAcetam 250MG TABLET (KEPPRA) PO SCH ×2 (08:25→17:20)
[2020-11-30] MEDS: CARVedilol 12.5 MG TAB PO SCH ×2 (08:25→17:20)
[2020-11-30] MEDS: guaiFENesin ER 600 MG TAB PO SCH ×2 (08:25→20:22)
[2020-11-30] MEDS: BACLOFEN 10 MG TAB PO SCH ×4 (08:25→20:23)
[2020-11-30] MEDS: PRIMIDONE 50 MG TAB PO SCH (08:25)
[2020-11-30] MEDS: ASPIRIN 81 MG CHEW TABLET PO SCH (08:25)
[2020-11-30] MEDS: ENOXAPARIN 40MG/0.4ML SYRINGE (J1650 PER 10MG) SC SCH (08:26)
[2020-11-30] MEDS: PANTOPRAZOLE 40MG TAB (PROTONIX) PO SCH (08:26)
[2020-11-30] MEDS: tiZANidine 4 MG TAB PO SCH ×4 (08:26→20:23)
[2020-11-30] MEDS: amLODIPine 5 MG TAB PO SCH (08:26)
[2020-11-30] MEDS: CYANOCOBALAMIN 250 MCG TABLET PO SCH (08:26)
[2020-11-30] MEDS: **NOTE PATIENT COMMENT** MISC XX SCH (08:27)
[2020-11-30] MEDS: SPIRONOLACTONE 25 MG TAB PO SCH ×2 (09:33→17:21)
[2020-11-30] MEDS: ZONISAMIDE 50 MG CAP (ZONEGRAN) PO SCH ×2 (09:33→17:19)
[2020-11-30] MEDS: TORSEMIDE 20 MG TAB PO SCH (09:34)
--- NOTE | 2020-11-30 11:17 | IPNPDOC ---
Text Note Date of Service The patient was seen on 11/30/20. NOTE SUBJECTIVE: -No acute events, last fever recorded at 9.30pm -Tremor is slightly better today when I saw her this morning, is worse with intentional activity OBJECTIVE: VITAL SIGNS: See below GENERAL APPEARANCE: NAD, appears uncomfortable but without distress. Globally tremulous HEENT: NC, AT, EOMI, no scleral icterus, moist mucous membranes, no pharyngeal erythema. CARDIOVASCULAR: RRR, normal S1-S2. No murmurs, gallops, rubs. LUNGS: Bibasilar crackles now, no wheezing or rhonchi. ABDOMEN: Soft, nontender, nondistended, bowel sounds present. No CVA tenderness. EXTREMITIES: No swelling or edema NEUROLOGICAL: No focal or sensory deficits. CN II-XII grossly intact but with severe full body tremoring PSYCHIATRIC: Normal mood and affect LABORATORY DATA: Reviewed Cr 1.10 WBC 9.8 Hgb 10.3 IMAGIN11/27/2020 chest x-ray: "Impression: Patchy infiltrates in the left mid and lower lung zone and medial aspect of the right lower lobe consistent with multifocal pneumonitis." 11/27/[address]: "Impression: 1. Cavins septum pellucidum. Mild ventriculomegaly may indicate deep white matter atrophy. 2. No acute findings." MICROBIOLOGY: Sputum gram antoine with GPCs in clusters and pairs pending speciation BCx NGTD MRSA PCR negative Assessment: 64 yr old w a hx of MS, RADHA, pseudotumor cerebri, chronic CAD w placement of PAO, carpal tunnel syndrome, cervical & thoracic radiculopathy, essential HTN, IDDM, Essential tremors, Seizure disorder & CKD3 who is admitted for sepsis 2/2 CAP with worsening tremors. #. Sepsislikely 2/2 PNA Covering for CAP with Rocephin and Zithromax, day 3 History of grade 1 diastolic dysfunction, clinically does not appear very deh ydrated. In light of this, will defer 30 cc/KG bolus and give 1L NS bolus and then gentle hydration at 75 cc/HR. Incentive spirometry -f/u sputum culture, mycoplasma IgG/IgM, Legionella, chlamydia pneumonia lab work ordered. -MRSA PCR negative -resp panel negative -BCx NGTD #. Acute on chronic CKD, resolved after hydration Likely prerenal etiology secondary to poor oral intake from pneumonia. Baseline CR~1.3. Daily BMP Renal ultrasound showed some evidence of renal disease as noted above without obstructive pathology #. Hx of iron deficiency anemia Hemoglobin slightly below baseline, denies any black tarry stool or blood in stool. Has previously not tolerated oral iron therapy -Fe studies c/w AOCI, however ferritin is also an acute phase reactant and is infected #. Mild hyponatremia: hypovolemic, resolved BMP #. Mild transaminitis -will recheck this AM #. History of genitourinary HSV-2 Continue home valacyclovir #. Seizure disorder Continue home Keppra -serum prolactin wnl -pending keppra level #. Essential tremor w/ worsening global tremors? Continue home primidone -Consulted neuro -CT head with cavins septum pellucidum. Mild ventriculomegaly may indicate deep white matter atrophy #. History of migraines Holding home zonisamide in light of renal failure, will resume now #. Type 2 diabetes Holding home insulin pump without supplies while here -started on FSBG ACHS -SSI ACHS -Consistent carbohydrate diet. #. Chronic back pain Continue with home tizanidine/baclofen and Tylenol as needed. #. Hypertension Continue home carvedilol, amlodipine restart home spironolactone and torsemide # Class 1 obesity -complicates care DVT prophylaxis: Lovenox Disposition: Switch to inpatient, pending clinical improvement. VS,Fishbone, I+O VS, Fishbone, I+O Laboratory Tests 11/30/20 05:26 Vital Signs Date Time Temp Pulse Resp B/P (MAP) Pulse Ox O2 Delivery O2 Flow Rate FiO2 11/30/20 06:28 99.2 11/30/20 06:00 71 18 153/88 (109) 98 Room Air I&O- Last 24 Hours up to 6 AM 11/30/20 05:59 Intake Total 2845 ml Output Total 0 ml Balance 2845 ml JOSE DANIEL BOLTON MD Nov 30, 2020 08:13
[2020-11-30] MEDS: MAGNESIUM OXIDE 400MG TAB (MAG-OX) PO SCH (12:23)
[2020-11-30 14:00] VITALS: BP 138/76
[2020-11-30 15:08] LABS: BODY FLUID CULTURE Not indicated. (.); LEGIONELLA ANTIGEN URINE Negative (Negative); ORGANISM ID Not indicated. (.); SPECIMEN SOURCE Urine (.); URINE STREP PNEUMONIAE ANTIGEN Negative (Negative)
[2020-11-30] MEDS: cefTRIAXone SOD 1 GM in D5W MINI-BAG PLUS 50 ML IV SCH (20:21)
[2020-11-30] MEDS: PRIMIDONE 250 MG TAB PO SCH (20:22)
[2020-11-30] MEDS: LIDOCAINE 5% (LIDODERM) PATCH TOP SCH (20:22)
[2020-11-30] MEDS: traZODone 100 MG TAB PO SCH (20:23)
[2020-11-30] MEDS: AZITHROMYCIN INJ 500 MG, VIAL MATE ADAPTER 1 EACH in NS 250 ML IV SCH (21:30)
[2020-11-30 22:00] VITALS: BP 146/72
[2020-11-30] MEDS ORDERED: MORPHINE 2 MG/ML 1ML VIAL (J2270) IV ONE (22:45)
[2020-12-01] MEDS: traMADol 50 MG TAB PO PRN ×2 (02:32→15:55)
[2020-12-01] MEDS: ACETAMINOPHEN TAB 650MG DOSE (2X325MG) PO PRN ×3 (02:33→15:56)
[2020-12-01 05:49] LABS: HEMATOCRIT 29.7 % (36.0-47.0); HEMOGLOBIN 9.7 g/dl (12.0-15.5); MEAN CORPUSCULAR HEMOGLOBIN 31.2 pg (27.0-33.0); MEAN CORPUSCULAR HGB CONC 32.7 g/dl (32.0-36.5); MEAN CORPUSCULAR VOLUME 95.5 fl (80.0-96.0); PLATELET COUNT, AUTOMATED 298 10^3/uL (150-450); RED BLOOD COUNT 3.11 10^6/uL (4.00-5.40); WHITE BLOOD COUNT 9.2 10^3/uL (4.0-10.0)
[2020-12-01 05:54] LABS: BLOOD UREA NITROGEN 14 MG/DL (7-18); CALCIUM LEVEL 8.3 MG/DL (8.8-10.2); CARBON DIOXIDE LEVEL 26 MEQ/L (21-32); CHLORIDE LEVEL 109 MEQ/L (98-107); CREATININE FOR GFR 0.84 MG/DL (0.55-1.30); GLOMERULAR FILTRATION RATE > 60.0 (>45); GLUCOSE, FASTING 99 MG/DL (70-100); POTASSIUM SERUM 3.8 MEQ/L (3.5-5.1); SODIUM LEVEL 142 MEQ/L (136-145)
[2020-12-01 06:00] VITALS: BP 184/89
[2020-12-01 09:00] VITALS: BP 184/96
[2020-12-01] MEDS: ENOXAPARIN 40MG/0.4ML SYRINGE (J1650 PER 10MG) SC SCH (09:00)
[2020-12-01] MEDS: BACLOFEN 10 MG TAB PO SCH ×4 (09:09→20:48)
[2020-12-01] MEDS: tiZANidine 4 MG TAB PO SCH ×4 (09:09→20:48)
[2020-12-01] MEDS: ASPIRIN 81 MG CHEW TABLET PO SCH (09:09)
[2020-12-01] MEDS: guaiFENesin ER 600 MG TAB PO SCH ×2 (09:09→20:48)
[2020-12-01] MEDS: PANTOPRAZOLE 40MG TAB (PROTONIX) PO SCH (09:09)
[2020-12-01] MEDS: CARVedilol 12.5 MG TAB PO SCH ×2 (09:10→18:12)
[2020-12-01] MEDS: amLODIPine 5 MG TAB PO SCH (09:10)
[2020-12-01] MEDS: TORSEMIDE 20 MG TAB PO SCH (09:11)
[2020-12-01] MEDS: levETIRAcetam 250MG TABLET (KEPPRA) PO SCH ×2 (09:11→18:13)
[2020-12-01] MEDS: SPIRONOLACTONE 25 MG TAB PO SCH ×2 (09:11→18:13)
[2020-12-01] MEDS: valACYclovir HCL 500 MG TAB PO SCH ×2 (09:11→18:12)
[2020-12-01] MEDS: CYANOCOBALAMIN 250 MCG TABLET PO SCH (09:12)
[2020-12-01] MEDS: ZONISAMIDE 50 MG CAP (ZONEGRAN) PO SCH ×2 (09:12→18:14)
[2020-12-01] MEDS: PRIMIDONE 250 MG TAB PO SCH ×2 (09:12→20:48)
[2020-12-01] MEDS: HumaLOG INSULIN (NovoLOG) PER UNIT SC SCH ×4 (09:12→20:41)
[2020-12-01] MEDS: **NOTE PATIENT COMMENT** MISC XX SCH (09:13)
[2020-12-01] MEDS: CEFDINIR 300 MG CAP (OMNICEF) PO SCH (10:07)
[2020-12-01 11:30] VITALS: BP 146/80
[2020-12-01] MEDS: ASPERCREME WITH LIDOCAINE TOP PRN ×2 (11:52→20:52)
--- NOTE | 2020-12-01 12:05 | CR ---
CONSULTATION DATE: 11/30/2020 REFERRING PHYSICIAN: Dr. Kaitlynn Barry REASON FOR CONSULTATION: Worsening tremor. HISTORY OF PRESENT ILLNESS: Roxana Lofton is a 63-year-old woman with a history of multiple sclerosis, benign essential tremor, who was admitted to [facility] due to pneumonia. She presented with generalized fatigue, nasal congestion, worsening headaches, nausea and worsening tremor. She was found to have acute renal failure superimposed on diabetes. The patient states that her insurance is not covering [employer]. She states that she has been taking her Keppra, primidone and zonisamide as prescribed. Her tremor worsened a couple of days prior to her coming to the hospital. She uses a cane and a walker at her baseline. She reports worsening headaches. Headaches have become daily. Headaches are in the occipital head region. They are aching pressure like in character lasting for several hours each day. She has a history of chronic back pain and follows with the pain clinic with Dr. Marsh, who has done injections in her back. She has intermittent neck pain. Her father, paternal grandfather and aunt have tremor. She denies dysphagia, dysarthria, diplopia, urinary incontinence, falls or loss of consciousness or head injuries. PAST MEDICAL HISTORY: 1. Hypertension. 2. Dyslipidemia. 3. Migraines. 4. Iron deficiency anemia. 5. Multiple sclerosis. 6. Acid reflux 7. Essential tremor. 8. Type 2 diabetes with nephropathy and neuropathy. 9. Coronary artery disease. 10.Pseudotumor cerebri. 11.Chronic kidney disease stage III. 12.Seizures. 13.Chronic neck and back pain due to cervicothoracic and lumbosacral disk disease. 14. section. 15.Salivary gland stone, status post removal. 16.Cataract surgery. SOCIAL HISTORY: She denies smoking, alcohol or illicit drugs. FAMILY HISTORY: Father had lung cancer. Mother of unknown causes. REVIEW OF SYSTEMS: All systems were reviewed and felt to be noncontributory except as mentioned in history of present illness. ALLERGIES: CODEINE, CHEYENNE INHIBITORS, SULFA, NORTRIPTYLINE, ZOLOFT, OXYCODONE. CURRENT MEDICATIONS: Amlodipine 2.5 mg by mouth daily, aspirin 81 mg by mouth daily, baclofen 20 mg by mouth q.i.d., carvedilol 25 mg by mouth twice a day, vitamin B12 100 mcg by mouth daily, vitamin D2 1250 mcg every two week. Insulin Admelog, sliding scale, Keppra 250 mg by mouth twice a day, Protonix 40 mg by mouth daily, primidone 150 mg by mouth three times a day, spironolactone 25 mg by mouth twice a day, tizanidine 4mg by mouth q.i.d., torsemide 20 mg by mouth daily, trazodone 100 mg by mouth every night at bedtime, Valtrex 500 mg by mouth twice a day, zonisamide 50 mg by mouth twice a day. PHYSICAL EXAMINATION: Temperature 99.2, pulse 71, respiratory rate 16, blood pressure 153/88, 98% saturation on room air. Heart: Regular rate and rhythm. Lungs: Clear to auscultation. Abdomen: Soft and nontender, non-distended. No pedal edema. No skeletal abnormalities. No rash. No signs of meningeal irritation. The patient is awake, alert and oriented to place, person and time. Normal speech, comprehension and interpretation. Extraocular muscles are intact. No facial weakness. Tongue and uvula are midline. 5/5 strength in all four extremities. Deep tendon flexes are 1+ in arms and knees and absent at ankles. Gait is unsteady. She has decreased cold, pinprick sensation in her feet. She has prominent action and postural tremor of both hands, worse on the right side and it affects her head and voice as well. There is no nystagmus, dysmetria or ataxia. Her tremor does have a slight distractible component. DIAGNOSTIC STUDIES: CT of head showed mild atrophy and smaller ischemic disease of brain. Hemoglobin was 10.3, platelet count 266, ferritin level was 2167, AST was 81, TSH was 0.8. ASSESSMENT: 1. Benign essential tremor. 2. History of multiple sclerosis. 3. Diabetic peripheral neuropathy. 4. Chronic tension headaches, intractable. 5. Occipital neuralgia. 6. Chronic neck and back pain due to cervical and lumbosacral degenerative disk disease. PLAN: 1. Increase primidone to 250 mg by mouth twice a day and it can be further increased on an outpatient basis as needed. 2. Continue Keppra 250 mg by mouth twice a day and zonisamide 50 mg by mouth twice a day. 3. Occipital nerve blocks can be considered on an outpatient basis. 4. Follow with Dr. Louis in a couple of weeks after hospital discharge. It is possible that her pneumonia and medical illness is aggravating her tremor. If pneumonia and physical condition improves, her tremor may decrease to her baseline level.
[2020-12-01] MEDS: MAGNESIUM OXIDE 400MG TAB (MAG-OX) PO SCH (12:41)
--- NOTE | 2020-12-01 12:53 | IPNPDOC ---
Text Note Date of Service The patient was seen on 12/01/20. NOTE SUBJECTIVE: -No acute events, afebrile -Tremor is stable today from yesterday, is worse with intentional activity OBJECTIVE: VITAL SIGNS: See below GENERAL APPEARANCE: NAD, appears uncomfortable but without distress. Globally tremulous HEENT: NC, AT, EOMI, no scleral icterus, moist mucous membranes, no pharyngeal erythema. CARDIOVASCULAR: RRR, normal S1-S2. No murmurs, gallops, rubs. LUNGS: Bibasilar crackles now, no wheezing or rhonchi. ABDOMEN: Soft, nontender, nondistended, bowel sounds present. No CVA tenderness. EXTREMITIES: No swelling or edema NEUROLOGICAL: No focal or sensory deficits. CN II-XII grossly intact but with full body tremor PSYCHIATRIC: Normal mood and affect LABORATORY DATA: Reviewed Cr 0.84 WBC 9.2 Hgb 9.7 IMAGIN11/27/2020 chest x-ray: "Impression: Patchy infiltrates in the left mid and lower lung zone and medial aspect of the right lower lobe consistent with multifocal pneumonitis." 11/27/[address]: "Impression: 1. Cavins septum pellucidum. Mild ventriculomegaly may indicate deep white matter atrophy. 2. No acute findings." MICROBIOLOGY: Sputum gram antoine with GPCs in clusters and pairs pending speciation BCx NGTD MRSA PCR negative Assessment: 64 yr old w a hx of MS, RADHA, pseudotumor cerebri, chronic CAD w placement of PAO, carpal tunnel syndrome, cervical & thoracic radiculopathy, essential HTN, IDDM, Essential tremors, Seizure disorder & CKD3 who is admitted for sepsis 2/2 CAP with worsening tremors. #. Sepsislikely 2/2 PNA Covering for CAP with Rocephin and Zithromax, day 4, will switch to cefdinir/azithro PO today History of grade 1 diastolic dysfunction, clinically does not appear very dehydrated. In light of this, will defer 30 cc/KG bolus and give 1L NS bolus and then gentle hydration at 75 cc/HR. Incentive spirometry -f/u sputum culture, mycoplasma IgG/IgM, Legionella, chlamydia pneumonia lab work ordered. -MRSA PCR negative -resp panel negative -srep pneumo negative -BCx NGTD #. Acute on chronic CKD, resolved after hydration Likely prerenal etiology secondary to poor oral intake from pneumonia. Baseline CR~1.3. Daily BMP Renal ultrasound showed some evidence of renal disease as noted above without obstructive pathology #. Hx of iron deficiency anemia Hemoglobin slightly below baseline, denies any black tarry stool or blood in stool. Has previously not tolerated oral iron therapy -Fe studies c/w AOCI, however ferritin is also an acute phase reactant and is infected #. Mild hyponatremia: hypovolemic, resolved BMP #. Mild transaminitis -will recheck this AM #. History of genitourinary HSV-2 Continue home valacyclovir #. Seizure disorder Continue home Keppra -serum prolactin wnl -pending keppra level #. Essential tremor w/ worsening global tremors? -Increase home primidone to 250mg BID per neuro -Consulted neuro, appreciate recs -CT head with cavins septum pellucidum. Mild ventriculomegaly may indicate deep white matter atrophy -PT/OT #. History of migraines Holding home zonisamide in light of renal failure, will resume now #. Type 2 diabetes Holding home insulin pump without supplies while here -started on FSBG ACHS -SSI ACHS -Consistent carbohydrate diet. #. Chronic back pain Continue with home tizanidine/baclofen and Tylenol as needed. #. Hypertension Continue home carvedilol, amlodipine restart home spironolactone and torsemide # Class 1 obesity -complicates care DVT prophylaxis: Lovenox Disposition: Pending clinical improvement. PT/OT VS,Fishbone, I+O VS, Fishbone, I+O Laboratory Tests 12/01/20 05:16 Vital Signs Date Time Temp Pulse Resp B/P (MAP) Pulse Ox O2 Delivery O2 Flow Rate FiO2 12/01/20 09:00 184/96 (125) 12/01/20 06:00 98.7 84 18 97 Room Air I&O- Last 24 Hours up to 6 AM 12/01/20 05:59 Intake Total 1165 ml Output Total 1850 ml Balance -685 ml JOSE DANIEL BOLTON MD Dec 01, 2020 09:18
[2020-12-01 14:00] VITALS: BP 149/79
[2020-12-01 14:12] LABS: CHLAMYDIA PNEUMONIAE IgG <1:16 (Neg:<1:16); CHLAMYDIA PNEUMONIAE IgM <1:10 (Neg:<1:10); MYCOPLASMA PNEUMONIAE IgG 231 U/mL (0-99); MYCOPLASMA PNEUMONIAE IgM <770 U/mL (0-769)
[2020-12-01] MEDS: traZODone 100 MG TAB PO SCH (20:48)
[2020-12-01] MEDS: LIDOCAINE 5% (LIDODERM) PATCH TOP SCH (20:49)
[2020-12-01 22:00] VITALS: BP 179/92
[2020-12-02] MEDS: traMADol 50 MG TAB PO PRN (00:46)
[2020-12-02 06:00] VITALS: BP 167/95
[2020-12-02 06:15] LABS: HEMATOCRIT 31.4 % (36.0-47.0); HEMOGLOBIN 10.2 g/dl (12.0-15.5); MEAN CORPUSCULAR HEMOGLOBIN 31.1 pg (27.0-33.0); MEAN CORPUSCULAR HGB CONC 32.5 g/dl (32.0-36.5); MEAN CORPUSCULAR VOLUME 95.7 fl (80.0-96.0); PLATELET COUNT, AUTOMATED 350 10^3/uL (150-450); RED BLOOD COUNT 3.28 10^6/uL (4.00-5.40); WHITE BLOOD COUNT 8.9 10^3/uL (4.0-10.0)
[2020-12-02 06:47] LABS: BLOOD UREA NITROGEN 14 MG/DL (7-18); CALCIUM LEVEL 8.8 MG/DL (8.8-10.2); CARBON DIOXIDE LEVEL 25 MEQ/L (21-32); CHLORIDE LEVEL 105 MEQ/L (98-107); CREATININE FOR GFR 0.98 MG/DL (0.55-1.30); GLOMERULAR FILTRATION RATE > 60.0 (>45); GLUCOSE, FASTING 101 MG/DL (70-100); POTASSIUM SERUM 3.7 MEQ/L (3.5-5.1); SODIUM LEVEL 140 MEQ/L (136-145)
[2020-12-02] MEDS: HumaLOG INSULIN (NovoLOG) PER UNIT SC SCH ×2 (07:30→12:20)
[2020-12-02] MEDS: ASPIRIN 81 MG CHEW TABLET PO SCH (08:16)
[2020-12-02] MEDS: CARVedilol 12.5 MG TAB PO SCH (08:16)
[2020-12-02] MEDS: SPIRONOLACTONE 25 MG TAB PO SCH (08:16)
[2020-12-02] MEDS: levETIRAcetam 250MG TABLET (KEPPRA) PO SCH (08:17)
[2020-12-02] MEDS: TORSEMIDE 20 MG TAB PO SCH (08:17)
[2020-12-02] MEDS: ZONISAMIDE 50 MG CAP (ZONEGRAN) PO SCH (08:17)
[2020-12-02] MEDS: guaiFENesin ER 600 MG TAB PO SCH (08:18)
[2020-12-02] MEDS: BACLOFEN 10 MG TAB PO SCH ×2 (08:18→12:21)
[2020-12-02] MEDS: PRIMIDONE 250 MG TAB PO SCH (08:18)
[2020-12-02] MEDS: valACYclovir HCL 500 MG TAB PO SCH (08:19)
[2020-12-02] MEDS: PANTOPRAZOLE 40MG TAB (PROTONIX) PO SCH (08:19)
[2020-12-02] MEDS: CEFDINIR 300 MG CAP (OMNICEF) PO SCH (08:19)
[2020-12-02] MEDS: CYANOCOBALAMIN 250 MCG TABLET PO SCH (08:19)
[2020-12-02] MEDS: amLODIPine 5 MG TAB PO SCH (08:19)
[2020-12-02] MEDS: tiZANidine 4 MG TAB PO SCH ×2 (08:20→12:21)
[2020-12-02] MEDS: ENOXAPARIN 40MG/0.4ML SYRINGE (J1650 PER 10MG) SC SCH (08:20)
[2020-12-02] MEDS: **NOTE PATIENT COMMENT** MISC XX SCH (08:21)
[2020-12-02] MEDS: ACETAMINOPHEN TAB 650MG DOSE (2X325MG) PO PRN (08:23)
[2020-12-02] MEDS ORDERED: amLODIPine 5 MG TAB PO ONE (08:50)
[2020-12-02] MEDS ORDERED: PROC1CRE5 TOP (08:52)
[2020-12-02] MEDS ORDERED: MUCI600T31 PO (08:52)
[2020-12-02] MEDS ORDERED: PRIM125TAB PO (08:52)
[2020-12-02] MEDS ORDERED: AZIT-12 PO (08:52)
[2020-12-02] MEDS ORDERED: AMLO1TAB25 PO (08:52)
[2020-12-02] MEDS ORDERED: CEFD300CAP PO (08:52)
[2020-12-02 09:26] VITALS: BP 168/94
--- NOTE | 2020-12-02 11:53 | DS.PDOC ---
Discharge Summary General Date of Admission Nov 27, 2020 at 18:57 Date of Discharge 12/02/2020 Attending Physician: JOSE DANIEL BOLTON MD Specialist/Consultants Involve: ANDREWS MCDUFFIE MD Discharge Summary PROCEDURES PERFORMED DURING STAY: None ADMITTING DIAGNOSES: CAP sepsis LYNDSEY DISCHARGE DIAGNOSES: CAP Sepsis 2/2 CAP LYNDSEY Acute worsening of Essential tremor Hypertension Type IIb hyperlipidemia Migraine headaches MS GERD Type 2 insulin dependent diabetes with nephropathy, neuropathy CAD s/p 5 PAO Hx subclinical hyperthyroidism Pseudotumor cerebri CKD stage III Seizure disorder Lumbar DJD Thoracic spondylosis Cervical spondylosis Iron deficiency anemia COMPLICATIONS/CHIEF COMPLAINT: Lyndsey, Pneumonia, Sepsis. HISTORY OF PRESENT ILLNESS: 64-year-old W who presented with a 5-day history of cough productive of yellow sputum, generalized fatigue, nasal congestion, worsening headaches, nausea, poor oral intake, and for the last 2 days, chills that she initially thought were a new or worsening tremor and caused her to seek help in the emergency department. HOSPITAL COURSE: While in the ED she was found to have fever, mildly elevated white blood cell count, acute renal failure, and multifocal pneumonia. Patient was admitted for sepsis secondary to pneumonia with an LYNDSEY and acute worsening of her essential tremor. She was started on ceftriaxone/azithro for CAP, hydrated for the LYNDSEY with resolution, and neurology was consulted for the acutely worsened tremor and increased her primidone with good effect. Her fevers and leukocytosis resolved with antibiotic therapy, while workup was only noted for Mycoplasma IgG positivity with a negative IgM sputum gram stain that was positive for GPCs in clusters and pairs. She was transitioned to cefdinir/azithro PO and did well, worked with PT and was deemed safe for home discharge with a new 4WW, commode and shower bench. She will follow up with her PCP within 7d and neurologist Dr. Louis within 14d. Of note, on recovery from sepsis she was hypertensive and her amlodipine was increased from 5mg daily to 10mg daily in addition to her coreg. DISCHARGE MEDICATIONS: Please see below. ALLERGIES: Please see below. PHYSICAL EXAMINATION ON DISCHARGE: VITAL SIGNS: Please see below. GENERAL APPEARANCE: NAD. Globally tremulous but mild at this time HEENT: NC, AT, EOMI, no scleral icterus, moist mucous membranes, no pharyngeal erythema. CARDIOVASCULAR: RRR, normal S1-S2. No murmurs, gallops, rubs. LUNGS: Bibasilar crackles now, no wheezing or rhonchi. Speaking comfortably while on room air ABDOMEN: Soft, nontender, nondistended, bowel sounds present. No CVA tenderness. EXTREMITIES: No swelling or edema NEUROLOGICAL: No focal or sensory deficits. CN II-XII grossly intact but with mild full body tremor PSYCHIATRIC: Normal mood and affect LABORATORY DATA: Please see below IMAGIN11/27/2020 chest x-ray: "Impression: Patchy infiltrates in the left mid and lower lung zone and medial aspect of the right lower lobe consistent with multifocal pneumonitis." 11/27/[address]: "Impression: 1. Cavins septum pellucidum. Mild ventriculomegaly may indicate deep white matter atrophy. 2. No acute findings." PROGNOSIS: good ACTIVITY: As tolerated DIET: consistent carb and 2g sodium DISCHARGE PLAN: Home w/ 7d of cefdnir and azithro, with close PCP follow up within 7d, and increased dose of primidone per Dr. Mcduffie to follow up with Dr. Louis within 2w. DISPOSITION: Home DISCHARGE INSTRUCTIONS: Home w/ 7d of cefdnir and azithro, with close PCP follow up within 7d, and increased dose of primidone per Dr. Mcduffie to follow up with Dr. Louis within 2w. DISPOSITION: Home ITEMS TO FOLLOWUP ON ON OUTPATIENT: CAP resolution Tremor follow up with Dr. Louis DISCHARGE CONDITION: Stable. TIME SPENT ON DISCHARGE: 51 minutes. Vital Signs/I&Os Vital Signs Date Time Temp Pulse Resp B/P (MAP) Pulse Ox O2 Delivery O2 Flow Rate FiO2 12/02/20 08:16 86 168/94 12/02/20 06:00 99.1 17 92 Room Air 12/01/20 15:55 99.0 I&O- Last 24 Hours up to 6 AM 12/02/20 06:00 Intake Total 1540 ml Output Total 300 ml Balance 1240 ml Laboratory Data Labs 24H Laboratory Tests 2 12/01/20 11:50: Bedside Glucose (Misc Panel) 166H 12/01/20 17:21: Bedside Glucose (Misc Panel) 152H 12/01/20 19:40: Bedside Glucose (Misc Panel) 129H 12/02/20 05:14: Nucleated Red Blood Cells % (auto) 0.0, Anion Gap 10, Glomerular Filtration Rate > 60.0, Calcium Level 8.8 CBC/BMP Laboratory Tests 12/02/20 05:14 FSBS Laboratory Tests Test 12/01/20 11:50 12/01/20 17:21 12/01/20 19:40 Range/Units Bedside Glucose (Misc Panel) 166 152 129 80-115 MG/DL Microbiology Microbiology 11/29/20 Gram Stain - Final, Complete 11/29/20 Sputum Culture - Final, Complete 11/27/20 Respiratory Virus Panel (PCR) (SHIRIN) - Final, Complete 11/27/20 Blood Culture - Preliminary, Resulted No Growth after 72 hours. All specime... 11/27/20 Blood Culture - Preliminary, Resulted No Growth after 72 hours. All specime... Discharge Medications Scheduled Amlodipine Besylate (Amlodipine Besylate) 10 Mg Tablet, 10 MG PO DAILY Aspirin (Aspirin) 81 Mg Tab.chew, 81 MG PO DAILY, (Reported) Azithromycin (Azithromycin) 250 Mg Tablet, 500 MG PO DAILY@2100 Baclofen (Baclofen) 20 Mg Tab, 20 MG PO QID, (Reported) 0800, 1200, 1700, 2000 Carvedilol (Carvedilol) 25 Mg Tablet, 25 MG PO BID, (Reported) 0800, 1700 Cefdinir (Cefdinir) 300 Mg Capsule, 600 MG PO DAILY Cyanocobalamin (Vitamin B-12) (Vitamin B-12) 100 Mcg Tablet, 100 MCG PO DAILY, (Reported) Ergocalciferol (Vitamin D2) (Drisdol) 1,250 Mcg Capsule, 1,250 MCG PO Q2WK, (Reported) EVERY OTHER TUESDAY Guaifenesin (Mucinex) 600 Mg Tab.er.12h, 600 MG PO BID Insulin Lispro (Admelog) 100 Unit/1 Ml Vial, 1 DOSE SC ASDIRECTED, (Reported) VIA INSULIN PUMP Levetiracetam (Keppra) 250 Mg Tab, 250 MG PO BID, (Reported) 0800, 1700 Lidocaine (Lidocaine) 5% Adh..patch, 1 PATCH TOP QHS, (Reported) APPLIES TO LOWER BACK Magnesium Oxide (Magnesium Oxide) 400 Mg Tablet, 800 MG PO DAILY, (Reported) 1200 Pantoprazole Sodium (Pantoprazole Sodium) 40 Mg Tab, 40 MG PO DAILY, (Reported) Primidone (Mysoline) 250 Mg Tablet, 250 MG PO BID Spironolactone (Spironolactone) 25 Mg Tab, 25 MG PO BID, (Reported) 0800, 1700 Tizanidine HCl (Zanaflex) 4 Mg Tab, 4 MG PO QID, (Reported) 0800, 1200, 1700, 2000 Torsemide (Torsemide) 20 Mg Tablet, 20 MG PO DAILY, (Reported) Trazodone HCl (Trazodone HCl) 100 Mg Tablet, 100 MG PO QHS, (Reported) Valacyclovir HCl (Valacyclovir) 500 Mg Tab, 500 MG PO BID, (Reported) 0800, 1700 Zonisamide (Zonisamide) 50 Mg Capsule, 50 MG PO BID, (Reported) 0800, 1700 Scheduled PRN Acetaminophen (Tylenol Extra Strength) 500 Mg Tablet, 500 MG PO QID PRN for PAIN, (Reported) Diclofenac Sodium (Diclofenac Sodium) 1% 100GM Gel..gram., 4 GM TOP QID PRN for KNEE PAIN, (Reported) APPLY TO KNEES Hydrocortisone (Proctozone-Hc) 30 Gm Crm.pe.elie, 0 DOSE TOP BID PRN for HEM ORRHOIDS Nitroglycerin (Nitrostat) 0.4 Mg Subl, 0.4 MG SL NITRO PRN for CHEST PAIN, (Reported) Tizanidine HCl (Tizanidine HCl) 4 Mg Tablet, 4 MG PO DAILY PRN for MUSCLE SPASMS, (Reported) Tramadol HCl (Tramadol HCl) 50 Mg Tablet, 50 MG PO Q8H PRN for MODERATE/SEVERE PAIN (PS 5-10), (Reported) Allergies Coded Allergies: codeine (Unverified Allergy, Intermediate, hives, 06/10/18) [place] Inhibitors (Verified Allergy, Unknown, FEET SWELLING, 06/10/18) Sulfa (Sulfonamide Antibiotics) (Verified Allergy, Unknown, 06/10/18) nortriptyline (Verified Allergy, Unknown, 06/10/18) sertraline (Verified Allergy, Unknown, 06/10/18) oxycodone (Verified Adverse Reaction, Unknown, HALLUCINATIONS, 06/10/18) JOSE DANIEL BOLTON MD Dec 02, 2020 08:47
[2020-12-02] MEDS: MAGNESIUM OXIDE 400MG TAB (MAG-OX) PO SCH (12:21)
[2020-12-02] MEDS ORDERED: AZITHROMYCIN 250MG TABLET PO SCH (21:00)
== END 2020-12-02 13:12 | disposition home health service (06) | DRG 720 ==
LOC: M ED 18:56 → M ED INP 18:57 → ENRESERV 11-28 13:45 → M MSPAV 11-28 18:41
PROVIDERS: ADMIT Internal Medicine; ATTEND Internal Medicine
DX: A41.9 Sepsis, unspecified organism (principal); J18.9 Pneumonia, unspecified organism; E11.22 Type 2 diabetes mellitus with diabetic chronic kidney disease; N17.9 Acute kidney failure, unspecified; E11.42 Type 2 diabetes mellitus with diabetic polyneuropathy; N18.30 Chronic kidney disease, stage 3 unspecified; G35 Multiple sclerosis; E87.1 Hypo-osmolality and hyponatremia; D50.9 Iron deficiency anemia, unspecified; I12.9 Hypertensive chronic kidney disease with stage 1 through stage 4 chronic kidney disease, or unspecified chronic kidney disease; G44.221 Chronic tension-type headache, intractable; E78.49 Other hyperlipidemia; R74.01 Elevation of levels of liver transaminase levels; M54.81 Occipital neuralgia; G43.909 Migraine, unspecified, not intractable, without status migrainosus; K21.9 Gastro-esophageal reflux disease without esophagitis; G25.0 Essential tremor; I25.10 Atherosclerotic heart disease of native coronary artery without angina pectoris; G40.909 Epilepsy, unspecified, not intractable, without status epilepticus; M51.36 Other intervertebral disc degeneration, lumbar region; M47.814 Spondylosis without myelopathy or radiculopathy, thoracic region; M47.812 Spondylosis without myelopathy or radiculopathy, cervical region; Z98.41 Cataract extraction status, right eye; Z98.42 Cataract extraction status, left eye; A60.09 Herpesviral infection of other urogenital tract; E66.9 Obesity, unspecified; Z79.82 Long term (current) use of aspirin; Z79.899 Other long term (current) drug therapy; Z79.4 Long term (current) use of insulin; Z88.2 Allergy status to sulfonamides; Z88.5 Allergy status to narcotic agent; Z88.8 Allergy status to other drugs, medicaments and biological substances; Z68.32 Body mass index [BMI] 32.0-32.9, adult

== ENCOUNTER → 2020-12-17 | Outpatient (CLI) | payer MEDICAID ==
[~2020-12-17] MED LIST changes: +AMLO2.5T3 PO; +AZIT-12 PO; +B-12100T2 PO; +CEFD300CAP PO; +LIDO1PAD TOP; +MUCI600T31 PO; +OMEGA-3 1000MG CAPSULE ONE; +PROC1CRE5 TOP; +PROHANCE 279.3MG/ML 15ML VIAL ONE; +TIZA4TAB4 PO; +TORS20TA2 PO; +TRAM50TA2 PO; +TRAZ-257 PO
--- NOTE | 2020-12-17 10:43 | REP ---
INDICATION: SWELLING, MASS, LUMP LT LEG. COMPARISON: None. TECHNIQUE: Pre and post contrast 3T MRI of the left proximal thigh was performed utilizing various sequences. Gadolinium utilized: 15 cc of ProHance FINDINGS: In the proximal medial left thigh within the semimembranosus muscle there is a 3 by 3.9 by 2.4 cm sized mass which is nonenhancing, is are predominant T1 shortening, is of predominant T2 shortening, and has significant signal dropout on fat suppression sequences. The subcutaneous adipose tissue adjacent to the mass has a normal appearance. The cortical marrow signal throughout the imaged portion of the femur is within normal limits. There are no abnormal fluid collections. IMPRESSION: Findings, as described above, are consistent with a lipoma which although slightly complex is without discernible septations or enhancement that would indicate aggressivity. Follow-up to ensure stability is suggested. <Electronically signed by Faustino Gayle > 12/17/20 2751
== END ==
LOC: M PLAIMG 07:51
PROVIDERS: ATTEND Physician Assistant
DX: D17.22 Benign lipomatous neoplasm of skin and subcutaneous tissue of left arm (principal)

== ENCOUNTER → 2021-01-05 | Outpatient (CLI) | payer MEDICAID ==
[~2021-01-05] MED LIST changes: -OMEGA-3 1000MG CAPSULE ONE; -PROHANCE 279.3MG/ML 15ML VIAL ONE
== END ==
LOC: M PT 08:43
PROVIDERS: ATTEND Nurse Practitioner Family
DX: R27.0 Ataxia, unspecified (principal)

== ENCOUNTER → 2021-01-29 | Outpatient (CLI) | payer MEDICAID ==
[2021-01-29 14:05] LABS: BASO % 0.7 % (0.0-1.0); EOS # 0.1 10^3/uL (0.0-0.5); EOS % 2.3 % (0.0-3.0); HEMATOCRIT 38.3 % (36.0-47.0); HEMOGLOBIN 12.3 g/dl (12.0-15.5); LYMPH # 1.7 10^3/uL (1.5-5.0); LYMPH % 27.1 % (24.0-44.0); MEAN CORPUSCULAR HEMOGLOBIN 31.6 pg (27.0-33.0); MEAN CORPUSCULAR HGB CONC 32.1 g/dl (32.0-36.5); MEAN CORPUSCULAR VOLUME 98.5 fl (80.0-96.0); MONO # 0.5 10^3/uL (0.0-0.8); MONO % 7.4 % (2.0-8.0); NEUTROPHILS # 3.8 10^3/uL (1.5-8.5); NEUTROPHILS % 61.5 % (36.0-66.0); PLATELET COUNT, AUTOMATED 259 10^3/uL (150-450); RED BLOOD COUNT 3.89 10^6/uL (4.00-5.40); WHITE BLOOD COUNT 6.1 10^3/uL (4.0-10.0)
[2021-01-29 14:44] LABS: ALBUMIN 3.5 GM/DL (3.2-5.2); BILIRUBIN,TOTAL 0.2 MG/DL (0.2-1.0); CALCIUM LEVEL 9.4 MG/DL (8.8-10.2); CHOLESTEROL RISK RATIO 4.383 (<5); CREATININE FOR GFR 1.28 MG/DL (0.55-1.30); FREE T4 0.87 NG/DL (0.76-1.46); GLOMERULAR FILTRATION RATE 54.2 (>45); POTASSIUM SERUM 4.2 MEQ/L (3.5-5.1); PTH INTACT 85.8 PG/ML (18.5-88.0); THYROID STIMULATING HORMONE 0.103 uIU/ML (0.358-3.740); TOTAL 25(OH) VITAMIN D 58.1 NG/ML (30.0-100.0)
== END ==
LOC: M PLALAB 10:47
PROVIDERS: ATTEND Family Medicine
DX: E53.8 Deficiency of other specified B group vitamins (principal)

== ENCOUNTER → 2021-02-24 | Outpatient (CLI) | payer MEDICAID ==
[~2021-02-24] MED LIST changes: +AMLO1TAB24 PO; +LOSA100T45 PO; -LOSA100T50 PO; +TIZA10TA PO; -TIZA4TAB4 PO
== END ==
LOC: M PLAIMG 14:21
PROVIDERS: ATTEND Physician Assistant
DX: M25.561 Pain in right knee (principal)

== ENCOUNTER 2021-03-12 08:57 | Outpatient (RCR) | payer MEDICAID ==
[~2021-03-12 08:57] MED LIST changes: -AMLO1TAB24 PO; -LOSA100T45 PO; +LOSA100T50 PO; -TIZA10TA PO; +TIZA4TAB4 PO
== END 2021-03-13 ==
LOC: M PT 08:57
PROVIDERS: ATTEND Family Medicine
DX: M47.816 Spondylosis without myelopathy or radiculopathy, lumbar region (principal)

== ENCOUNTER → 2021-03-18 | Outpatient (CLI) | payer MEDICAID ==
[~2021-03-18] MED LIST changes: +AMLO1TAB24 PO; +LOSA100T45 PO; -LOSA100T50 PO; +TIZA10TA PO; -TIZA4TAB4 PO
[2021-03-18 10:50] VITALS: BP 180/82
== END ==
LOC: M IRPRO 08:52
PROVIDERS: ATTEND Surgery
DX: R22.42 Localized swelling, mass and lump, left lower limb (principal)

== ENCOUNTER 2021-04-09 08:30 | Outpatient (RCR) | payer MEDICAID | END 2021-04-13 | LOC: M PT 08:30 | PROVIDERS: ATTEND Family Medicine | DX: M47.816 Spondylosis without myelopathy or radiculopathy, lumbar region (principal) ==

== ENCOUNTER 2021-05-07 08:30 | Outpatient (RCR) | payer MEDICAID | END 2021-05-11 | LOC: M PT 08:30 | PROVIDERS: ATTEND Family Medicine | DX: M47.816 Spondylosis without myelopathy or radiculopathy, lumbar region (principal) ==

== ENCOUNTER 2021-05-21 09:15 | Outpatient (RCR) | payer MEDICAID | END 2021-06-11 | LOC: M PT 09:15 | PROVIDERS: ATTEND Family Medicine | DX: M47.816 Spondylosis without myelopathy or radiculopathy, lumbar region (principal) ==

== ENCOUNTER → 2021-06-03 | Outpatient (CLI) | payer MEDICAID ==
[2021-06-03 15:25] LABS: BASO % 0.7 % (0.0-1.0); EOS % 1.5 % (0.0-3.0); HEMOGLOBIN 12.3 g/dl (12.0-15.5); MEAN CORPUSCULAR HEMOGLOBIN 31.4 pg (27.0-33.0); MEAN CORPUSCULAR HGB CONC 32.4 g/dl (32.0-36.5); MEAN CORPUSCULAR VOLUME 96.9 fl (80.0-96.0); MONO % 8.8 % (2.0-8.0); NEUTROPHILS % 61.2 % (36.0-66.0); PLATELET COUNT, AUTOMATED 232 10^3/uL (150-450); RED BLOOD COUNT 3.92 10^6/uL (4.00-5.40); WHITE BLOOD COUNT 7.4 10^3/uL (4.0-10.0)
[2021-06-03 15:26] LABS: APPEARANCE, URINE CLEAR (CLEAR); BACTERIA, URINE AUTO NEGATIVE (NEGATIVE); BASO # 0.1 10^3/uL (0.0-0.2); BILIRUBIN, URINE AUTO NEGATIVE (NEGATIVE); BLOOD, URINE BLOOD 1+ (NEGATIVE); COLOR, URINE COLORLESS (YELLOW); EOS # 0.1 10^3/uL (0.0-0.5); GLUCOSE, URINE (UA) AUTO NEGATIVE (NEGATIVE); KETONE, URINE AUTO NEGATIVE (NEGATIVE); LEUKOCYTE ESTERASE, URINE AUTO NEGATIVE (NEGATIVE); MONO # 0.7 10^3/uL (0.0-0.8); MUCUS, URINE SMALL (NEGATIVE); NEUTROPHILS # 4.5 10^3/uL (1.5-8.5); NITRITE, URINE AUTO NEGATIVE (NEGATIVE); PROTEIN, URINE AUTO NEGATIVE (NEGATIVE); RBC, URINE AUTO 2 /HPF (0-3); SPECIFIC GRAVITY URINE AUTO 1.008 (1.002-1.035); SQUAMOUS EPITHELIAL CELL UR AU 0 /HPF (0-6); UROBILINOGEN, URINE AUTO 0.2 mg/dL (0.0-2.0); WBC, URINE AUTO 0 /HPF (0-3)
[2021-06-03 15:53] LABS: HEMOGLOBIN A1c 6.9 %
[2021-06-03 15:54] LABS: ALBUMIN 3.6 GM/DL (3.2-5.2); BILIRUBIN,TOTAL 0.2 MG/DL (0.2-1.0); C REACTIVE PROTEIN QUANTITATIV 2.04 MG/DL (0.00-0.30); CALCIUM LEVEL 9.1 MG/DL (8.8-10.2); CHOLESTEROL RISK RATIO 2.709 (<5); CREATININE FOR GFR 1.38 MG/DL (0.55-1.30); GLOMERULAR FILTRATION RATE 49.6 (>45); POTASSIUM SERUM 4.3 MEQ/L (3.5-5.1)
[2021-06-03 16:00] LABS: CREATININE, URINE 18.6 MG/DL; MAU/CREAT RATIO 236.5 MCG/MG (0.0-30.0)
== END ==
LOC: M PLALAB 12:53
PROVIDERS: ATTEND Family Medicine
DX: E78.2 Mixed hyperlipidemia (principal)

== ENCOUNTER 2021-06-22 09:41 | Emergency (ER) | payer MEDICAID ==
[~2021-06-22] VITALS: Ht 152.4 cm; Wt 170.0 kg
[2021-06-22] MEDS ORDERED: COMBIVENT RESPIMAT 100-20MCG INHALER 4GM INH SCH (10:25)
[2021-06-22 10:56] LABS: HEMATOCRIT 37.9 % (36.0-47.0); HEMOGLOBIN 12.5 g/dl (12.0-15.5); MEAN CORPUSCULAR HEMOGLOBIN 31.7 pg (27.0-33.0); MEAN CORPUSCULAR VOLUME 96.2 fl (80.0-96.0); PLATELET COUNT, AUTOMATED 249 10^3/uL (150-450); RED BLOOD COUNT 3.94 10^6/uL (4.00-5.40); WHITE BLOOD COUNT 5.6 10^3/uL (4.0-10.0)
[2021-06-22 11:24] LABS: CALCIUM LEVEL 9.1 MG/DL (8.8-10.2); CREATININE FOR GFR 1.35 MG/DL (0.55-1.30); GLOMERULAR FILTRATION RATE 50.9 (>45); POTASSIUM SERUM 3.8 MEQ/L (3.5-5.1)
[2021-06-22 11:31] LABS: ATYPICAL LYMPH 2 % (0-5); EOSINOPHILS 2 % (0-3); LYMPHOCYTES 38 % (16-44); MONOCYTES 7 % (0-5); MYELOCYTES 1 % (0-0); NEUTROPHILS 50 % (28-66); PLATELET ESTIMATE NORMAL (NORMAL)
[2021-06-22 11:32] LABS: ANISOCYTOSIS 1+
[2021-06-22] MEDS ORDERED: predniSONE 20 MG TAB PO ONE (12:05)
[2021-06-22 12:26] VITALS: BP 166/83
[2021-06-22] MEDS ORDERED: VENTAER INH (12:34)
[2021-06-22] MEDS ORDERED: PRED20TA PO (12:34)
[2021-06-22] MEDS ORDERED: MUCI600T31 PO (12:34)
[2021-06-22] MEDS ORDERED: BENZ200C70 PO (12:34)
== END 2021-06-22 12:52 | disposition home or self-care (01) ==
LOC: M ED 09:41
DX: J20.9 Acute bronchitis, unspecified (principal); U07.1 COVID-19; Z79.899 Other long term (current) drug therapy; Z79.82 Long term (current) use of aspirin; Z79.4 Long term (current) use of insulin; Z88.1 Allergy status to other antibiotic agents; Z88.2 Allergy status to sulfonamides; Z88.5 Allergy status to narcotic agent; Z88.8 Allergy status to other drugs, medicaments and biological substances
CPT/HCPCS: 36415; 71045; 80048; 85025; 87798; 99283; J7512

== ENCOUNTER → 2021-06-30 | Outpatient (CLI) | payer MEDICAID ==
[~2021-06-30] MED LIST changes: +BENZ200C70 PO; +VENTAER INH
== END ==
LOC: M PLAIMG 10:34
PROVIDERS: ATTEND Family Medicine
DX: M17.0 Bilateral primary osteoarthritis of knee (principal)

== ENCOUNTER → 2021-06-30 | Outpatient (CLI) | payer MEDICAID | LOC: M RAD 09:16 | PROVIDERS: ATTEND Family Medicine | DX: N28.1 Cyst of kidney, acquired (principal) ==

== ENCOUNTER 2021-07-03 19:52 | Emergency (ER) | payer MEDICAID, SELFPAY ==
[~2021-07-03] VITALS: Ht 152.4 cm; Wt 77.0 kg
[2021-07-03] MEDS ORDERED: ASPIRIN 81 MG CHEW TABLET PO ONE ×2 (20:20→20:25)
[2021-07-03 20:41] LABS: BASO # 0.1 10^3/uL (0.0-0.2); BASO % 0.6 % (0.0-1.0); EOS # 0.2 10^3/uL (0.0-0.5); EOS % 1.9 % (0.0-3.0); HEMATOCRIT 36.2 % (36.0-47.0); HEMOGLOBIN 11.8 g/dl (12.0-15.5); LYMPH # 1.9 10^3/uL (1.5-5.0); LYMPH % 23.2 % (24.0-44.0); MEAN CORPUSCULAR HEMOGLOBIN 32.2 pg (27.0-33.0); MEAN CORPUSCULAR HGB CONC 32.6 g/dl (32.0-36.5); MEAN CORPUSCULAR VOLUME 98.6 fl (80.0-96.0); MONO # 0.6 10^3/uL (0.0-0.8); MONO % 7.7 % (2.0-8.0); NEUTROPHILS # 5.2 10^3/uL (1.5-8.5); NEUTROPHILS % 64.7 % (36.0-66.0); PLATELET COUNT, AUTOMATED 273 10^3/uL (150-450); RED BLOOD COUNT 3.67 10^6/uL (4.00-5.40)
[2021-07-03 20:55] LABS: INR 1.05; PROTHROMBIN TIME 14.1 SECONDS (12.7-14.5)
[2021-07-03 20:56] LABS: PARTIAL THROMBOPLASTIN TIME 29.6 SECONDS (25.9-37.0)
[2021-07-03 20:59] LABS: CK-MB VALUE MASS 2.2 NG/ML (<3.6); MB/CK RELATIVE INDEX 1.51 (< OR =4)
[2021-07-03 21:08] LABS: ALBUMIN 3.3 GM/DL (3.2-5.2); ALT/SGPT 27 U/L (12-78); BILIRUBIN,DIRECT < 0.1 MG/DL (0.0-0.2); BILIRUBIN,TOTAL 0.3 MG/DL (0.2-1.0); BLOOD UREA NITROGEN 37 MG/DL (7-18); CALCIUM LEVEL 8.7 MG/DL (8.8-10.2); CARBON DIOXIDE LEVEL 24 MEQ/L (21-32); CHLORIDE LEVEL 110 MEQ/L (98-107); CREATININE FOR GFR 1.68 MG/DL (0.55-1.30); GLOMERULAR FILTRATION RATE 39.6 (>45); GLUCOSE, FASTING 260 MG/DL (70-100); LIPASE 178 U/L (73-393); NT-PRO BNP 742 PG/ML (<125); SODIUM LEVEL 143 MEQ/L (136-145); THYROID STIMULATING HORMONE 0.176 uIU/ML (0.358-3.740); TOTAL PROTEIN 7.3 GM/DL (6.4-8.2)
[2021-07-03] MEDS ORDERED: NS 500 ML IV ONE (21:25)
[2021-07-03 22:27] LABS: CK-MB VALUE MASS 2.4 NG/ML (<3.6); MB/CK RELATIVE INDEX 1.24 (< OR =4)
[2021-07-03 23:53] LABS: CK-MB VALUE MASS 2.1 NG/ML (<3.6); MB/CK RELATIVE INDEX 1.29 (< OR =4)
[2021-07-04] VITALS: BP 171/75
== END 2021-07-04 00:36 | disposition home or self-care (01) ==
LOC: M ED 19:52 → EDBD 19:52 → M ED 07-04 00:36
DX: R07.9 Chest pain, unspecified (principal); I51.9 Heart disease, unspecified; I25.2 Old myocardial infarction; I50.9 Heart failure, unspecified; G40.909 Epilepsy, unspecified, not intractable, without status epilepticus; E78.5 Hyperlipidemia, unspecified; Z87.19 Personal history of other diseases of the digestive system; M54.50 Low back pain, unspecified; Z95.5 Presence of coronary angioplasty implant and graft; Z87.891 Personal history of nicotine dependence; Z88.8 Allergy status to other drugs, medicaments and biological substances; Z88.5 Allergy status to narcotic agent; Z88.2 Allergy status to sulfonamides; Z79.899 Other long term (current) drug therapy; Z79.82 Long term (current) use of aspirin

== ENCOUNTER → 2021-07-03 | Outpatient (CLI) | payer MEDICAID | LOC: M PLALAB 15:11 | PROVIDERS: ATTEND Physician Assistant | DX: R07.9 Chest pain, unspecified (principal) ==

== ENCOUNTER → 2021-07-03 | Outpatient (REF) | payer MEDICAID | LOC: M SFHCPLAZ 16:58 | PROVIDERS: ATTEND Physician Assistant | DX: R05.9 Cough, unspecified (principal) ==

== ENCOUNTER → 2021-08-19 | Outpatient (CLI) | payer MEDICAID ==
[2021-08-19 14:23] LABS: CALCIUM LEVEL 9.1 MG/DL (8.8-10.2); CREATININE FOR GFR 1.56 MG/DL (0.55-1.30); GLOMERULAR FILTRATION RATE 43.1 (>45); POTASSIUM SERUM 4.4 MEQ/L (3.5-5.1)
== END ==
LOC: M PLALAB 10:12
PROVIDERS: ATTEND Nurse Practitioner Family
DX: I10 Essential (primary) hypertension (principal)

== ENCOUNTER → 2021-08-19 | Outpatient (CLI) | payer MEDICAID | LOC: M PLALAB 10:14 | PROVIDERS: ATTEND Ophthalmology Retina Specialist | DX: D57.1 Sickle-cell disease without crisis (principal) ==

== ENCOUNTER → 2021-09-02 | Outpatient (CLI) | payer MEDICAID, SELFPAY | LOC: M WHC 07:54 | PROVIDERS: ATTEND Family Medicine | DX: Z12.31 Encounter for screening mammogram for malignant neoplasm of breast (principal) ==

== ENCOUNTER → 2021-09-22 | Outpatient (CLI) | payer MEDICAID | LOC: M PLAIMG 12:29 | PROVIDERS: ATTEND Physician Assistant | DX: M54.6 Pain in thoracic spine (principal) ==

== ENCOUNTER 2021-11-01 01:57 | Inpatient (IN) | payer MEDICAID, OTHER ==
[2021-11-01] VITALS (7 sets, daily range): BP systolic 157–196; BP diastolic 84–100
[~2021-11-01] VITALS: Ht 152.4 cm; Wt 66.8 kg
[2021-11-01 02:30] LABS: BASO % 0.6 % (0.0-1.0); EOS # 0.1 10^3/uL (0.0-0.5); EOS % 1.5 % (0.0-3.0); HEMATOCRIT 34.5 % (36.0-47.0); HEMOGLOBIN 11.1 g/dl (12.0-15.5); LYMPH # 1.9 10^3/uL (1.5-5.0); LYMPH % 27.7 % (24.0-44.0); MEAN CORPUSCULAR HEMOGLOBIN 31.9 pg (27.0-33.0); MEAN CORPUSCULAR HGB CONC 32.2 g/dl (32.0-36.5); MEAN CORPUSCULAR VOLUME 99.1 fl (80.0-96.0); MONO # 0.6 10^3/uL (0.0-0.8); MONO % 8.7 % (2.0-8.0); NEUTROPHILS # 4.2 10^3/uL (1.5-8.5); NEUTROPHILS % 60.3 % (36.0-66.0); PLATELET COUNT, AUTOMATED 226 10^3/uL (150-450); RED BLOOD COUNT 3.48 10^6/uL (4.00-5.40); WHITE BLOOD COUNT 6.9 10^3/uL (4.0-10.0)
[2021-11-01 02:44] LABS: INR 1.02; PROTHROMBIN TIME 13.8 SECONDS (12.7-14.5)
[2021-11-01 02:58] LABS: CK-MB VALUE MASS 2.2 NG/ML (<3.6); MB/CK RELATIVE INDEX 1.21 (< OR =4)
[2021-11-01 03:00] LABS: ALBUMIN 3.4 GM/DL (3.2-5.2); ALT/SGPT 22 U/L (12-78); AMYLASE 296 U/L (25-115); BILIRUBIN,DIRECT < 0.1 MG/DL (0.0-0.2); BILIRUBIN,TOTAL 0.1 MG/DL (0.2-1.0); BLOOD UREA NITROGEN 47 MG/DL (7-18); CALCIUM LEVEL 8.9 MG/DL (8.8-10.2); CARBON DIOXIDE LEVEL 24 MEQ/L (21-32); CHLORIDE LEVEL 111 MEQ/L (98-107); CREATININE FOR GFR 1.62 MG/DL (0.55-1.30); GLOMERULAR FILTRATION RATE 41.3 (>45); GLUCOSE, FASTING 177 MG/DL (70-100); LIPASE 1605 U/L (73-393); POTASSIUM SERUM 4.3 MEQ/L (3.5-5.1); SODIUM LEVEL 138 MEQ/L (136-145); TOTAL PROTEIN 7.3 GM/DL (6.4-8.2)
[2021-11-01 03:03] LABS: RSV AMPLIFICATION NEGATIVE (NEGATIVE)
[2021-11-01] MEDS ORDERED: ONDANSETRON 4MG 2ML VIAL IV ONE (03:15)
[2021-11-01] MEDS ORDERED: KETOROLAC 30 MG/ML 1ML VIAL IV ONE (03:15)
[2021-11-01] MEDS ORDERED: NS 1,000 ML IV ONE ×2 (03:20→04:10)
[2021-11-01 03:48] LABS: CK-MB VALUE MASS 2.4 NG/ML (<3.6); MB/CK RELATIVE INDEX 1.33 (< OR =4)
[2021-11-01] MEDS ORDERED: MORPHINE 2 MG/ML 1ML VIAL IV ONE (04:10)
[2021-11-01] MEDS ORDERED: PRIM250T8 PO (05:10)
[2021-11-01] MEDS ORDERED: AMLO2.5T3 PO (05:10)
[2021-11-01] MEDS ORDERED: VENTAER INH (05:10)
[2021-11-01] MEDS ORDERED: EZET10TA21 PO (05:10)
[2021-11-01] MEDS ORDERED: BEAN300T PO (05:10)
[2021-11-01] MEDS ORDERED: ASPI81TA27 PO (05:10)
[2021-11-01] MEDS ORDERED: TIZA10TA PO (05:10)
[2021-11-01] MEDS ORDERED: TRES1INJ SQ (05:10)
[2021-11-01] MEDS ORDERED: HOME MED LIST COMPLETE! XX SCH (05:15)
[2021-11-01] MEDS ORDERED: LR 1,000 ML IV SCH (05:20)
[2021-11-01] MEDS ORDERED: GLUCOSE 4GM CHEW TABLET PO PRN (05:20)
[2021-11-01] MEDS ORDERED: GLUCAGON INJ 1MG VIAL SC PRN (05:20)
[2021-11-01] MEDS ORDERED: hydrALAZINE 20MG/ML 1ML VIAL (J0360 PER 20MG) IV ONE (05:20)
[2021-11-01] MEDS ORDERED: MORPHINE 4 MG/ML 1ML VIAL/SYRINGE IV PRN (05:20)
[2021-11-01 05:41] LABS: TRIGLYCERIDES LEVEL 149 MG/DL (<150)
[2021-11-01] MEDS ORDERED: LIDOCAINE 5% (LIDODERM) PATCH TOP PRN (05:50)
[2021-11-01] MEDS ORDERED: ALBUTEROL 90 MCG/ACT 8GM HFA INHALER INH PRN (05:50)
[2021-11-01] MEDS: INSULIN LISPRO (NovoLOG) PER UNIT SC SCH ×3 (06:00→17:03)
[2021-11-01 07:03] LABS: BACTERIA, URINE SMALL AMOUNT; HYALINE CAST, URINE 0-1 /lpf (0-1); SQUAMOUS EPITHELIAL CELL URINE SMALL AMOUNT /hpf (SMALL AMT)
[2021-11-01 07:14] LABS: HEMATOCRIT 36.9 % (36.0-47.0); HEMOGLOBIN 11.6 g/dl (12.0-15.5); MEAN CORPUSCULAR HEMOGLOBIN 31.2 pg (27.0-33.0); MEAN CORPUSCULAR HGB CONC 31.4 g/dl (32.0-36.5); MEAN CORPUSCULAR VOLUME 99.2 fl (80.0-96.0); PLATELET COUNT, AUTOMATED 232 10^3/uL (150-450); RED BLOOD COUNT 3.72 10^6/uL (4.00-5.40); WHITE BLOOD COUNT 7.4 10^3/uL (4.0-10.0)
[2021-11-01 07:52] LABS: ALBUMIN 3.2 GM/DL (3.2-5.2); BILIRUBIN,TOTAL 0.2 MG/DL (0.2-1.0); CALCIUM LEVEL 8.9 MG/DL (8.8-10.2); CREATININE FOR GFR 1.24 MG/DL (0.55-1.30); GLOMERULAR FILTRATION RATE 56.2 (>45); POTASSIUM SERUM 4.3 MEQ/L (3.5-5.1); TOTAL PROTEIN 7.1 GM/DL (6.4-8.2)
[2021-11-01] MEDS: valACYclovir HCL 500 MG TAB PO SCH ×2 (07:56→16:50)
[2021-11-01] MEDS: BACLOFEN 10 MG TAB PO SCH ×4 (07:56→21:03)
[2021-11-01] MEDS: tiZANidine 4 MG TAB PO SCH ×4 (07:57→21:03)
[2021-11-01] MEDS: CARVedilol 12.5 MG TAB PO SCH ×2 (07:57→16:00)
[2021-11-01] MEDS: PANTOPRAZOLE 40MG VIAL IV SCH (08:29)
[2021-11-01] MEDS: PRIMIDONE 250 MG TAB PO SCH ×2 (10:20→16:50)
[2021-11-01] MEDS: ASPIRIN 81MG ENTERIC TABLET PO SCH (10:21)
[2021-11-01] MEDS: ENOXAPARIN 30MG/0.3ML SYRINGE (J1650 PER 10MG) SC SCH (10:21)
[2021-11-01] MEDS: DEXTROSE 50% 50 ML SYRINGE IV PRN ×2 (11:56→21:11)
[2021-11-01] MEDS: EZETIMIBE 10MG TABLET (ZETIA) PO SCH (12:26)
[2021-11-01] MEDS: D5W/LR 1,000 ML IV SCH ×2 (12:26→20:57)
[2021-11-01] MEDS: MAGNESIUM OXIDE 400MG TAB (MAG-OX) PO SCH (12:26)
[2021-11-01] MEDS: ACETAMINOPHEN TAB 650MG DOSE (2X325MG) PO PRN ×2 (14:08→21:03)
[2021-11-01] MEDS: MORPHINE 2 MG/ML 1ML VIAL IV PRN (14:34)
[2021-11-01] MEDS: ONDANSETRON 4MG 2ML VIAL IV PRN (16:49)
[2021-11-01] MEDS ORDERED: LEVEMIR (INSULIN DETEMIR) 1 UNITS/0.01ML SC SCH (21:00)
[2021-11-01] MEDS: **NOTE PATIENT COMMENT** MISC XX SCH (21:00)
[2021-11-01] MEDS: traZODone 100 MG TAB PO SCH (21:03)
[2021-11-02] MEDS: MORPHINE 2 MG/ML 1ML VIAL IV PRN ×5 (00:10→20:15)
[2021-11-02] MEDS: D10W/0.45% SODIUM CHLORIDE 1,000 ML IV SCH ×3 (02:09→20:18)
[2021-11-02] MEDS: INSULIN LISPRO (NovoLOG) PER UNIT SC SCH ×4 (05:42→17:41)
[2021-11-02 06:00] VITALS: BP_SYST 179; BP_SYST 181; BP_DIAS 91; BP_DIAS 93
[2021-11-02 06:19] LABS: HEMATOCRIT 37.2 % (36.0-47.0); HEMOGLOBIN 11.9 g/dl (12.0-15.5); MEAN CORPUSCULAR HEMOGLOBIN 31.9 pg (27.0-33.0); MEAN CORPUSCULAR VOLUME 99.7 fl (80.0-96.0); PLATELET COUNT, AUTOMATED 240 10^3/uL (150-450); RED BLOOD COUNT 3.73 10^6/uL (4.00-5.40)
[2021-11-02 07:05] LABS: ALBUMIN 2.9 GM/DL (3.2-5.2); ALT/SGPT 14 U/L (12-78); BILIRUBIN,TOTAL 0.2 MG/DL (0.2-1.0); BLOOD UREA NITROGEN 22 MG/DL (7-18); CALCIUM LEVEL 8.8 MG/DL (8.8-10.2); CARBON DIOXIDE LEVEL 30 MEQ/L (21-32); CHLORIDE LEVEL 109 MEQ/L (98-107); GLOMERULAR FILTRATION RATE > 60.0 (>45); GLUCOSE, FASTING 126 MG/DL (70-100); LIPASE 204 U/L (73-393); POTASSIUM SERUM 4.3 MEQ/L (3.5-5.1); SODIUM LEVEL 142 MEQ/L (136-145); TOTAL PROTEIN 6.7 GM/DL (6.4-8.2)
[2021-11-02 07:49] VITALS: BP 146/92
[2021-11-02] MEDS: PANTOPRAZOLE 40MG VIAL IV SCH (08:33)
[2021-11-02] MEDS: PRIMIDONE 250 MG TAB PO SCH ×2 (08:35→16:20)
[2021-11-02] MEDS: ENOXAPARIN 30MG/0.3ML SYRINGE (J1650 PER 10MG) SC SCH (08:35)
[2021-11-02] MEDS: valACYclovir HCL 500 MG TAB PO SCH ×2 (08:38→16:20)
[2021-11-02] MEDS: BACLOFEN 10 MG TAB PO SCH ×4 (08:38→20:15)
[2021-11-02] MEDS: CARVedilol 12.5 MG TAB PO SCH ×2 (08:38→16:20)
[2021-11-02] MEDS: ASPIRIN 81MG ENTERIC TABLET PO SCH (08:39)
[2021-11-02] MEDS: tiZANidine 4 MG TAB PO SCH ×4 (08:39→20:15)
[2021-11-02] MEDS: EZETIMIBE 10MG TABLET (ZETIA) PO SCH (12:27)
[2021-11-02] MEDS: MAGNESIUM OXIDE 400MG TAB (MAG-OX) PO SCH (12:27)
[2021-11-02 14:00] VITALS: BP 175/80
[2021-11-02] MEDS: TORSEMIDE 20 MG TAB PO SCH (16:19)
[2021-11-02 16:55] VITALS: BP 162/92
[2021-11-02] MEDS ORDERED: INSULIN LISPRO (NovoLOG) PER UNIT SC SCH ×2 (17:30→21:00)
[2021-11-02] MEDS: traZODone 100 MG TAB PO SCH (20:15)
[2021-11-02] MEDS: **NOTE PATIENT COMMENT** MISC XX SCH (21:00)
[2021-11-02] MEDS: ONDANSETRON 4MG 2ML VIAL IV PRN (21:23)
[2021-11-02 21:58] LABS: MB/CK RELATIVE INDEX 1.23 (< OR =4)
[2021-11-02 22:00] VITALS: BP 168/85
[2021-11-03 06:00] VITALS: BP 160/83
[2021-11-03] MEDS: INSULIN LISPRO (NovoLOG) PER UNIT SC SCH ×4 (06:00→18:00)
[2021-11-03] MEDS: MORPHINE 2 MG/ML 1ML VIAL IV PRN ×3 (06:08→17:11)
[2021-11-03 07:29] LABS: HEMATOCRIT 36.9 % (36.0-47.0); HEMOGLOBIN 12.1 g/dl (12.0-15.5); MEAN CORPUSCULAR HEMOGLOBIN 32.3 pg (27.0-33.0); MEAN CORPUSCULAR HGB CONC 32.8 g/dl (32.0-36.5); MEAN CORPUSCULAR VOLUME 98.4 fl (80.0-96.0); PLATELET COUNT, AUTOMATED 240 10^3/uL (150-450); RED BLOOD COUNT 3.75 10^6/uL (4.00-5.40); WHITE BLOOD COUNT 5.1 10^3/uL (4.0-10.0)
[2021-11-03] MEDS: D10W/0.45% SODIUM CHLORIDE 1,000 ML IV SCH ×3 (08:00→20:41)
[2021-11-03 08:06] LABS: ALBUMIN 3.1 GM/DL (3.2-5.2); BILIRUBIN,TOTAL 0.3 MG/DL (0.2-1.0); CALCIUM LEVEL 9.1 MG/DL (8.8-10.2); CREATININE FOR GFR 1.19 MG/DL (0.55-1.30); GLOMERULAR FILTRATION RATE 58.9 (>45); MAGNESIUM LEVEL 1.7 MG/DL (1.8-2.4); PHOSPHORUS LEVEL 3.2 MG/DL (2.5-4.9); TOTAL PROTEIN 7.2 GM/DL (6.4-8.2)
[2021-11-03 08:09] LABS: CK-MB VALUE MASS 1.4 NG/ML (<3.6); MB/CK RELATIVE INDEX 1.14 (< OR =4)
[2021-11-03] MEDS: PANTOPRAZOLE 40MG TAB (PROTONIX) PO SCH (08:17)
[2021-11-03] MEDS: ASPIRIN 81MG ENTERIC TABLET PO SCH (08:17)
[2021-11-03] MEDS: tiZANidine 4 MG TAB PO SCH ×4 (08:18→20:41)
[2021-11-03] MEDS: PRIMIDONE 250 MG TAB PO SCH ×2 (08:19→17:12)
[2021-11-03] MEDS: valACYclovir HCL 500 MG TAB PO SCH ×2 (08:19→17:12)
[2021-11-03] MEDS: TORSEMIDE 20 MG TAB PO SCH (08:20)
[2021-11-03] MEDS: CARVedilol 12.5 MG TAB PO SCH ×2 (08:21→17:12)
[2021-11-03] MEDS: BACLOFEN 10 MG TAB PO SCH ×4 (08:21→20:41)
[2021-11-03] MEDS: ENOXAPARIN 40MG/0.4ML SYRINGE (J1650 PER 10MG) SC SCH (08:22)
[2021-11-03] MEDS ORDERED: ISOVUE-370 76% 100ML VIAL As Ordered ONE (11:02)
[2021-11-03] MEDS: ONDANSETRON 4MG 2ML VIAL IV PRN (12:09)
[2021-11-03] MEDS: MAGNESIUM OXIDE 400MG TAB (MAG-OX) PO SCH (12:10)
[2021-11-03] MEDS ORDERED: MOM 30ML SUSPENSION UDC PO ONE (12:45)
[2021-11-03] MEDS ORDERED: BISACODYL 10 MG SUPP PR ONE (12:45)
[2021-11-03] MEDS ORDERED: MAGNESIUM OXIDE 400MG TAB (MAG-OX) PO ONE (12:50)
[2021-11-03] MEDS: ACETAMINOPHEN TAB 650MG DOSE (2X325MG) PO PRN (15:19)
[2021-11-03 17:00] VITALS: BP 174/82
[2021-11-03] MEDS: **NOTE PATIENT COMMENT** MISC XX SCH (20:32)
[2021-11-03] MEDS: traZODone 100 MG TAB PO SCH (21:09)
[2021-11-03 22:00] VITALS: BP 178/84
[2021-11-04 06:00] VITALS: BP 167/81
[2021-11-04] MEDS ORDERED: INSULIN LISPRO (NovoLOG) PER UNIT SC SCH (06:00)
[2021-11-04 06:49] LABS: HEMATOCRIT 37.8 % (36.0-47.0); HEMOGLOBIN 11.9 g/dl (12.0-15.5); MEAN CORPUSCULAR HEMOGLOBIN 31.1 pg (27.0-33.0); MEAN CORPUSCULAR HGB CONC 31.5 g/dl (32.0-36.5); MEAN CORPUSCULAR VOLUME 98.7 fl (80.0-96.0); PLATELET COUNT, AUTOMATED 253 10^3/uL (150-450); RED BLOOD COUNT 3.83 10^6/uL (4.00-5.40); WHITE BLOOD COUNT 4.9 10^3/uL (4.0-10.0)
[2021-11-04 07:28] LABS: ALBUMIN 3.4 GM/DL (3.2-5.2); BILIRUBIN,TOTAL 0.2 MG/DL (0.2-1.0); CREATININE FOR GFR 1.28 MG/DL (0.55-1.30); GLOMERULAR FILTRATION RATE 54.2 (>45); MAGNESIUM LEVEL 1.7 MG/DL (1.8-2.4); TOTAL PROTEIN 7.5 GM/DL (6.4-8.2)
[2021-11-04] MEDS: valACYclovir HCL 500 MG TAB PO SCH (07:58)
[2021-11-04] MEDS: BACLOFEN 10 MG TAB PO SCH ×2 (07:58→10:59)
[2021-11-04] MEDS: tiZANidine 4 MG TAB PO SCH ×2 (07:59→10:59)
[2021-11-04] MEDS: PANTOPRAZOLE 40MG TAB (PROTONIX) PO SCH (07:59)
[2021-11-04] MEDS: ASPIRIN 81MG ENTERIC TABLET PO SCH (07:59)
[2021-11-04] MEDS: TORSEMIDE 20 MG TAB PO SCH (08:01)
[2021-11-04 08:02] VITALS: BP 153/85
[2021-11-04] MEDS: CARVedilol 12.5 MG TAB PO SCH (08:02)
[2021-11-04] MEDS: ENOXAPARIN 40MG/0.4ML SYRINGE (J1650 PER 10MG) SC SCH (08:02)
[2021-11-04] MEDS: PRIMIDONE 250 MG TAB PO SCH (08:02)
[2021-11-04] MEDS: MORPHINE 2 MG/ML 1ML VIAL IV PRN (08:31)
[2021-11-04 08:35] LABS: APPEARANCE, URINE MANUAL CLEAR (CLEAR); BILIRUBIN, URINE MANUAL NEGATIVE (NEGATIVE); BLOOD URINE MANUAL NEGATIVE (NEGATIVE); COLOR, URINE MANUAL YELLOW (YELLOW); GLUCOSE, URINE (UA) MANUAL NEGATIVE (NEGATIVE); KETONE, URINE MANUAL NEGATIVE (NEGATIVE); LEUKOCYTE ESTERASE, URINE MAN NEGATIVE (NEGATIVE); NITRITE, URINE MANUAL NEGATIVE (NEGATIVE); PROTEIN, URINE MANUAL NEGATIVE (NEGATIVE); SPECIFIC GRAVITY,URINE MANUAL 1.004 (1.002-1.035); UROBILINOGEN, URINE MANUAL NORMAL (NORMAL)
[2021-11-04] MEDS: D10W/0.45% SODIUM CHLORIDE 1,000 ML IV SCH (10:08)
[2021-11-04] MEDS ORDERED: SENN-52 PO (10:25)
[2021-11-04] MEDS ORDERED: MIRA3350 PO (10:25)
[2021-11-04] MEDS: MAGNESIUM OXIDE 400MG TAB (MAG-OX) PO SCH (10:59)
[2021-11-04] MEDS: ACETAMINOPHEN TAB 650MG DOSE (2X325MG) PO PRN (10:59)
== END 2021-11-04 13:25 | disposition home or self-care (01) | DRG 282 ==
LOC: M ED 01:57 → M ED INP 05:27 → ENRESERV 07:04 → M MS5PR 09:10
PROVIDERS: ADMIT Family Medicine; ATTEND Internal Medicine
DX: K85.90 Acute pancreatitis without necrosis or infection, unspecified (principal); I13.0 Hypertensive heart and chronic kidney disease with heart failure and stage 1 through stage 4 chronic kidney disease, or unspecified chronic kidney disease; E11.22 Type 2 diabetes mellitus with diabetic chronic kidney disease; I50.9 Heart failure, unspecified; E27.8 Other specified disorders of adrenal gland; N28.1 Cyst of kidney, acquired; N18.30 Chronic kidney disease, stage 3 unspecified; K92.1 Melena; I16.0 Hypertensive urgency; E78.5 Hyperlipidemia, unspecified; G43.909 Migraine, unspecified, not intractable, without status migrainosus; I25.10 Atherosclerotic heart disease of native coronary artery without angina pectoris; Z95.5 Presence of coronary angioplasty implant and graft; Z98.41 Cataract extraction status, right eye; Z98.42 Cataract extraction status, left eye; N20.0 Calculus of kidney; K64.8 Other hemorrhoids; F41.9 Anxiety disorder, unspecified; Z88.8 Allergy status to other drugs, medicaments and biological substances; D17.5 Benign lipomatous neoplasm of intra-abdominal organs; F32.A Depression, unspecified; R25.1 Tremor, unspecified; M54.9 Dorsalgia, unspecified; Z79.82 Long term (current) use of aspirin; Z79.899 Other long term (current) drug therapy; Z79.4 Long term (current) use of insulin; Z88.2 Allergy status to sulfonamides; Z88.5 Allergy status to narcotic agent

== ENCOUNTER → 2021-11-09 | Outpatient (CLI) | payer MEDICAID ==
[~2021-11-09] MED LIST changes: +ASPI81TA27 PO; +BEAN300T PO; +EZET10TA21 PO; +MIRA3350 PO; +SENN-52 PO; +TRES1INJ SQ
[2021-11-09 13:34] LABS: BASO # 0.1 10^3/uL (0.0-0.2); BASO % 0.6 % (0.0-1.0); EOS # 0.1 10^3/uL (0.0-0.5); EOS % 1.5 % (0.0-3.0); HEMATOCRIT 37.9 % (36.0-47.0); HEMOGLOBIN 12.1 g/dl (12.0-15.5); LYMPH # 2.1 10^3/uL (1.5-5.0); LYMPH % 26.9 % (24.0-44.0); MEAN CORPUSCULAR HEMOGLOBIN 31.4 pg (27.0-33.0); MEAN CORPUSCULAR HGB CONC 31.9 g/dl (32.0-36.5); MEAN CORPUSCULAR VOLUME 98.4 fl (80.0-96.0); MONO # 0.7 10^3/uL (0.0-0.8); MONO % 8.7 % (2.0-8.0); NEUTROPHILS # 4.8 10^3/uL (1.5-8.5); NEUTROPHILS % 60.9 % (36.0-66.0); PLATELET COUNT, AUTOMATED 289 10^3/uL (150-450); RED BLOOD COUNT 3.85 10^6/uL (4.00-5.40); WHITE BLOOD COUNT 7.8 10^3/uL (4.0-10.0)
[2021-11-09 15:18] LABS: ALBUMIN 3.4 GM/DL (3.2-5.2); BILIRUBIN,TOTAL 0.1 MG/DL (0.2-1.0); CALCIUM LEVEL 9.3 MG/DL (8.8-10.2); CHOLESTEROL RISK RATIO 3.714 (<5); CREATININE FOR GFR 1.56 MG/DL (0.55-1.30); GLOMERULAR FILTRATION RATE 43.1 (>45); POTASSIUM SERUM 4.8 MEQ/L (3.5-5.1); TOTAL PROTEIN 8.1 GM/DL (6.4-8.2)
== END ==
LOC: M PLALAB 11:53
PROVIDERS: ATTEND Family Medicine
DX: E78.2 Mixed hyperlipidemia (principal)

== ENCOUNTER → 2021-11-18 | Outpatient (CLI) | payer MEDICAID | LOC: M PAIN 09:00 | PROVIDERS: ATTEND Nurse Practitioner Family | DX: M79.10 Myalgia, unspecified site (principal); M51.16 Intervertebral disc disorders with radiculopathy, lumbar region; D50.9 Iron deficiency anemia, unspecified; K64.4 Residual hemorrhoidal skin tags; K64.8 Other hemorrhoids; K57.30 Diverticulosis of large intestine without perforation or abscess without bleeding; I12.9 Hypertensive chronic kidney disease with stage 1 through stage 4 chronic kidney disease, or unspecified chronic kidney disease; E78.5 Hyperlipidemia, unspecified; G43.009 Migraine without aura, not intractable, without status migrainosus; G35 Multiple sclerosis; K21.9 Gastro-esophageal reflux disease without esophagitis; G25.0 Essential tremor; E11.42 Type 2 diabetes mellitus with diabetic polyneuropathy; E11.22 Type 2 diabetes mellitus with diabetic chronic kidney disease; I25.10 Atherosclerotic heart disease of native coronary artery without angina pectoris; G93.2 Benign intracranial hypertension; N18.31 Chronic kidney disease, stage 3a; G40.309 Generalized idiopathic epilepsy and epileptic syndromes, not intractable, without status epilepticus; M51.36 Other intervertebral disc degeneration, lumbar region; M47.814 Spondylosis without myelopathy or radiculopathy, thoracic region; M47.812 Spondylosis without myelopathy or radiculopathy, cervical region; N28.1 Cyst of kidney, acquired; Z87.891 Personal history of nicotine dependence; Z79.82 Long term (current) use of aspirin; Z79.4 Long term (current) use of insulin; Z79.899 Other long term (current) drug therapy; Z88.8 Allergy status to other drugs, medicaments and biological substances; Z88.2 Allergy status to sulfonamides; Z88.5 Allergy status to narcotic agent ==

== ENCOUNTER → 2022-02-10 | Outpatient (CLI) | payer MEDICARE, MEDICAID ==
[~2022-02-10] MED LIST changes: +ASPE4LIQ TOP; +DIOV80TA3 PO; +ERGO500029 PO; +HYDR-3713 PO; +LIDO5DIS41 TOP; +ROSU5TAB5 PO; +TRES1INJ SC; -TRES1INJ SQ
== END ==
LOC: M PAIN 09:30
PROVIDERS: ATTEND Anesthesiology
DX: M50.10 Cervical disc disorder with radiculopathy, unspecified cervical region (principal); M25.512 Pain in left shoulder; D50.9 Iron deficiency anemia, unspecified; I12.9 Hypertensive chronic kidney disease with stage 1 through stage 4 chronic kidney disease, or unspecified chronic kidney disease; E78.5 Hyperlipidemia, unspecified; G43.009 Migraine without aura, not intractable, without status migrainosus; G35 Multiple sclerosis; K21.9 Gastro-esophageal reflux disease without esophagitis; G25.0 Essential tremor; E11.22 Type 2 diabetes mellitus with diabetic chronic kidney disease; E11.42 Type 2 diabetes mellitus with diabetic polyneuropathy; I25.10 Atherosclerotic heart disease of native coronary artery without angina pectoris; G93.2 Benign intracranial hypertension; N18.31 Chronic kidney disease, stage 3a; G40.309 Generalized idiopathic epilepsy and epileptic syndromes, not intractable, without status epilepticus; M47.816 Spondylosis without myelopathy or radiculopathy, lumbar region; M47.814 Spondylosis without myelopathy or radiculopathy, thoracic region; M47.812 Spondylosis without myelopathy or radiculopathy, cervical region; Z87.891 Personal history of nicotine dependence; Z79.82 Long term (current) use of aspirin; Z79.4 Long term (current) use of insulin; Z79.899 Other long term (current) drug therapy; Z88.5 Allergy status to narcotic agent; Z88.8 Allergy status to other drugs, medicaments and biological substances; Z88.2 Allergy status to sulfonamides

== ENCOUNTER 2022-02-12 17:11 | Inpatient (IN) | payer MEDICARE, MEDICAID ==
[~2022-02-12] VITALS: Ht 152.4 cm; Wt 72.7 kg
[~2022-02-12 17:11] MED LIST changes: -ASPE4LIQ TOP; -DIOV80TA3 PO; -ERGO500029 PO; -HYDR-3713 PO; -LIDO5DIS41 TOP; -ROSU5TAB5 PO; -TRES1INJ SC; +TRES1INJ SQ
[2022-02-12] MEDS ORDERED: LIDOCAINE 5% (LIDODERM) PATCH TD ONE (22:50)
[2022-02-12] MEDS ORDERED: NORCO, ANEXSIA 5/325MG TABLET (HYDROcodone/ACETAMINOPHEN) PO ONE (23:15)
[2022-02-13] MEDS ORDERED: HYDR-3713 PO ×2 (00:22→00:23)
[2022-02-13] MEDS ORDERED: SPIRONOLACTONE 25 MG TAB PO ONE ×2 (00:55→01:35)
[2022-02-13] MEDS ORDERED: CARVedilol 12.5 MG TAB PO ONE ×2 (00:55→01:35)
[2022-02-13] MEDS ORDERED: tiZANidine 4 MG TAB PO ONE (01:00)
[2022-02-13 01:21] LABS: BASO % 0.4 % (0.0-1.0); EOS # 0.1 10^3/uL (0.0-0.5); EOS % 1.8 % (0.0-3.0); HEMATOCRIT 39.9 % (36.0-47.0); HEMOGLOBIN 12.6 g/dl (12.0-15.5); LYMPH # 1.9 10^3/uL (1.5-5.0); LYMPH % 25.4 % (24.0-44.0); MEAN CORPUSCULAR HEMOGLOBIN 31.1 pg (27.0-33.0); MEAN CORPUSCULAR HGB CONC 31.6 g/dl (32.0-36.5); MEAN CORPUSCULAR VOLUME 98.5 fl (80.0-96.0); MONO # 0.5 10^3/uL (0.0-0.8); MONO % 7.1 % (2.0-8.0); NEUTROPHILS # 4.7 10^3/uL (1.5-8.5); NEUTROPHILS % 64.8 % (36.0-66.0); PLATELET COUNT, AUTOMATED 256 10^3/uL (150-450); RED BLOOD COUNT 4.05 10^6/uL (4.00-5.40); WHITE BLOOD COUNT 7.3 10^3/uL (4.0-10.0)
[2022-02-13 01:40] LABS: LIPASE 64 U/L (12-53)
[2022-02-13 01:42] LABS: ALBUMIN 3.6 G/DL (3.2-5.2); ALKALINE PHOSPHATASE 85 U/L (46-116); ALT/SGPT 19 U/L (7.0-40); AST/SGOT 22 U/L (<34); BILIRUBIN,DIRECT < 0.1 MG/DL (<0.4); BILIRUBIN,TOTAL < 0.2 MG/DL (0.3-1.2); CK-MB VALUE MASS 3.3 NG/ML (<3.6); TOTAL PROTEIN 7.8 G/DL (5.7-8.2)
[2022-02-13 01:52] LABS: MB/CK RELATIVE INDEX 0.61 (< OR =4)
[2022-02-13 02:11] LABS: BLOOD UREA NITROGEN 45 MG/DL (9-23); CALCIUM LEVEL 8.7 MG/DL (8.3-10.6); CARBON DIOXIDE LEVEL 26 MMOL/L (20-31); CHLORIDE LEVEL 106 MMOL/L (98-107); GLOMERULAR FILTRATION RATE 48.7 (>45); GLUCOSE, FASTING 218 MG/DL (74-106); POTASSIUM SERUM 3.7 MMOL/L (3.5-5.1); SODIUM LEVEL 140 MMOL/L (136-145)
[2022-02-13 04:23] LABS: CK-MB VALUE MASS 3.1 NG/ML (<3.6)
[2022-02-13 04:24] LABS: MB/CK RELATIVE INDEX 0.52 (< OR =4)
[2022-02-13] MEDS ORDERED: niCARdipine IV 40 MG in IV 1 EA IV SCH (04:35)
[2022-02-13] MEDS ORDERED: ERGO500029 PO (05:30)
[2022-02-13] MEDS ORDERED: ROSU5TAB5 PO (05:33)
[2022-02-13] MEDS ORDERED: HOME MED LIST COMPLETE! XX SCH (05:35)
[2022-02-13] MEDS ORDERED: cloNIDine 0.2 MG TAB PO ONE (06:00)
[2022-02-13] MEDS ORDERED: ACETAMINOPHEN TAB 650MG DOSE (2X325MG) PO PRN (06:40)
[2022-02-13] MEDS ORDERED: GLUCAGON INJ 1MG VIAL SC PRN (06:40)
[2022-02-13] MEDS ORDERED: GLUCOSE 4GM CHEW TABLET PO PRN (06:40)
[2022-02-13] MEDS ORDERED: ALBUTEROL 90 MCG/ACT 8GM HFA INHALER INH PRN (06:40)
[2022-02-13] MEDS ORDERED: HEPARIN SOD (PORCINE) 5000UNITS/ML 1ML VIAL/SYRINGE SC SCH (06:40)
[2022-02-13] MEDS ORDERED: DEXTROSE 50% 50 ML SYRINGE IV PRN (06:40)
[2022-02-13] MEDS ORDERED: NITROGLYCERIN 2% OINT 1 GM *U/D* PKT TOP ONE (07:00)
[2022-02-13] MEDS: INSULIN LISPRO (NovoLOG) PER UNIT SC SCH ×3 (07:59→17:22)
[2022-02-13] MEDS: tiZANidine 4 MG TAB PO SCH ×3 (08:18→16:15)
[2022-02-13] MEDS: NORCO, ANEXSIA 5/325MG TABLET (HYDROcodone/ACETAMINOPHEN) PO PRN ×3 (08:19→21:00)
[2022-02-13] MEDS: MAGNESIUM OXIDE 400MG TAB (MAG-OX) PO SCH (09:35)
[2022-02-13] MEDS: LIDOCAINE 5% (LIDODERM) PATCH TD SCH (09:35)
[2022-02-13] MEDS: EZETIMIBE 10MG TABLET (ZETIA) PO SCH (09:36)
[2022-02-13] MEDS: PANTOPRAZOLE 40MG TAB (PROTONIX) PO SCH (09:36)
[2022-02-13] MEDS: BACLOFEN 10 MG TAB PO SCH ×4 (09:36→21:01)
[2022-02-13] MEDS: ASPIRIN 81MG ENTERIC TABLET PO SCH (09:37)
[2022-02-13] MEDS: SENOKOT S TAB PO SCH (09:37)
[2022-02-13 09:55] LABS: RSV AMPLIFICATION NEGATIVE (NEGATIVE)
[2022-02-13 10:43] LABS: BLOOD UREA NITROGEN 31 MG/DL (9-23); CALCIUM LEVEL 8.8 MG/DL (8.3-10.6); CARBON DIOXIDE LEVEL 24 MMOL/L (20-31); CHLORIDE LEVEL 106 MMOL/L (98-107); CREATININE FOR GFR 1.02 MG/DL (0.55-1.30); GLOMERULAR FILTRATION RATE > 60.0 (>45); GLUCOSE, FASTING 242 MG/DL (74-106); POTASSIUM SERUM 4.1 MMOL/L (3.5-5.1); SODIUM LEVEL 140 MMOL/L (136-145)
[2022-02-13] MEDS ORDERED: LIDOCAINE 5% (LIDODERM) PATCH TD ONE (11:00)
[2022-02-13] MEDS ORDERED: fentaNYL 100 MCG/2 ML INJECTION IV ONE (11:00)
[2022-02-13 11:35] VITALS: BP 160/90
[2022-02-13] MEDS: PRIMIDONE 250 MG TAB PO SCH ×3 (12:00→21:02)
[2022-02-13] MEDS: CARVedilol 12.5 MG TAB PO SCH ×2 (12:13→21:01)
[2022-02-13] MEDS ORDERED: NS 500 ML IV ONE (12:50)
[2022-02-13] MEDS ORDERED: ISOVUE-370 76% 100ML VIAL As Ordered ONE (12:51)
[2022-02-13] MEDS ORDERED: LACTATED RINGER'S 1000 ML IV ONE (15:55)
[2022-02-13 16:30] VITALS: BP 160/98
[2022-02-13 17:38] VITALS: BP 180/98
[2022-02-13 20:00] VITALS: BP 178/94
[2022-02-13] MEDS ORDERED: tiZANidine 4 MG TAB PO SCH (21:00)
[2022-02-13] MEDS ORDERED: INSULIN LISPRO (NovoLOG) PER UNIT SC SCH (21:00)
[2022-02-13] MEDS ORDERED: LEVEMIR (INSULIN DETEMIR) 1 UNITS/0.01ML SC SCH (21:00)
[2022-02-13] MEDS ORDERED: traZODone 100 MG TAB PO SCH (21:00)
[2022-02-13 21:01] VITALS: BP 178/94
[2022-02-13] MEDS: HEPARIN SOD (PORCINE) 5000UNITS/ML 1ML VIAL/SYRINGE SQ SCH (21:03)
[2022-02-13 23:59] VITALS: BP 180/98
[2022-02-14 04:00] VITALS: BP 168/96
[2022-02-14 06:41] LABS: BASO % 0.7 % (0.0-1.0); EOS # 0.1 10^3/uL (0.0-0.5); EOS % 1.3 % (0.0-3.0); HEMATOCRIT 34.9 % (36.0-47.0); HEMOGLOBIN 11.2 g/dl (12.0-15.5); LYMPH # 1.6 10^3/uL (1.5-5.0); LYMPH % 26.4 % (24.0-44.0); MEAN CORPUSCULAR HEMOGLOBIN 31.5 pg (27.0-33.0); MEAN CORPUSCULAR HGB CONC 32.1 g/dl (32.0-36.5); MONO # 0.5 10^3/uL (0.0-0.8); MONO % 8.8 % (2.0-8.0); NEUTROPHILS # 3.8 10^3/uL (1.5-8.5); NEUTROPHILS % 62.1 % (36.0-66.0); PLATELET COUNT, AUTOMATED 226 10^3/uL (150-450); RED BLOOD COUNT 3.56 10^6/uL (4.00-5.40); WHITE BLOOD COUNT 6.1 10^3/uL (4.0-10.0)
[2022-02-14] MEDS: NORCO, ANEXSIA 5/325MG TABLET (HYDROcodone/ACETAMINOPHEN) PO PRN (06:41)
[2022-02-14] MEDS: HEPARIN SOD (PORCINE) 5000UNITS/ML 1ML VIAL/SYRINGE SQ SCH (06:41)
[2022-02-14 07:04] LABS: BLOOD UREA NITROGEN 29 MG/DL (9-23); CALCIUM LEVEL 8.9 MG/DL (8.3-10.6); CARBON DIOXIDE LEVEL 25 MMOL/L (20-31); CHLORIDE LEVEL 110 MMOL/L (98-107); CREATININE FOR GFR 0.99 MG/DL (0.55-1.30); GLOMERULAR FILTRATION RATE > 60.0 (>45); GLUCOSE, FASTING 87 MG/DL (74-106); POTASSIUM SERUM 4.1 MMOL/L (3.5-5.1); SODIUM LEVEL 142 MMOL/L (136-145)
[2022-02-14] MEDS: INSULIN LISPRO (NovoLOG) PER UNIT SC SCH (07:27)
[2022-02-14 08:00] VITALS: BP 180/92
[2022-02-14] MEDS ORDERED: AMLO1TAB24 PO (08:06)
[2022-02-14] MEDS ORDERED: LIDO5DIS41 TOP (08:08)
[2022-02-14] MEDS ORDERED: DICL1GEL3 TOP (08:09)
[2022-02-14] MEDS: tiZANidine 4 MG TAB PO SCH (08:41)
[2022-02-14] MEDS: PANTOPRAZOLE 40MG TAB (PROTONIX) PO SCH (08:41)
[2022-02-14] MEDS: CARVedilol 12.5 MG TAB PO SCH (08:41)
[2022-02-14] MEDS: PRIMIDONE 250 MG TAB PO SCH (08:42)
[2022-02-14] MEDS: BACLOFEN 10 MG TAB PO SCH (08:42)
[2022-02-14] MEDS: MAGNESIUM OXIDE 400MG TAB (MAG-OX) PO SCH (08:42)
[2022-02-14] MEDS: EZETIMIBE 10MG TABLET (ZETIA) PO SCH (08:42)
[2022-02-14] MEDS: ASPIRIN 81MG ENTERIC TABLET PO SCH (08:42)
[2022-02-14] MEDS: LIDOCAINE 5% (LIDODERM) PATCH TD SCH (08:43)
[2022-02-14] MEDS: SENOKOT S TAB PO SCH (08:45)
== END 2022-02-14 10:37 | disposition home or self-care (01) | DRG 305 ==
LOC: M ED 17:11 → M ED INP 02-13 05:59 → ENRESERV 02-13 10:21 → M PCU 02-13 11:38
PROVIDERS: ADMIT Internal Medicine; ATTEND Internal Medicine
DX: I16.0 Hypertensive urgency (principal); I50.22 Chronic systolic (congestive) heart failure; N17.9 Acute kidney failure, unspecified; I24.8 Other forms of acute ischemic heart disease; I16.1 Hypertensive emergency; I13.0 Hypertensive heart and chronic kidney disease with heart failure and stage 1 through stage 4 chronic kidney disease, or unspecified chronic kidney disease; M75.112 Incomplete rotator cuff tear or rupture of left shoulder, not specified as traumatic; E11.22 Type 2 diabetes mellitus with diabetic chronic kidney disease; I25.2 Old myocardial infarction; I25.10 Atherosclerotic heart disease of native coronary artery without angina pectoris; N18.31 Chronic kidney disease, stage 3a; K21.9 Gastro-esophageal reflux disease without esophagitis; G35 Multiple sclerosis; J45.909 Unspecified asthma, uncomplicated; Z87.891 Personal history of nicotine dependence; Z95.5 Presence of coronary angioplasty implant and graft; G43.909 Migraine, unspecified, not intractable, without status migrainosus; G47.00 Insomnia, unspecified; F32.A Depression, unspecified; F41.9 Anxiety disorder, unspecified; M54.2 Cervicalgia; M54.50 Low back pain, unspecified; D64.9 Anemia, unspecified; G89.29 Other chronic pain; Z98.41 Cataract extraction status, right eye; Z79.82 Long term (current) use of aspirin; Z79.899 Other long term (current) drug therapy; Z79.4 Long term (current) use of insulin; Z88.5 Allergy status to narcotic agent; Z88.2 Allergy status to sulfonamides; Z98.42 Cataract extraction status, left eye; Z88.8 Allergy status to other drugs, medicaments and biological substances

== ENCOUNTER 2022-02-24 11:19 | Inpatient (IN) | payer MEDICAID, MEDICARE ==
[~2022-02-24] VITALS: Ht 152.4 cm; Wt 75.3 kg
[2022-02-24] MEDS: LIDOCAINE 5% (LIDODERM) PATCH TD SCH (09:00)
[2022-02-24] MEDS: CHLORTHALIDONE 12.5MG PER 1/2 TABLET PO SCH (09:00)
[~2022-02-24 11:19] MED LIST changes: +ERGO500029 PO; +HYDR-3713 PO; +LIDO5DIS41 TOP; +ROSU5TAB5 PO; +TRES1INJ SC; -TRES1INJ SQ
[2022-02-24 11:55] LABS: BASO % 0.5 % (0.0-1.0); EOS # 0.1 10^3/uL (0.0-0.5); EOS % 1.9 % (0.0-3.0); HEMATOCRIT 36.8 % (36.0-47.0); HEMOGLOBIN 11.7 g/dl (12.0-15.5); LYMPH # 2.1 10^3/uL (1.5-5.0); LYMPH % 27.8 % (24.0-44.0); MEAN CORPUSCULAR HEMOGLOBIN 31.3 pg (27.0-33.0); MEAN CORPUSCULAR HGB CONC 31.8 g/dl (32.0-36.5); MEAN CORPUSCULAR VOLUME 98.4 fl (80.0-96.0); MONO # 0.7 10^3/uL (0.0-0.8); NEUTROPHILS # 4.5 10^3/uL (1.5-8.5); NEUTROPHILS % 60.1 % (36.0-66.0); PLATELET COUNT, AUTOMATED 281 10^3/uL (150-450); RED BLOOD COUNT 3.74 10^6/uL (4.00-5.40); WHITE BLOOD COUNT 7.4 10^3/uL (4.0-10.0)
[2022-02-24 12:10] LABS: INR 0.99; PROTHROMBIN TIME 13.3 SECONDS (12.5-14.5)
[2022-02-24 12:19] LABS: LIPASE 47 U/L (12-53)
[2022-02-24 12:21] LABS: ALBUMIN 3.3 G/DL (3.2-5.2); ALKALINE PHOSPHATASE 68 U/L (46-116); ALT/SGPT 20 U/L (7.0-40); AST/SGOT 31 U/L (<34); BILIRUBIN,DIRECT < 0.1 MG/DL (<0.4); BILIRUBIN,TOTAL 0.2 MG/DL (0.3-1.2); BLOOD UREA NITROGEN 32 MG/DL (9-23); CALCIUM LEVEL 8.9 MG/DL (8.3-10.6); CARBON DIOXIDE LEVEL 27 MMOL/L (20-31); CHLORIDE LEVEL 110 MMOL/L (98-107); CK-MB VALUE MASS 3.6 NG/ML (<3.6); CREATININE FOR GFR 1.11 MG/DL (0.55-1.30); GLOMERULAR FILTRATION RATE > 60.0 (>45); GLUCOSE, FASTING 137 MG/DL (74-106); POTASSIUM SERUM 4.1 MMOL/L (3.5-5.1); SODIUM LEVEL 142 MMOL/L (136-145); TOTAL PROTEIN 7.5 G/DL (5.7-8.2)
[2022-02-24 12:23] LABS: THYROID STIMULATING HORMONE 0.147 uIU/ML (0.55-4.78)
[2022-02-24] MEDS ORDERED: ONDANSETRON 4MG 2ML VIAL IV ONE (12:25)
[2022-02-24] MEDS ORDERED: MORPHINE 2 MG/ML 1ML VIAL IV PRN (12:25)
[2022-02-24 12:27] LABS: CPK CREATINE PHOSPHOKINASE 520 U/L (34-145); MB/CK RELATIVE INDEX 0.69 (< OR =4)
[2022-02-24] MEDS ORDERED: ASPIRIN 81MG CHEW TABLET PO ONE (12:40)
[2022-02-24] MEDS ORDERED: MORPHINE 4 MG/ML 1ML VIAL IV PRN (12:50)
[2022-02-24] MEDS ORDERED: hydrALAZINE 20MG/ML 1ML VIAL IV STA ×2 (12:52→13:46)
[2022-02-24 13:15] LABS: CK-MB VALUE MASS 4.2 NG/ML (<3.6)
[2022-02-24 13:29] LABS: MB/CK RELATIVE INDEX 0.86 (< OR =4)
[2022-02-24] MEDS ORDERED: HYDROMORPHONE HCL 0.5 MG/ 0.5 ML SYRINGE (J1170 PER 1) IV PRN (13:50)
[2022-02-24] MEDS ORDERED: ISOVUE-370 76% 100ML VIAL As Ordered ONE (14:35)
[2022-02-24] MEDS ORDERED: NITROGLYCERIN 0.4MG SUBL TABLET SL PRN (14:45)
[2022-02-24 15:38] LABS: CK-MB VALUE MASS 3.3 NG/ML (<3.6)
[2022-02-24 15:41] LABS: MB/CK RELATIVE INDEX 0.68 (< OR =4)
[2022-02-24] MEDS ORDERED: niCARdipine IV 40 MG in IV 1 EA IV SCH (15:55)
[2022-02-24] MEDS ORDERED: ONDANSETRON 4MG 2ML VIAL IV STA (17:03)
[2022-02-24] MEDS ORDERED: ACETAMINOPHEN TAB 650MG DOSE (2X325MG) PO PRN (18:45)
[2022-02-24] MEDS ORDERED: MOM 30ML SUSPENSION UDC PO PRN (18:45)
[2022-02-24] MEDS ORDERED: GLUCOSE 4GM CHEW TABLET PO PRN (19:00)
[2022-02-24] MEDS ORDERED: GLUCAGON INJ 1MG VIAL SC PRN (19:00)
[2022-02-24] MEDS ORDERED: DEXTROSE 50% 50 ML SYRINGE IV PRN (19:00)
[2022-02-24 19:22] LABS: FREE T4 0.99 NG/DL (0.89-1.76)
[2022-02-24 19:36] LABS: RSV AMPLIFICATION NEGATIVE (NEGATIVE)
[2022-02-24] MEDS ORDERED: SENN-52 PO (19:47)
[2022-02-24] MEDS ORDERED: AMLO1TAB24 PO (19:47)
[2022-02-24] MEDS ORDERED: MIRA3350 PO (19:47)
[2022-02-24] MEDS ORDERED: TRAM50TA2 PO (19:47)
[2022-02-24] MEDS ORDERED: ASPE4LIQ TOP (19:47)
[2022-02-24] MEDS: niCARdipine IV 40 MG in IV 1 EA IV SCH ×2 (19:50→22:38)
[2022-02-24] MEDS ORDERED: HOME MED LIST COMPLETE! XX SCH (19:50)
[2022-02-24] MEDS: INSULIN LISPRO (NovoLOG) PER UNIT SC SCH (21:00)
[2022-02-24 22:45] VITALS: BP 145/71
[2022-02-24] MEDS: traZODone 100 MG TAB PO SCH (22:51)
[2022-02-24] MEDS: tiZANidine 4 MG TAB PO SCH (22:52)
[2022-02-24] MEDS: BACLOFEN 10 MG TAB PO SCH (22:52)
[2022-02-24 23:15] VITALS: BP 118/63
[2022-02-25] VITALS (29 sets, daily range): BP systolic 101–233; BP diastolic 56–104
[2022-02-25] MEDS: niCARdipine IV 40 MG in IV 1 EA IV SCH ×4 (00:05→17:53)
[2022-02-25 06:20] LABS: ALKALINE PHOSPHATASE 63 U/L (46-116); ALT/SGPT 18 U/L (7.0-40); AST/SGOT 29 U/L (<34); BILIRUBIN,TOTAL 0.2 MG/DL (0.3-1.2); BLOOD UREA NITROGEN 31 MG/DL (9-23); CALCIUM LEVEL 8.8 MG/DL (8.3-10.6); CARBON DIOXIDE LEVEL 28 MMOL/L (20-31); CHLORIDE LEVEL 110 MMOL/L (98-107); CREATININE FOR GFR 1.16 MG/DL (0.55-1.30); GLOMERULAR FILTRATION RATE > 60.0 (>45); GLUCOSE, FASTING 67 MG/DL (74-106); POTASSIUM SERUM 4.3 MMOL/L (3.5-5.1); SODIUM LEVEL 143 MMOL/L (136-145); TOTAL PROTEIN 6.9 G/DL (5.7-8.2)
[2022-02-25] MEDS ORDERED: amLODIPine 5 MG TAB PO SCH (09:00)
[2022-02-25] MEDS ORDERED: TORSEMIDE 20 MG TAB PO SCH (09:00)
[2022-02-25] MEDS: CHLORTHALIDONE 12.5MG PER 1/2 TABLET PO SCH (09:03)
[2022-02-25] MEDS: ASPIRIN 81MG ENTERIC TABLET PO SCH (09:04)
[2022-02-25] MEDS: BACLOFEN 10 MG TAB PO SCH ×4 (09:05→20:14)
[2022-02-25] MEDS: CARVedilol 6.25 MG TAB PO SCH ×2 (09:05→20:15)
[2022-02-25] MEDS: LIDOCAINE 5% (LIDODERM) PATCH TD SCH (09:06)
[2022-02-25] MEDS: tiZANidine 4 MG TAB PO SCH ×4 (09:06→20:14)
[2022-02-25] MEDS: ENOXAPARIN 40MG/0.4ML SYRINGE (J1650 PER 10MG) SC SCH (09:06)
[2022-02-25] MEDS: INSULIN LISPRO (NovoLOG) PER UNIT SC SCH ×4 (09:07→20:22)
[2022-02-25] MEDS: PANTOPRAZOLE 40MG TAB (PROTONIX) PO SCH (09:08)
[2022-02-25] MEDS: PRIMIDONE 250 MG TAB PO SCH ×2 (09:16→20:15)
[2022-02-25] MEDS ORDERED: hydrALAZINE 20MG/ML 1ML VIAL IV ONE (13:45)
[2022-02-25] MEDS ORDERED: ALBUTEROL 90 MCG/ACT 8GM HFA INHALER INH PRN (13:55)
[2022-02-25] MEDS ORDERED: VALSARTAN 80 MG TAB (DIOVAN) PO ONE ×2 (15:00→15:40)
[2022-02-25] MEDS ORDERED: hydrALAZINE 20MG/ML 1ML VIAL IV PRN (15:45)
[2022-02-25] MEDS: traMADol 50 MG TAB PO PRN ×2 (16:48→20:26)
[2022-02-25] MEDS: hydrALAZINE 20MG/ML 1ML VIAL IV PRN (17:01)
[2022-02-25] MEDS ORDERED: hydrALAZINE 20MG/ML 1ML VIAL IV STA (17:39)
[2022-02-25] MEDS: MORPHINE 4 MG/ML 1ML VIAL IV PRN ×2 (17:44→22:35)
[2022-02-25] MEDS: valACYclovir HCL 500 MG TAB PO SCH (20:14)
[2022-02-25] MEDS: ROSUVASTATIN 10 MG TAB (CRESTOR) PO SCH (20:14)
[2022-02-25] MEDS: SENOKOT S TAB PO SCH (20:15)
[2022-02-25] MEDS: traZODone 100 MG TAB PO SCH (20:16)
[2022-02-25] MEDS: amLODIPine 5 MG TAB PO SCH (20:16)
[2022-02-26] VITALS (31 sets, daily range): BP systolic 114–213; BP diastolic 54–96
[2022-02-26] MEDS: niCARdipine IV 40 MG in IV 1 EA IV SCH (01:20)
[2022-02-26] MEDS ORDERED: HYDROMORPHONE HCL 0.5 MG/ 0.5 ML SYRINGE (J1170 PER 1) IV ONE (02:00)
[2022-02-26 04:50] LABS: HEMATOCRIT 33.5 % (36.0-47.0); MEAN CORPUSCULAR HEMOGLOBIN 32.1 pg (27.0-33.0); MEAN CORPUSCULAR HGB CONC 32.8 g/dl (32.0-36.5); MEAN CORPUSCULAR VOLUME 97.7 fl (80.0-96.0); PLATELET COUNT, AUTOMATED 268 10^3/uL (150-450); RED BLOOD COUNT 3.43 10^6/uL (4.00-5.40); WHITE BLOOD COUNT 7.5 10^3/uL (4.0-10.0)
[2022-02-26 05:15] LABS: MAGNESIUM LEVEL 1.6 MG/DL (1.8-2.4)
[2022-02-26 05:17] LABS: CALCIUM LEVEL 8.5 MG/DL (8.3-10.6); CREATININE FOR GFR 1.4 MG/DL (0.55-1.30); GLOMERULAR FILTRATION RATE 48.7 (>45); PHOSPHORUS LEVEL 3.1 MG/DL (2.4-5.1)
[2022-02-26] MEDS: INSULIN LISPRO (NovoLOG) PER UNIT SC SCH ×4 (07:41→20:36)
[2022-02-26] MEDS: MORPHINE 4 MG/ML 1ML VIAL IV PRN (07:42)
[2022-02-26] MEDS: BACLOFEN 10 MG TAB PO SCH (08:00)
[2022-02-26] MEDS: CARVedilol 6.25 MG TAB PO SCH (08:01)
[2022-02-26] MEDS: PRIMIDONE 250 MG TAB PO SCH ×2 (08:06→16:12)
[2022-02-26] MEDS: tiZANidine 4 MG TAB PO SCH ×4 (08:07→21:00)
[2022-02-26] MEDS ORDERED: MAG SULF 1GM/100ML (MAG RUN) 1 GM in IV 1 EA IV ONE (09:00)
[2022-02-26] MEDS ORDERED: VALSARTAN 80 MG TAB (DIOVAN) PO SCH ×2 (09:00)
[2022-02-26] MEDS: ASPIRIN 81MG ENTERIC TABLET PO SCH (09:02)
[2022-02-26] MEDS: PANTOPRAZOLE 40MG TAB (PROTONIX) PO SCH (09:03)
[2022-02-26] MEDS: amLODIPine 5 MG TAB PO SCH (09:03)
[2022-02-26] MEDS: CHLORTHALIDONE 25 MG TAB PO SCH (09:03)
[2022-02-26] MEDS: LIDOCAINE 5% (LIDODERM) PATCH TD SCH (09:05)
[2022-02-26] MEDS ORDERED: **hydrALAZINE HCL** 25 MG TAB PO SCH (09:30)
[2022-02-26] MEDS ORDERED: diphenhydrAMINE 25MG CAP PO ONE (10:10)
[2022-02-26] MEDS ORDERED: VALSARTAN 80 MG TAB (DIOVAN) PO ONE (10:10)
[2022-02-26] MEDS: ENOXAPARIN 40MG/0.4ML SYRINGE (J1650 PER 10MG) SC SCH (10:13)
[2022-02-26] MEDS: ACETAMINOPHEN 500 MG TAB PO SCH ×3 (10:17→21:00)
[2022-02-26] MEDS: EZETIMIBE 10MG TABLET (ZETIA) PO SCH (10:18)
[2022-02-26] MEDS: HYDROmorphone 4MG TABLET PO PRN ×2 (11:38→17:07)
[2022-02-26] MEDS: valACYclovir HCL 500 MG TAB PO SCH ×2 (12:27→21:00)
[2022-02-26] MEDS: traMADol 50 MG TAB PO PRN (16:11)
[2022-02-26] MEDS: hydrALAZINE 20MG/ML 1ML VIAL IV PRN ×2 (16:18→20:33)
[2022-02-26] MEDS ORDERED: MORPHINE 2 MG/ML 1ML VIAL IV ONE (20:00)
[2022-02-26] MEDS: SENOKOT S TAB PO SCH (21:00)
[2022-02-26] MEDS ORDERED: BISACODYL 10 MG SUPP PR ONE (21:00)
[2022-02-26] MEDS ORDERED: CARVedilol 12.5 MG TAB PO SCH (21:00)
[2022-02-26] MEDS: traZODone 100 MG TAB PO SCH (21:00)
[2022-02-26] MEDS: ROSUVASTATIN 10 MG TAB (CRESTOR) PO SCH (21:01)
[2022-02-27] VITALS (53 sets, daily range): BP systolic 118–214; BP diastolic 59–101
[2022-02-27] MEDS: hydrALAZINE 20MG/ML 1ML VIAL IV PRN (03:05)
[2022-02-27] MEDS: traMADol 50 MG TAB PO PRN (03:07)
[2022-02-27] MEDS: NITROGLYCERIN 0.4MG SUBL TABLET SL PRN ×2 (04:40→04:47)
[2022-02-27 04:53] LABS: MEAN CORPUSCULAR HGB CONC 33.3 g/dl (32.0-36.5); PLATELET COUNT, AUTOMATED 254 10^3/uL (150-450); RED BLOOD COUNT 3.75 10^6/uL (4.00-5.40); WHITE BLOOD COUNT 8.2 10^3/uL (4.0-10.0)
[2022-02-27] MEDS ORDERED: ONDANSETRON 4MG 2ML VIAL IV ONE (05:00)
[2022-02-27] MEDS ORDERED: hydrALAZINE 20MG/ML 1ML VIAL IV ONE (05:00)
[2022-02-27 05:20] LABS: MAGNESIUM LEVEL 1.7 MG/DL (1.8-2.4)
[2022-02-27 05:22] LABS: CALCIUM LEVEL 9.3 MG/DL (8.3-10.6); CREATININE FOR GFR 1.21 MG/DL (0.55-1.30); GLOMERULAR FILTRATION RATE 57.6 (>45); PHOSPHORUS LEVEL 3.2 MG/DL (2.4-5.1); POTASSIUM SERUM 3.8 MMOL/L (3.5-5.1)
[2022-02-27] MEDS ORDERED: ASPIRIN 81MG CHEW TABLET PO STA (05:26)
[2022-02-27] MEDS ORDERED: HEPARIN SOD (PORCINE) 5000UNITS/ML 1ML VIAL/SYRINGE IV PRN (05:30)
[2022-02-27] MEDS ORDERED: NITROGLYCERIN/D5W 100MCG/ML 25 MG in IV 1 EA IV SCH (05:45)
[2022-02-27] MEDS ORDERED: CARVedilol 12.5 MG TAB PO ONE (06:00)
[2022-02-27] MEDS ORDERED: ACETAMINOPHEN 1000MG 100ML IV BAG IV ONE (06:00)
[2022-02-27] MEDS ORDERED: HEPARIN SOD (PORCINE) 5000UNITS/ML 1ML VIAL/SYRINGE IV ONE (06:05)
[2022-02-27] MEDS ORDERED: HEPARIN DRIP 25,000 UNITS in IV 1 EA IV SCH (06:05)
[2022-02-27] MEDS: INSULIN LISPRO (NovoLOG) PER UNIT SC SCH (07:30)
[2022-02-27] MEDS: CHLORTHALIDONE 25 MG TAB PO SCH (07:40)
[2022-02-27] MEDS ORDERED: DIOV80TA3 PO (07:42)
[2022-02-27] MEDS ORDERED: CHLO25TA PO (07:42)
[2022-02-27] MEDS: LIDOCAINE 5% (LIDODERM) PATCH TD SCH (07:48)
[2022-02-27] MEDS: valACYclovir HCL 500 MG TAB PO SCH (07:49)
[2022-02-27] MEDS: PRIMIDONE 250 MG TAB PO SCH (07:49)
[2022-02-27] MEDS: tiZANidine 4 MG TAB PO SCH (07:49)
[2022-02-27] MEDS: PANTOPRAZOLE 40MG TAB (PROTONIX) PO SCH (07:49)
[2022-02-27] MEDS: ASPIRIN 81MG ENTERIC TABLET PO SCH (07:49)
[2022-02-27] MEDS: EZETIMIBE 10MG TABLET (ZETIA) PO SCH (07:49)
[2022-02-27] MEDS: ACETAMINOPHEN 500 MG TAB PO SCH (07:50)
[2022-02-27] MEDS ORDERED: VALSARTAN 80 MG TAB (DIOVAN) PO SCH (09:00)
[2022-02-27] MEDS ORDERED: CARVedilol 12.5 MG TAB PO SCH (09:00)
== END 2022-02-27 08:41 | disposition short-term general hospital (02) | DRG 281 ==
LOC: M ED 11:19 → M ED INP 18:43 → M ICU 22:13
PROVIDERS: ADMIT Internal Medicine Pulmonary Disease; ATTEND Internal Medicine
PROC: B246ZZZ Ultrasonography of Right and Left Heart (ICD-10-PCS; principal; 2022-02-25)
DX: I16.0 Hypertensive urgency (principal); I21.4 Non-ST elevation (NSTEMI) myocardial infarction; I50.32 Chronic diastolic (congestive) heart failure; I16.1 Hypertensive emergency; I25.2 Old myocardial infarction; I25.10 Atherosclerotic heart disease of native coronary artery without angina pectoris; M47.812 Spondylosis without myelopathy or radiculopathy, cervical region; M50.30 Other cervical disc degeneration, unspecified cervical region; G43.909 Migraine, unspecified, not intractable, without status migrainosus; N18.30 Chronic kidney disease, stage 3 unspecified; G47.00 Insomnia, unspecified; E78.5 Hyperlipidemia, unspecified; J45.909 Unspecified asthma, uncomplicated; K21.9 Gastro-esophageal reflux disease without esophagitis; G89.29 Other chronic pain; E01.0 Iodine-deficiency related diffuse (endemic) goiter; E11.22 Type 2 diabetes mellitus with diabetic chronic kidney disease; I13.0 Hypertensive heart and chronic kidney disease with heart failure and stage 1 through stage 4 chronic kidney disease, or unspecified chronic kidney disease; Z79.4 Long term (current) use of insulin; Z79.82 Long term (current) use of aspirin; Z79.899 Other long term (current) drug therapy; Z88.2 Allergy status to sulfonamides; Z88.5 Allergy status to narcotic agent; Z88.8 Allergy status to other drugs, medicaments and biological substances; Z98.41 Cataract extraction status, right eye; Z98.42 Cataract extraction status, left eye; Z87.891 Personal history of nicotine dependence; Z95.5 Presence of coronary angioplasty implant and graft

== ENCOUNTER → 2022-04-02 | Outpatient (CLI) | payer MEDICARE, MEDICAID ==
[~2022-04-02] MED LIST changes: +ASPE4LIQ TOP; +DIOV80TA3 PO
== END ==
LOC: M PLAIMG 09:47
PROVIDERS: ATTEND Anesthesiology
DX: M25.78 Osteophyte, vertebrae (principal); M50.221 Other cervical disc displacement at C4-C5 level; M50.222 Other cervical disc displacement at C5-C6 level; M50.223 Other cervical disc displacement at C6-C7 level

== ENCOUNTER → 2022-04-08 | Outpatient (CLI) | payer MEDICARE, MEDICAID ==
[2022-04-08 13:54] LABS: BASO % 0.5 % (0.0-1.0); EOS # 0.1 10^3/uL (0.0-0.5); EOS % 1.1 % (0.0-3.0); HEMATOCRIT 39.1 % (36.0-47.0); HEMOGLOBIN 12.3 g/dl (12.0-15.5); LYMPH # 2.2 10^3/uL (1.5-5.0); LYMPH % 27.9 % (24.0-44.0); MEAN CORPUSCULAR HEMOGLOBIN 31.7 pg (27.0-33.0); MEAN CORPUSCULAR HGB CONC 31.5 g/dl (32.0-36.5); MEAN CORPUSCULAR VOLUME 100.8 fl (80.0-96.0); MONO # 0.6 10^3/uL (0.0-0.8); MONO % 7.6 % (2.0-8.0); NEUTROPHILS # 4.9 10^3/uL (1.5-8.5); NEUTROPHILS % 61.8 % (36.0-66.0); PLATELET COUNT, AUTOMATED 307 10^3/uL (150-450); RED BLOOD COUNT 3.88 10^6/uL (4.00-5.40); WHITE BLOOD COUNT 7.9 10^3/uL (4.0-10.0)
[2022-04-08 14:02] LABS: HEMOGLOBIN A1c 6.4 % (4.0-6.0)
[2022-04-08 14:19] LABS: ALBUMIN 3.9 G/DL (3.2-5.2); BILIRUBIN,TOTAL 0.2 MG/DL (0.3-1.2); CALCIUM LEVEL 9.6 MG/DL (8.3-10.6); CREATININE FOR GFR 1.38 MG/DL (0.55-1.30); FREE T4 1.29 NG/DL (0.89-1.76); GLOMERULAR FILTRATION RATE 49.5 (>45); POTASSIUM SERUM 4.9 MMOL/L (3.5-5.1); THYROID STIMULATING HORMONE 0.013 uIU/ML (0.55-4.78); TOTAL PROTEIN 8.4 G/DL (5.7-8.2)
== END ==
LOC: M PLALAB 11:20
PROVIDERS: ATTEND Family Medicine
DX: I10 Essential (primary) hypertension (principal); Z79.899 Other long term (current) drug therapy

== ENCOUNTER → 2022-04-13 | Outpatient (CLI) | payer MEDICARE, MEDICAID | LOC: M PAIN 09:30 | PROVIDERS: ATTEND Nurse Practitioner Family | DX: M54.6 Pain in thoracic spine (principal); M54.50 Low back pain, unspecified; G89.29 Other chronic pain; E11.40 Type 2 diabetes mellitus with diabetic neuropathy, unspecified; I10 Essential (primary) hypertension; G43.909 Migraine, unspecified, not intractable, without status migrainosus; G35 Multiple sclerosis; K21.9 Gastro-esophageal reflux disease without esophagitis; G40.909 Epilepsy, unspecified, not intractable, without status epilepticus; I25.2 Old myocardial infarction; Z95.5 Presence of coronary angioplasty implant and graft; Z87.891 Personal history of nicotine dependence; Z88.2 Allergy status to sulfonamides; Z88.5 Allergy status to narcotic agent; Z88.8 Allergy status to other drugs, medicaments and biological substances; Z79.82 Long term (current) use of aspirin; Z79.4 Long term (current) use of insulin; Z79.891 Long term (current) use of opiate analgesic; Z79.899 Other long term (current) drug therapy ==

== ENCOUNTER → 2022-06-08 | Outpatient (CLI) | payer MEDICARE, MEDICAID | LOC: M PLAIMG 09:50 | PROVIDERS: ATTEND Nurse Practitioner Family | DX: M51.16 Intervertebral disc disorders with radiculopathy, lumbar region (principal) ==

== ENCOUNTER → 2022-06-10 | Outpatient (CLI) | payer MEDICARE, MEDICAID | LOC: M PAIN 09:30 | PROVIDERS: ATTEND Nurse Practitioner Family | DX: M79.18 Myalgia, other site (principal); M54.6 Pain in thoracic spine; M54.50 Low back pain, unspecified; G89.29 Other chronic pain; E11.42 Type 2 diabetes mellitus with diabetic polyneuropathy; I12.9 Hypertensive chronic kidney disease with stage 1 through stage 4 chronic kidney disease, or unspecified chronic kidney disease; G43.909 Migraine, unspecified, not intractable, without status migrainosus; G35 Multiple sclerosis; K21.9 Gastro-esophageal reflux disease without esophagitis; G40.909 Epilepsy, unspecified, not intractable, without status epilepticus; M47.814 Spondylosis without myelopathy or radiculopathy, thoracic region; M47.812 Spondylosis without myelopathy or radiculopathy, cervical region; N18.31 Chronic kidney disease, stage 3a; I25.2 Old myocardial infarction; G25.0 Essential tremor; Z95.5 Presence of coronary angioplasty implant and graft; Z87.891 Personal history of nicotine dependence; Z88.2 Allergy status to sulfonamides; Z88.5 Allergy status to narcotic agent; Z88.8 Allergy status to other drugs, medicaments and biological substances; Z79.82 Long term (current) use of aspirin; Z79.4 Long term (current) use of insulin; Z79.891 Long term (current) use of opiate analgesic; Z79.899 Other long term (current) drug therapy ==

== ENCOUNTER → 2022-06-17 | Outpatient (CLI) | payer MEDICARE, MEDICAID ==
[~2022-06-17] MED LIST changes: +ENAL1TAB52 PO; -ENAL20TA11 PO
== END ==
LOC: M PAIN 09:45
PROVIDERS: ATTEND Nurse Practitioner Family
DX: M79.10 Myalgia, unspecified site (principal); G89.29 Other chronic pain; E11.40 Type 2 diabetes mellitus with diabetic neuropathy, unspecified; I10 Essential (primary) hypertension; G43.909 Migraine, unspecified, not intractable, without status migrainosus; G35 Multiple sclerosis; K21.9 Gastro-esophageal reflux disease without esophagitis; G40.909 Epilepsy, unspecified, not intractable, without status epilepticus; I25.2 Old myocardial infarction; Z95.5 Presence of coronary angioplasty implant and graft; Z87.891 Personal history of nicotine dependence; Z88.2 Allergy status to sulfonamides; Z88.5 Allergy status to narcotic agent; Z88.8 Allergy status to other drugs, medicaments and biological substances; Z79.4 Long term (current) use of insulin; Z79.82 Long term (current) use of aspirin; Z79.891 Long term (current) use of opiate analgesic; Z79.899 Other long term (current) drug therapy

== ENCOUNTER → 2022-07-22 | Outpatient (CLI) | payer MEDICARE, MEDICAID ==
[~2022-07-22] MED LIST changes: -LOSA100T45 PO; +LOSA100T46 PO
== END ==
LOC: M WUC 10:21
PROVIDERS: ATTEND Nurse Practitioner Family
DX: R29.6 Repeated falls (principal); M54.50 Low back pain, unspecified; M25.551 Pain in right hip

== ENCOUNTER → 2022-08-17 | Outpatient (CLI) | payer MEDICARE, MEDICAID ==
[~2022-08-17] MED LIST changes: +SENN-111 PO; -SENN18TA PO
[2022-08-17 17:01] LABS: BASO % 0.6 % (0.0-1.0); EOS # 0.1 10^3/uL (0.0-0.5); EOS % 0.8 % (0.0-3.0); HEMATOCRIT 38.6 % (36.0-47.0); HEMOGLOBIN 12.5 g/dl (12.0-15.5); LYMPH # 1.7 10^3/uL (1.5-5.0); LYMPH % 23.7 % (24.0-44.0); MEAN CORPUSCULAR HEMOGLOBIN 31.3 pg (27.0-33.0); MEAN CORPUSCULAR HGB CONC 32.4 g/dl (32.0-36.5); MEAN CORPUSCULAR VOLUME 96.5 fl (80.0-96.0); MONO # 0.6 10^3/uL (0.0-0.8); MONO % 8.5 % (2.0-8.0); NEUTROPHILS # 4.7 10^3/uL (1.5-8.5); NEUTROPHILS % 64.7 % (36.0-66.0); PLATELET COUNT, AUTOMATED 291 10^3/uL (150-450); WHITE BLOOD COUNT 7.3 10^3/uL (4.0-10.0)
[2022-08-17 17:30] LABS: ALBUMIN 3.6 G/DL (3.2-5.2); ALKALINE PHOSPHATASE 84 U/L (46-116); ALT/SGPT 16 U/L (7.0-40); AST/SGOT 14 U/L (<34); BILIRUBIN,TOTAL 0.2 MG/DL (0.3-1.2); BLOOD UREA NITROGEN 44 MG/DL (9-23); CALCIUM LEVEL 9.7 MG/DL (8.3-10.6); CARBON DIOXIDE LEVEL 27 MMOL/L (20-31); CHLORIDE LEVEL 105 MMOL/L (98-107); CREATININE FOR GFR 1.14 MG/DL (0.55-1.30); GLOMERULAR FILTRATION RATE > 60.0 (>45); GLUCOSE, FASTING 142 MG/DL (74-106); MAGNESIUM LEVEL 1.6 MG/DL (1.8-2.4); POTASSIUM SERUM 4.2 MMOL/L (3.5-5.1); SODIUM LEVEL 141 MMOL/L (136-145); TOTAL PROTEIN 8.1 G/DL (5.7-8.2)
[2022-08-17 17:31] LABS: FERRITIN 57.3 NG/ML (7.3-270.7)
== END ==
LOC: M PLALAB 13:19
PROVIDERS: ATTEND Family Medicine
DX: Z01.818 Encounter for other preprocedural examination (principal); I10 Essential (primary) hypertension; E11.40 Type 2 diabetes mellitus with diabetic neuropathy, unspecified

== ENCOUNTER → 2022-09-13 | Outpatient (CLI) | payer MEDICARE, MEDICAID ==
[~2022-09-13] MED LIST changes: +TRIAMCINOLONE ACETONIDE SUSP 40MG/ML 1ML VIAL As Ordered ONE; +diazePAM 2 MG TAB As Ordered ONE; +diazePAM 5MG TABLET As Ordered ONE
== END ==
LOC: M PAIN 08:15
PROVIDERS: ATTEND Anesthesiology
DX: M79.18 Myalgia, other site (principal); G89.29 Other chronic pain; E11.40 Type 2 diabetes mellitus with diabetic neuropathy, unspecified; I10 Essential (primary) hypertension; G43.909 Migraine, unspecified, not intractable, without status migrainosus; G35 Multiple sclerosis; K21.9 Gastro-esophageal reflux disease without esophagitis; G40.909 Epilepsy, unspecified, not intractable, without status epilepticus; Z87.891 Personal history of nicotine dependence; Z88.2 Allergy status to sulfonamides; Z88.5 Allergy status to narcotic agent; Z88.8 Allergy status to other drugs, medicaments and biological substances; Z79.82 Long term (current) use of aspirin; Z79.891 Long term (current) use of opiate analgesic; Z79.899 Other long term (current) drug therapy
CPT/HCPCS: 20553; J3301

== ENCOUNTER 2022-10-20 09:11 | Inpatient (IN) | payer MEDICARE, MEDICAID ==
[~2022-10-20] VITALS: Ht 152.4 cm; Wt 83.5 kg
[~2022-10-20 09:11] MED LIST changes: +DICL100G10 TOP; -DICL1GEL3 TOP; -GABA-283 PO; +GABA-284 PO; -TRIAMCINOLONE ACETONIDE SUSP 40MG/ML 1ML VIAL As Ordered ONE; -diazePAM 2 MG TAB As Ordered ONE; -diazePAM 5MG TABLET As Ordered ONE
[2022-10-20 12:50] LABS: BASO % 0.5 % (0.0-1.0); EOS # 0.1 10^3/uL (0.0-0.5); EOS % 0.9 % (0.0-3.0); HEMATOCRIT 39.1 % (36.0-47.0); HEMOGLOBIN 12.8 g/dl (12.0-15.5); LYMPH # 1.8 10^3/uL (1.5-5.0); LYMPH % 23.7 % (24.0-44.0); MEAN CORPUSCULAR HEMOGLOBIN 31.8 pg (27.0-33.0); MEAN CORPUSCULAR HGB CONC 32.7 g/dl (32.0-36.5); MEAN CORPUSCULAR VOLUME 97.3 fl (80.0-96.0); MONO # 0.6 10^3/uL (0.0-0.8); MONO % 7.5 % (2.0-8.0); NEUTROPHILS % 66.5 % (36.0-66.0); PLATELET COUNT, AUTOMATED 275 10^3/uL (150-450); RED BLOOD COUNT 4.02 10^6/uL (4.00-5.40); WHITE BLOOD COUNT 7.6 10^3/uL (4.0-10.0)
[2022-10-20 13:01] LABS: INR 1.07; PROTHROMBIN TIME 14.1 SECONDS (12.5-14.5)
[2022-10-20 13:02] LABS: PARTIAL THROMBOPLASTIN TIME 25.9 SECONDS (24.8-34.2)
[2022-10-20 13:17] LABS: BLOOD UREA NITROGEN 35 MG/DL (9-23); CALCIUM LEVEL 9.8 MG/DL (8.3-10.6); CARBON DIOXIDE LEVEL 30 MMOL/L (20-31); CHLORIDE LEVEL 102 MMOL/L (98-107); CK-MB VALUE MASS 1.2 NG/ML (<3.6); CPK CREATINE PHOSPHOKINASE 356 U/L (34-145); CREATININE FOR GFR 1.11 MG/DL (0.55-1.30); GLOMERULAR FILTRATION RATE > 60.0 (>45); GLUCOSE, FASTING 91 MG/DL (74-106); MB/CK RELATIVE INDEX 0.33 (< OR =4); SODIUM LEVEL 141 MMOL/L (136-145)
[2022-10-20] MEDS ORDERED: ACETAMINOPHEN 500 MG TAB PO ONE (13:40)
[2022-10-20 14:18] LABS: CK-MB VALUE MASS < 1.0 NG/ML (<3.6)
[2022-10-20 14:23] LABS: CPK CREATINE PHOSPHOKINASE 329 U/L (34-145)
[2022-10-20] MEDS ORDERED: FUROSEMIDE 20MG/2ML VIAL IV ONE (15:00)
[2022-10-20] MEDS ORDERED: BACLOFEN 10 MG TAB PO ONE (15:50)
[2022-10-20] MEDS ORDERED: tiZANidine 4 MG TAB PO ONE (17:40)
[2022-10-20] MEDS ORDERED: MED REC IN PROGRESS XX SCH (17:50)
[2022-10-20] MEDS ORDERED: DEXTROSE 50% 50ML SYRINGE IV PRN (21:25)
[2022-10-20] MEDS ORDERED: GLUCAGON INJ 1MG VIAL SC PRN (21:25)
[2022-10-20] MEDS ORDERED: GLUCOSE 4GM CHEW TABLET PO PRN (21:25)
[2022-10-20 21:46] LABS: ALBUMIN 3.5 G/DL (3.2-5.2); ALKALINE PHOSPHATASE 83 U/L (46-116); ALT/SGPT 15 U/L (7.0-40); AST/SGOT 19 U/L (<34); BILIRUBIN,DIRECT < 0.1 MG/DL (<0.4); BILIRUBIN,TOTAL 0.2 MG/DL (0.3-1.2)
[2022-10-20] MEDS ORDERED: COLCHICINE 0.6 MG TABLET PO ONE (22:00)
[2022-10-20 22:05] VITALS: BP 208/106; TEMP 98.6; O2SAT 98
[2022-10-20] MEDS ORDERED: VALSARTAN 80 MG TAB (DIOVAN) PO ONE (22:05)
[2022-10-20] MEDS ORDERED: CARVedilol 12.5 MG TAB PO ONE (22:05)
[2022-10-20] MEDS ORDERED: CHLORTHALIDONE 25 MG TAB PO ONE (22:05)
[2022-10-20 22:35] LABS: URIC ACID 10.5 MG/DL (3.1-7.8)
[2022-10-20] MEDS ORDERED: LEVEMIR (INSULIN DETEMIR) 1 UNITS/0.01ML SC ONE (23:30)
[2022-10-20] MEDS ORDERED: TORS20TA2 PO (23:30)
[2022-10-20] MEDS ORDERED: ANUS2.5C2 PR (23:30)
[2022-10-20] MEDS ORDERED: BELB150M SL (23:30)
[2022-10-20] MEDS ORDERED: CLOP75TA2 PO (23:30)
[2022-10-20] MEDS ORDERED: SPIR-10 PO (23:30)
[2022-10-20] MEDS ORDERED: ANUSOL HC CREAM 30GM PR PRN (23:35)
[2022-10-20] MEDS ORDERED: HOME MED LIST COMPLETE! XX SCH (23:35)
[2022-10-20] MEDS ORDERED: NITROGLYCERIN 0.4MG SUBL TABLET SL PRN (23:35)
[2022-10-20] MEDS ORDERED: LIDOCAINE 5% (LIDODERM) PATCH TOP PRN (23:35)
[2022-10-20] MEDS ORDERED: ALBUTEROL 90 MCG/ACT 8GM HFA INHALER INH PRN (23:35)
[2022-10-21] VITALS (25 sets, daily range): BP systolic 102–200; BP diastolic 62–98; TEMP 97.2–98.7; O2SAT 93–97
[2022-10-21] MEDS ORDERED: tiZANidine 4 MG TAB PO ONE (00:30)
[2022-10-21] MEDS ORDERED: BACLOFEN 10 MG TAB PO ONE (00:30)
[2022-10-21] MEDS ORDERED: traZODone 100 MG TAB PO ONE (00:30)
[2022-10-21] MEDS ORDERED: hydrALAZINE 20MG/ML 1ML VIAL IV STA (01:04)
[2022-10-21] MEDS ORDERED: methylPREDNISolone 40MG 1ML VIAL IV ONE (02:00)
[2022-10-21] MEDS: HYDROMORPHONE HCL 0.5 MG/ 0.5 ML SYRINGE IV PRN ×3 (03:15→10:23)
[2022-10-21] MEDS ORDERED: HYDROMORPHONE HCL 0.5 MG/ 0.5 ML SYRINGE IV ONE (04:30)
[2022-10-21 06:52] LABS: BLOOD UREA NITROGEN 33 MG/DL (9-23); CALCIUM LEVEL 9.2 MG/DL (8.3-10.6); CARBON DIOXIDE LEVEL 24 MMOL/L (20-31); CHLORIDE LEVEL 98 MMOL/L (98-107); CREATININE FOR GFR 1.04 MG/DL (0.55-1.30); GLOMERULAR FILTRATION RATE > 60.0 (>45); GLUCOSE, FASTING 149 MG/DL (74-106); POTASSIUM SERUM 4.1 MMOL/L (3.5-5.1); SODIUM LEVEL 133 MMOL/L (136-145)
[2022-10-21 07:05] LABS: HEMOGLOBIN A1c 6.6 % (4.0-6.0)
[2022-10-21 07:23] LABS: MAGNESIUM LEVEL 1.6 MG/DL (1.8-2.4)
[2022-10-21] MEDS: EZETIMIBE 10MG TABLET (ZETIA) PO SCH (08:37)
[2022-10-21] MEDS: PRIMIDONE 250 MG TAB PO SCH ×3 (08:38→18:12)
[2022-10-21] MEDS: ASPIRIN 81MG ENTERIC TABLET PO SCH (08:38)
[2022-10-21] MEDS: BACLOFEN 10 MG TAB PO SCH ×4 (08:38→20:52)
[2022-10-21] MEDS: CLOPIDOGREL 75 MG TAB PO SCH (08:38)
[2022-10-21] MEDS: PANTOPRAZOLE 40MG TAB (PROTONIX) PO SCH (08:38)
[2022-10-21] MEDS: tiZANidine 4 MG TAB PO SCH ×4 (08:38→20:52)
[2022-10-21] MEDS: valACYclovir HCL 500 MG TAB PO SCH ×2 (08:38→20:52)
[2022-10-21] MEDS: CARVedilol 12.5 MG TAB PO SCH ×2 (08:40→20:51)
[2022-10-21] MEDS: ACETAMINOPHEN TAB 650MG DOSE (2X325MG) PO PRN ×2 (08:40→20:55)
[2022-10-21] MEDS ORDERED: SPIRONOLACTONE 25 MG TAB PO SCH (09:00)
[2022-10-21] MEDS ORDERED: TORSEMIDE 20 MG TAB PO SCH (09:00)
[2022-10-21] MEDS: MAG SULF 1GM/100ML (MAG RUN) 1 GM in IV 1 EA IV SCH ×2 (10:38→12:29)
[2022-10-21] MEDS: ATORVASTATIN 20 MG TAB PO SCH (12:29)
[2022-10-21] MEDS ORDERED: ADMELOG SQ PRN (12:35)
[2022-10-21] MEDS: traZODone 100 MG TAB PO SCH (20:51)
[2022-10-21] MEDS: ENOXAPARIN 40MG/0.4ML SYRINGE (J1650 PER 10MG) SC SCH (20:52)
[2022-10-21] MEDS: LEVEMIR (INSULIN DETEMIR) 1 UNITS/0.01ML SC SCH (20:54)
[2022-10-22] VITALS (16 sets, daily range): BP systolic 98–165; BP diastolic 57–84; TEMP 96.6–98.6; O2SAT 93–97
[2022-10-22 05:39] LABS: HEMATOCRIT 35.4 % (36.0-47.0); HEMOGLOBIN 11.6 g/dl (12.0-15.5); MEAN CORPUSCULAR HEMOGLOBIN 31.8 pg (27.0-33.0); MEAN CORPUSCULAR HGB CONC 32.8 g/dl (32.0-36.5); PLATELET COUNT, AUTOMATED 251 10^3/uL (150-450); RED BLOOD COUNT 3.65 10^6/uL (4.00-5.40); WHITE BLOOD COUNT 7.1 10^3/uL (4.0-10.0)
[2022-10-22 06:11] LABS: CALCIUM LEVEL 8.2 MG/DL (8.3-10.6); CREATININE FOR GFR 1.49 MG/DL (0.55-1.30); GLOMERULAR FILTRATION RATE 45.3 (>45); MAGNESIUM LEVEL 2.4 MG/DL (1.8-2.4); POTASSIUM SERUM 3.7 MMOL/L (3.5-5.1)
[2022-10-22] MEDS: ACETAMINOPHEN TAB 650MG DOSE (2X325MG) PO PRN (09:14)
[2022-10-22] MEDS: CARVedilol 12.5 MG TAB PO SCH ×2 (09:15→20:36)
[2022-10-22] MEDS: ATORVASTATIN 20 MG TAB PO SCH (09:15)
[2022-10-22] MEDS: CLOPIDOGREL 75 MG TAB PO SCH (09:15)
[2022-10-22] MEDS: ASPIRIN 81MG ENTERIC TABLET PO SCH (09:15)
[2022-10-22] MEDS: EZETIMIBE 10MG TABLET (ZETIA) PO SCH (09:15)
[2022-10-22] MEDS: BACLOFEN 10 MG TAB PO SCH ×4 (09:16→20:36)
[2022-10-22] MEDS: valACYclovir HCL 500 MG TAB PO SCH ×2 (09:20→20:40)
[2022-10-22] MEDS: tiZANidine 4 MG TAB PO SCH ×4 (09:20→20:36)
[2022-10-22] MEDS: PRIMIDONE 250 MG TAB PO SCH ×3 (09:20→17:41)
[2022-10-22] MEDS: PANTOPRAZOLE 40MG TAB (PROTONIX) PO SCH (09:22)
[2022-10-22 13:51] LABS: CALCIUM LEVEL 8.7 MG/DL (8.3-10.6); CREATININE FOR GFR 1.32 MG/DL (0.55-1.30); GLOMERULAR FILTRATION RATE 52.1 (>45)
[2022-10-22] MEDS: traZODone 100 MG TAB PO SCH (20:36)
[2022-10-22] MEDS: LEVEMIR (INSULIN DETEMIR) 1 UNITS/0.01ML SC SCH ×2 (20:36→20:42)
[2022-10-22] MEDS: ENOXAPARIN 40MG/0.4ML SYRINGE (J1650 PER 10MG) SC SCH (20:37)
[2022-10-22] MEDS ORDERED: LIDOCAINE 4% CREAM 5GM (LMX4) TOP ONE (22:25)
[2022-10-23] VITALS: BP 129/72; TEMP 96.4; O2SAT 95
[2022-10-23 03:44] VITALS: BP 140/74; TEMP 97.5; O2SAT 94
[2022-10-23 06:00] LABS: BASO % 0.7 % (0.0-1.0); EOS # 0.1 10^3/uL (0.0-0.5); EOS % 1.4 % (0.0-3.0); HEMATOCRIT 36.5 % (36.0-47.0); HEMOGLOBIN 11.8 g/dl (12.0-15.5); LYMPH # 1.5 10^3/uL (1.5-5.0); LYMPH % 27.1 % (24.0-44.0); MEAN CORPUSCULAR HEMOGLOBIN 31.4 pg (27.0-33.0); MEAN CORPUSCULAR HGB CONC 32.3 g/dl (32.0-36.5); MEAN CORPUSCULAR VOLUME 97.1 fl (80.0-96.0); MONO # 0.6 10^3/uL (0.0-0.8); MONO % 9.8 % (2.0-8.0); NEUTROPHILS # 3.4 10^3/uL (1.5-8.5); NEUTROPHILS % 60.1 % (36.0-66.0); PLATELET COUNT, AUTOMATED 250 10^3/uL (150-450); RED BLOOD COUNT 3.76 10^6/uL (4.00-5.40); WHITE BLOOD COUNT 5.6 10^3/uL (4.0-10.0)
[2022-10-23 06:32] LABS: BLOOD UREA NITROGEN 47 MG/DL (9-23); CALCIUM LEVEL 8.5 MG/DL (8.3-10.6); CARBON DIOXIDE LEVEL 27 MMOL/L (20-31); CHLORIDE LEVEL 105 MMOL/L (98-107); CREATININE FOR GFR 1.14 MG/DL (0.55-1.30); GLOMERULAR FILTRATION RATE > 60.0 (>45); GLUCOSE, FASTING 115 MG/DL (74-106); MAGNESIUM LEVEL 2.2 MG/DL (1.8-2.4); POTASSIUM SERUM 3.7 MMOL/L (3.5-5.1); SODIUM LEVEL 140 MMOL/L (136-145)
[2022-10-23] MEDS ORDERED: LIDOCAINE 4% CREAM 5GM (LMX4) TOP PRN (07:50)
[2022-10-23 08:06] VITALS: BP 158/64; TEMP 97.8; O2SAT 96
[2022-10-23] MEDS ORDERED: ATOR40TA75 PO (08:31)
[2022-10-23] MEDS: ATORVASTATIN 20 MG TAB PO SCH (09:07)
[2022-10-23] MEDS: PRIMIDONE 250 MG TAB PO SCH (09:07)
[2022-10-23] MEDS: valACYclovir HCL 500 MG TAB PO SCH (09:08)
[2022-10-23] MEDS: EZETIMIBE 10MG TABLET (ZETIA) PO SCH (09:08)
[2022-10-23] MEDS: PANTOPRAZOLE 40MG TAB (PROTONIX) PO SCH (09:08)
[2022-10-23] MEDS: ASPIRIN 81MG ENTERIC TABLET PO SCH (09:08)
[2022-10-23] MEDS: BACLOFEN 10 MG TAB PO SCH (09:08)
[2022-10-23] MEDS: tiZANidine 4 MG TAB PO SCH (09:10)
[2022-10-23] MEDS: CLOPIDOGREL 75 MG TAB PO SCH (09:10)
[2022-10-23 09:11] VITALS: BP 175/81
[2022-10-23] MEDS: CARVedilol 12.5 MG TAB PO SCH (09:11)
[2022-10-23 10:54] VITALS: BP 142/80
== END 2022-10-23 10:54 | disposition home or self-care (01) | DRG 305 ==
LOC: M ED 09:11 → M ED INP 21:02 → M PCU 22:10
PROVIDERS: ADMIT Internal Medicine; ATTEND Internal Medicine
PROC: B246ZZZ Ultrasonography of Right and Left Heart (ICD-10-PCS; principal; 2022-10-20)
DX: I16.1 Hypertensive emergency (principal); I50.32 Chronic diastolic (congestive) heart failure; I24.8 Other forms of acute ischemic heart disease; E11.22 Type 2 diabetes mellitus with diabetic chronic kidney disease; I25.10 Atherosclerotic heart disease of native coronary artery without angina pectoris; I13.0 Hypertensive heart and chronic kidney disease with heart failure and stage 1 through stage 4 chronic kidney disease, or unspecified chronic kidney disease; N18.30 Chronic kidney disease, stage 3 unspecified; M15.9 Polyosteoarthritis, unspecified; G89.29 Other chronic pain; M54.9 Dorsalgia, unspecified; E78.5 Hyperlipidemia, unspecified; I25.2 Old myocardial infarction; Z95.5 Presence of coronary angioplasty implant and graft; G47.00 Insomnia, unspecified; K64.9 Unspecified hemorrhoids; Z98.41 Cataract extraction status, right eye; Z87.891 Personal history of nicotine dependence; Z98.42 Cataract extraction status, left eye; Z79.82 Long term (current) use of aspirin; Z79.899 Other long term (current) drug therapy; Z79.4 Long term (current) use of insulin; Z88.5 Allergy status to narcotic agent; Z88.8 Allergy status to other drugs, medicaments and biological substances; Z88.2 Allergy status to sulfonamides; M10.072 Idiopathic gout, left ankle and foot; M10.071 Idiopathic gout, right ankle and foot; E83.42 Hypomagnesemia

== ENCOUNTER → 2022-10-25 | Outpatient (CLI) | payer MEDICARE, MEDICAID ==
[~2022-10-25] MED LIST changes: +ANUS2.5C2 PR; +ATOR40TA75 PO; +BELB150M SL
== END ==
LOC: M RAD 08:22
PROVIDERS: ATTEND Physician Assistant
DX: R10.11 Right upper quadrant pain (principal)

== ENCOUNTER → 2022-10-29 | Outpatient (CLI) | payer MEDICARE, MEDICAID ==
[~2022-10-29] MED LIST changes: +ACET-716 PO
== END ==
LOC: M PAIN 11:00
PROVIDERS: ATTEND Nurse Practitioner Family
DX: M46.1 Sacroiliitis, not elsewhere classified (principal); M79.18 Myalgia, other site; G89.29 Other chronic pain; D50.9 Iron deficiency anemia, unspecified; I10 Essential (primary) hypertension; E78.5 Hyperlipidemia, unspecified; G43.009 Migraine without aura, not intractable, without status migrainosus; G35 Multiple sclerosis; K21.9 Gastro-esophageal reflux disease without esophagitis; E11.42 Type 2 diabetes mellitus with diabetic polyneuropathy; E11.22 Type 2 diabetes mellitus with diabetic chronic kidney disease; N18.31 Chronic kidney disease, stage 3a; I25.10 Atherosclerotic heart disease of native coronary artery without angina pectoris; G40.409 Other generalized epilepsy and epileptic syndromes, not intractable, without status epilepticus; M47.812 Spondylosis without myelopathy or radiculopathy, cervical region; I25.2 Old myocardial infarction; Z87.891 Personal history of nicotine dependence; Z79.4 Long term (current) use of insulin; Z79.82 Long term (current) use of aspirin; Z79.899 Other long term (current) drug therapy; Z88.5 Allergy status to narcotic agent; Z88.2 Allergy status to sulfonamides; Z88.8 Allergy status to other drugs, medicaments and biological substances

== ENCOUNTER 2022-11-01 10:39 | Emergency (ER) | payer MEDICARE, MEDICAID ==
[~2022-11-01] VITALS: Ht 152.4 cm; Wt 80.0 kg
[~2022-11-01 10:39] MED LIST changes: -ACET-716 PO
[2022-11-01 12:55] LABS: BASO % 0.4 % (0.0-1.0); EOS # 0.1 10^3/uL (0.0-0.5); EOS % 1.1 % (0.0-3.0); HEMATOCRIT 35.8 % (36.0-47.0); HEMOGLOBIN 11.6 g/dl (12.0-15.5); LYMPH # 1.8 10^3/uL (1.5-5.0); LYMPH % 24.9 % (24.0-44.0); MEAN CORPUSCULAR HGB CONC 32.4 g/dl (32.0-36.5); MEAN CORPUSCULAR VOLUME 98.9 fl (80.0-96.0); MONO # 0.6 10^3/uL (0.0-0.8); MONO % 8.7 % (2.0-8.0); NEUTROPHILS # 4.5 10^3/uL (1.5-8.5); NEUTROPHILS % 63.6 % (36.0-66.0); PLATELET COUNT, AUTOMATED 252 10^3/uL (150-450); RED BLOOD COUNT 3.62 10^6/uL (4.00-5.40)
[2022-11-01 13:32] LABS: CK-MB VALUE MASS 1.8 NG/ML (<3.6)
[2022-11-01 13:33] LABS: MB/CK RELATIVE INDEX 0.63 (< OR =4)
[2022-11-01] MEDS ORDERED: FUROSEMIDE 20MG/2ML VIAL IV ONE (14:30)
[2022-11-01 14:40] VITALS: BP 145/86; TEMP 97.2; O2SAT 96
== END 2022-11-01 15:08 | disposition home or self-care (01) ==
LOC: M ED 10:39
DX: R22.43 Localized swelling, mass and lump, lower limb, bilateral (principal); I25.2 Old myocardial infarction; E11.9 Type 2 diabetes mellitus without complications; I10 Essential (primary) hypertension; N18.30 Chronic kidney disease, stage 3 unspecified; M51.86 Other intervertebral disc disorders, lumbar region; Z88.1 Allergy status to other antibiotic agents; Z88.2 Allergy status to sulfonamides; Z88.5 Allergy status to narcotic agent; Z88.8 Allergy status to other drugs, medicaments and biological substances; Z79.52 Long term (current) use of systemic steroids; Z79.4 Long term (current) use of insulin; Z79.899 Other long term (current) drug therapy
CPT/HCPCS: 71045; 80047; 82550; 82553; 83880; 84484; 85025; 93970; 96374; 99284; J1940

== ENCOUNTER 2022-11-17 10:53 | Emergency (ER) | payer MEDICARE, MEDICAID ==
[~2022-11-17] VITALS: Ht 154.9 cm; Wt 76.4 kg
[2022-11-17 12:54] VITALS: BP 184/90; TEMP 97.6; O2SAT 95
[2022-11-17] MEDS: ACETAMINOPHEN 500 MG TAB PO ONE ×2 (14:50→14:58)
[2022-11-17] MEDS ORDERED: ACET-716 PO (16:19)
== END 2022-11-17 16:20 | disposition home or self-care (01) ==
LOC: M ED 10:53
DX: S92.352A Displaced fracture of fifth metatarsal bone, left foot, initial encounter for closed fracture (principal); N18.30 Chronic kidney disease, stage 3 unspecified; I12.9 Hypertensive chronic kidney disease with stage 1 through stage 4 chronic kidney disease, or unspecified chronic kidney disease; E11.22 Type 2 diabetes mellitus with diabetic chronic kidney disease; E78.5 Hyperlipidemia, unspecified; I25.10 Atherosclerotic heart disease of native coronary artery without angina pectoris; I25.2 Old myocardial infarction; Z88.5 Allergy status to narcotic agent; Z88.2 Allergy status to sulfonamides; Z79.82 Long term (current) use of aspirin; Z79.4 Long term (current) use of insulin; Z79.899 Other long term (current) drug therapy

== ENCOUNTER → 2022-12-17 | Outpatient (CLI) | payer MEDICARE, MEDICAID ==
[~2022-12-17] MED LIST changes: +ACET-716 PO
== END ==
LOC: M PLAIMG 12:48
PROVIDERS: ATTEND Nurse Practitioner Family
DX: M46.1 Sacroiliitis, not elsewhere classified (principal)

== ENCOUNTER → 2022-12-27 | Outpatient (CLI) | payer MEDICARE, MEDICAID | LOC: M PAIN 09:30 | PROVIDERS: ATTEND Nurse Practitioner Family | DX: M46.1 Sacroiliitis, not elsewhere classified (principal); G89.29 Other chronic pain; M79.18 Myalgia, other site; D50.9 Iron deficiency anemia, unspecified; I12.9 Hypertensive chronic kidney disease with stage 1 through stage 4 chronic kidney disease, or unspecified chronic kidney disease; E78.5 Hyperlipidemia, unspecified; G43.009 Migraine without aura, not intractable, without status migrainosus; G35 Multiple sclerosis; K21.9 Gastro-esophageal reflux disease without esophagitis; E11.42 Type 2 diabetes mellitus with diabetic polyneuropathy; E11.22 Type 2 diabetes mellitus with diabetic chronic kidney disease; N18.31 Chronic kidney disease, stage 3a; I25.10 Atherosclerotic heart disease of native coronary artery without angina pectoris; G40.409 Other generalized epilepsy and epileptic syndromes, not intractable, without status epilepticus; M47.812 Spondylosis without myelopathy or radiculopathy, cervical region; I25.2 Old myocardial infarction; Z87.891 Personal history of nicotine dependence; Z79.4 Long term (current) use of insulin; Z79.82 Long term (current) use of aspirin; Z79.899 Other long term (current) drug therapy; Z88.5 Allergy status to narcotic agent; Z88.2 Allergy status to sulfonamides; Z88.8 Allergy status to other drugs, medicaments and biological substances ==

== ENCOUNTER → 2023-01-12 | Outpatient (REF) | payer MEDICARE, MEDICAID ==
[2023-01-12 14:59] LABS: FREE T4 0.78 NG/DL (0.89-1.76); THYROID STIMULATING HORMONE 0.15 uIU/ML (0.55-4.78)
== END ==
LOC: M LAB REF 12:18
PROVIDERS: ATTEND Nurse Practitioner Family
DX: R89.1 Abnormal level of hormones in specimens from other organs, systems and tissues (principal)

== ENCOUNTER → 2023-02-01 | Outpatient (CLI) | payer MEDICARE, MEDICAID | LOC: M RAD 14:47 | PROVIDERS: ATTEND Nurse Practitioner Family | DX: R89.1 Abnormal level of hormones in specimens from other organs, systems and tissues (principal) ==

== ENCOUNTER → 2023-03-03 | Outpatient (CLI) | payer MEDICARE, MEDICAID | LOC: M WHC 09:17 | PROVIDERS: ATTEND Advanced Practice Midwife | DX: Z12.31 Encounter for screening mammogram for malignant neoplasm of breast (principal) ==

== ENCOUNTER → 2023-03-15 | Outpatient (CLI) | payer MEDICARE, MEDICAID | LOC: M PAIN 10:00 | PROVIDERS: ATTEND Nurse Practitioner Family | DX: M46.1 Sacroiliitis, not elsewhere classified (principal); M47.816 Spondylosis without myelopathy or radiculopathy, lumbar region; M70.70 Other bursitis of hip, unspecified hip; G89.29 Other chronic pain; Z80.1 Family history of malignant neoplasm of trachea, bronchus and lung; Z87.891 Personal history of nicotine dependence; Z88.2 Allergy status to sulfonamides; Z88.5 Allergy status to narcotic agent; Z88.8 Allergy status to other drugs, medicaments and biological substances; Z79.4 Long term (current) use of insulin; Z79.82 Long term (current) use of aspirin; Z79.899 Other long term (current) drug therapy ==

== ENCOUNTER → 2023-04-06 | Outpatient (CLI) | payer MEDICARE, MEDICAID ==
[~2023-04-06] MED LIST changes: +IRBE75TA11 PO; -IRBE75TA4 PO
[2023-04-06 15:06] LABS: CHOLESTEROL RISK RATIO 3.04 (<5); HDL CHOLESTEROL 47.3 MG/DL (>40); LDL CHOLESTEROL 73.9 MG/DL (<100); NON-HDL-C 96.7 MG/DL
== END ==
LOC: M PLALAB 11:04
PROVIDERS: ATTEND Nurse Practitioner Family
DX: I25.10 Atherosclerotic heart disease of native coronary artery without angina pectoris (principal)

== ENCOUNTER → 2023-04-11 | Outpatient (CLI) | payer MEDICARE, MEDICAID ==
[~2023-04-11] MED LIST changes: +E-Z-GAS II EFFERVESCENT PACKET (SODIUM BICARB./CITRIC ACID/SIMETHICONE) As Ordered ONE; +E-Z-HD 98% w/w 340GM SUSP BTL As Ordered ONE; +E-Z-PAQUE 96% w/w SUSP 176GM BTL As Ordered ONE
== END ==
LOC: M RAD 08:10
PROVIDERS: ATTEND Otolaryngology
DX: R13.10 Dysphagia, unspecified (principal); R93.3 Abnormal findings on diagnostic imaging of other parts of digestive tract

== ENCOUNTER → 2023-05-02 | Outpatient (CLI) | payer MEDICARE, MEDICAID ==
[~2023-05-02] MED LIST changes: -E-Z-GAS II EFFERVESCENT PACKET (SODIUM BICARB./CITRIC ACID/SIMETHICONE) As Ordered ONE; -E-Z-HD 98% w/w 340GM SUSP BTL As Ordered ONE; -E-Z-PAQUE 96% w/w SUSP 176GM BTL As Ordered ONE; -HYDR-3910 PO; +HYDR25TA87 PO; +LIDOCAINE 1% MDV 20ML VIAL As Ordered ONE; +VITA500T40 PO
[2023-05-02 13:15] VITALS: TEMP 98.1
[2023-05-02 14:20] VITALS: BP 170/90; O2SAT 97
== END ==
LOC: M IRPRO 12:55
PROVIDERS: ATTEND Otolaryngology
DX: E04.2 Nontoxic multinodular goiter (principal)

== ENCOUNTER → 2023-05-11 | Outpatient (CLI) | payer MEDICARE, MEDICAID ==
[~2023-05-11] MED LIST changes: -LIDOCAINE 1% MDV 20ML VIAL As Ordered ONE
== END ==
LOC: M PAIN 10:00
PROVIDERS: ATTEND Anesthesiology
DX: G57.01 Lesion of sciatic nerve, right lower limb (principal); R10.2 Pelvic and perineal pain; M54.50 Low back pain, unspecified; I10 Essential (primary) hypertension; D50.9 Iron deficiency anemia, unspecified; E78.5 Hyperlipidemia, unspecified; G43.009 Migraine without aura, not intractable, without status migrainosus; G35 Multiple sclerosis; J21.9 Acute bronchiolitis, unspecified; E11.22 Type 2 diabetes mellitus with diabetic chronic kidney disease; E11.42 Type 2 diabetes mellitus with diabetic polyneuropathy; N18.31 Chronic kidney disease, stage 3a; M47.812 Spondylosis without myelopathy or radiculopathy, cervical region; M47.816 Spondylosis without myelopathy or radiculopathy, lumbar region; M47.814 Spondylosis without myelopathy or radiculopathy, thoracic region; Z87.891 Personal history of nicotine dependence; Z79.4 Long term (current) use of insulin; Z79.82 Long term (current) use of aspirin; Z79.899 Other long term (current) drug therapy; Z88.2 Allergy status to sulfonamides; Z88.5 Allergy status to narcotic agent; Z88.8 Allergy status to other drugs, medicaments and biological substances

== ENCOUNTER → 2023-06-02 | Outpatient (REF) | payer MEDICARE, MEDICAID | LOC: M SFHCWAGY 09:59 | PROVIDERS: ATTEND Advanced Practice Midwife | DX: Z12.4 Encounter for screening for malignant neoplasm of cervix (principal) | CPT/HCPCS: 87624; G0123 ==

== ENCOUNTER → 2023-06-02 | Outpatient (CLI) | payer MEDICARE, MEDICAID | LOC: M WHC 11:07 | PROVIDERS: ATTEND Advanced Practice Midwife | DX: Z12.31 Encounter for screening mammogram for malignant neoplasm of breast (principal); R92.323 Mammographic fibroglandular density, bilateral breasts ==

== ENCOUNTER → 2023-06-28 | Outpatient (CLI) | payer MEDICARE, MEDICAID ==
[~2023-06-28] MED LIST changes: +BARIUM SULFATE 700 MG TABLET (E-Z-DISK) As Ordered ONE; +E-Z-PAQUE 96% w/w SUSP 176GM BTL As Ordered ONE; +VARIBAR NECTAR 40% w/v 240ML SUSP BTL As Ordered ONE; +VARIBAR PUDDING 40% w/v 230ML TUBE As Ordered ONE
== END ==
LOC: M RAD 12:15
PROVIDERS: ATTEND Otolaryngology
DX: R13.10 Dysphagia, unspecified (principal)

== ENCOUNTER → 2023-07-25 | Outpatient (CLI) | payer MEDICARE, MEDICAID ==
[~2023-07-25] MED LIST changes: -BARIUM SULFATE 700 MG TABLET (E-Z-DISK) As Ordered ONE; -E-Z-PAQUE 96% w/w SUSP 176GM BTL As Ordered ONE; +ROSU5TAB40 PO; -ROSU5TAB5 PO; -VARIBAR NECTAR 40% w/v 240ML SUSP BTL As Ordered ONE; -VARIBAR PUDDING 40% w/v 230ML TUBE As Ordered ONE
== END ==
LOC: M RAD 08:37
PROVIDERS: ATTEND Nurse Practitioner Family
DX: Z12.2 Encounter for screening for malignant neoplasm of respiratory organs (principal); Z87.891 Personal history of nicotine dependence; R91.1 Solitary pulmonary nodule

== ENCOUNTER 2023-08-10 09:46 | Observation (INO) | payer MEDICARE, MEDICAID ==
[2023-08-10] VITALS (10 sets, daily range): BP systolic 118–173; BP diastolic 70–92; TEMP 97.1–99.5; O2SAT 97–100
[~2023-08-10] VITALS: Ht 152.4 cm; Wt 74.3 kg
[2023-08-10 10:51] LABS: BASO % 0.2 % (0.0-1.0); EOS # 0.1 10^3/uL (0.0-0.5); EOS % 0.4 % (0.0-3.0); LYMPH # 1.7 10^3/uL (1.5-5.0); LYMPH % 15.6 % (24.0-44.0); MEAN CORPUSCULAR HEMOGLOBIN 31.6 pg (27.0-33.0); MEAN CORPUSCULAR HGB CONC 30.4 g/dl (32.0-36.5); MEAN CORPUSCULAR VOLUME 104.1 fl (80.0-96.0); MONO # 0.8 10^3/uL (0.0-0.8); MONO % 7.4 % (2.0-8.0); NEUTROPHILS # 8.4 10^3/uL (1.5-8.5); NEUTROPHILS % 75.6 % (36.0-66.0); PLATELET COUNT, AUTOMATED 334 10^3/uL (150-450); RED BLOOD COUNT 1.96 10^6/uL (4.00-5.40); WHITE BLOOD COUNT 11.2 10^3/uL (4.0-10.0)
[2023-08-10] MEDS: NITROGLYCERIN 2% OINT 1 GM *U/D* PKT TOP ONE (10:53)
[2023-08-10] MEDS: ASPIRIN 81MG CHEW TABLET PO ONE (10:53)
[2023-08-10 10:55] LABS: HEMATOCRIT 20.4 % (36.0-47.0)
[2023-08-10 10:56] LABS: HEMOGLOBIN 6.2 g/dl (12.0-15.5)
[2023-08-10 11:17] LABS: ALBUMIN 3.4 G/DL (3.2-5.2); ALKALINE PHOSPHATASE 72 U/L (46-116); ALT/SGPT 25 U/L (7.0-40); AST/SGOT 46 U/L (<34); BILIRUBIN,DIRECT < 0.1 MG/DL (<0.4); BILIRUBIN,TOTAL 0.2 MG/DL (0.3-1.2); BLOOD UREA NITROGEN 51 MG/DL (9-23); CARBON DIOXIDE LEVEL 27 MMOL/L (20-31); CHLORIDE LEVEL 105 MMOL/L (98-107); CK-MB VALUE MASS 2.4 NG/ML (<3.6); CREATININE FOR GFR 1.46 MG/DL (0.55-1.30); GLOMERULAR FILTRATION RATE 46.2 (>45); GLUCOSE, FASTING 107 MG/DL (74-106); POTASSIUM SERUM 5.2 MMOL/L (3.5-5.1); SODIUM LEVEL 138 MMOL/L (136-145); TOTAL PROTEIN 7.2 G/DL (5.7-8.2)
[2023-08-10 11:18] LABS: FREE T4 1.19 NG/DL (0.89-1.76); THYROID STIMULATING HORMONE 0.174 uIU/ML (0.55-4.78)
[2023-08-10 11:32] LABS: CPK CREATINE PHOSPHOKINASE 281 U/L (34-145); MB/CK RELATIVE INDEX 0.85 (< OR =4)
[2023-08-10] MEDS: PANTOPRAZOLE 40MG VIAL IV ONE (11:32)
[2023-08-10 12:04] LABS: CK-MB VALUE MASS 1.8 NG/ML (<3.6)
[2023-08-10 12:05] LABS: MB/CK RELATIVE INDEX 0.78 (< OR =4)
[2023-08-10] MEDS: MORPHINE 2 MG/ML 1ML VIAL IV ONE (12:50)
[2023-08-10 13:14] LABS: INR 1.16; PARTIAL THROMBOPLASTIN TIME 21.1 SECONDS (24.8-34.2); PROTHROMBIN TIME 14.5 SECONDS (12.5-14.5)
[2023-08-10] MEDS: CYCLOBENZAPRINE 5MG TABLET PO ONE (13:57)
[2023-08-10] MEDS ORDERED: DEXTROSE 50% 50ML SYRINGE IV PRN (14:25)
[2023-08-10] MEDS ORDERED: GLUCOSE 4 GM CHEW PO PRN (14:25)
[2023-08-10] MEDS ORDERED: GLUCAGON INJ 1MG VIAL SC PRN (14:25)
[2023-08-10] MEDS ORDERED: TIZA10TA PO (14:51)
[2023-08-10] MEDS ORDERED: ATOR40TA75 PO (14:51)
[2023-08-10] MEDS ORDERED: ACET650T15 PO (14:51)
[2023-08-10] MEDS ORDERED: BACL1TAB8 PO (14:51)
[2023-08-10] MEDS ORDERED: ALLO100T PO (14:51)
[2023-08-10] MEDS ORDERED: LOSA50TA28 PO (14:51)
[2023-08-10] MEDS ORDERED: LIDO1PAD TOP (14:54)
[2023-08-10] MEDS ORDERED: HOME MED LIST COMPLETE! XX SCH (14:55)
[2023-08-10 15:31] LABS: IRON (FE) 18 UG/DL (50-170); PERCENT SATURATION 5.5 % (13.2-45.0); TOTAL IRON BINDING CAPACITY 330 UG/DL (250-425)
[2023-08-10 15:34] LABS: FERRITIN 17.1 NG/ML (7.3-270.7); FOLATE > 24.00 NG/ML (>5.4); VITAMIN B12 LEVEL 1344 PG/ML (211-911)
[2023-08-10] MEDS ORDERED: NITROGLYCERIN 0.4MG SUBL TABLET SL PRN (16:45)
[2023-08-10] MEDS ORDERED: LIDOCAINE 5% (LIDODERM) PATCH TOP PRN (16:45)
[2023-08-10] MEDS ORDERED: PILL CUTTER 1 EACH XX PRN (17:10)
[2023-08-10] MEDS: INSULIN LISPRO (NovoLOG) PER UNIT SC SCH ×2 (17:30→21:00)
[2023-08-10] MEDS: SUCRALFATE SUSP 1GM/10ML UD PO SCH (19:01)
[2023-08-10] MEDS: MOM 30ML SUSPENSION UDC PO ONE (19:01)
[2023-08-10] MEDS: BACLOFEN 10 MG TAB PO SCH (19:01)
[2023-08-10] MEDS: ACETAMINOPHEN TAB 650MG DOSE (2X325MG) PO PRN (19:01)
[2023-08-10] MEDS: allopurinoL 100 MG TAB PO SCH (19:02)
[2023-08-10] MEDS: MAGNESIUM OXIDE 400MG TAB (MAG-OX) PO SCH (19:02)
[2023-08-10] MEDS: tiZANidine 4 MG TAB PO SCH ×2 (19:03→21:32)
[2023-08-10] MEDS: CARVedilol 12.5 MG TAB PO SCH (19:06)
[2023-08-10] MEDS: valACYclovir HCL 500 MG TAB PO SCH (19:27)
[2023-08-10] MEDS: POLYETHYLENE GLYCOL (MIRALAX) 238GM BOTTLE PO ONE (19:56)
[2023-08-10] MEDS: FUROSEMIDE 40MG/4ML VIAL IV ONE (21:31)
[2023-08-10] MEDS: PRIMIDONE 50MG TAB PO SCH (21:32)
[2023-08-10] MEDS: traZODone 100 MG TAB PO SCH (21:32)
[2023-08-10] MEDS: ATORVASTATIN 20 MG TAB PO SCH (21:32)
[2023-08-10 22:39] LABS: HEMATOCRIT 26.4 % (36.0-47.0)
[2023-08-10 22:47] LABS: HEMOGLOBIN 8.8 g/dl (12.0-15.5)
[2023-08-11] VITALS (8 sets, daily range): BP systolic 138–208; BP diastolic 68–94; TEMP 97.1–97.6; O2SAT 93–97
[2023-08-11] MEDS: PANTOPRAZOLE 40MG VIAL IV SCH (00:50)
[2023-08-11] MEDS: METHOCARBAMOL 1,000 MG/10 ML VIAL IV ONE (02:25)
[2023-08-11 05:53] LABS: BASO % 0.2 % (0.0-1.0); EOS # 0.1 10^3/uL (0.0-0.5); EOS % 0.9 % (0.0-3.0); HEMATOCRIT 27.2 % (36.0-47.0); HEMOGLOBIN 8.9 g/dl (12.0-15.5); LYMPH # 1.3 10^3/uL (1.5-5.0); LYMPH % 14.5 % (24.0-44.0); MEAN CORPUSCULAR HEMOGLOBIN 30.8 pg (27.0-33.0); MEAN CORPUSCULAR HGB CONC 32.7 g/dl (32.0-36.5); MEAN CORPUSCULAR VOLUME 94.1 fl (80.0-96.0); MONO # 0.8 10^3/uL (0.0-0.8); MONO % 8.4 % (2.0-8.0); NEUTROPHILS # 6.7 10^3/uL (1.5-8.5); NEUTROPHILS % 74.9 % (36.0-66.0); PLATELET COUNT, AUTOMATED 272 10^3/uL (150-450); RED BLOOD COUNT 2.89 10^6/uL (4.00-5.40)
[2023-08-11 06:15] LABS: ALBUMIN 3.1 G/DL (3.2-5.2); BILIRUBIN,TOTAL 0.4 MG/DL (0.3-1.2); CALCIUM LEVEL 8.8 MG/DL (8.3-10.6); CREATININE FOR GFR 1.36 MG/DL (0.55-1.30); GLOMERULAR FILTRATION RATE 50.2 (>45); MAGNESIUM LEVEL 2.3 MG/DL (1.8-2.4); TOTAL PROTEIN 6.3 G/DL (5.7-8.2)
[2023-08-11] MEDS: hydrALAZINE 20MG/ML 1ML VIAL IV ONE ×2 (06:20→16:27)
[2023-08-11] MEDS: POLYETHYLENE GLYCOL (MIRALAX) 238GM BOTTLE PO ONE (06:20)
[2023-08-11] MEDS: FUROSEMIDE 40MG/4ML VIAL IV ONE (08:28)
[2023-08-11] MEDS: CYANOCOBALAMIN 500 MCG TAB PO SCH (08:29)
[2023-08-11] MEDS: ASPIRIN 81MG ENTERIC TABLET PO SCH (08:29)
[2023-08-11] MEDS: EZETIMIBE 10MG TABLET (ZETIA) PO SCH (08:29)
[2023-08-11] MEDS ORDERED: methocarbamoL 500 MG TAB PO ONE (12:30)
[2023-08-11] MEDS ORDERED: fentaNYL 100 MCG/2 ML INJECTION As Ordered ONE (14:52)
[2023-08-11] MEDS ORDERED: LIDOCAINE 2% 100MG/5ML SDV (FOR ANES.) As Ordered ONE (15:05)
[2023-08-11] MEDS ORDERED: propofoL 200 MG/20 ML VIAL As Ordered ONE (15:05)
[2023-08-11] MEDS ORDERED: CARV25TA PO (15:55)
[2023-08-11] MEDS ORDERED: CARVedilol 12.5 MG TAB PO ONE (16:00)
[2023-08-11] MEDS: CARVedilol 12.5 MG TAB PO SCH (16:25)
[2023-08-11] MEDS: methocarbamoL 500 MG TAB PO ONE (16:30)
[2023-08-11 16:47] LABS: HEMATOCRIT 31.3 % (36.0-47.0); HEMOGLOBIN 10.1 g/dl (12.0-15.5)
[2023-08-11] MEDS: LABETALOL 100MG/20ML VIAL IV ONE (17:41)
[2023-08-11] MEDS: LOSARTAN 50MG TABLET PO ONE (18:10)
== END 2023-08-11 19:07 | disposition home or self-care (01) ==
LOC: M ED 09:46 → M ED INP 09:47 → INTOOBSV 14:28 → OBSVTOIN 14:28 → M PCU 16:06
PROVIDERS: ADMIT Internal Medicine; ATTEND Internal Medicine
DX: K55.21 Angiodysplasia of colon with hemorrhage (principal); K64.8 Other hemorrhoids; D50.9 Iron deficiency anemia, unspecified; Z80.0 Family history of malignant neoplasm of digestive organs; R13.10 Dysphagia, unspecified; R12 Heartburn; K92.2 Gastrointestinal hemorrhage, unspecified; R07.89 Other chest pain; N17.9 Acute kidney failure, unspecified; M25.531 Pain in right wrist; R22.31 Localized swelling, mass and lump, right upper limb; I25.10 Atherosclerotic heart disease of native coronary artery without angina pectoris; I12.9 Hypertensive chronic kidney disease with stage 1 through stage 4 chronic kidney disease, or unspecified chronic kidney disease; I50.32 Chronic diastolic (congestive) heart failure; E11.22 Type 2 diabetes mellitus with diabetic chronic kidney disease; E78.5 Hyperlipidemia, unspecified; G43.909 Migraine, unspecified, not intractable, without status migrainosus; G35 Multiple sclerosis; G93.2 Benign intracranial hypertension; G47.00 Insomnia, unspecified; M54.9 Dorsalgia, unspecified; G89.29 Other chronic pain; G25.0 Essential tremor; K21.9 Gastro-esophageal reflux disease without esophagitis; R79.89 Other specified abnormal findings of blood chemistry; M62.838 Other muscle spasm; R06.02 Shortness of breath; R53.83 Other fatigue; Z98.41 Cataract extraction status, right eye; Z98.42 Cataract extraction status, left eye; Z90.711 Acquired absence of uterus with remaining cervical stump; Z88.5 Allergy status to narcotic agent; Z88.2 Allergy status to sulfonamides; Z88.8 Allergy status to other drugs, medicaments and biological substances; Z79.899 Other long term (current) drug therapy; Z79.82 Long term (current) use of aspirin; Z79.4 Long term (current) use of insulin
CPT/HCPCS: 36415; 36430; 43235; 45382; 71045; 73110; 73200; 80048; 80053; 80076; 82550; 82553; 82607; 82728; 82746; 83550; 83735; 83880; 84439; 84443; 84466; 84484; 85014; 85018; 85025; 85046; 85610; 85730; 86140; 86850; 86900; 86901; 86920; 93005; 93041; 93306; 94760; 96374; 96375; 96376; 99285; C9113; G0378; J0360; J1815; J1920; J1940; J2800; J3010; P9016

== ENCOUNTER → 2023-09-06 | Outpatient (CLI) | payer MEDICARE, MEDICAID ==
[~2023-09-06] MED LIST changes: +ACET650T15 PO; +ALLO100T PO; +BACL1TAB8 PO; +LOSA50TA28 PO
[2023-09-06 13:40] LABS: HEMATOCRIT 28.3 % (36.0-47.0); HEMOGLOBIN 8.7 g/dl (12.0-15.5); MEAN CORPUSCULAR HEMOGLOBIN 28.6 pg (27.0-33.0); MEAN CORPUSCULAR HGB CONC 30.7 g/dl (32.0-36.5); MEAN CORPUSCULAR VOLUME 93.1 fl (80.0-96.0); PLATELET COUNT, AUTOMATED 390 10^3/uL (150-450); RED BLOOD COUNT 3.04 10^6/uL (4.00-5.40); WHITE BLOOD COUNT 8.8 10^3/uL (4.0-10.0)
[2023-09-06 14:13] LABS: ALBUMIN 3.2 G/DL (3.2-5.2); ALKALINE PHOSPHATASE 68 U/L (46-116); ALT/SGPT 34 U/L (7.0-40); AST/SGOT 93 U/L (<34); BILIRUBIN,TOTAL 0.2 MG/DL (0.3-1.2); BLOOD UREA NITROGEN 29 MG/DL (9-23); CALCIUM LEVEL 8.7 MG/DL (8.3-10.6); CARBON DIOXIDE LEVEL 25 MMOL/L (20-31); CHLORIDE LEVEL 104 MMOL/L (98-107); CREATININE FOR GFR 1.17 MG/DL (0.55-1.30); GLOMERULAR FILTRATION RATE 59.7 (>45); GLUCOSE, FASTING 84 MG/DL (74-106); SODIUM LEVEL 134 MMOL/L (136-145); TOTAL PROTEIN 7.4 G/DL (5.7-8.2)
== END ==
LOC: M LAB 12:50
PROVIDERS: ATTEND Internal Medicine Cardiovascular Disease
DX: I25.10 Atherosclerotic heart disease of native coronary artery without angina pectoris (principal)

== ENCOUNTER → 2023-09-14 | Outpatient (REF) | payer MEDICARE, MEDICAID ==
[2023-09-14 14:26] LABS: BASO % 0.5 % (0.0-1.0); EOS # 0.1 10^3/uL (0.0-0.5); EOS % 1.6 % (0.0-3.0); HEMOGLOBIN 8.2 g/dl (12.0-15.5); LYMPH # 1.6 10^3/uL (1.5-5.0); LYMPH % 18.6 % (24.0-44.0); MEAN CORPUSCULAR HEMOGLOBIN 27.8 pg (27.0-33.0); MEAN CORPUSCULAR HGB CONC 30.4 g/dl (32.0-36.5); MEAN CORPUSCULAR VOLUME 91.5 fl (80.0-96.0); MONO # 0.6 10^3/uL (0.0-0.8); MONO % 6.9 % (2.0-8.0); NEUTROPHILS % 71.9 % (36.0-66.0); PLATELET COUNT, AUTOMATED 370 10^3/uL (150-450); RED BLOOD COUNT 2.95 10^6/uL (4.00-5.40); WHITE BLOOD COUNT 8.4 10^3/uL (4.0-10.0)
[2023-09-14 14:30] LABS: PERCENT SATURATION 4.7 % (13.2-45.0)
[2023-09-14 14:33] LABS: FERRITIN 10.6 NG/ML (7.3-270.7)
[2023-09-14 14:35] LABS: FOLATE 11.5 NG/ML (>5.4)
== END ==
LOC: M LAB REF 11:58
PROVIDERS: ATTEND Nurse Practitioner Family
DX: D64.9 Anemia, unspecified (principal)

== ENCOUNTER → 2023-10-13 | Outpatient (CLI) | payer MEDICARE, MEDICAID | LOC: M PLARAD 10:13 | PROVIDERS: ATTEND Physician Assistant | DX: M25.431 Effusion, right wrist (principal); M19.031 Primary osteoarthritis, right wrist ==

== ENCOUNTER → 2023-10-27 | Outpatient (REF) | payer MEDICARE, MEDICAID ==
[2023-10-27 13:15] LABS: BASO % 0.5 % (0.0-1.0); EOS # 0.1 10^3/uL (0.0-0.5); EOS % 1.4 % (0.0-3.0); HEMOGLOBIN 10.8 g/dl (12.0-15.5); LYMPH # 1.5 10^3/uL (1.5-5.0); LYMPH % 23.8 % (24.0-44.0); MEAN CORPUSCULAR HEMOGLOBIN 28.6 pg (27.0-33.0); MEAN CORPUSCULAR HGB CONC 30.9 g/dl (32.0-36.5); MEAN CORPUSCULAR VOLUME 92.8 fl (80.0-96.0); MONO # 0.5 10^3/uL (0.0-0.8); MONO % 8.3 % (2.0-8.0); NEUTROPHILS # 4.2 10^3/uL (1.5-8.5); NEUTROPHILS % 65.4 % (36.0-66.0); PLATELET COUNT, AUTOMATED 267 10^3/uL (150-450); RED BLOOD COUNT 3.77 10^6/uL (4.00-5.40); WHITE BLOOD COUNT 6.4 10^3/uL (4.0-10.0)
[2023-10-27 13:40] LABS: PERCENT SATURATION 29.6 % (13.2-45.0)
== END ==
LOC: M LAB REF 12:27
PROVIDERS: ATTEND Nurse Practitioner Family
DX: D64.9 Anemia, unspecified (principal)

== ENCOUNTER → 2023-10-31 | Outpatient (REF) | payer MEDICARE, MEDICAID ==
[2023-10-31 18:17] LABS: PERCENT SATURATION 30.3 % (13.2-45.0)
== END ==
LOC: M LAB REF 17:10
PROVIDERS: ATTEND Internal Medicine Nephrology
DX: D50.9 Iron deficiency anemia, unspecified (principal)

== ENCOUNTER → 2023-11-15 | Outpatient (CLI) | payer MEDICARE, MEDICAID ==
[~2023-11-15] MED LIST changes: +CALC1CAP31 PO; +FERR325T19 PO; +GABA-1490 PO; -GABA600T4 PO; +METH-1165 PO; +METO25TA PO; +VITA1TAB35 PO
== END ==
LOC: M RAD 13:45
PROVIDERS: ATTEND Otolaryngology
DX: E04.1 Nontoxic single thyroid nodule (principal)

== ENCOUNTER 2023-11-24 14:38 | Observation (INO) | payer MEDICARE, MEDICAID ==
[~2023-11-24] VITALS: Ht 152.4 cm; Wt 78.6 kg
[~2023-11-24 14:38] MED LIST changes: -CALC1CAP31 PO; -FERR325T19 PO; -ISOVUE-M 300 61% 15ML VIAL As Ordered ONE; -LIDOCAINE 1% SDV 30ML VIAL As Ordered ONE; -METH-1165 PO; -METO25TA PO; -NORCO, ANEXSIA 5/325MG TABLET (HYDROcodone/ACETAMINOPHEN) As Ordered ONE; -TRIAMCINOLONE ACETONIDE SUSP 40MG/ML 1ML VIAL As Ordered ONE; -VITA1TAB35 PO; -diazePAM 2 MG TAB As Ordered ONE
[2023-11-24] MEDS ORDERED: LOSARTAN 50MG TABLET PO ONE (18:15)
[2023-11-24] MEDS: CARVedilol 12.5 MG TAB PO ONE (18:24)
[2023-11-24 19:12] LABS: BASO % 0.3 % (0.0-1.0); EOS % 0.2 % (0.0-3.0); HEMATOCRIT 41.4 % (36.0-47.0); HEMOGLOBIN 13.4 g/dl (12.0-15.5); LYMPH % 16.7 % (24.0-44.0); MEAN CORPUSCULAR HEMOGLOBIN 29.5 pg (27.0-33.0); MEAN CORPUSCULAR HGB CONC 32.4 g/dl (32.0-36.5); MEAN CORPUSCULAR VOLUME 91.2 fl (80.0-96.0); MONO # 0.2 10^3/uL (0.0-0.8); MONO % 3.3 % (2.0-8.0); NEUTROPHILS # 4.8 10^3/uL (1.5-8.5); NEUTROPHILS % 78.8 % (36.0-66.0); PLATELET COUNT, AUTOMATED 246 10^3/uL (150-450); RED BLOOD COUNT 4.54 10^6/uL (4.00-5.40); WHITE BLOOD COUNT 6.1 10^3/uL (4.0-10.0)
[2023-11-24 19:30] LABS: BLOOD UREA NITROGEN 41 MG/DL (9-23); CALCIUM LEVEL 9.5 MG/DL (8.3-10.6); CARBON DIOXIDE LEVEL 26 MMOL/L (20-31); CHLORIDE LEVEL 104 MMOL/L (98-107); CK-MB VALUE MASS 1.3 NG/ML (<3.6); CREATININE FOR GFR 1.07 MG/DL (0.55-1.30); GLOMERULAR FILTRATION RATE > 60.0 (>45); GLUCOSE, FASTING 135 MG/DL (74-106); POTASSIUM SERUM 4.2 MMOL/L (3.5-5.1); SODIUM LEVEL 136 MMOL/L (136-145)
[2023-11-24 19:42] LABS: CPK CREATINE PHOSPHOKINASE 208 U/L (34-145); MB/CK RELATIVE INDEX 0.62 (< OR =4)
[2023-11-24] MEDS: hydrALAZINE 20MG/ML 1ML VIAL IV ONE (21:03)
[2023-11-24 21:33] LABS: CK-MB VALUE MASS 1.2 NG/ML (<3.6)
[2023-11-24 21:43] LABS: MB/CK RELATIVE INDEX 0.55 (< OR =4)
[2023-11-24] MEDS ORDERED: MOM 30ML SUSPENSION UDC PO PRN (23:30)
[2023-11-24] MEDS ORDERED: VITA1TAB35 PO (23:53)
[2023-11-25] MEDS: methocarbamoL 750 MG TAB PO ONE (00:02)
[2023-11-25] MEDS: traZODone 100 MG TAB PO ONE (00:02)
[2023-11-25] MEDS: PRIMIDONE 250 MG TAB PO ONE (00:02)
[2023-11-25] MEDS ORDERED: FERR325T19 PO (00:12)
[2023-11-25] MEDS ORDERED: METH-1165 PO ×2 (00:12)
[2023-11-25] MEDS ORDERED: CALC1CAP31 PO (00:12)
[2023-11-25] MEDS ORDERED: DEXTROSE 50% 50ML SYRINGE IV PRN (00:50)
[2023-11-25] MEDS ORDERED: GLUCAGON INJ 1MG VIAL SC PRN (00:50)
[2023-11-25] MEDS ORDERED: GLUCOSE 4 GM CHEW PO PRN (00:50)
[2023-11-25 01:10] VITALS: BP 180/100; TEMP 97.4; O2SAT 99
[2023-11-25] MEDS: hydrALAZINE 20MG/ML 1ML VIAL IV PRN (01:27)
[2023-11-25] MEDS ORDERED: PILL CUTTER 1 EACH XX PRN (01:30)
[2023-11-25] MEDS: ACETAMINOPHEN TAB 650MG DOSE (2X325MG) PO PRN (03:18)
[2023-11-25 05:18] VITALS: BP 148/76
[2023-11-25 06:16] VITALS: BP 156/78; TEMP 98.4
[2023-11-25 06:52] LABS: HEMATOCRIT 37.9 % (36.0-47.0); HEMOGLOBIN 12.3 g/dl (12.0-15.5); MEAN CORPUSCULAR HEMOGLOBIN 28.9 pg (27.0-33.0); MEAN CORPUSCULAR HGB CONC 32.5 g/dl (32.0-36.5); MEAN CORPUSCULAR VOLUME 89.2 fl (80.0-96.0); PLATELET COUNT, AUTOMATED 263 10^3/uL (150-450); RED BLOOD COUNT 4.25 10^6/uL (4.00-5.40); WHITE BLOOD COUNT 8.6 10^3/uL (4.0-10.0)
[2023-11-25 07:21] LABS: ALBUMIN 3.4 G/DL (3.2-5.2); ALKALINE PHOSPHATASE 85 U/L (46-116); ALT/SGPT 20 U/L (7.0-40); AST/SGOT 18 U/L (<34); BILIRUBIN,TOTAL 0.2 MG/DL (0.3-1.2); BLOOD UREA NITROGEN 43 MG/DL (9-23); CALCIUM LEVEL 9.7 MG/DL (8.3-10.6); CARBON DIOXIDE LEVEL 27 MMOL/L (20-31); CHLORIDE LEVEL 105 MMOL/L (98-107); CREATININE FOR GFR 1.13 MG/DL (0.55-1.30); GLOMERULAR FILTRATION RATE > 60.0 (>45); GLUCOSE, FASTING 154 MG/DL (74-106); POTASSIUM SERUM 4.2 MMOL/L (3.5-5.1); SODIUM LEVEL 138 MMOL/L (136-145); TOTAL PROTEIN 7.4 G/DL (5.7-8.2)
[2023-11-25 08:15] VITALS: BP 126/66; TEMP 101; O2SAT 94
[2023-11-25] MEDS ORDERED: ACETAMINOPHEN TAB 650MG DOSE (2X325MG) PO PRN (08:15)
[2023-11-25 08:36] VITALS: BP 160/100; TEMP 98; O2SAT 97
[2023-11-25] MEDS: INSULIN LISPRO (NovoLOG) PER UNIT SC SCH (09:17)
[2023-11-25] MEDS: FERROUS SULFATE 325MG TAB PO SCH (09:17)
[2023-11-25] MEDS: ASPIRIN 81MG ENTERIC TABLET PO SCH (09:17)
[2023-11-25] MEDS: ENOXAPARIN 40MG/0.4ML SYRINGE (J1650 PER 10MG) SC SCH (09:17)
[2023-11-25] MEDS: ACETAMINOPHEN 500 MG TAB PO SCH (09:18)
[2023-11-25] MEDS: SPIRONOLACTONE 25 MG TAB PO SCH (09:19)
[2023-11-25] MEDS: methocarbamoL 750 MG TAB PO SCH (09:19)
[2023-11-25 09:21] VITALS: BP 160/100
[2023-11-25] MEDS: TORSEMIDE 20 MG TAB PO SCH (09:21)
[2023-11-25] MEDS: CARVedilol 12.5 MG TAB PO SCH (09:21)
[2023-11-25] MEDS: LOSARTAN 50MG TABLET PO SCH (09:21)
[2023-11-25] MEDS: PANTOPRAZOLE 40MG TAB (PROTONIX) PO SCH (09:21)
[2023-11-25] MEDS: valACYclovir HCL 500 MG TAB PO SCH (09:22)
[2023-11-25] MEDS: CALCITRIOL 0.25 MCG CAP (S0169) PO SCH (09:22)
[2023-11-25] MEDS: PRIMIDONE 250 MG TAB PO SCH (09:22)
[2023-11-25] MEDS: DOCUSATE SODIUM 100MG CAPSULE PO SCH (09:22)
[2023-11-25] MEDS: MAGNESIUM OXIDE 400MG TAB (MAG-OX) PO SCH (11:36)
[2023-11-25] MEDS: allopurinoL 100 MG TAB PO SCH (11:36)
[2023-11-25] MEDS ORDERED: METO25TA PO (12:15)
[2023-11-25] MEDS ORDERED: ATORVASTATIN 20 MG TAB PO SCH (20:00)
[2023-11-25] MEDS ORDERED: methocarbamoL 750 MG TAB PO SCH (20:00)
[2023-11-25] MEDS ORDERED: traZODone 100 MG TAB PO SCH (20:00)
[2023-11-25] MEDS ORDERED: INSULIN LISPRO (NovoLOG) PER UNIT SC SCH (21:00)
[2023-11-25] MEDS ORDERED: SENOKOT S TAB PO SCH (21:00)
== END 2023-11-25 13:57 | disposition home or self-care (01) ==
LOC: M ED 14:38 → M ED INP 23:29 → INTOOBSV 23:29 → M PCU 11-25 00:56
PROVIDERS: ADMIT Family Medicine; ATTEND Family Medicine
DX: I16.1 Hypertensive emergency (principal); I21.A1 Myocardial infarction type 2; R79.89 Other specified abnormal findings of blood chemistry; I25.10 Atherosclerotic heart disease of native coronary artery without angina pectoris; Z95.5 Presence of coronary angioplasty implant and graft; E11.22 Type 2 diabetes mellitus with diabetic chronic kidney disease; E78.5 Hyperlipidemia, unspecified; G35 Multiple sclerosis; G93.2 Benign intracranial hypertension; G43.909 Migraine, unspecified, not intractable, without status migrainosus; G47.00 Insomnia, unspecified; M54.9 Dorsalgia, unspecified; G89.29 Other chronic pain; I50.32 Chronic diastolic (congestive) heart failure; N18.30 Chronic kidney disease, stage 3 unspecified; I13.0 Hypertensive heart and chronic kidney disease with heart failure and stage 1 through stage 4 chronic kidney disease, or unspecified chronic kidney disease; G25.0 Essential tremor; Z98.891 History of uterine scar from previous surgery; Z98.890 Other specified postprocedural states; Z88.5 Allergy status to narcotic agent; Z88.2 Allergy status to sulfonamides; Z88.8 Allergy status to other drugs, medicaments and biological substances; Z79.899 Other long term (current) drug therapy; Z79.82 Long term (current) use of aspirin; M79.10 Myalgia, unspecified site; G57.01 Lesion of sciatic nerve, right lower limb
CPT/HCPCS: 20552; 36415; 71045; 80048; 80053; 81001; 82550; 82553; 84484; 85025; 85027; 93005; 96372; 96374; 96376; 99285; G0378; J0360; J0665; J1650; J1815; J3301; Q9967

== ENCOUNTER → 2023-11-24 | Outpatient (CLI) | payer MEDICARE, MEDICAID ==
[~2023-11-24] MED LIST changes: +ISOVUE-M 300 61% 15ML VIAL As Ordered ONE; +LIDOCAINE 1% SDV 30ML VIAL As Ordered ONE; +NORCO, ANEXSIA 5/325MG TABLET (HYDROcodone/ACETAMINOPHEN) As Ordered ONE; +TRIAMCINOLONE ACETONIDE SUSP 40MG/ML 1ML VIAL As Ordered ONE; +diazePAM 2 MG TAB As Ordered ONE
== END ==
LOC: M PAIN 10:00
PROVIDERS: ATTEND Anesthesiology
DX: G57.01 Lesion of sciatic nerve, right lower limb (principal); G89.29 Other chronic pain; G93.2 Benign intracranial hypertension; G40.909 Epilepsy, unspecified, not intractable, without status epilepticus; G35 Multiple sclerosis; I25.10 Atherosclerotic heart disease of native coronary artery without angina pectoris; I13.0 Hypertensive heart and chronic kidney disease with heart failure and stage 1 through stage 4 chronic kidney disease, or unspecified chronic kidney disease; M54.50 Low back pain, unspecified; I25.2 Old myocardial infarction; N18.31 Chronic kidney disease, stage 3a; E11.22 Type 2 diabetes mellitus with diabetic chronic kidney disease; E78.2 Mixed hyperlipidemia; E11.42 Type 2 diabetes mellitus with diabetic polyneuropathy; M47.814 Spondylosis without myelopathy or radiculopathy, thoracic region; M47.812 Spondylosis without myelopathy or radiculopathy, cervical region; Z79.82 Long term (current) use of aspirin; Z79.899 Other long term (current) drug therapy; Z95.5 Presence of coronary angioplasty implant and graft; Z87.891 Personal history of nicotine dependence; Z88.2 Allergy status to sulfonamides; Z88.8 Allergy status to other drugs, medicaments and biological substances; Z88.5 Allergy status to narcotic agent

== ENCOUNTER → 2023-12-14 | Outpatient (REF) | payer MEDICARE, MEDICAID ==
[~2023-12-14] MED LIST changes: +CALC1CAP31 PO; +FERR325T19 PO; +METH-1165 PO; +METO25TA PO; -SENN-111 PO; +SENN-165 PO; +VITA1TAB35 PO
[2023-12-14 18:18] LABS: BASO % 0.5 % (0.0-1.0); EOS # 0.1 10^3/uL (0.0-0.5); EOS % 1.4 % (0.0-3.0); HEMATOCRIT 40.8 % (36.0-47.0); HEMOGLOBIN 12.9 g/dl (12.0-15.5); LYMPH # 1.6 10^3/uL (1.5-5.0); MEAN CORPUSCULAR HEMOGLOBIN 29.3 pg (27.0-33.0); MEAN CORPUSCULAR HGB CONC 31.6 g/dl (32.0-36.5); MEAN CORPUSCULAR VOLUME 92.5 fl (80.0-96.0); MONO # 0.6 10^3/uL (0.0-0.8); MONO % 8.5 % (2.0-8.0); NEUTROPHILS # 4.1 10^3/uL (1.5-8.5); NEUTROPHILS % 64.1 % (36.0-66.0); PLATELET COUNT, AUTOMATED 239 10^3/uL (150-450); RED BLOOD COUNT 4.41 10^6/uL (4.00-5.40); WHITE BLOOD COUNT 6.4 10^3/uL (4.0-10.0)
[2023-12-14 18:36] LABS: PERCENT SATURATION 28.1 % (13.2-45.0)
== END ==
LOC: M LAB REF 16:43
PROVIDERS: ATTEND Nurse Practitioner Family
DX: D64.9 Anemia, unspecified (principal)

== ENCOUNTER → 2024-01-03 | Outpatient (CLI) | payer MEDICARE, MEDICAID | LOC: M PAIN 09:30 | PROVIDERS: ATTEND Nurse Practitioner Family | DX: G89.29 Other chronic pain (principal); G57.01 Lesion of sciatic nerve, right lower limb; M70.61 Trochanteric bursitis, right hip; D50.9 Iron deficiency anemia, unspecified; I10 Essential (primary) hypertension; E78.2 Mixed hyperlipidemia; G43.009 Migraine without aura, not intractable, without status migrainosus; G35 Multiple sclerosis; K21.9 Gastro-esophageal reflux disease without esophagitis; E11.42 Type 2 diabetes mellitus with diabetic polyneuropathy; I25.10 Atherosclerotic heart disease of native coronary artery without angina pectoris; N18.31 Chronic kidney disease, stage 3a; E11.22 Type 2 diabetes mellitus with diabetic chronic kidney disease; G40.409 Other generalized epilepsy and epileptic syndromes, not intractable, without status epilepticus; M47.816 Spondylosis without myelopathy or radiculopathy, lumbar region; M47.812 Spondylosis without myelopathy or radiculopathy, cervical region; M47.814 Spondylosis without myelopathy or radiculopathy, thoracic region; Z79.4 Long term (current) use of insulin; Z79.82 Long term (current) use of aspirin; Z79.899 Other long term (current) drug therapy; Z88.2 Allergy status to sulfonamides; Z88.5 Allergy status to narcotic agent; Z88.8 Allergy status to other drugs, medicaments and biological substances ==

== ENCOUNTER → 2024-02-29 | Outpatient (CLI) | payer MEDICARE, MEDICAID ==
[~2024-02-29] MED LIST changes: -LIDO1CRE2 TOP; +LIDO4CRE12 TOP; -ROSU5TAB40 PO; +ROSU5TAB49 PO
== END ==
LOC: M PAIN 09:15
PROVIDERS: ATTEND Anesthesiology
DX: M51.16 Intervertebral disc disorders with radiculopathy, lumbar region (principal); M48.061 Spinal stenosis, lumbar region without neurogenic claudication; I10 Essential (primary) hypertension; G89.29 Other chronic pain; G57.01 Lesion of sciatic nerve, right lower limb; M70.61 Trochanteric bursitis, right hip; D50.9 Iron deficiency anemia, unspecified; E78.2 Mixed hyperlipidemia; G43.009 Migraine without aura, not intractable, without status migrainosus; G35 Multiple sclerosis; K21.9 Gastro-esophageal reflux disease without esophagitis; E11.42 Type 2 diabetes mellitus with diabetic polyneuropathy; I25.10 Atherosclerotic heart disease of native coronary artery without angina pectoris; N18.31 Chronic kidney disease, stage 3a; E11.22 Type 2 diabetes mellitus with diabetic chronic kidney disease; G40.409 Other generalized epilepsy and epileptic syndromes, not intractable, without status epilepticus; M47.816 Spondylosis without myelopathy or radiculopathy, lumbar region; M47.812 Spondylosis without myelopathy or radiculopathy, cervical region; M47.814 Spondylosis without myelopathy or radiculopathy, thoracic region; Z79.4 Long term (current) use of insulin; Z79.82 Long term (current) use of aspirin; Z79.899 Other long term (current) drug therapy; Z88.2 Allergy status to sulfonamides; Z88.5 Allergy status to narcotic agent; Z88.8 Allergy status to other drugs, medicaments and biological substances

== ENCOUNTER → 2024-04-17 | Outpatient (CLI) | payer MEDICARE, MEDICAID | LOC: M SOG 07:54 | PROVIDERS: ATTEND Physician Assistant | DX: M25.561 Pain in right knee (principal); M25.562 Pain in left knee; M17.0 Bilateral primary osteoarthritis of knee ==

== ENCOUNTER → 2024-05-14 | Outpatient (REF) | payer MEDICARE, MEDICAID ==
[2024-05-14 18:24] LABS: PERCENT SATURATION 68.9 % (13.2-45.0)
[2024-05-14 18:30] LABS: BASO % 0.4 % (0.0-1.0); EOS # 0.1 10^3/uL (0.0-0.5); EOS % 1.5 % (0.0-3.0); HEMATOCRIT 38.3 % (36.0-47.0); HEMOGLOBIN 12.2 g/dl (12.0-15.5); LYMPH # 1.9 10^3/uL (1.5-5.0); LYMPH % 26.2 % (24.0-44.0); MEAN CORPUSCULAR HEMOGLOBIN 32.4 pg (27.0-33.0); MEAN CORPUSCULAR HGB CONC 31.9 g/dl (32.0-36.5); MEAN CORPUSCULAR VOLUME 101.9 fl (80.0-96.0); MONO # 0.6 10^3/uL (0.0-0.8); MONO % 7.9 % (2.0-8.0); NEUTROPHILS # 4.5 10^3/uL (1.5-8.5); NEUTROPHILS % 62.9 % (36.0-66.0); PLATELET COUNT, AUTOMATED 246 10^3/uL (150-450); RED BLOOD COUNT 3.76 10^6/uL (4.00-5.40); WHITE BLOOD COUNT 7.2 10^3/uL (4.0-10.0)
== END ==
LOC: M LAB REF 17:11
PROVIDERS: ATTEND Nurse Practitioner Family
DX: D64.9 Anemia, unspecified (principal)

== ENCOUNTER → 2024-05-15 | Outpatient (CLI) | payer MEDICARE, MEDICAID | LOC: M RAD 10:21 | PROVIDERS: ATTEND Nurse Practitioner Family | DX: M25.512 Pain in left shoulder (principal) ==

== ENCOUNTER → 2024-06-26 | Outpatient (CLI) | payer MEDICARE, MEDICAID | LOC: M SOG 07:50 | PROVIDERS: ATTEND Orthopaedic Surgery | DX: M54.2 Cervicalgia (principal) ==

== ENCOUNTER → 2024-09-21 | Outpatient (CLI) | payer MEDICAID, MEDICARE ==
[~2024-09-21] MED LIST changes: +AMLO-751 PO; -AMLO10TA PO; +AMMO12CR4 TOP; -AMMO12CR7 TOP; +ISOVUE-370 76% 100 ML VIAL As Ordered ONE; +LIDO1ADH93 TOP; -LIDO5DIS41 TOP; +PRAV40TA85 PO; +PREG-35 PO; -PREG100CA PO
== END ==
LOC: M RAD 14:26
PROVIDERS: ATTEND Otolaryngology
DX: E04.2 Nontoxic multinodular goiter (principal)
CPT/HCPCS: 70491; Q9967

== ENCOUNTER → 2024-11-06 | Outpatient (CLI) | payer MEDICARE, MEDICAID ==
[~2024-11-06] MED LIST changes: +ACET-1515 PO; -ACET650T15 PO; +CYAN250T5 PO; -ISOVUE-370 76% 100 ML VIAL As Ordered ONE; +MAG-84TA PO; -VITA250T7 PO; -VITA500T17 PO; +VITA500T8 PO
[2024-11-06 12:36] LABS: BASO # 0.0 10^3/uL (0.0-0.2); BASO % 0.6 % (0.0-1.0); EOS # 0.1 10^3/uL (0.0-0.5); EOS % 0.9 % (0.0-3.0); LYMPH # 1.4 10^3/uL (1.5-5.0); LYMPH % 20.4 % (24.0-44.0); MONO # 0.6 10^3/uL (0.0-0.8); MONO % 8.3 % (2.0-8.0); NEUTROPHILS # 4.7 10^3/uL (1.5-8.5); NEUTROPHILS % 68.8 % (36.0-66.0); PLATELET COUNT, AUTOMATED 254 10^3/uL (150-450)
[2024-11-06 12:37] LABS: APPEARANCE, URINE CLEAR (CLEAR); BACTERIA, URINE AUTO NEGATIVE (NEGATIVE); BILIRUBIN, URINE AUTO NEGATIVE (NEGATIVE); BLOOD, URINE BLOOD NEGATIVE (NEGATIVE); GLUCOSE, URINE (UA) AUTO NEGATIVE (NEGATIVE); KETONE, URINE AUTO NEGATIVE (NEGATIVE); LEUKOCYTE ESTERASE, URINE AUTO NEGATIVE (NEGATIVE); MUCUS, URINE SMALL (NEGATIVE); NITRITE, URINE AUTO NEGATIVE (NEGATIVE); PROTEIN, URINE AUTO NEGATIVE (NEGATIVE); RBC, URINE AUTO 0 /HPF (0-3); SPECIFIC GRAVITY URINE AUTO 1.008 (1.002-1.035); SQUAMOUS EPITHELIAL CELL UR AU 0 /HPF (0-6); UROBILINOGEN, URINE AUTO 0.2 mg/dL (0.0-2.0); WBC, URINE AUTO 0 /HPF (0-3)
[2024-11-06 12:46] LABS: INR 1.02
[2024-11-06 12:59] LABS: CALCIUM LEVEL 9.6 MG/DL (8.3-10.6); CARBON DIOXIDE LEVEL 27.0 MMOL/L (20-31); CHLORIDE LEVEL 107.0 MMOL/L (98-107); CREATININE FOR GFR 1.18 MG/DL (0.55-1.30); GLOMERULAR FILTRATION RATE 50.6 (>45); POTASSIUM SERUM 4.2 MMOL/L (3.5-5.1); SODIUM LEVEL 144.0 MMOL/L (136-145)
== END ==
LOC: M LAB 10:41
PROVIDERS: ATTEND Student in an Organized Health Care Education/Training Program
DX: Z01.818 Encounter for other preprocedural examination (principal); Z79.899 Other long term (current) drug therapy

== ENCOUNTER → 2024-11-15 | Outpatient (CLI) | payer MEDICARE ==
[~2024-11-15] MED LIST changes: -EZET10TA21; -EZET10TA21 PO; +EZET10TA57; +EZET10TA57 PO
== END ==
LOC: M RAD 14:34
PROVIDERS: ATTEND Neurological Surgery
DX: M48.02 Spinal stenosis, cervical region (principal); M54.12 Radiculopathy, cervical region

== ENCOUNTER → 2024-11-19 | Outpatient (CLI) | payer MEDICARE | LOC: M RAD 10:35 | PROVIDERS: ATTEND Student in an Organized Health Care Education/Training Program | DX: Z01.818 Encounter for other preprocedural examination (principal) ==

== ENCOUNTER → 2024-11-20 | Day surgery (SDC) | payer MEDICARE ==
[~2024-11-20] VITALS: Ht 152.4 cm; Wt 78.0 kg
[~2024-11-20] MED LIST changes: +HOME MED LIST COMPLETE! XX SCH; +HYDROmorphone HCL 2 MG/ML 1 ML VIAL As Ordered ONE; +LIDOCAINE 2% 100 MG/5 ML SDV (FOR ANES.) As Ordered ONE; +LR 1,000 ML IV SCH; +MIDAZOLAM INJ 2 MG/2 ML VIAL As Ordered ONE; +REMIFENTANIL 1MG VIAL As Ordered ONE; +SUCCINYLCHOLINE 100MG/5ML SYRINGE As Ordered ONE; +ceFAZolin SOD 2 GM IV ONCE IV ONE
[2024-11-20 07:25] VITALS: TEMP 97.2; O2SAT 95
== END | disposition home or self-care (01) ==
LOC: M SDC 07:14
PROVIDERS: ATTEND Neurological Surgery
DX: M54.12 Radiculopathy, cervical region (principal); Z53.09 Procedure and treatment not carried out because of other contraindication

== ENCOUNTER → 2025-01-21 | Outpatient (REF) | payer MEDICARE, OTHER ==
[~2025-01-21] MED LIST changes: -HOME MED LIST COMPLETE! XX SCH; -HYDROmorphone HCL 2 MG/ML 1 ML VIAL As Ordered ONE; -LIDOCAINE 2% 100 MG/5 ML SDV (FOR ANES.) As Ordered ONE; -LR 1,000 ML IV SCH; -MIDAZOLAM INJ 2 MG/2 ML VIAL As Ordered ONE; -REMIFENTANIL 1MG VIAL As Ordered ONE; -SUCCINYLCHOLINE 100MG/5ML SYRINGE As Ordered ONE; -ceFAZolin SOD 2 GM IV ONCE IV ONE
[2025-01-21 12:14] LABS: BASO # 0.0 10^3/uL (0.0-0.2); BASO % 0.3 % (0.0-1.0); EOS # 0.1 10^3/uL (0.0-0.5); EOS % 1.1 % (0.0-3.0); LYMPH # 1.6 10^3/uL (1.5-5.0); LYMPH % 22.4 % (24.0-44.0); MONO # 0.5 10^3/uL (0.0-0.8); MONO % 6.4 % (2.0-8.0); NEUTROPHILS # 5.1 10^3/uL (1.5-8.5); NEUTROPHILS % 69.3 % (36.0-66.0); PLATELET COUNT, AUTOMATED 246 10^3/uL (150-450)
[2025-01-21 12:22] LABS: ALT/SGPT 19.0 U/L (7.0-40); AST/SGOT 23.0 U/L (<34); CALCIUM LEVEL 8.8 MG/DL (8.3-10.6); CARBON DIOXIDE LEVEL 24.0 MMOL/L (20-31); CHLORIDE LEVEL 111.0 MMOL/L (98-107); CREATININE FOR GFR 1.19 MG/DL (0.55-1.30); GLOMERULAR FILTRATION RATE 49.8 (>45); POTASSIUM SERUM 4.2 MMOL/L (3.5-5.1); SODIUM LEVEL 142.0 MMOL/L (136-145)
[2025-01-21 12:32] LABS: INR 1.02
[2025-01-21 14:35] LABS: APPEARANCE, URINE CLEAR (CLEAR); BACTERIA, URINE AUTO NEGATIVE (NEGATIVE); BILIRUBIN, URINE AUTO NEGATIVE (NEGATIVE); BLOOD, URINE BLOOD 1+ (NEGATIVE); GLUCOSE, URINE (UA) AUTO NEGATIVE (NEGATIVE); KETONE, URINE AUTO NEGATIVE (NEGATIVE); LEUKOCYTE ESTERASE, URINE AUTO NEGATIVE (NEGATIVE); NITRITE, URINE AUTO NEGATIVE (NEGATIVE); PROTEIN, URINE AUTO 1+ mg/dL (NEGATIVE); RBC, URINE AUTO 1 /HPF (0-3); SPECIFIC GRAVITY URINE AUTO 1.012 (1.002-1.035); SQUAMOUS EPITHELIAL CELL UR AU 1 /HPF (0-6); UROBILINOGEN, URINE AUTO 0.2 mg/dL (0.0-2.0); WBC, URINE AUTO 1 /HPF (0-3)
== END ==
LOC: M LAB REF 12:04
PROVIDERS: ATTEND Student in an Organized Health Care Education/Training Program
DX: Z01.818 Encounter for other preprocedural examination (principal); R10.11 Right upper quadrant pain

== ENCOUNTER 2025-02-01 19:08 | Emergency (ER) | payer MEDICARE, MEDICAID ==
[~2025-02-01] VITALS: Ht 152.4 cm; Wt 77.9 kg
[2025-02-01 19:41] LABS: BASO # 0.0 10^3/uL (0.0-0.2); BASO % 0.2 % (0.0-1.0); EOS # 0.1 10^3/uL (0.0-0.5); EOS % 1.1 % (0.0-3.0); LYMPH # 2.1 10^3/uL (1.5-5.0); LYMPH % 18.1 % (24.0-44.0); MONO # 0.8 10^3/uL (0.0-0.8); MONO % 6.8 % (2.0-8.0); NEUTROPHILS # 8.2 10^3/uL (1.5-8.5); NEUTROPHILS % 69.2 % (36.0-66.0); PLATELET COUNT, AUTOMATED 264 10^3/uL (150-450)
[2025-02-01 19:57] LABS: CK-MB VALUE MASS 2.7 NG/ML (<3.6)
[2025-02-01 19:58] LABS: CALCIUM LEVEL 8.6 MG/DL (8.3-10.6); CARBON DIOXIDE LEVEL 26.0 MMOL/L (20-31); CHLORIDE LEVEL 109.0 MMOL/L (98-107); CREATININE FOR GFR 1.36 MG/DL (0.55-1.30); GLOMERULAR FILTRATION RATE 42.4 (>45); POTASSIUM SERUM 4.1 MMOL/L (3.5-5.1); SODIUM LEVEL 144.0 MMOL/L (136-145)
[2025-02-01 20:04] LABS: CPK CREATINE PHOSPHOKINASE 173.0 U/L (34-145); MB/CK RELATIVE INDEX 1.56 (< OR =4)
[2025-02-01] MEDS ORDERED: HEPARIN SOD 5000 UNITS/ML 1 ML VIAL/SYRINGE IV PRN (21:15)
[2025-02-01 21:17] LABS: CK-MB VALUE MASS 2.6 NG/ML (<3.6)
[2025-02-01 21:20] LABS: CPK CREATINE PHOSPHOKINASE 157.0 U/L (34-145); MB/CK RELATIVE INDEX 1.65 (< OR =4)
[2025-02-01] MEDS: HEPARIN DRIP 25,000 UNITS in IV 1 EA IV SCH (21:49)
[2025-02-01 21:50] LABS: PLATELET COUNT, AUTOMATED 232 10^3/uL (150-450)
[2025-02-01] MEDS: hydrALAZINE 20 MG/ML 1 ML VIAL IV ONE (22:14)
[2025-02-01] MEDS ORDERED: ISOVUE-370 76% 100 ML VIAL As Ordered ONE (22:31)
[2025-02-01 22:37] VITALS: BP 218/99
[2025-02-01] MEDS: NITROGLYCERIN 2% OINT 1 GM *U/D* PKT TOP ONE (22:37)
[2025-02-01] MEDS: MORPHINE 4 MG/ML 1 ML VIAL IV PRN (22:43)
[2025-02-01 23:10] VITALS: BP 218/102; TEMP 98.9; O2SAT 99
[2025-02-01 23:25] VITALS: BP 182/94; TEMP 98.5; O2SAT 98
[2025-02-01] MEDS: NITROGLYCERIN/D5W 100MCG/ML 25 MG in IV 1 EA IV SCH (23:25)
[2025-02-01 23:40] VITALS: BP 160/87; TEMP 98.9; O2SAT 99
[2025-02-02 00:10] VITALS: BP 166/83; TEMP 99.8; O2SAT 98
== END 2025-02-02 00:10 | disposition short-term general hospital (02) ==
LOC: M ED 19:08
DX: I21.4 Non-ST elevation (NSTEMI) myocardial infarction (principal); K92.2 Gastrointestinal hemorrhage, unspecified; I45.81 Long QT syndrome; I25.119 Atherosclerotic heart disease of native coronary artery with unspecified angina pectoris; I50.22 Chronic systolic (congestive) heart failure; I25.2 Old myocardial infarction; E11.9 Type 2 diabetes mellitus without complications; I11.0 Hypertensive heart disease with heart failure; E78.5 Hyperlipidemia, unspecified; E55.9 Vitamin D deficiency, unspecified; Z88.1 Allergy status to other antibiotic agents; Z88.2 Allergy status to sulfonamides; Z88.5 Allergy status to narcotic agent; Z88.8 Allergy status to other drugs, medicaments and biological substances; Z79.1 Long term (current) use of non-steroidal anti-inflammatories (NSAID); Z79.4 Long term (current) use of insulin; Z79.899 Other long term (current) drug therapy
CPT/HCPCS: 71045; 74174; 80048; 82550; 82553; 84484; 85025; 85027; 85730; 86850; 86900; 86901; 86920; 93005; 93041; 94760; 96365; 96375; 99285; J0360; J2305; P9016; Q9967

== ENCOUNTER → 2025-02-01 | Outpatient (CLI) | payer MEDICARE, MEDICAID | LOC: M RAD 09:37 | PROVIDERS: ATTEND Student in an Organized Health Care Education/Training Program | DX: Z01.818 Encounter for other preprocedural examination (principal) ==